=== PATIENT | male | born 1950 | race Caucasian/White ===

== ENCOUNTER 2021-06-15 12:17 | Inpatient (IN) | payer OTHER, MEDICAID ==
[~2021-06-15] VITALS: Ht 182.9 cm; Wt 96.2 kg
[2021-06-15 12:25] VITALS: BP_SYST 138
--- NOTE | 2021-06-15 12:26 | NUR ---
Patient to ER bed 04 to gown for evaluation. Side rails up.
--- NOTE | 2021-06-15 12:28 | NUR ---
[facility] , A&Ox3, pt presents to ER with wound/ulcer on R foot , per caregiver patient needs treatment since [facility] is unable to provide wound care for presure ulcers greater than stage 2, pt afebrile, skin pink and warm, follows commands, VSS, respirations even and unlabored.
[2021-06-15] MEDS ORDERED: MULT-976 PO (13:00)
[2021-06-15] MEDS ORDERED: TAMS-11 PO (13:00)
[2021-06-15] MEDS ORDERED: SITA100T11 PO (13:00)
[2021-06-15] MEDS ORDERED: PIPERACILLIN/TAZO 3.38 GM in D5W 50 ML IV ONE (13:00)
[2021-06-15] MEDS ORDERED: INSU100V42 (13:00)
[2021-06-15] MEDS ORDERED: MIRT-114 PO (13:00)
[2021-06-15] MEDS ORDERED: FINA5TAB3 PO (13:00)
[2021-06-15] MEDS ORDERED: LIP40 PO (13:00)
[2021-06-15] MEDS ORDERED: DOCU-144 PO (13:00)
[2021-06-15] MEDS ORDERED: CYAN250010 PO (13:00)
[2021-06-15] MEDS ORDERED: FAMO20TA8 PO (13:00)
[2021-06-15] MEDS ORDERED: AMLO2.5T2 PO (13:00)
[2021-06-15] MEDS ORDERED: HYDR-3917 PO (13:00)
[2021-06-15] MEDS ORDERED: ASCO500T20 PO (13:00)
[2021-06-15] MEDS ORDERED: CLOP75TA32 PO (13:00)
[2021-06-15] MEDS ORDERED: GABA-529 PO (13:00)
[2021-06-15] MEDS ORDERED: VANCOMYCIN HCL 1,000 MG in D5W 250 ML IV ONE (13:00)
[2021-06-15] MEDS ORDERED: ASPI-1393 PO (13:00)
[2021-06-15] MEDS ORDERED: SENN8.6T19 PO (13:00)
[2021-06-15] MEDS ORDERED: METO-290 PO (13:00)
--- NOTE | 2021-06-15 13:00 | NUR ---
Dr Galvan evaluating patient at bedside
--- NOTE | 2021-06-15 13:01 | NUR ---
Medication reconciliation completed with information provided by [facility]. Any prior medication reconciliation on file was reviewed and corrected.
[2021-06-15 13:15] LABS: BASOPHILS % (AUTO) 0.3 % (0.0-2.0); EOSINOPHILS # (AUTO) 0.1 K/uL (0.0-0.4); EOSINOPHILS % (AUTO) 0.7 % (0.0-4.0); HEMATOCRIT 26.2 % (36-54); HEMOGLOBIN 8.3 g/dL (14.0-18.0); LYMPHOCYTES # (AUTO) 2.7 K/uL (1.0-5.5); LYMPHOCYTES % (AUTO) 17.1 % (20.5-51.5); MEAN CORPUSCULAR HEMOGLOBIN 30 pg (27-31); MEAN CORPUSCULAR HGB CONC 32 % (32-36); MEAN CORPUSCULAR VOLUME 93 fL (79.0-98.0); MONOCYTES # (AUTO) 0.7 K/uL (0.0-1.0); MONOCYTES % (AUTO) 4.2 % (1.7-9.3); NEUTROPHILS # (AUTO) 12.1 K/uL (1.8-7.7); NEUTROPHILS % (AUTO) 77.7 % (40.0-70.0); PLATELET COUNT (AUTO) 383 K/uL (130-430); RED BLOOD CELL COUNT(AUTO) 2.81 MIL/uL (4.2-6.2); RED CELL DISTRIBUTION WIDTH 13.6 % (9.0-15.0); WHITE BLOOD COUNT (AUTO) 15.6 K/uL (4.8-10.8)
[2021-06-15] MEDS ORDERED: PIPERACILLIN/TAZOBACTAM 3.375 GM/VIAL (ZOSYN) IV ONE (13:23)
[2021-06-15] MEDS ORDERED: VANCOMYCIN HCL 1000 MG/VIAL IV ONE (13:23)
[2021-06-15 13:29] LABS: ANION GAP 10 (5-15); CALCIUM 7.8 mg/dL (8.4-11.0); CHLORIDE 106 mmol/L (98-107); CREATININE 1.05 mg/dL (0.55-1.30); GLUCOSE 237 mg/dL (70-99); POTASSIUM 4.9 mmol/L (3.5-5.1); SODIUM SERUM 141 mmol/L (136-145); UREA NITROGEN, BLOOD 33 mg/dL (8-21)
[2021-06-15 13:33] LABS: INR 1.1 (0.80-1.20); PROTHROMBIN TIME 11.1 SECS (9.5-12.5)
[2021-06-15 13:34] LABS: ALANINE AMINOTRANSFERASE 25 U/L (12-78); ALBUMIN 2.5 g/dL (3.4-4.8); ASPARTATE AMINOTRANSFERASE 25 U/L (10-37); TOTAL BILIRUBIN 0.4 mg/dL (0.0-1.0)
--- NOTE | 2021-06-15 13:42 | NUR ---
Notified ED Admittingg regarding Dr. Galvan's request for admission/transfer. Per Dr. Galvan, pt is stable for transfer. Will contact health insurance specialist regarding this matter. PER FACESHEET: VIN MARROQUIN - VIN HARRIS
--- NOTE | 2021-06-15 13:55 | NUR ---
GENERAL ASSEMBLER INSTALLER REQUESTED FAX OF FACESHEET AND CLINICALS AND A JUNIOR MEDIA BUYER WILL CALL BACK. FAX: [phone] ATTN: ANAID
--- NOTE | 2021-06-15 14:13 | NUR ---
portable xray at bedside with patient.
[2021-06-15 14:16] LABS: ERYTHROCYTE SEDIMENTATION RATE 111 MM/HR (0-15)
--- NOTE | 2021-06-15 15:12 | NUR ---
spoke to jada. they are looking for an availible bed for tx.
[2021-06-15 16:15] LABS: BILIRUBIN,URINE NEGATIVE (NEGATIVE); BLOOD, URINE 2+ (NEGATIVE); CLARITY/URINE TURBID (CLEAR); COLOR,URINE ORANGE (YELLOW); GLUCOSE,URINE TRACE (NEGATIVE); KETONES,URINE TRACE (NEGATIVE); LEUKOCYTE ESTERASE ,URINE 3+ (NEGATIVE); NITRITE, URINE POSITIVE (NEGATIVE); PH,URINE 8.5 (5.0-8.0); PROTEIN URINE 3+ (NEGATIVE)
[2021-06-15 16:37] LABS: RBC,URINE >100 /HPF (0-3)
[2021-06-15 16:39] LABS: BACTERIA,URINE MANY /HPF (None Seen); MUCUS,URINE 3+ /LPF (None Seen); WBC,URINE >100 /HPF (0-3)
--- NOTE | 2021-06-15 19:04 | NUR ---
PATIENT TO BE TRANSFERED TO ANOTHER FACILITY D/T INSURANCE FOR ADMISSION. AWAITING FOR INSURANCE TO CALL BACK FOR BED PLACEMENT. PT RESTING ON GURNEY AT THIS TIME. NAD NOTED.
--- NOTE | 2021-06-15 19:26 | NUR ---
report given to dev mello to assume care.
--- NOTE | 2021-06-15 20:53 | NUR ---
Patient will be admitted to care of . Admitted to MS unit. Will go to room 118B. Belongings list completed. Complete and up to date summary report printed. SBAR report to be given at bedside with opportunity for questions.
--- NOTE | 2021-06-15 21:23 | NUR ---
Patient's code status is FULL CODE paperwork completed and placed in chart.
[2021-06-15] MEDS: traMADol HCL HCL 50 MG TABLET (ULTRAM) PO SCH (23:45)
[2021-06-15] MEDS: PIPERACILLIN/TAZO 3.375/DEX-IS 50 ML IV SCH (23:45)
[2021-06-16] MEDS: 0.45% NACL 1,000 ML IV SCH ×2 (00:34→15:04)
[2021-06-16 00:45] VITALS: BP_SYST 120
[2021-06-16] MEDS ORDERED: VANCOMYCIN HCL 1 GM/NS PREMIX 250 ML IV ONE (01:30)
--- NOTE | 2021-06-16 04:13 | NUR ---
I INFORMED MY CHARGE NURSE ABOUT CONSULTATION DR. RIBERA ENTERED FOR DR. DESI ELIZABETH WE DO NOT HAVE ANY NUMBER TO CONTACT THIS DOCTOR I WILL PASS THIS INFORMATION TO MORNING SIGN LANGUAGE INSTRUCTOR
[2021-06-16] MEDS ORDERED: PIPERACILLIN/TAZOBACTAM 3.375 GM/VIAL (ZOSYN) IV ONE (05:32)
[2021-06-16] MEDS: traMADol HCL HCL 50 MG TABLET (ULTRAM) PO SCH ×4 (06:00→18:01)
[2021-06-16] MEDS: PIPERACILLIN/TAZO 3.375/DEX-IS 50 ML IV SCH ×4 (06:34→18:30)
--- NOTE | 2021-06-16 07:40 | NUR ---
OPENING NOTE Patient in bed sleeping, no sign of respiratory distress on room air, no sign of pain at this time. Patient's heels are floating and pillows are being used to offset weight. IV site is clean, dry, intact and running prescribed fluids. All needs met at this time, safety checks made, and will continue to monitor.
[2021-06-16 08:00] VITALS: BP_SYST 126
[2021-06-16] MEDS: VANCOMYCIN HCL 1,000 MG in NS 250 ML IV SCH ×2 (08:51→21:15)
[2021-06-16] MEDS: amLODIPine BESYLATE 5 MG TABLET PO SCH (09:00)
[2021-06-16] MEDS: DOCUSATE SODIUM 100 MG CAPSULE PO SCH ×2 (09:00→21:15)
[2021-06-16] MEDS: GABAPENTIN 100 MG CAPSULE PO SCH (09:22)
[2021-06-16] MEDS: ASCORBIC ACID 500 MG TABLET PO SCH (09:22)
[2021-06-16] MEDS: FINASTERIDE 5 MG TABLET (PROSCAR) PO SCH (09:22)
[2021-06-16] MEDS: MULTIVITAMINS TAB 1 TABLET PO SCH (09:22)
[2021-06-16] MEDS: CLOPIDOGREL BISULFATE 75 MG TABLET PO SCH (09:22)
[2021-06-16] MEDS: SENNOSIDES 8.6 MG TABLET PO SCH (09:22)
[2021-06-16] MEDS: TAMSULOSIN HCL 0.4 MG CAP PO SCH (09:23)
[2021-06-16] MEDS: ASPIRIN 81 MG TABLET(ECOTRIN) PO SCH (09:23)
[2021-06-16] MEDS: FAMOTIDINE 20 MG TABLET PO SCH (09:23)
--- NOTE | 2021-06-16 09:30 | NUR ---
PAIN Patient complained of pain in his legs and feet, states that it gets worse when he is moved around. Offered to help patient reposition, and provided tylenol. Will continue to monitor.
[2021-06-16] MEDS: ACETAMINOPHEN 325 MG TABLET PO PRN (09:38)
[2021-06-16 12:00] VITALS: BP_SYST 132
--- NOTE | 2021-06-16 15:22 | NUR ---
CONSULTATION PAGED/CALLED Reason for Consultation: [] UTI AND R HEEL INFECTION Person Who was Notified: [] MICH Consulting Physician: [] DR FRITZ Transportation Attendant Specialty: [] ID Ordering Physician: [] DR RIBERA
[2021-06-16 16:51] VITALS: BP_SYST 128
--- NOTE | 2021-06-16 19:40 | NUR ---
OPENING NOTES/ROUNDS RECEIVED REPORT FROM OUTGOING NURSE. PT LYING IN BED RESTING. ON ASSESSMENT NOTED PT C/O HUN FER THAT HE HAS NOT HAD DINNER. DINNER TRAY ON THE BEDSIDE TABLE UNTOUCHED. PT IS A FEEDER. ASKED THE DRILLER HELPER TO HELP FEED HIM, GOT REPORT FROM DRILLER HELPER THAT PT COULD NOT EAT/SWALLOW. PT OFFERED APPLE SAUCE, APPLE JUICE. PT HAS IV RT HAND, 22 G RUNNING WITH 1/2 NS @75ML/HR. VITALS WNL.
--- NOTE | 2021-06-16 19:57 | NUR ---
CLOSING NOTE Patient awake in bed, no sign of shortness of breath. Patient states that he only has pain when he is moved around. IV is patent and running prescribed fluids. All needs met at this time and safety checks made. Report given to night nurse, all questions answered and new wound care orders reviewed.
[2021-06-16] MEDS: MEGESTROL ACETATE 400 MG/10 ML UDC PO SCH (21:17)
[2021-06-16] MEDS: MIRTAZAPINE 15 MG TABLET PO SCH (21:17)
[2021-06-16] MEDS: ENOXAPARIN SODIUM 40 MG/0.4 ML SYRINGE SUBCUT SCH (21:19)
[2021-06-16] MEDS: ATORVASTATIN 20 MG TABLET PO SCH (21:25)
[2021-06-17] MEDS: traMADol HCL HCL 50 MG TABLET (ULTRAM) PO SCH ×3 (00:45→18:00)
[2021-06-17] MEDS: PIPERACILLIN/TAZO 3.375/DEX-IS 50 ML IV SCH ×5 (00:53→23:18)
[2021-06-17] MEDS: 0.45% NACL 1,000 ML IV SCH ×2 (02:25→16:52)
[2021-06-17 03:07] VITALS: BP_SYST 137
[2021-06-17] MEDS: INSULIN REGULAR, HUMAN 100 UNITS/ML, 10 ML VIAL (humuLIN R) SUBCUT PRN ×2 (06:45→16:54)
[2021-06-17 07:03] LABS: BASOPHILS % (AUTO) 0.3 % (0.0-2.0); EOSINOPHILS # (AUTO) 0.7 K/uL (0.0-0.4); EOSINOPHILS % (AUTO) 4.1 % (0.0-4.0); HEMATOCRIT 22.7 % (36-54); HEMOGLOBIN 7.5 g/dL (14.0-18.0); LYMPHOCYTES # (AUTO) 2.4 K/uL (1.0-5.5); LYMPHOCYTES % (AUTO) 14.9 % (20.5-51.5); MEAN CORPUSCULAR HEMOGLOBIN 30 pg (27-31); MEAN CORPUSCULAR HGB CONC 33 % (32-36); MEAN CORPUSCULAR VOLUME 91 fL (79.0-98.0); MONOCYTES # (AUTO) 0.6 K/uL (0.0-1.0); MONOCYTES % (AUTO) 3.8 % (1.7-9.3); NEUTROPHILS # (AUTO) 12.6 K/uL (1.8-7.7); NEUTROPHILS % (AUTO) 76.9 % (40.0-70.0); PLATELET COUNT (AUTO) 283 K/uL (130-430); RED BLOOD CELL COUNT(AUTO) 2.49 MIL/uL (4.2-6.2); RED CELL DISTRIBUTION WIDTH 13.5 % (9.0-15.0); WHITE BLOOD COUNT (AUTO) 16.4 K/uL (4.8-10.8)
[2021-06-17 07:33] LABS: ANION GAP 7 (5-15); CALCIUM 7.2 mg/dL (8.4-11.0); CHLORIDE 103 mmol/L (98-107); CREATININE 0.78 mg/dL (0.55-1.30); GLUCOSE 163 mg/dL (70-99); POTASSIUM 3.5 mmol/L (3.5-5.1); SODIUM SERUM 138 mmol/L (136-145); UREA NITROGEN, BLOOD 27 mg/dL (8-21)
[2021-06-17 08:00] VITALS: BP_SYST 131
[2021-06-17] MEDS ORDERED: ESCITALOPRAM OXALATE 10 MG TABLET PO SCH (09:00)
[2021-06-17] MEDS: CLOPIDOGREL BISULFATE 75 MG TABLET PO SCH (09:12)
[2021-06-17] MEDS: ASPIRIN 81 MG TABLET(ECOTRIN) PO SCH (09:12)
[2021-06-17] MEDS: TAMSULOSIN HCL 0.4 MG CAP PO SCH (09:13)
[2021-06-17] MEDS: DOCUSATE SODIUM 100 MG CAPSULE PO SCH ×2 (09:13→21:00)
[2021-06-17] MEDS: SENNOSIDES 8.6 MG TABLET PO SCH (09:13)
[2021-06-17] MEDS: FAMOTIDINE 20 MG TABLET PO SCH (09:13)
[2021-06-17] MEDS: ASCORBIC ACID 500 MG TABLET PO SCH (09:13)
[2021-06-17] MEDS: FINASTERIDE 5 MG TABLET (PROSCAR) PO SCH (09:13)
[2021-06-17] MEDS: amLODIPine BESYLATE 5 MG TABLET PO SCH (09:14)
[2021-06-17] MEDS: MEGESTROL ACETATE 400 MG/10 ML UDC PO SCH ×2 (09:14→23:08)
[2021-06-17] MEDS: MULTIVITAMINS TAB 1 TABLET PO SCH (09:14)
[2021-06-17] MEDS: CITALOPRAM HYDROBROMIDE 20 MG TABLET PO SCH (09:14)
[2021-06-17] MEDS: GABAPENTIN 100 MG CAPSULE PO SCH (09:20)
[2021-06-17] MEDS: VANCOMYCIN HCL 1,000 MG in NS 250 ML IV SCH ×2 (09:21→21:00)
[2021-06-17 12:14] VITALS: BP_SYST 130
[2021-06-17 16:20] VITALS: BP_SYST 132
[2021-06-17] MEDS: metroNIDAZOLE 500 MG TABLET PO SCH ×2 (16:50→23:08)
[2021-06-17] MEDS: BALSAM PERU/CASTOR OIL 56.7 GM OINT...G. TP SCH (17:17)
--- NOTE | 2021-06-17 17:29 | NUR ---
Dietitian Recommendations * CCHO, 2 gm Na diet w/ Glucerna TID, Roger BID (supplements yield 840 kcal/day, 35 gm protein/day) * Encourage increase PO intakes * Continue appetite stimulants LP, RD Please refer to Nutrition Assessment for details. Addendum: 06/17/21 at [address] Amended: Links added.
[2021-06-17] MEDS: CEFEPIME 1 GM in D5W 50 ML IV SCH (21:00)
[2021-06-17] MEDS: MIRTAZAPINE 15 MG TABLET PO SCH (23:08)
[2021-06-17] MEDS: ATORVASTATIN 20 MG TABLET PO SCH (23:08)
[2021-06-17] MEDS: ENOXAPARIN SODIUM 40 MG/0.4 ML SYRINGE SUBCUT SCH (23:23)
[2021-06-18 00:11] VITALS: BP_SYST 128
--- NOTE | 2021-06-18 03:26 | NUR ---
ASSUMED PT CARE @ 1900, PT RESTING IN BED. NAD NOTED. PIV INFILTRATED. 20 G PLACED TO LFA X 1 ATTEMPT. PT TOLERATED PROCEDURE.
[2021-06-18] MEDS: traMADol HCL HCL 50 MG TABLET (ULTRAM) PO SCH ×3 (06:00→16:17)
[2021-06-18] MEDS: 0.45% NACL 1,000 ML IV SCH ×2 (06:18→16:20)
[2021-06-18] MEDS: PIPERACILLIN/TAZO 3.375/DEX-IS 50 ML IV SCH (06:19)
[2021-06-18] MEDS: metroNIDAZOLE 500 MG TABLET PO SCH ×3 (06:25→21:05)
[2021-06-18 06:30] VITALS: BP_SYST 144
[2021-06-18 06:41] LABS: BASOPHILS % (AUTO) 0.1 % (0.0-2.0); EOSINOPHILS # (AUTO) 0.6 K/uL (0.0-0.4); EOSINOPHILS % (AUTO) 3.5 % (0.0-4.0); HEMOGLOBIN 7.2 g/dL (14.0-18.0); LYMPHOCYTES # (AUTO) 2.8 K/uL (1.0-5.5); LYMPHOCYTES % (AUTO) 17.7 % (20.5-51.5); MEAN CORPUSCULAR HEMOGLOBIN 30 pg (27-31); MEAN CORPUSCULAR HGB CONC 33 % (32-36); MEAN CORPUSCULAR VOLUME 91 fL (79.0-98.0); MONOCYTES # (AUTO) 0.6 K/uL (0.0-1.0); MONOCYTES % (AUTO) 3.9 % (1.7-9.3); NEUTROPHILS # (AUTO) 11.9 K/uL (1.8-7.7); NEUTROPHILS % (AUTO) 74.8 % (40.0-70.0); PLATELET COUNT (AUTO) 277 K/uL (130-430); RED BLOOD CELL COUNT(AUTO) 2.43 MIL/uL (4.2-6.2); RED CELL DISTRIBUTION WIDTH 13.4 % (9.0-15.0); WHITE BLOOD COUNT (AUTO) 15.9 K/uL (4.8-10.8)
[2021-06-18 07:08] LABS: ANION GAP 8 (5-15); CALCIUM 7.1 mg/dL (8.4-11.0); CHLORIDE 102 mmol/L (98-107); CREATININE 0.73 mg/dL (0.55-1.30); GLUCOSE 132 mg/dL (70-99); POTASSIUM 3.5 mmol/L (3.5-5.1); SODIUM SERUM 136 mmol/L (136-145); UREA NITROGEN, BLOOD 29 mg/dL (8-21)
[2021-06-18 08:00] VITALS: BP_SYST 125; BP_SYST 135
[2021-06-18] MEDS: CITALOPRAM HYDROBROMIDE 20 MG TABLET PO SCH (08:49)
[2021-06-18] MEDS: CEFEPIME 1 GM in D5W 50 ML IV SCH ×2 (08:49→21:01)
[2021-06-18] MEDS: VANCOMYCIN HCL 1,000 MG in NS 250 ML IV SCH (08:49)
[2021-06-18] MEDS: ASPIRIN 81 MG TABLET(ECOTRIN) PO SCH (08:50)
[2021-06-18] MEDS: DOCUSATE SODIUM 100 MG CAPSULE PO SCH ×2 (08:50→21:04)
[2021-06-18] MEDS: CLOPIDOGREL BISULFATE 75 MG TABLET PO SCH (08:51)
[2021-06-18] MEDS: MEGESTROL ACETATE 400 MG/10 ML UDC PO SCH ×2 (08:51→21:00)
[2021-06-18] MEDS: GABAPENTIN 100 MG CAPSULE PO SCH (08:51)
[2021-06-18] MEDS: MULTIVITAMINS TAB 1 TABLET PO SCH (08:51)
[2021-06-18] MEDS: TAMSULOSIN HCL 0.4 MG CAP PO SCH (08:51)
[2021-06-18] MEDS: ASCORBIC ACID 500 MG TABLET PO SCH (08:52)
[2021-06-18] MEDS: SENNOSIDES 8.6 MG TABLET PO SCH (08:52)
[2021-06-18] MEDS: FAMOTIDINE 20 MG TABLET PO SCH (08:52)
[2021-06-18] MEDS: amLODIPine BESYLATE 5 MG TABLET PO SCH (08:54)
[2021-06-18] MEDS: BALSAM PERU/CASTOR OIL 56.7 GM OINT...G. TP SCH (09:00)
[2021-06-18] MEDS: FINASTERIDE 5 MG TABLET (PROSCAR) PO SCH (09:08)
[2021-06-18] MEDS: INSULIN REGULAR, HUMAN 100 UNITS/ML, 10 ML VIAL (humuLIN R) SUBCUT PRN ×2 (11:23→16:51)
[2021-06-18 12:47] VITALS: BP_SYST 133
[2021-06-18 16:34] VITALS: BP_SYST 128
--- NOTE | 2021-06-18 19:25 | NUR ---
CHANGE OF SHIFT; endorsed by day shift. no distress. on contact isolation for MRSA rt. heel wound. call light within reach.
[2021-06-18 20:15] VITALS: BP_SYST 118
--- NOTE | 2021-06-18 20:30 | NUR ---
NOTES: pt. checked, fiinished eating his dinner. noted left sided weakness due to Hx CVA. IVF infusing via left arm. noted left upper extremity pretty swollen. pt. incontinent. asked CUTTER MACHINE TENDER to changed and reposition. bed alarm on. call light within reach.
[2021-06-18] MEDS: ATORVASTATIN 20 MG TABLET PO SCH (20:59)
[2021-06-18] MEDS: MIRTAZAPINE 15 MG TABLET PO SCH (21:04)
[2021-06-18] MEDS: ENOXAPARIN SODIUM 40 MG/0.4 ML SYRINGE SUBCUT SCH (21:07)
--- NOTE | 2021-06-19 00:03 | NUR ---
NOTES: pt. sleeping when checked. no distress. bed alarm on.
[2021-06-19 00:21] VITALS: BP_SYST 122
--- NOTE | 2021-06-19 03:00 | NUR ---
NOTES: pt. been sleeping comfortably. continue to monitor, condition observed.
--- NOTE | 2021-06-19 05:30 | NUR ---
NOTES: rt. heel and left calf wound changed dressing. repositioned.
[2021-06-19] MEDS: 0.45% NACL 1,000 ML IV SCH ×2 (06:07→21:01)
[2021-06-19] MEDS: metroNIDAZOLE 500 MG TABLET PO SCH ×4 (06:15→22:00)
--- NOTE | 2021-06-19 06:43 | NUR ---
CLOSING NOTES; BS checked, no sliding coverage. oral med taken with orange juice. IVF continuous. need further care and assistance. left arm elevated with pillow and both legs. bed alarm on. observed contact isolation. call light within reach.
--- NOTE | 2021-06-19 07:20 | NUR ---
RECEIVED PT FROM CHEL GARCIA. ASSUMED ALL CARE.
[2021-06-19 07:42] LABS: BASOPHILS % (AUTO) 0.3 % (0.0-2.0); EOSINOPHILS # (AUTO) 0.4 K/uL (0.0-0.4); EOSINOPHILS % (AUTO) 2.7 % (0.0-4.0); LYMPHOCYTES # (AUTO) 2.5 K/uL (1.0-5.5); LYMPHOCYTES % (AUTO) 17.1 % (20.5-51.5); MEAN CORPUSCULAR HEMOGLOBIN 29 pg (27-31); MEAN CORPUSCULAR HGB CONC 32 % (32-36); MEAN CORPUSCULAR VOLUME 91 fL (79.0-98.0); MONOCYTES # (AUTO) 0.5 K/uL (0.0-1.0); MONOCYTES % (AUTO) 3.5 % (1.7-9.3); NEUTROPHILS % (AUTO) 76.4 % (40.0-70.0); PLATELET COUNT (AUTO) 267 K/uL (130-430); RED BLOOD CELL COUNT(AUTO) 2.32 MIL/uL (4.2-6.2); RED CELL DISTRIBUTION WIDTH 13.5 % (9.0-15.0); WHITE BLOOD COUNT (AUTO) 14.4 K/uL (4.8-10.8)
[2021-06-19 08:07] LABS: ANION GAP 6 (5-15); CHLORIDE 103 mmol/L (98-107); GLUCOSE 106 mg/dL (70-99); POTASSIUM 3.7 mmol/L (3.5-5.1); SODIUM SERUM 135 mmol/L (136-145); UREA NITROGEN, BLOOD 22 mg/dL (8-21)
[2021-06-19] MEDS: CLOPIDOGREL BISULFATE 75 MG TABLET PO SCH (09:00)
[2021-06-19 09:15] LABS: HEMATOCRIT 21.2 % (36-54); HEMOGLOBIN 6.8 g/dL (14.0-18.0)
[2021-06-19 09:53] LABS: VANCOMYCIN,RANDOM 15.4 ug/mL
[2021-06-19] MEDS: MULTIVITAMINS TAB 1 TABLET PO SCH (10:22)
[2021-06-19] MEDS: CITALOPRAM HYDROBROMIDE 20 MG TABLET PO SCH (10:22)
[2021-06-19] MEDS: ASCORBIC ACID 500 MG TABLET PO SCH (10:22)
[2021-06-19] MEDS: ASPIRIN 81 MG TABLET(ECOTRIN) PO SCH (10:23)
[2021-06-19] MEDS: TAMSULOSIN HCL 0.4 MG CAP PO SCH (10:23)
[2021-06-19] MEDS: FAMOTIDINE 20 MG TABLET PO SCH (10:23)
[2021-06-19] MEDS: FINASTERIDE 5 MG TABLET (PROSCAR) PO SCH (10:23)
[2021-06-19] MEDS: MEGESTROL ACETATE 400 MG/10 ML UDC PO SCH ×2 (10:24→21:00)
[2021-06-19] MEDS: DOCUSATE SODIUM 100 MG CAPSULE PO SCH ×2 (10:25→21:00)
[2021-06-19] MEDS: amLODIPine BESYLATE 5 MG TABLET PO SCH (10:25)
[2021-06-19] MEDS: SENNOSIDES 8.6 MG TABLET PO SCH (10:25)
[2021-06-19] MEDS: GABAPENTIN 100 MG CAPSULE PO SCH (10:26)
[2021-06-19] MEDS: CEFEPIME 1 GM in D5W 50 ML IV SCH ×2 (10:27→21:01)
[2021-06-19] MEDS: BALSAM PERU/CASTOR OIL 56.7 GM OINT...G. TP SCH (10:28)
--- NOTE | 2021-06-19 10:30 | NUR ---
INFORMED DR. RIBERA PT'S HGB 6.8, RECEIVED ORDER TO TRANFUSE 2 UNITS PRBCS. ORDERS CARRIED OUT. PT MADE AWARE.
[2021-06-19 11:25] VITALS: BP_SYST 121
[2021-06-19] MEDS: traMADol HCL HCL 50 MG TABLET (ULTRAM) PO SCH ×4 (12:18→23:59)
[2021-06-19] MEDS: VANCOMYCIN HCL 1 GM/NS PREMIX 250 ML IV SCH (12:19)
--- NOTE | 2021-06-19 14:30 | NUR ---
PT NOTED WITH POOR APPETITE, DR. RIBERA MADE AWARE.
--- NOTE | 2021-06-19 16:00 | NUR ---
INFORMED CONSENT OBTAINED FOR PICC LINE.
[2021-06-19 16:45] VITALS: BP_SYST 126
--- NOTE | 2021-06-19 17:12 | NUR ---
WOUND EVALUATION: Wound Consult received from Dr. Winn. Thank you, Dr. Winn, for the consult. Patient received in a Upton Bed with an IsoFlex ZAHIRA mattress, awake, alert, confused. Patient is unable to turn independently. Jose Score is an 11. Past Medical History: Hypertension, Diabetes Mellitus, CVA, Right Heel pressure ulcer with infection, Benign Prostatic Hypertrophy. Recent Labs: WBC 14.4, RBC 2.32, hemoglobin 6.8, hematocrit 21.2, ESR 111, BUN 22.0, creatinine 0.60, glucose 106, POC glucose 155, calcium 7.0, albumin 2.5. Microbiology: Blood culture results x2 in progress. MRSA screen results negative. Right heel pressure ulcer wound culture results positive for Proteus Mirabilis, MRSA, and Enterococcus Faecalis. Urine culture results positive for Proteus Mirabilis. Intrinsic factors that delay wound healing: Diabetes Mellitus, CVA, Hyperglycemia, Hypoalbuminemia. Extrinsic factors that delay wound healing: Decreased mobility. Wound Assessment: 1. Right Posterior Heel: Unstageable pressure ulcer, present on admission. Wound bed has 100% black eschar. No odor, scant brown drainage. Periwound intact. Wound measures 6.0 cm x 7.0 cm. Recommend: Cleanse wound with normal saline. Apply moisture barrier cream to margo-wound. Apply to wound bed cover with non-adhesive foam dressing. Secure with tape. Perform wound care daily, and as needed for dressing soiling or dislodgement. 2. Right Dorsal Foot, Distal and Right Lateral to Ankle joint line: Chronic wound of unknown etiology, present on admission. Wound bed has 100% black scab. No odor, no drainage. Periwound intact. Wound measures 0.5 cm x 0.5 cm. 3. Right Lateral Malleolus: Unstageable pressure ulcer, present on admission. Wound bed has 100% brown eschar. No odor, no drainage. Dry, stable. Periwound intact. Wound measures 1.0 cm x 0.8 cm. 4. Right Distal Lateral Lower Extremity: Unstageable pressure ulcer, present on admission. Wound bed has 90% black eschar, 10% yellow eschar. No odor, no drainage. Periwound intact. Dry, stable. Wound measures 4.1 cm x 2.0 cm. 5. Right Lateral Foot, Middle Aspect: Unstageable pressure ulcer, present on admission. Wound bed has 80% black eschar, 20% yellow eschar. No odor, no drainage. Periwound intact. Dry, stable. Wound measures 3.4 cm x 1.8 cm. Recommend: Masthope sites with Betadine. Allow to air dry. Cover sites with foam dressings. Wrap with Arnaldo wrap and secure with tape. Perform site care daily, and as needed for dressing soiling or dislodgment. 6. Left lateral plantar foot near first metatarsal head: Unstageable pressure ulcer, present on admission. Wound bed has 90% brown eschar, 10% dark brown eschar. No odor, no drainage. Dry, stable. Wound measures 1.5 cm x 1.0 cm. Recommend: Masthope site with Betadine. Allow to air dry. Cover site with 4x4 foam dressing. Perform site care daily, and as needed for dressing soiling or dislodgment. Also recommend: Encourage and assist patient as needed with repositioning every 2 hours with pillow support and off-load pressure areas with pillows for pressure re-distribution. Offload, elevate and float bilateral heels with pillows. Perform skin care and monitor skin integrity Q shift. Use moisture barrier cream on buttocks and other moisture susceptible areas QID and as needed for soiling. Place patient on a low air-loss mattress. Recommend surgical consult for Right Posterior Heel Wound.
--- NOTE | 2021-06-19 17:30 | NUR ---
FIRST UNIT OF 2 UNITS PRBC INITIATED. PT EDUCATED NO S/S OF TRANSFUSION RX. VERBALIZED UNDERSTANDING.
[2021-06-19] MEDS: INSULIN REGULAR, HUMAN 100 UNITS/ML, 10 ML VIAL (humuLIN R) SUBCUT PRN (17:57)
--- NOTE | 2021-06-19 19:30 | NUR ---
RECEIVED BEDSIDE REPORT. PT RECEIVING BLOOD TRANSFUSION. WILL CONTINUE TO MONITOR. PT TOLERATING WELL.
--- NOTE | 2021-06-19 19:44 | NUR ---
ENDORSED ALL CARE TO RADHA TOLENTINO. ALL QUESTIONS AND CONCERNS ADDRESSED. MADE HIM AWARE PT HAS A SECOUND TRANSFUSION OF PRBC DUE ONCE THE FIRST IS COMPLETED AND THAT PT HAS ORDER FOR MIDLINE, THE PICC LINE NURSE CALLED AND STATED HE WILL ARRIVE SOON.
[2021-06-19 20:49] VITALS: BP_SYST 137
[2021-06-19] MEDS: ATORVASTATIN 20 MG TABLET PO SCH (21:00)
[2021-06-19] MEDS: MIRTAZAPINE 15 MG TABLET PO SCH (21:00)
[2021-06-19] MEDS ORDERED: MEGESTROL ACETATE 400 MG/10 ML UDC PO SCH (21:00)
[2021-06-19] MEDS: ENOXAPARIN SODIUM 40 MG/0.4 ML SYRINGE SUBCUT SCH (21:02)
--- NOTE | 2021-06-19 22:00 | NUR ---
BLOOD TRANSFUSION COMPLETED. PT TOLERATED WELL WITH NO ADVERSE REACTIONS. PT ALSO HAD MIDLINE INSERTED IN ADARSH. PT TOLERATED WELL. PICC NURSE SAID MIDLINE IS OK TO USE. WILL TRANSFUSE SECOND UNIT OF BLOOD
--- NOTE | 2021-06-20 00:02 | NUR ---
PT CURRENTLY ASLEEP. STARTED SECOND UNIT OF BLOOD. VERIFIED WITH A SECOND NURSE. WILL MONITOR PT FOR FIRST 15 MINUTES FOR ANY ADVERSE REACTIONS. .
[2021-06-20 01:27] VITALS: BP_SYST 139
[2021-06-20] MEDS: 0.45% NACL 1,000 ML IV SCH ×2 (03:14→23:29)
--- NOTE | 2021-06-20 03:29 | NUR ---
2ND BLOOD TRANSFUSION COMPLETED. PT TOLERATED WELL. VITALS WITHIN NORMAL RANGE. NO ADVERSE REACTIONS NOTED. PT IN BED RESTING WITH EYES CLOSED. ALL NEEDS MEET AT THIS TIME. WILL CONTINUE TO MONITOR.
[2021-06-20] MEDS: traMADol HCL HCL 50 MG TABLET (ULTRAM) PO SCH ×4 (06:00→23:30)
[2021-06-20] MEDS: metroNIDAZOLE 500 MG TABLET PO SCH ×3 (06:00→21:49)
--- NOTE | 2021-06-20 07:06 | NUR ---
PT REFUSED ALMOST ALL PO MEDS THROUGH OUT SHIFT. PT DID NOT APPEAR TO BE IN PAIN AND WAS SLEEPY DURING THE SHIFT
--- NOTE | 2021-06-20 07:37 | NUR ---
endorse care to day rn. pt in bed asleep
[2021-06-20 08:17] VITALS: BP_SYST 155
[2021-06-20] MEDS: GABAPENTIN 100 MG CAPSULE PO SCH (11:03)
[2021-06-20] MEDS: TAMSULOSIN HCL 0.4 MG CAP PO SCH (11:03)
[2021-06-20] MEDS: SENNOSIDES 8.6 MG TABLET PO SCH (11:04)
[2021-06-20] MEDS: FAMOTIDINE 20 MG TABLET PO SCH (11:04)
[2021-06-20] MEDS: ASPIRIN 81 MG TABLET(ECOTRIN) PO SCH (11:04)
[2021-06-20] MEDS: MULTIVITAMINS TAB 1 TABLET PO SCH (11:04)
[2021-06-20] MEDS: CLOPIDOGREL BISULFATE 75 MG TABLET PO SCH (11:04)
[2021-06-20] MEDS: MEGESTROL ACETATE 400 MG/10 ML UDC PO SCH ×2 (11:05→21:49)
[2021-06-20] MEDS: DOCUSATE SODIUM 100 MG CAPSULE PO SCH ×2 (11:05→21:50)
[2021-06-20] MEDS: CITALOPRAM HYDROBROMIDE 20 MG TABLET PO SCH (11:05)
[2021-06-20] MEDS ORDERED: GADOTERATE MEGLUMINE 7.5 MMOL/15 ML VIAL IV ONE (11:05)
[2021-06-20] MEDS: ASCORBIC ACID 500 MG TABLET PO SCH (11:08)
[2021-06-20] MEDS: amLODIPine BESYLATE 5 MG TABLET PO SCH (11:08)
[2021-06-20] MEDS: FINASTERIDE 5 MG TABLET (PROSCAR) PO SCH (11:09)
[2021-06-20 11:10] LABS: BASOPHILS # (AUTO) 0.1 K/uL (0.0-0.2); BASOPHILS % (AUTO) 0.4 % (0.0-2.0); EOSINOPHILS # (AUTO) 0.3 K/uL (0.0-0.4); EOSINOPHILS % (AUTO) 2.1 % (0.0-4.0); HEMATOCRIT 32.7 % (36-54); HEMOGLOBIN 10.7 g/dL (14.0-18.0); LYMPHOCYTES # (AUTO) 2.2 K/uL (1.0-5.5); LYMPHOCYTES % (AUTO) 15.6 % (20.5-51.5); MEAN CORPUSCULAR HEMOGLOBIN 28 pg (27-31); MEAN CORPUSCULAR HGB CONC 33 % (32-36); MEAN CORPUSCULAR VOLUME 86 fL (79.0-98.0); MONOCYTES # (AUTO) 0.5 K/uL (0.0-1.0); MONOCYTES % (AUTO) 3.3 % (1.7-9.3); NEUTROPHILS # (AUTO) 11.3 K/uL (1.8-7.7); NEUTROPHILS % (AUTO) 78.6 % (40.0-70.0); PLATELET COUNT (AUTO) 288 K/uL (130-430); RED BLOOD CELL COUNT(AUTO) 3.79 MIL/uL (4.2-6.2); RED CELL DISTRIBUTION WIDTH 16.3 % (9.0-15.0); WHITE BLOOD COUNT (AUTO) 14.4 K/uL (4.8-10.8)
[2021-06-20] MEDS: VANCOMYCIN HCL 1 GM/NS PREMIX 250 ML IV SCH (11:11)
[2021-06-20] MEDS: CEFEPIME 1 GM in D5W 50 ML IV SCH ×2 (11:12→21:48)
[2021-06-20 11:39] LABS: ALANINE AMINOTRANSFERASE 42 U/L (12-78); ANION GAP 6 (5-15); ASPARTATE AMINOTRANSFERASE 31 U/L (10-37); CHLORIDE 104 mmol/L (98-107); CREATININE 0.69 mg/dL (0.55-1.30); GLUCOSE 138 mg/dL (70-99); POTASSIUM 3.9 mmol/L (3.5-5.1); SODIUM SERUM 136 mmol/L (136-145); TOTAL BILIRUBIN 0.2 mg/dL (0.0-1.0); UREA NITROGEN, BLOOD 21 mg/dL (8-21)
[2021-06-20 12:39] VITALS: BP_SYST 158
[2021-06-20] MEDS: BALSAM PERU/CASTOR OIL 56.7 GM OINT...G. TP SCH (14:00)
--- NOTE | 2021-06-20 14:02 | NUR ---
Nutrition F/U Nutritional Screening High Risk Screening Consult Admitting Diagnosis Decubitus R foot infection Medical History Comment: HTN, DM, CVA, and BPH per physician notes Pt also found w/ severe malnutrition, complicated UTI-GNR, and R heel PU-infected d/t GNR/polymicrobial per physician notes SARS-CoV-2 Ag (Rapid) Negative 06/15 Subjective Information Bedside visit deferred d/t high RD workload. Per EMR review, infected PU R. heel and needs surgical debridement; plan for possible MRI R heel; pt is on RA; 26% average PO intakes x6 meal records refusing some meals; last BM x1 06/20; Jose scale: 13 w/ wounds noted to lateral R calf and R heel; L. arm 2+ pitting edema. Current Diet Order/Nutrition Support CCHO, 2 gm Na, Roger BID, Glucerna shake TID x 3 days Patient/Significant Other Unable To Verbalize Education Provided Not Indicated Pertinent Medications megace, remeron, lipitor, lovenox, vancomycin, MVI, senna, pepcid, colace, flagyl, Vit C, SSI Pertinent Labs WBC 14.4 H, BG 138 H, POC BG 138 H Height (Feet) 6 feet Height (Inches) 0.00 inches Weight (Pounds) 167 pounds Weight (Calculated Kilograms) 75.382911 kilograms Patient Weight 75.75 kg Body Mass Index 22.65 kg/m2 %IBW 94 [place]/Adjusted Body Weight 178#/81 kg Weight Status Underweight Current % PO Poor (25-49%) Estimated Energy Expenditure (kcals/day) 5520-7950 (30-35 kcal/kg CBW d/t wound healing) Estimated Protein Required (g/day) 91-114 (1.2-1.5 gm/kg CBW d/t wound healing) Estimated Fluid Required (l/day) 2.3-2.7 (1 ml/kcal/day for wound healing) Problem/Etiology/Signs/Symptoms Increased nutritional needs R/T metabolic demands AEB estimated nutritional requirements for wound healing. Expected Outcomes/Goals - Monitor appetite and PO intakes w/ goal of pt meeting >50% of estimated nutritional needs, labs trending WNL, normal GI function, and skin integrity/wt maintenance Dietitian Recommendations * Continue current diet prescription: CCHO, 2 gm Na diet w/ Glucerna TID, Roger BID (supplements yield 840 kcal/day, 35 gm protein/day) * Encourage increase PO intakes * Continue appetite stimulants Follow Up High Risk: F/U in 2-3days
[2021-06-20 15:56] VITALS: BP_SYST 149
[2021-06-20 20:00] VITALS: BP_SYST 141
--- NOTE | 2021-06-20 20:12 | NUR ---
Received patient from AM shift. Patient is AA&Ox4 able to make needs known, denies any chest pain or SOB. Chest rise is even and unlabored on RA. BS are present x4, denies pain with palpation, no distention noted. Patient is incontinent denies discomfort with urination. Safety measures are in place: Bed is locked, armed, in the lowest position with bed rails up. Patient is stable will continue to monitor the patient throughout the shift.
[2021-06-20] MEDS: ATORVASTATIN 20 MG TABLET PO SCH (21:49)
[2021-06-20] MEDS: MIRTAZAPINE 15 MG TABLET PO SCH (21:49)
[2021-06-20] MEDS: ENOXAPARIN SODIUM 40 MG/0.4 ML SYRINGE SUBCUT SCH (21:55)
[2021-06-20] MEDS: INSULIN REGULAR, HUMAN 100 UNITS/ML, 10 ML VIAL (humuLIN R) SUBCUT PRN (22:13)
[2021-06-21 02:00] VITALS: BP_SYST 134
--- NOTE | 2021-06-21 05:28 | NUR ---
Consultation Paged Reason for Consultation: RT Heel Pressure Ulcer Was consult called: Y Person who was notified: Dulce Consulting Physician: Dr. Langston Ordering Physician: Dr. Winn
[2021-06-21] MEDS: metroNIDAZOLE 500 MG TABLET PO SCH ×3 (06:11→21:26)
[2021-06-21] MEDS: traMADol HCL HCL 50 MG TABLET (ULTRAM) PO SCH (06:11)
--- NOTE | 2021-06-21 06:43 | NUR ---
Patient is bed resting no s/s of distress is noted at this time. Chest rise is even and unlabored on RA. Patient is makenna to verbalize needs and denies any pain or distress. All current shift needs have been met and call light is within reach. Patient is currently stable, and will differ further care to AM shift for continuity of care.
[2021-06-21 08:00] VITALS: BP_SYST 130
[2021-06-21] MEDS: MEGESTROL ACETATE 400 MG/10 ML UDC PO SCH ×2 (09:40→21:27)
[2021-06-21] MEDS: DOCUSATE SODIUM 100 MG CAPSULE PO SCH ×2 (09:44→21:26)
[2021-06-21] MEDS: SENNOSIDES 8.6 MG TABLET PO SCH (09:45)
[2021-06-21] MEDS: CITALOPRAM HYDROBROMIDE 20 MG TABLET PO SCH (09:45)
[2021-06-21] MEDS: amLODIPine BESYLATE 5 MG TABLET PO SCH (09:51)
[2021-06-21] MEDS: FAMOTIDINE 20 MG TABLET PO SCH (09:52)
[2021-06-21] MEDS: ASCORBIC ACID 500 MG TABLET PO SCH (09:52)
[2021-06-21] MEDS: ASPIRIN 81 MG TABLET(ECOTRIN) PO SCH (09:52)
[2021-06-21] MEDS: CLOPIDOGREL BISULFATE 75 MG TABLET PO SCH (09:53)
[2021-06-21] MEDS: FINASTERIDE 5 MG TABLET (PROSCAR) PO SCH (09:53)
[2021-06-21] MEDS: GABAPENTIN 100 MG CAPSULE PO SCH (09:54)
[2021-06-21] MEDS: MULTIVITAMINS TAB 1 TABLET PO SCH (09:54)
[2021-06-21] MEDS: TAMSULOSIN HCL 0.4 MG CAP PO SCH (09:54)
[2021-06-21] MEDS: BALSAM PERU/CASTOR OIL 56.7 GM OINT...G. TP SCH (09:56)
[2021-06-21] MEDS: CEFEPIME 1 GM in D5W 50 ML IV SCH ×2 (10:41→21:26)
[2021-06-21] MEDS: VANCOMYCIN HCL 1 GM/NS PREMIX 250 ML IV SCH (11:00)
[2021-06-21] MEDS: 0.45% NACL 1,000 ML IV SCH (13:05)
[2021-06-21 13:08] VITALS: BP_SYST 139
--- NOTE | 2021-06-21 14:38 | NUR ---
DISCHARGE PLANNING Received call from Steve at [facility], ph [phone] fax [phone], states he is pt's Plastic Duplicator/patient case manager. Faxed him information requested. States he will present to Nurses to see if pt would be able to go back to [facility] or would need short term SNF. States that [facility] does have nurses there. Called & spoke with Roland Landers, pt's emergency contact ph [phone], states that he used to assist pt & now is friend. Verified that Steve is pt's [facility] worker, states that pt normally makes his own decisions.
--- NOTE | 2021-06-21 14:39 | NUR ---
Spoke w/patient's friend, Roland Landers, the patient requested Roland assist him with completing his Advanced Directive. The form for the Advanced Directive given to Roland Landers.
--- NOTE | 2021-06-21 14:54 | NUR ---
INFORMED CALLED DR EVRA OFFICE AND SPOKE WITH TOPHER. INFORMED THAT PROCEDURE FOR TOMORROW NEEDS TO BE CANCELLED PATIENT MAY BE UNDER CONSERVATORSHIP, SOCIAL WORK NOTIFIED
[2021-06-21 16:00] VITALS: BP_SYST 138
--- NOTE | 2021-06-21 16:18 | NUR ---
PATIENT KEPT CLEAN AND DRY FROM MRI, MADE COMFORTABLE IN BED,
--- NOTE | 2021-06-21 18:33 | NUR ---
WOUND CARE/ PICTURES TAKEN. KEPT PATIENT CLEAN AND DRYT AND COMFORTABLE.
--- NOTE | 2021-06-21 19:56 | NUR ---
Received patient from AM shift. Patient is AA&Ox3 able to make needs known currently denies any pain or discomfort at this time. Chest rise is even and unlabored on RA. Normal heart sounds present. Active bowel sounds x4 on auscultation, no distention abd is soft, denies pain with palpation. Patient is incontinent and denies any discomfort with urination. Dressing is noted to lower right leg C/D/I. ADARSH midline noted and infusing 1/2NS @ 75ml/hr, No s/s of arm swelling or erythema to insertion site. RH PIV noted and saline locked C/D/I. Patient is stable. Safety protocols are in place such as: Bed is locked, armed, in the lowest position with bed rails up and patient has call light within reach. Will continue to monitor throughout the shift.
[2021-06-21 20:00] VITALS: BP_SYST 151
[2021-06-21] MEDS: ATORVASTATIN 20 MG TABLET PO SCH (21:26)
[2021-06-21] MEDS: MIRTAZAPINE 15 MG TABLET PO SCH (21:26)
[2021-06-21] MEDS: ENOXAPARIN SODIUM 40 MG/0.4 ML SYRINGE SUBCUT SCH (21:28)
[2021-06-21] MEDS: INSULIN REGULAR, HUMAN 100 UNITS/ML, 10 ML VIAL (humuLIN R) SUBCUT PRN (21:29)
[2021-06-22 00:55] VITALS: BP_SYST 133
[2021-06-22] MEDS: 0.45% NACL 1,000 ML IV SCH ×2 (05:57→14:49)
[2021-06-22] MEDS: metroNIDAZOLE 500 MG TABLET PO SCH ×3 (05:59→22:19)
[2021-06-22] MEDS: traMADol HCL HCL 50 MG TABLET (ULTRAM) PO SCH ×5 (06:00→23:10)
--- NOTE | 2021-06-22 06:28 | NUR ---
Patient is in bed resting no s/s of distress is noted at this time. Chest rise is even and unlabored on RA. Patient is stable and denies any other pain or discomfort at this time. All current shift needs have been met and patient has call light within reach, will differ further care to AM shift nurse for continuity of care.
[2021-06-22 07:38] LABS: ANION GAP 7 (5-15); CALCIUM 7.4 mg/dL (8.4-11.0); CHLORIDE 102 mmol/L (98-107); CREATININE 0.82 mg/dL (0.55-1.30); GLUCOSE 117 mg/dL (70-99); POTASSIUM 5.1 mmol/L (3.5-5.1); SODIUM SERUM 134 mmol/L (136-145); UREA NITROGEN, BLOOD 25 mg/dL (8-21)
[2021-06-22 08:15] LABS: BASOPHILS % (AUTO) 0.3 % (0.0-2.0); EOSINOPHILS # (AUTO) 0.3 K/uL (0.0-0.4); EOSINOPHILS % (AUTO) 1.7 % (0.0-4.0); HEMATOCRIT 33.4 % (36-54); HEMOGLOBIN 10.7 g/dL (14.0-18.0); LYMPHOCYTES # (AUTO) 2.6 K/uL (1.0-5.5); LYMPHOCYTES % (AUTO) 14.4 % (20.5-51.5); MEAN CORPUSCULAR HEMOGLOBIN 28 pg (27-31); MEAN CORPUSCULAR HGB CONC 32 % (32-36); MEAN CORPUSCULAR VOLUME 88 fL (79.0-98.0); MONOCYTES # (AUTO) 0.7 K/uL (0.0-1.0); MONOCYTES % (AUTO) 3.7 % (1.7-9.3); NEUTROPHILS # (AUTO) 14.4 K/uL (1.8-7.7); NEUTROPHILS % (AUTO) 79.9 % (40.0-70.0); PLATELET COUNT (AUTO) 309 K/uL (130-430); RED BLOOD CELL COUNT(AUTO) 3.81 MIL/uL (4.2-6.2); RED CELL DISTRIBUTION WIDTH 16.4 % (9.0-15.0)
[2021-06-22] MEDS: MEGESTROL ACETATE 400 MG/10 ML UDC PO SCH ×2 (08:51→22:19)
[2021-06-22] MEDS: CITALOPRAM HYDROBROMIDE 20 MG TABLET PO SCH (08:52)
[2021-06-22] MEDS: ASPIRIN 81 MG TABLET(ECOTRIN) PO SCH (08:52)
[2021-06-22] MEDS: MULTIVITAMINS TAB 1 TABLET PO SCH (08:52)
[2021-06-22] MEDS: ASCORBIC ACID 500 MG TABLET PO SCH (08:52)
[2021-06-22] MEDS: FINASTERIDE 5 MG TABLET (PROSCAR) PO SCH (08:52)
[2021-06-22] MEDS: TAMSULOSIN HCL 0.4 MG CAP PO SCH (08:52)
[2021-06-22] MEDS: CLOPIDOGREL BISULFATE 75 MG TABLET PO SCH (08:53)
[2021-06-22] MEDS: GABAPENTIN 100 MG CAPSULE PO SCH (08:53)
[2021-06-22] MEDS: FAMOTIDINE 20 MG TABLET PO SCH (08:53)
[2021-06-22] MEDS: amLODIPine BESYLATE 5 MG TABLET PO SCH (08:54)
[2021-06-22] MEDS: SENNOSIDES 8.6 MG TABLET PO SCH (08:55)
[2021-06-22] MEDS: DOCUSATE SODIUM 100 MG CAPSULE PO SCH ×2 (08:55→22:19)
[2021-06-22] MEDS: BALSAM PERU/CASTOR OIL 56.7 GM OINT...G. TP PRN ×2 (08:56→14:49)
[2021-06-22] MEDS: CEFEPIME 1 GM in D5W 50 ML IV SCH ×2 (08:59→22:15)
--- NOTE | 2021-06-22 12:45 | NUR ---
Steel Rod Buster TERRA COTTA MOLD MAKERMoe Morse and TERRA COTTA MOLD MAKERMoe Crabtree attempted contact with patient to address referal related to consent for surgery. Patient was observered to be sleeping, TERRA COTTA MOLD MAKER's engaged RADHA Oviedo who shared difficulties contacting patient's family to support with consenting to surgery, and shared he would need wound care following procedure. TERRA COTTA MOLD MAKER's were later approached by RADHA Oviedo sharing patient's sisters were present and had just left with DPO paperwork. TERRA COTTA MOLD MAKER attempted to contact siblings, but they were no longer at bedside.
[2021-06-22] MEDS: BALSAM PERU/CASTOR OIL 56.7 GM OINT...G. TP SCH (13:00)
[2021-06-22 13:11] VITALS: BP_SYST 131
--- NOTE | 2021-06-22 14:38 | NUR ---
I spoke w/ sister, Asia Villarreal [phone]. She has agreed to be DPOA for the patient, Sachin López. She stated she completed Durable Power of workforce investment act career manager for the patient and she signed his surgical consent
[2021-06-22] MEDS: VANCOMYCIN HCL 1 GM/NS PREMIX 250 ML IV SCH (14:48)
[2021-06-22 18:09] VITALS: BP_SYST 149
[2021-06-22 20:00] VITALS: BP_SYST 132
[2021-06-22] MEDS: ENOXAPARIN SODIUM 40 MG/0.4 ML SYRINGE SUBCUT SCH ×2 (21:00→22:22)
[2021-06-22] MEDS: ATORVASTATIN 20 MG TABLET PO SCH (22:19)
[2021-06-22] MEDS: MIRTAZAPINE 15 MG TABLET PO SCH (22:20)
[2021-06-22] MEDS: INSULIN REGULAR, HUMAN 100 UNITS/ML, 10 ML VIAL (humuLIN R) SUBCUT PRN (23:08)
[2021-06-23 00:55] VITALS: BP_SYST 150
[2021-06-23] MEDS: traMADol HCL HCL 50 MG TABLET (ULTRAM) PO SCH ×3 (06:00→16:36)
[2021-06-23] MEDS: metroNIDAZOLE 500 MG TABLET PO SCH ×3 (06:00→20:43)
[2021-06-23] MEDS: 0.45% NACL 1,000 ML IV SCH ×2 (06:17→16:29)
--- NOTE | 2021-06-23 06:38 | NUR ---
Patient is in bed resting no s/s of distress is noted throughout the shift. Patient has been resistive to care an uncooperative with most care this shift. Chest rise is even and unlabored on . Patient has been NPO since 2300 on 06/22/21 for pending debridement procedure this morning. Consent form has been obtained, surgical check list has been reviewed and in the patient's chart. No AM meds were administered this morning only BS was assessed at 124 so no insulin was provided. All current shift needs were met and patient is clean dry and intact. Safety protocols remain in place and will differ further care to AM shift nurse for continuity of care.
--- NOTE | 2021-06-23 08:33 | NUR ---
checked with surgery for schedule , no scheduled time yet, still "to be arranged"
[2021-06-23] MEDS: CEFEPIME 1 GM in D5W 50 ML IV SCH ×2 (08:44→20:42)
[2021-06-23 08:45] VITALS: BP_SYST 156
[2021-06-23] MEDS: GABAPENTIN 100 MG CAPSULE PO SCH (08:45)
[2021-06-23] MEDS: CLOPIDOGREL BISULFATE 75 MG TABLET PO SCH (08:45)
[2021-06-23] MEDS: amLODIPine BESYLATE 5 MG TABLET PO SCH (08:45)
[2021-06-23] MEDS: ASCORBIC ACID 500 MG TABLET PO SCH (08:45)
[2021-06-23] MEDS: CITALOPRAM HYDROBROMIDE 20 MG TABLET PO SCH (08:45)
[2021-06-23] MEDS: TAMSULOSIN HCL 0.4 MG CAP PO SCH (08:45)
[2021-06-23] MEDS: SENNOSIDES 8.6 MG TABLET PO SCH (08:45)
[2021-06-23] MEDS: MULTIVITAMINS TAB 1 TABLET PO SCH (08:45)
[2021-06-23] MEDS: FINASTERIDE 5 MG TABLET (PROSCAR) PO SCH (08:45)
[2021-06-23] MEDS: ASPIRIN 81 MG TABLET(ECOTRIN) PO SCH (08:45)
[2021-06-23] MEDS: FAMOTIDINE 20 MG TABLET PO SCH (08:45)
[2021-06-23] MEDS: DOCUSATE SODIUM 100 MG CAPSULE PO SCH ×2 (08:45→20:42)
[2021-06-23] MEDS: MEGESTROL ACETATE 400 MG/10 ML UDC PO SCH ×2 (08:45→20:42)
--- NOTE | 2021-06-23 08:45 | NUR ---
Scheduled IV abx given per order. Patient stable; resting comfortably in bed at this time time.
[2021-06-23 09:19] LABS: INR 1.2 (0.80-1.20); PROTHROMBIN TIME 11.6 SECS (9.5-12.5)
[2021-06-23] MEDS: VANCOMYCIN HCL 1 GM/NS PREMIX 250 ML IV SCH (10:41)
--- NOTE | 2021-06-23 10:42 | NUR ---
Scheduled IV abx given per order. Patient stable; resting comfortably in bed with no complaint of pain.
[2021-06-23] MEDS: BALSAM PERU/CASTOR OIL 56.7 GM OINT...G. TP SCH (10:45)
--- NOTE | 2021-06-23 11:40 | NUR ---
Checked blood sugar: 102 mg/dl - no coverage required. Patient stable at this time.
[2021-06-23 12:00] VITALS: BP_SYST 163
--- NOTE | 2021-06-23 13:30 | NUR ---
Patient stable; resting quietly in bed with no distress noted at this time.
--- NOTE | 2021-06-23 15:10 | NUR ---
Patient stable with Dr. Long (anesthesiologist) at bedside.
[2021-06-23 16:00] VITALS: BP_SYST 158
--- NOTE | 2021-06-23 16:37 | NUR ---
Scheduled medication given per order and patient medicated for 6/10 pain in right foot. Checked blood sugar: 106 mg/dl - no coverage required. Patient stable at this time.
--- NOTE | 2021-06-23 18:15 | NUR ---
Patient stable throughout shift.
[2021-06-23 20:00] VITALS: BP_SYST 142
[2021-06-23] MEDS: MIRTAZAPINE 15 MG TABLET PO SCH (20:43)
[2021-06-23] MEDS: ATORVASTATIN 20 MG TABLET PO SCH (20:43)
--- NOTE | 2021-06-23 21:48 | NUR ---
RECEIVED PATIENT IN BED, C/O TOO COLD IN THE ROOM , REPORTED TO CHARGE NURSE, COVERED HIM TWO MORE WARM BLANKET. VS TAKEN , O2 SAT IS 96% IN ROOM AIR, RIGHT LEG AND FOOT WOUND ULCER WITH DRESSING COVERED. NO C/O PAIN AT THIS TIME. CALL LIGHT WITHIN REACH, NEEDS MET.
[2021-06-24 01:53] VITALS: BP_SYST 147
[2021-06-24 02:07] VITALS: BP_SYST 131
--- NOTE | 2021-06-24 05:52 | NUR ---
PATIENT RESTING AND SLEEPING GOOD THROUGHOUT THE SHIFT. NEEDS MET.
[2021-06-24] MEDS: traMADol HCL HCL 50 MG TABLET (ULTRAM) PO SCH ×3 (06:00→18:00)
[2021-06-24] MEDS: metroNIDAZOLE 500 MG TABLET PO SCH ×2 (06:23→15:14)
[2021-06-24 07:48] LABS: ALANINE AMINOTRANSFERASE 44 U/L (12-78); ALBUMIN 1.8 g/dL (3.4-4.8); ANION GAP 8 (5-15); ASPARTATE AMINOTRANSFERASE 33 U/L (10-37); CALCIUM 7.6 mg/dL (8.4-11.0); CHLORIDE 105 mmol/L (98-107); CREATININE 0.71 mg/dL (0.55-1.30); GLUCOSE 88 mg/dL (70-99); POTASSIUM 4.8 mmol/L (3.5-5.1); SODIUM SERUM 136 mmol/L (136-145); TOTAL BILIRUBIN 0.3 mg/dL (0.0-1.0); UREA NITROGEN, BLOOD 25 mg/dL (8-21)
[2021-06-24 08:55] VITALS: BP_SYST 155
[2021-06-24] MEDS: FAMOTIDINE 20 MG TABLET PO SCH (08:56)
[2021-06-24] MEDS: MEGESTROL ACETATE 400 MG/10 ML UDC PO SCH ×2 (08:56→21:29)
[2021-06-24] MEDS: DOCUSATE SODIUM 100 MG CAPSULE PO SCH ×2 (08:57→21:30)
[2021-06-24] MEDS: ASCORBIC ACID 500 MG TABLET PO SCH (08:57)
[2021-06-24] MEDS: TAMSULOSIN HCL 0.4 MG CAP PO SCH (08:57)
[2021-06-24] MEDS: amLODIPine BESYLATE 5 MG TABLET PO SCH (08:57)
[2021-06-24] MEDS: SENNOSIDES 8.6 MG TABLET PO SCH (08:58)
[2021-06-24] MEDS: GABAPENTIN 100 MG CAPSULE PO SCH (08:58)
[2021-06-24] MEDS: MULTIVITAMINS TAB 1 TABLET PO SCH (08:58)
[2021-06-24] MEDS: ASPIRIN 81 MG TABLET(ECOTRIN) PO SCH (08:58)
[2021-06-24] MEDS: CITALOPRAM HYDROBROMIDE 20 MG TABLET PO SCH (08:58)
[2021-06-24] MEDS: FINASTERIDE 5 MG TABLET (PROSCAR) PO SCH (08:58)
[2021-06-24] MEDS: BALSAM PERU/CASTOR OIL 56.7 GM OINT...G. TP PRN (08:59)
[2021-06-24] MEDS: CEFEPIME 1 GM in D5W 50 ML IV SCH ×2 (09:32→21:30)
[2021-06-24] MEDS: 0.45% NACL 1,000 ML IV SCH ×2 (09:35→21:31)
--- NOTE | 2021-06-24 10:00 | NUR ---
continuation of care report was endorsed by godfrey méndez. patient is awake and alert, repositioned in bed. call light is with him educated to use for assistance. no other needs at this time.
[2021-06-24 12:50] VITALS: BP_SYST 145
[2021-06-24] MEDS: VANCOMYCIN HCL 1 GM/NS PREMIX 250 ML IV SCH (13:25)
[2021-06-24] MEDS: BALSAM PERU/CASTOR OIL 56.7 GM OINT...G. TP SCH (13:27)
[2021-06-24] MEDS: INSULIN REGULAR, HUMAN 100 UNITS/ML, 10 ML VIAL (humuLIN R) SUBCUT PRN ×2 (13:30→17:29)
--- NOTE | 2021-06-24 15:16 | NUR ---
medication Patients scheduled medication given per order. patient is awake and alert sitting in bed. patient repositioned for comfort. patient has all safety precautions in place. call light is with him no other needs at this time.
--- NOTE | 2021-06-24 17:30 | NUR ---
accu check patients accu check done, coverage given per order. patient is awake and alert tolerated well. all safety precautions in place. call light is with him educated to use for assistance. no other needs or complaints at this time.
[2021-06-24 17:33] VITALS: BP_SYST 152
--- NOTE | 2021-06-24 18:52 | NUR ---
rn closing note patient is awake and alert sitting up in bed. no signs of any distress, breathing is equal and non labored. incontinence care provided to patient. patient has call light with him educated to use for assistance. patient has no complaints at this time.
[2021-06-24] MEDS: ATORVASTATIN 20 MG TABLET PO SCH (21:29)
[2021-06-24] MEDS: MIRTAZAPINE 15 MG TABLET PO SCH (21:30)
[2021-06-25 00:48] VITALS: BP_SYST 144
[2021-06-25] MEDS: metroNIDAZOLE 500 MG TABLET PO SCH ×2 (01:21→07:13)
[2021-06-25] MEDS: traMADol HCL HCL 50 MG TABLET (ULTRAM) PO SCH ×4 (01:22→18:00)
[2021-06-25] MEDS: INSULIN REGULAR, HUMAN 100 UNITS/ML, 10 ML VIAL (humuLIN R) SUBCUT PRN ×3 (01:28→17:30)
--- NOTE | 2021-06-25 07:17 | NUR ---
PT CRYING ASKING FOR PAIN MEDICATION ALTHOUGH HE HAS BEEN GIVEN PAIN MEDICATION. PATIENT SHOWING SIGNS OF REVERTING BACK TO A CHILD LIKE STATE WHEN CRYING FOR WHAT HE WANTS, CRYING WHILE BEING CLEANED DURING THE NIGHT, AND FORGETTING WHAT MEDICATIONS HE HAS BEING GIVEN. WILL CONTINUE TO MONITOR.
--- NOTE | 2021-06-25 08:10 | NUR ---
INITIAL ROUNDS Received pt in Contact isolation MRSA of the wound, pt AAOx3, no s/s resp distress, pt crying and c/o pain to his right foot-pt had pain medication and declined Tylenol at this time. Pt repositioned with pillow support and heels off-loaded for skin care and comfort. IVF infusing well at ordered rate to ADARSH midline with no s/s infiltration to site. Pain management, skin and safety discussed-teach back done. Side rails up x3, bed alarm on for safety. Call light within reach.
[2021-06-25 08:13] VITALS: BP_SYST 151
[2021-06-25] MEDS: CEFEPIME 1 GM in D5W 50 ML IV SCH ×2 (09:06→22:33)
[2021-06-25] MEDS: CITALOPRAM HYDROBROMIDE 20 MG TABLET PO SCH (09:07)
[2021-06-25] MEDS: GABAPENTIN 100 MG CAPSULE PO SCH (09:07)
[2021-06-25] MEDS: FAMOTIDINE 20 MG TABLET PO SCH (09:07)
[2021-06-25] MEDS: TAMSULOSIN HCL 0.4 MG CAP PO SCH (09:08)
[2021-06-25] MEDS: amLODIPine BESYLATE 5 MG TABLET PO SCH (09:08)
[2021-06-25] MEDS: ASPIRIN 81 MG TABLET(ECOTRIN) PO SCH (09:08)
[2021-06-25] MEDS: MULTIVITAMINS TAB 1 TABLET PO SCH (09:11)
[2021-06-25] MEDS: FINASTERIDE 5 MG TABLET (PROSCAR) PO SCH (09:11)
[2021-06-25] MEDS: DOCUSATE SODIUM 100 MG CAPSULE PO SCH ×2 (09:11→22:34)
[2021-06-25] MEDS: SENNOSIDES 8.6 MG TABLET PO SCH (09:11)
[2021-06-25] MEDS: ASCORBIC ACID 500 MG TABLET PO SCH (09:11)
[2021-06-25] MEDS: MEGESTROL ACETATE 400 MG/10 ML UDC PO SCH ×2 (09:12→22:34)
[2021-06-25] MEDS: VANCOMYCIN HCL 1 GM/NS PREMIX 250 ML IV SCH (11:44)
[2021-06-25] MEDS: BALSAM PERU/CASTOR OIL 56.7 GM OINT...G. TP SCH (11:45)
--- NOTE | 2021-06-25 12:45 | NUR ---
BEHZAD/ Pt crying in bed-stated he misses his friend Roland-he gave me the number-Roland was called and stated he will call Sachin on his cell phone-will inform pt. Pt seen by Dr. Winn, pain medication renewed. Pt now sitting up for lunch, feeding himself. Call light within reach.
[2021-06-25] MEDS ORDERED: traMADol HCL HCL 50 MG TABLET (ULTRAM) PO ONE (13:00)
--- NOTE | 2021-06-25 14:20 | NUR ---
Nutrition F/U Nutritional Screening High Risk Screening Consult Admitting Diagnosis Decubitus R foot infection Medical History Comment: HTN, DM, CVA, and BPH per physician notes Pt also found w/ severe malnutrition, complicated UTI-GNR, and R heel PU-infected d/t GNR/polymicrobial per physician notes SARS-CoV-2 Ag (Rapid) Negative 06/15 Subjective Information: RD visit deferred d/t high workload. Per EMR review, pt had MRI of LE 06/20 which revealed osteomyelitis; pt is +MRSA of wound; AAO x3; crying and c/o pain to R heel per nursing notes; PO intake average of 50% x9 meal records; last BM x1 06/22; Jose scale: 16, Public Health Sanitarian note 06/19 reviewed, multiple PU noted to RLE. Pt is not yet meeting nutritional demands. Current Diet Order/Nutrition Support: CCHO x2 days Patient/Significant Other Unable To Verbalize Education Provided Not Indicated Pertinent Medications: megace, remeron, lipitor, lovenox, vancomycin, MVI, senna, pepcid, colace, VIT C, SSI Pertinent Labs: 06/22; WBC 18 H; 06/24: BG 88 WNL; 06/25: POC BG 198 H Height (Feet) 6 feet Height (Inches) 0.00 inches Weight (Pounds) 167 pounds -- stable since 06/17 Weight (Calculated Kilograms) 75.948000 kilograms Patient Weight 75.75 kg Body Mass Index 22.65 kg/m2 %IBW 94 [place]/Adjusted Body Weight 178#/81 kg Weight Status Underweight for GERIAT status Estimated Energy Expenditure (kcals/day) 8650-4097 (30-35 kcal/kg CBW d/t wound healing) Estimated Protein Required (g/day) 91-114 (1.2-1.5 gm/kg CBW d/t wound healing) Estimated Fluid Required (l/day) 2.3-2.7 (1 ml/kcal/day for wound healing) Problem/Etiology/Signs/Symptoms Increased nutritional needs R/T metabolic demands AEB estimated nutritional requirements for wound healing. *Ongoing Expected Outcomes/Goals - Monitor appetite and PO intakes w/ goal of pt meeting >50% of estimated nutritional needs, labs trending WNL, normal GI function, and skin integrity/wt maintenance Dietitian Recommendations * [facility], 2 gm Na diet w/ Glucerna TID, Roger BID (supplements yield 840 kcal/day, 35 gm protein/day) * Encourage increase PO intakes * Continue appetite stimulants Follow Up Moderate Risk: F/U in 3-5 days
--- NOTE | 2021-06-25 14:24 | NUR ---
Dietitian Recommendations * CCHO, 2 gm Na diet w/ Glucerna TID, Roger BID (supplements yield 840 kcal/day, 35 gm protein/day) * Encourage increase PO intakes * Continue appetite stimulants LP, RD Please refer to Nutrition F/U for details.
--- NOTE | 2021-06-25 14:39 | NUR ---
WOUND CARE 1. Right posterior heel-dressing removed, wound bed cleansed with normal saline, moisture barrier cream applied to periwound, Venelex ointment applied to wound bed, covered with a foam dressing and secured in place with Kerlix wrap. Wound bed is 100% black tissue, periwound is pink and blanchable, no odor, minimal drainage. Wound measures 6.0 cm x 6.0 cm. 2. Right lateral lower extremity-dressing removed, wound bed cleansed with normal saline, moisture barrier cream applied to periwound, Venelex ointment applied to wound bed, covered with a foam dressing. Wound bed is 90% greenish tissue, 10% yellow tissue, no odor, minimal drainage. Wound measures 1.5 cm x 3.8 cm. 3. Right lateral foot-dressing removed, wound bed cleansed with normal saline, wound painted with Betadine, covered with a foam dressing. Wound bed 90% yellow tissue, 10% brown tissue, dry, no drainage, no odor. Wound measured 7 cm x 0.7 cm. 4. Right lateral malleolus-dressing removed, area cleansed with normal saline, site painted with Betadine, covered with a foam dressing. Wound measures 0.8 cm x 0.2 cm, wound bed 90% yellow tissue, 10% pink tissue, no drainage, no odor. 5. Right lateral foot, middle aspect--dressing removed, area cleansed with normal saline, site painted with Betadine, covered with a foam dressing. Wound bed 50% yellow tissue, 50% pink tissue, no odor, no drainage. Wound measures 1.0 cm x 3.8 cm. 6. Right dorsal foot, below big toe--dressing removed, area cleansed with normal saline, site painted with Betadine, covered with a foam dressing. Wound bed 100% black tissue, no odor, no drainage. Wound measures 2.0 cm x 0.6 cm. Pt had a bowel movement and voided, pt cleaned up, fresh gown and linens placed. Pt repositioned with pillow support and heels off-loaded for skin care and comfort. Pt tolerated well. Aspiration and safety precautions remain in place. Call light within reach.
[2021-06-25 16:33] VITALS: BP_SYST 140
[2021-06-25] MEDS: 0.45% NACL 1,000 ML IV SCH (17:40)
--- NOTE | 2021-06-25 18:48 | NUR ---
CLOSING NOTE Pt sitting up in bed bed eating gram crackers and drinking Glucerna. Pt with no c/o pain or discomfort-pt refused his 1800 pain medication. IVF infusing well to ADARSH midline with no s/s infiltration to site. Aspiration, skin and safety precautions remian in place. Call light within reach.
[2021-06-25] MEDS: ATORVASTATIN 20 MG TABLET PO SCH (22:34)
[2021-06-25] MEDS: MIRTAZAPINE 15 MG TABLET PO SCH (22:35)
[2021-06-25 23:53] VITALS: BP_SYST 147
[2021-06-26] MEDS: traMADol HCL HCL 50 MG TABLET (ULTRAM) PO SCH ×5 (00:06→23:22)
[2021-06-26 06:58] LABS: CLARITY/URINE CLEAR (CLEAR); COLOR,URINE YELLOW (YELLOW); PROTEIN URINE 1+ (NEGATIVE)
[2021-06-26 06:59] LABS: BILIRUBIN,URINE NEGATIVE (NEGATIVE); BLOOD, URINE NEGATIVE (NEGATIVE); GLUCOSE,URINE NEGATIVE (NEGATIVE); KETONES,URINE TRACE (NEGATIVE); LEUKOCYTE ESTERASE ,URINE NEGATIVE (NEGATIVE); NITRITE, URINE NEGATIVE (NEGATIVE); UROBILINOGEN,URINE 0.2 (0.2-1.0)
[2021-06-26 08:00] VITALS: BP_SYST 110
[2021-06-26] MEDS: 0.45% NACL 1,000 ML IV SCH ×2 (08:56→13:05)
[2021-06-26] MEDS: MEGESTROL ACETATE 400 MG/10 ML UDC PO SCH ×2 (08:58→20:44)
[2021-06-26] MEDS: FAMOTIDINE 20 MG TABLET PO SCH (08:59)
[2021-06-26] MEDS: GABAPENTIN 100 MG CAPSULE PO SCH (09:00)
[2021-06-26] MEDS: amLODIPine BESYLATE 5 MG TABLET PO SCH (09:00)
[2021-06-26] MEDS: ASPIRIN 81 MG TABLET(ECOTRIN) PO SCH (09:00)
[2021-06-26] MEDS: ASCORBIC ACID 500 MG TABLET PO SCH (09:01)
[2021-06-26] MEDS: CITALOPRAM HYDROBROMIDE 20 MG TABLET PO SCH (09:01)
[2021-06-26] MEDS: DOCUSATE SODIUM 100 MG CAPSULE PO SCH ×2 (09:01→20:44)
[2021-06-26] MEDS: TAMSULOSIN HCL 0.4 MG CAP PO SCH (09:01)
[2021-06-26] MEDS: MULTIVITAMINS TAB 1 TABLET PO SCH (09:01)
[2021-06-26] MEDS: SENNOSIDES 8.6 MG TABLET PO SCH (09:01)
[2021-06-26] MEDS: FINASTERIDE 5 MG TABLET (PROSCAR) PO SCH (09:02)
[2021-06-26] MEDS: BALSAM PERU/CASTOR OIL 56.7 GM OINT...G. TP SCH (09:04)
[2021-06-26] MEDS: CEFEPIME 1 GM in D5W 50 ML IV SCH (09:05)
[2021-06-26 09:08] LABS: INR 1.1 (0.80-1.20); PROTHROMBIN TIME 11.5 SECS (9.5-12.5)
--- NOTE | 2021-06-26 09:08 | NUR ---
RECEIVED PT FROM RADHA CASAS. ASSUMED CARE.
--- NOTE | 2021-06-26 09:09 | NUR ---
SPOKE TO POST OP CARE NURSE WHO STATED PT PROCEDURE DUE AT 1230. SCHEDULED MED GIVEN AND TOLERATED WELL. ASA HELD DUE TO PENDING SURGICAL PROCEDURE. IVF REPLENISHED, PT DENIES PAIN. CALL LIGHT WITHIN REACH. BED IN LOWEST POSITION.
[2021-06-26 09:21] LABS: BASOPHILS # (AUTO) 0.1 K/uL (0.0-0.2); BASOPHILS % (AUTO) 0.4 % (0.0-2.0); EOSINOPHILS # (AUTO) 0.5 K/uL (0.0-0.4); EOSINOPHILS % (AUTO) 2.5 % (0.0-4.0); HEMATOCRIT 28.8 % (36-54); HEMOGLOBIN 9.4 g/dL (14.0-18.0); LYMPHOCYTES # (AUTO) 2.5 K/uL (1.0-5.5); LYMPHOCYTES % (AUTO) 12.1 % (20.5-51.5); MEAN CORPUSCULAR HEMOGLOBIN 28 pg (27-31); MEAN CORPUSCULAR HGB CONC 33 % (32-36); MEAN CORPUSCULAR VOLUME 87 fL (79.0-98.0); MONOCYTES # (AUTO) 0.8 K/uL (0.0-1.0); MONOCYTES % (AUTO) 3.9 % (1.7-9.3); NEUTROPHILS # (AUTO) 16.8 K/uL (1.8-7.7); NEUTROPHILS % (AUTO) 81.1 % (40.0-70.0); PLATELET COUNT (AUTO) 276 K/uL (130-430); RED CELL DISTRIBUTION WIDTH 16.2 % (9.0-15.0); WHITE BLOOD COUNT (AUTO) 20.7 K/uL (4.8-10.8)
[2021-06-26 09:38] LABS: ANION GAP 8 (5-15); CALCIUM 7.2 mg/dL (8.4-11.0); CHLORIDE 103 mmol/L (98-107); CREATININE 0.82 mg/dL (0.55-1.30); GLUCOSE 149 mg/dL (70-99); POTASSIUM 3.8 mmol/L (3.5-5.1); SODIUM SERUM 133 mmol/L (136-145); UREA NITROGEN, BLOOD 24 mg/dL (8-21)
[2021-06-26 11:06] VITALS: BP_SYST 136
--- NOTE | 2021-06-26 11:16 | NUR ---
ENDORSED ALL CARE TO RADHA KOHLER. INFORMED HER PT HAS SCHEDULED PROCEDURE AT 1230 TODAY, PT TO REMAIN NPO.
[2021-06-26] MEDS: VANCOMYCIN HCL 1 GM/NS PREMIX 250 ML IV SCH (11:49)
--- NOTE | 2021-06-26 12:00 | NUR ---
ALERT, ORIENTED, JUST SCREAMING , DID NOT EVEN SPEAK ONE WORD. ASKED WHETHER HE IS IN PAIN, NODDED HIS HEAD, " NO" CONTINUES NPO WITH IVF RUNNING CONTINUOULSY, NOW GETTING VANCO ONE GM IVPB PRIOR TO DEBRIDMENT, BY DR PINA.
[2021-06-26] MEDS ORDERED: MIDAZOLAM HCL 5 MG/5 ML VIAL IVP ONE (13:45)
[2021-06-26] MEDS ORDERED: 0.45% NACL 1,000 ML BAG IV ONE (13:45)
[2021-06-26] MEDS ORDERED: SUGAMMADEX SODIUM 200 MG/2 ML VIAL IV ONE (13:45)
[2021-06-26] MEDS ORDERED: fentaNYL CITRATE/PF 100 MCG/2 ML AMP IVP ONE (13:45)
[2021-06-26] MEDS ORDERED: DESFLURANE 15 MIN GAS INH ONE (13:45)
[2021-06-26] MEDS ORDERED: PROPOFOL 200MG/ 20ML VIAL (DIPRIVAN) IV ONE (13:45)
[2021-06-26] MEDS ORDERED: LIDOCAINE 2%, 20 ML MDV INJ ONE (13:45)
[2021-06-26] MEDS ORDERED: LIDOCAINE 1% 10 MG/ML, 20 ML MDV INJ ONE (13:45)
[2021-06-26] MEDS ORDERED: ONDANSETRON HCL 4 MG/2 ML VIAL IVP ONE (13:45)
[2021-06-26] MEDS ORDERED: ROCURONIUM BROMIDE 10 MG/ML (ZEMURON) IV ONE (13:45)
[2021-06-26] MEDS ORDERED: MEPERIDINE HCL/PF 25 MG/ML DISP.SYRIN IVP PRN (14:45)
[2021-06-26] MEDS ORDERED: LABETALOL 100 MG/ 20ML VIAL IVP PRN (14:45)
[2021-06-26] MEDS ORDERED: METOCLOPRAMIDE HCL 10 MG/2 ML VIAL IVP PRN (14:45)
[2021-06-26] MEDS ORDERED: hydrALAZINE HCL 20 MG/ML VIAL IVP PRN (14:45)
[2021-06-26] MEDS ORDERED: HYDROmorphone 1 MG/ML INJ. CARTRIDGE IVP PRN ×2 (14:45)
[2021-06-26] MEDS ORDERED: 0.45% NS 500 ML IV ONE (14:45)
[2021-06-26] MEDS: NACL 0.9% 1,000 ML IV SCH (15:00)
[2021-06-26] MEDS: HYDROmorphone 1 MG/ML INJ. CARTRIDGE ONE ×2 (15:50→15:55)
[2021-06-26 16:30] VITALS: BP_SYST 138
[2021-06-26 20:00] VITALS: BP_SYST 135
--- NOTE | 2021-06-26 20:00 | NUR ---
Phoned paged DR ДМИТРИЙ EUCEDA Regarding WOUND CULTURES Needed for Right Heel Decubitis & Right Lateral Decubitis Ulcer , call back pending .
--- NOTE | 2021-06-26 20:21 | NUR ---
SPOKE WITH Dr ДМИТРИЙ EUCEDA TWO NEW WOUND CULTURES may be obtained of each site , on next Wound Vac change and sent to lab .
[2021-06-26] MEDS: ATORVASTATIN 20 MG TABLET PO SCH (20:44)
[2021-06-26] MEDS: MIRTAZAPINE 15 MG TABLET PO SCH (20:44)
[2021-06-27 00:18] VITALS: BP_SYST 158
[2021-06-27] MEDS: NACL 0.9% 1,000 ML IV SCH ×3 (00:26→21:45)
[2021-06-27] MEDS: 0.45% NACL 1,000 ML IV SCH (04:34)
[2021-06-27] MEDS: traMADol HCL HCL 50 MG TABLET (ULTRAM) PO SCH ×3 (05:10→17:06)
[2021-06-27 06:47] LABS: BASOPHILS # (AUTO) 0.1 K/uL (0.0-0.2); BASOPHILS % (AUTO) 0.4 % (0.0-2.0); EOSINOPHILS # (AUTO) 0.5 K/uL (0.0-0.4); EOSINOPHILS % (AUTO) 2.4 % (0.0-4.0); HEMATOCRIT 30.7 % (36-54); HEMOGLOBIN 9.9 g/dL (14.0-18.0); LYMPHOCYTES # (AUTO) 1.8 K/uL (1.0-5.5); LYMPHOCYTES % (AUTO) 8.3 % (20.5-51.5); MEAN CORPUSCULAR HEMOGLOBIN 28 pg (27-31); MEAN CORPUSCULAR HGB CONC 32 % (32-36); MEAN CORPUSCULAR VOLUME 88 fL (79.0-98.0); MONOCYTES # (AUTO) 0.8 K/uL (0.0-1.0); MONOCYTES % (AUTO) 3.8 % (1.7-9.3); NEUTROPHILS # (AUTO) 18.5 K/uL (1.8-7.7); PLATELET COUNT (AUTO) 273 K/uL (130-430); RED BLOOD CELL COUNT(AUTO) 3.49 MIL/uL (4.2-6.2); RED CELL DISTRIBUTION WIDTH 15.9 % (9.0-15.0); WHITE BLOOD COUNT (AUTO) 21.8 K/uL (4.8-10.8)
[2021-06-27 07:22] LABS: ALANINE AMINOTRANSFERASE 34 U/L (12-78); ALBUMIN 1.8 g/dL (3.4-4.8); ANION GAP 9 (5-15); ASPARTATE AMINOTRANSFERASE 21 U/L (10-37); CALCIUM 7.2 mg/dL (8.4-11.0); CHLORIDE 104 mmol/L (98-107); CREATININE 0.72 mg/dL (0.55-1.30); GLUCOSE 116 mg/dL (70-99); SODIUM SERUM 135 mmol/L (136-145); TOTAL BILIRUBIN 0.2 mg/dL (0.0-1.0); UREA NITROGEN, BLOOD 21 mg/dL (8-21)
[2021-06-27 08:00] VITALS: BP_SYST 142
--- NOTE | 2021-06-27 08:15 | NUR ---
Opening Notes Patient is awake, alert and oriented x3. No resp distress, RA. Breathing is even and unlabored. Pt denies any pain. PICC line ADARSH intact, 1/2 NS @ 75 cc/hr, infusing well. Pt is noted with right leg wound, wrapped in gauze. Wound vac in place. No noted output at this time. Neurochecks provided for patient on right leg: no swelling, no pain, pt is not able to wiggle toes. All needs met. Safety and fall precautions in place. Bed in lowest position, alarm on, locked. Will continue to monitor.
[2021-06-27] MEDS: ASCORBIC ACID 500 MG TABLET PO SCH (08:56)
[2021-06-27] MEDS: amLODIPine BESYLATE 5 MG TABLET PO SCH (08:56)
[2021-06-27] MEDS: MEGESTROL ACETATE 400 MG/10 ML UDC PO SCH ×2 (08:56→21:41)
[2021-06-27] MEDS: CITALOPRAM HYDROBROMIDE 20 MG TABLET PO SCH (08:57)
[2021-06-27] MEDS: MULTIVITAMINS TAB 1 TABLET PO SCH (08:57)
[2021-06-27] MEDS: FINASTERIDE 5 MG TABLET (PROSCAR) PO SCH (08:57)
[2021-06-27] MEDS: DOCUSATE SODIUM 100 MG CAPSULE PO SCH ×2 (08:57→21:41)
[2021-06-27] MEDS: GABAPENTIN 100 MG CAPSULE PO SCH (08:57)
[2021-06-27] MEDS: ASPIRIN 81 MG TABLET(ECOTRIN) PO SCH (08:58)
[2021-06-27] MEDS: SENNOSIDES 8.6 MG TABLET PO SCH (08:58)
[2021-06-27] MEDS: FAMOTIDINE 20 MG TABLET PO SCH (08:58)
[2021-06-27] MEDS: TAMSULOSIN HCL 0.4 MG CAP PO SCH (08:58)
[2021-06-27] MEDS: BALSAM PERU/CASTOR OIL 56.7 GM OINT...G. TP SCH (08:59)
[2021-06-27 10:44] LABS: NEUTROPHILS % (AUTO) 85.1 % (40.0-70.0)
--- NOTE | 2021-06-27 11:01 | NUR ---
PAGED PAGED ROYCE ANN AT [phone] SPOKE WITH EXCHANGE.
[2021-06-27] MEDS: VANCOMYCIN HCL 1 GM/NS PREMIX 250 ML IV SCH (11:18)
[2021-06-27 11:35] VITALS: BP_SYST 149
[2021-06-27 15:24] VITALS: BP_SYST 153
[2021-06-27] MEDS: INSULIN REGULAR, HUMAN 100 UNITS/ML, 10 ML VIAL (humuLIN R) SUBCUT PRN ×2 (17:34→21:43)
--- NOTE | 2021-06-27 18:46 | NUR ---
Closing Notes Patient is awake, alert and oriented x3. No resp distress noted. Breathing is even and unlabored. Pt reports 5/10 pain level after pain med administration earlier in shift. PICC line noted on ADARSH, NS @ 100 cc/hr, infusing well. Will endorse to next shift to confirm IVF with primary doctor. [facility] diet, tolerating well. Wound vac in place, to be changed on 06/28/21. Heel swab needed. All needs met at this time. Safety and fall precautions in place. Bed in lowest position, alarm on, locked. Will continue to monitor.
[2021-06-27 20:00] VITALS: BP_SYST 142
[2021-06-27] MEDS: MIRTAZAPINE 15 MG TABLET PO SCH (21:41)
[2021-06-27] MEDS: ATORVASTATIN 20 MG TABLET PO SCH (21:41)
[2021-06-28 00:14] VITALS: BP_SYST 147
[2021-06-28] MEDS: HYDROmorphone 2 MG/ML VIAL IVP PRN ×2 (03:43→09:23)
[2021-06-28] MEDS: 0.45% NACL 1,000 ML IV SCH (05:05)
[2021-06-28] MEDS: INSULIN REGULAR, HUMAN 100 UNITS/ML, 10 ML VIAL (humuLIN R) SUBCUT PRN ×4 (06:16→22:17)
[2021-06-28] MEDS: NACL 0.9% 1,000 ML IV SCH ×2 (07:00→17:00)
[2021-06-28 07:14] LABS: ANION GAP 6 (5-15); BASOPHILS % (AUTO) 0.1 % (0.0-2.0); CHLORIDE 105 mmol/L (98-107); CREATININE 0.97 mg/dL (0.55-1.30); EOSINOPHILS # (AUTO) 0.2 K/uL (0.0-0.4); EOSINOPHILS % (AUTO) 0.8 % (0.0-4.0); GLUCOSE 155 mg/dL (70-99); HEMATOCRIT 29.9 % (36-54); HEMOGLOBIN 9.7 g/dL (14.0-18.0); LYMPHOCYTES # (AUTO) 1.7 K/uL (1.0-5.5); LYMPHOCYTES % (AUTO) 6.1 % (20.5-51.5); MEAN CORPUSCULAR HEMOGLOBIN 29 pg (27-31); MEAN CORPUSCULAR HGB CONC 33 % (32-36); MEAN CORPUSCULAR VOLUME 88 fL (79.0-98.0); MONOCYTES # (AUTO) 0.9 K/uL (0.0-1.0); MONOCYTES % (AUTO) 3.4 % (1.7-9.3); NEUTROPHILS # (AUTO) 25.2 K/uL (1.8-7.7); NEUTROPHILS % (AUTO) 89.6 % (40.0-70.0); PLATELET COUNT (AUTO) 287 K/uL (130-430); POTASSIUM 3.9 mmol/L (3.5-5.1); RED CELL DISTRIBUTION WIDTH 16.2 % (9.0-15.0); SODIUM SERUM 133 mmol/L (136-145); UREA NITROGEN, BLOOD 24 mg/dL (8-21); WHITE BLOOD COUNT (AUTO) 28.1 K/uL (4.8-10.8)
[2021-06-28 08:00] VITALS: BP_SYST 157
--- NOTE | 2021-06-28 08:00 | NUR ---
patient in bed, states he is in pain, will provide pain medication accordingly, orquidea picc intact patent, bed in lowest locked position, call light within reach, wound vac to right heel, intact patent no drainage at this time, safety measures in place, will continue to monitor.
[2021-06-28] MEDS: SENNOSIDES 8.6 MG TABLET PO SCH (09:23)
[2021-06-28] MEDS: MULTIVITAMINS TAB 1 TABLET PO SCH (09:23)
[2021-06-28] MEDS: GABAPENTIN 100 MG CAPSULE PO SCH (09:24)
[2021-06-28] MEDS: TAMSULOSIN HCL 0.4 MG CAP PO SCH (09:24)
[2021-06-28] MEDS: ASCORBIC ACID 500 MG TABLET PO SCH (09:24)
[2021-06-28] MEDS: FINASTERIDE 5 MG TABLET (PROSCAR) PO SCH (09:24)
[2021-06-28] MEDS: FAMOTIDINE 20 MG TABLET PO SCH (09:24)
[2021-06-28] MEDS: DOCUSATE SODIUM 100 MG CAPSULE PO SCH ×2 (09:24→20:39)
[2021-06-28] MEDS: MEGESTROL ACETATE 400 MG/10 ML UDC PO SCH ×2 (09:24→20:39)
[2021-06-28] MEDS: CITALOPRAM HYDROBROMIDE 20 MG TABLET PO SCH (09:25)
[2021-06-28] MEDS: amLODIPine BESYLATE 5 MG TABLET PO SCH (09:25)
[2021-06-28] MEDS: ASPIRIN 81 MG TABLET(ECOTRIN) PO SCH (09:25)
[2021-06-28] MEDS: BALSAM PERU/CASTOR OIL 56.7 GM OINT...G. TP SCH (09:26)
[2021-06-28 12:00] VITALS: BP_SYST 145
[2021-06-28] MEDS: VANCOMYCIN HCL 1 GM/NS PREMIX 250 ML IV SCH (12:03)
[2021-06-28] MEDS: PIPERACILLIN/TAZO 4.5GM/DEX-IS 100 ML IV SCH ×2 (13:44→22:20)
[2021-06-28 15:30] VITALS: BP_SYST 139
--- NOTE | 2021-06-28 17:00 | NUR ---
wound care provided with assisstance of charge nurse Amanda, right heel wound vac dressing changed and reconnected, patient tolerated well.
[2021-06-28] MEDS: traMADol HCL HCL 50 MG TABLET (ULTRAM) PO SCH (17:30)
[2021-06-28] MEDS: ATORVASTATIN 20 MG TABLET PO SCH (20:40)
[2021-06-28] MEDS: MIRTAZAPINE 15 MG TABLET PO SCH (20:40)
[2021-06-29 00:34] VITALS: BP_SYST 124
[2021-06-29] MEDS: traMADol HCL HCL 50 MG TABLET (ULTRAM) PO SCH ×4 (00:47→16:39)
[2021-06-29] MEDS: NACL 0.9% 1,000 ML IV SCH ×3 (03:00→23:00)
[2021-06-29] MEDS: PIPERACILLIN/TAZO 4.5GM/DEX-IS 100 ML IV SCH ×3 (05:15→22:28)
[2021-06-29 08:00] VITALS: BP_SYST 134
[2021-06-29] MEDS: CITALOPRAM HYDROBROMIDE 20 MG TABLET PO SCH (10:17)
[2021-06-29] MEDS: ASPIRIN 81 MG TABLET(ECOTRIN) PO SCH (10:17)
[2021-06-29] MEDS: GABAPENTIN 100 MG CAPSULE PO SCH (10:17)
[2021-06-29] MEDS: TAMSULOSIN HCL 0.4 MG CAP PO SCH (10:17)
[2021-06-29] MEDS: MULTIVITAMINS TAB 1 TABLET PO SCH (10:17)
[2021-06-29] MEDS: FAMOTIDINE 20 MG TABLET PO SCH (10:17)
[2021-06-29] MEDS: DOCUSATE SODIUM 100 MG CAPSULE PO SCH ×2 (10:17→21:00)
[2021-06-29] MEDS: ASCORBIC ACID 500 MG TABLET PO SCH (10:17)
[2021-06-29] MEDS: amLODIPine BESYLATE 5 MG TABLET PO SCH (10:17)
[2021-06-29] MEDS: VANCOMYCIN HCL 1 GM/NS PREMIX 250 ML IV SCH (10:18)
[2021-06-29] MEDS: MEGESTROL ACETATE 400 MG/10 ML UDC PO SCH ×2 (10:18→22:28)
[2021-06-29] MEDS: SENNOSIDES 8.6 MG TABLET PO SCH (10:18)
[2021-06-29] MEDS: FINASTERIDE 5 MG TABLET (PROSCAR) PO SCH (10:26)
[2021-06-29] MEDS: 0.45% NACL 1,000 ML IV SCH (10:27)
[2021-06-29] MEDS: BALSAM PERU/CASTOR OIL 56.7 GM OINT...G. TP SCH (10:27)
[2021-06-29 11:56] LABS: HEMATOCRIT 29.4 % (36-54); HEMOGLOBIN 9.4 g/dL (14.0-18.0); MEAN CORPUSCULAR HEMOGLOBIN 28 pg (27-31); MEAN CORPUSCULAR HGB CONC 32 % (32-36); MEAN CORPUSCULAR VOLUME 88 fL (79.0-98.0); PLATELET COUNT (AUTO) 273 K/uL (130-430); RED BLOOD CELL COUNT(AUTO) 3.33 MIL/uL (4.2-6.2); RED CELL DISTRIBUTION WIDTH 16.6 % (9.0-15.0)
[2021-06-29 12:00] VITALS: BP_SYST 135
[2021-06-29 12:08] LABS: WHITE BLOOD COUNT (AUTO) 32.1 K/uL (4.8-10.8)
--- NOTE | 2021-06-29 12:50 | NUR ---
ID MD DR FRITZ WAS PAGED, RE: WBC TRENDING HIGHER. SPOKE TO BENJAMÍN.
[2021-06-29 13:00] LABS: BAND % (MANUAL) 4 % (0-6); BASOPHILS % (MANUAL) 0 % (0-2); EOSINOPHILS % (MANUAL) 0 % (0-7); LYMPHOCYTES % (MANUAL) 6 % (20-46); MONOCYTES % (MANUAL) 5 % (0-11)
[2021-06-29 17:41] VITALS: BP_SYST 123
[2021-06-29] MEDS: INSULIN REGULAR, HUMAN 100 UNITS/ML, 10 ML VIAL (humuLIN R) SUBCUT PRN (18:24)
--- NOTE | 2021-06-29 19:15 | NUR ---
OPENING NOTES Patient resting in bed - no s/s pain or distress noted. Respirations even and unlabored - head of bed elevated. IV site patent - no s/s redness, infection, or infiltration. Bed locked and in lowest position. Call light within reach - bed alarm on.
[2021-06-29] MEDS: ATORVASTATIN 20 MG TABLET PO SCH (22:28)
[2021-06-29] MEDS: metroNIDAZOLE 500 MG TABLET PO SCH (22:28)
[2021-06-29] MEDS: MIRTAZAPINE 15 MG TABLET PO SCH (22:28)
[2021-06-30] MEDS: traMADol HCL HCL 50 MG TABLET (ULTRAM) PO SCH ×4 (00:49→17:17)
[2021-06-30 01:09] VITALS: BP_SYST 135
[2021-06-30] MEDS: metroNIDAZOLE 500 MG TABLET PO SCH (06:12)
[2021-06-30] MEDS: PIPERACILLIN/TAZO 4.5GM/DEX-IS 100 ML IV SCH (06:12)
[2021-06-30 07:17] LABS: BASOPHILS # (AUTO) 0.1 K/uL (0.0-0.2); BASOPHILS % (AUTO) 0.4 % (0.0-2.0); EOSINOPHILS # (AUTO) 0.1 K/uL (0.0-0.4); EOSINOPHILS % (AUTO) 0.3 % (0.0-4.0); HEMATOCRIT 29.7 % (36-54); HEMOGLOBIN 9.6 g/dL (14.0-18.0); LYMPHOCYTES # (AUTO) 2.2 K/uL (1.0-5.5); LYMPHOCYTES % (AUTO) 6.5 % (20.5-51.5); MEAN CORPUSCULAR HEMOGLOBIN 29 pg (27-31); MEAN CORPUSCULAR HGB CONC 32 % (32-36); MEAN CORPUSCULAR VOLUME 89 fL (79.0-98.0); NEUTROPHILS # (AUTO) 29.8 K/uL (1.8-7.7); NEUTROPHILS % (AUTO) 89.8 % (40.0-70.0); PLATELET COUNT (AUTO) 292 K/uL (130-430); RED BLOOD CELL COUNT(AUTO) 3.34 MIL/uL (4.2-6.2); RED CELL DISTRIBUTION WIDTH 16.8 % (9.0-15.0)
[2021-06-30 07:47] LABS: ANION GAP 9 (5-15); CHLORIDE 106 mmol/L (98-107); GLUCOSE 108 mg/dL (70-99); POTASSIUM 4.4 mmol/L (3.5-5.1); SODIUM SERUM 136 mmol/L (136-145); UREA NITROGEN, BLOOD 38 mg/dL (8-21)
--- NOTE | 2021-06-30 07:47 | NUR ---
CLOSING NOTES Patient resting in bed - no s/s pain or distress noted. Respirations even and unlabored - head of bed elevated. IV site patent - no s/s redness, infection, or infiltration. Bed locked and in lowest position. Call light within reach - bed alarm on. Patient changed and cleaned at approximately 0430.
[2021-06-30 08:00] VITALS: BP_SYST 118
--- NOTE | 2021-06-30 08:00 | NUR ---
Initial Note Patient eating breakfast, alert and oriented x 4. Denies pain, no distress. Wound vac connected to right heel and calf. IVF running per MD order. Call light in reach, bed in lowest position with alarm on and side rails up. Encouraged patient to call.
[2021-06-30 08:09] LABS: WHITE BLOOD COUNT (AUTO) 33.2 K/uL (4.8-10.8)
--- NOTE | 2021-06-30 08:11 | NUR ---
critical informed RN of critical WBC
[2021-06-30] MEDS: NACL 0.9% 1,000 ML IV SCH ×2 (08:38→19:25)
[2021-06-30] MEDS: CITALOPRAM HYDROBROMIDE 20 MG TABLET PO SCH (08:38)
[2021-06-30] MEDS: SENNOSIDES 8.6 MG TABLET PO SCH (08:38)
[2021-06-30] MEDS: TAMSULOSIN HCL 0.4 MG CAP PO SCH (08:39)
[2021-06-30] MEDS: FINASTERIDE 5 MG TABLET (PROSCAR) PO SCH (08:39)
[2021-06-30] MEDS: DOCUSATE SODIUM 100 MG CAPSULE PO SCH ×2 (08:39→22:13)
[2021-06-30] MEDS: MEGESTROL ACETATE 400 MG/10 ML UDC PO SCH ×2 (08:39→22:13)
[2021-06-30] MEDS: ASPIRIN 81 MG TABLET(ECOTRIN) PO SCH (08:39)
[2021-06-30] MEDS: GABAPENTIN 100 MG CAPSULE PO SCH (08:40)
[2021-06-30] MEDS: FAMOTIDINE 20 MG TABLET PO SCH (08:40)
[2021-06-30] MEDS: MULTIVITAMINS TAB 1 TABLET PO SCH (08:40)
[2021-06-30] MEDS: ASCORBIC ACID 500 MG TABLET PO SCH (08:42)
[2021-06-30] MEDS: amLODIPine BESYLATE 5 MG TABLET PO SCH (08:42)
[2021-06-30] MEDS: BALSAM PERU/CASTOR OIL 56.7 GM OINT...G. TP SCH (08:55)
[2021-06-30] MEDS: INSULIN REGULAR, HUMAN 100 UNITS/ML, 10 ML VIAL (humuLIN R) SUBCUT PRN ×2 (11:52→22:21)
[2021-06-30 12:17] VITALS: BP_SYST 126
[2021-06-30] MEDS: VANCOMYCIN HCL ORAL SOLUTION 125 MG/5 ML, 150 ML PO SCH ×3 (13:50→22:14)
[2021-06-30] MEDS: MEROPENEM 500 MG in NS 50 ML IV SCH ×2 (13:51→22:13)
--- NOTE | 2021-06-30 14:41 | NUR ---
Nutrition F/U Nutritional Screening High Risk Screening Consult Admitting Diagnosis Decubitus R foot infection Medical History Comment: HTN, DM, CVA, and BPH per physician notes Pt also found w/ severe malnutrition, complicated UTI-GNR, and R heel PU-infected d/t GNR/polymicrobial per physician notes SARS-CoV-2 Ag (Rapid) Negative 06/15 & 06/26 Subjective Information: RD rounded to pt's bedside this afternoon during lunch. Pt did not respond to RD's verbal interview question. Lunch meal tray appeared less than 25% eaten. Primary RN reported that pt ate about 75% of breakfast today, and that 2 ABX meds were modified today d/t pt's possible C. diff -- results still pending, however, pt remains in enteric precautions. RN stated pt enjoys his chocolate Glucerna ONS -- RD observed that Glucerna was 100% completed from lunch. Per EMR review, PO intake average of 45% x11 meal records; abd is soft w/ active bowel sounds; last BM x1 06/30; L arm w/ 2+ pitting edema; Jose scale: 13, Defensive Line Coach note 06/19 reviewed, multiple PU noted to RLE. Supplements need to be officially re-implemented to pt's diet order. Current Diet Order/Nutrition Support: [facility] x3 days Patient/Significant Other Unable To Verbalize Education Provided Not Indicated Pertinent Medications: megace, remeron, lipitor, MVI, senna, pepcid, colace, VIT C, SSI Pertinent Labs: WBC 33.2 H, BG 108 H, POC BG 114 H Height (Feet) 6 feet Height (Inches) 0.00 inches Weight (Pounds) 167 pounds -- stable since 06/17 Weight (Calculated Kilograms) 75.627083 kilograms Patient Weight 75.75 kg Body Mass Index 22.65 kg/m2 %IBW 94 [place]/Adjusted Body Weight 178#/81 kg Weight Status Underweight for GERIAT status Estimated Energy Expenditure (kcals/day) 7631-2620 (30-35 kcal/kg CBW d/t wound healing) Estimated Protein Required (g/day) 91-114 (1.2-1.5 gm/kg CBW d/t wound healing) Estimated Fluid Required (l/day) 2.3-2.7 (1 ml/kcal/day for wound healing) Problem/Etiology/Signs/Symptoms Increased nutritional needs R/T metabolic demands AEB estimated nutritional requirements for wound healing. *Ongoing Expected Outcomes/Goals - Monitor appetite and PO intakes w/ goal of pt meeting >50% of estimated nutritional needs, labs trending WNL, normal GI function, and skin integrity/wt maintenance Dietitian Recommendations * CCHO, 2 gm Na diet w/ Glucerna TID, Roger BID (supplements yield 840 kcal/day, 35 gm protein/day) * Encourage increase PO intakes * Continue appetite stimulants Follow Up Moderate Risk: F/U in 3-5 days
[2021-06-30 16:50] VITALS: BP_SYST 123
--- NOTE | 2021-06-30 18:34 | NUR ---
Closing Note Patient resting in bed, no distress. Pain is controlled with Tramadol. Instructed throughout the day on incentive spirometer; patient forgetful. Continued to reorient on IS and its use. Wound vac in place to right lower extremity. IVF running as ordered. Call light in reach, bed in lowest position. Side rails up. Will continue to monitor and endorse to night nurse.
--- NOTE | 2021-06-30 19:15 | NUR ---
OPENING NOTES Patient resting in bed - no s/s pain or distress noted. Respirations even and unlabored - head of bed elevated. IV site patent - no s/s redness, infection, or infiltration. Bed locked and in lowest position. Call light within reach. Bed alarm on.
[2021-06-30 20:00] VITALS: BP_SYST 125
[2021-06-30] MEDS: MIRTAZAPINE 15 MG TABLET PO SCH (22:13)
[2021-06-30] MEDS: ATORVASTATIN 20 MG TABLET PO SCH (22:13)
[2021-07-01 00:30] VITALS: BP_SYST 124
[2021-07-01] MEDS: traMADol HCL HCL 50 MG TABLET (ULTRAM) PO SCH ×3 (00:51→12:34)
[2021-07-01] MEDS: NACL 0.9% 1,000 ML IV SCH ×2 (06:33→15:26)
[2021-07-01] MEDS: MEROPENEM 500 MG in NS 50 ML IV SCH ×3 (06:34→22:22)
--- NOTE | 2021-07-01 07:30 | NUR ---
Initial Note Patient awake, alert, and oriented x 4. Forgetful. UNIT CONTROLLER and lab clerk at bedside. Audible gurgling noted. Anterior lung sounds with rhonchi. Dr. Levine made aware and will carry out new orders. Pale appearance. Right lower extremity connected to wound vac. Pain is controlled with scheduled Tramadol. No distress. Call light in reach and bedside table in place. Bed in lowest position with alarm on.
[2021-07-01 08:00] VITALS: BP_SYST 122
[2021-07-01 08:03] LABS: BASOPHILS # (AUTO) 0.1 K/uL (0.0-0.2); BASOPHILS % (AUTO) 0.2 % (0.0-2.0); EOSINOPHILS # (AUTO) 0.1 K/uL (0.0-0.4); EOSINOPHILS % (AUTO) 0.5 % (0.0-4.0); HEMATOCRIT 30.6 % (36-54); HEMOGLOBIN 9.6 g/dL (14.0-18.0); LYMPHOCYTES # (AUTO) 2.1 K/uL (1.0-5.5); LYMPHOCYTES % (AUTO) 6.6 % (20.5-51.5); MEAN CORPUSCULAR HEMOGLOBIN 28 pg (27-31); MEAN CORPUSCULAR HGB CONC 32 % (32-36); MEAN CORPUSCULAR VOLUME 90 fL (79.0-98.0); MONOCYTES # (AUTO) 1.2 K/uL (0.0-1.0); MONOCYTES % (AUTO) 3.8 % (1.7-9.3); NEUTROPHILS # (AUTO) 27.9 K/uL (1.8-7.7); PLATELET COUNT (AUTO) 352 K/uL (130-430); RED CELL DISTRIBUTION WIDTH 17.1 % (9.0-15.0)
[2021-07-01 08:25] LABS: ANION GAP 13 (5-15); CALCIUM 8.5 mg/dL (8.4-11.0); CHLORIDE 107 mmol/L (98-107); GLUCOSE 125 mg/dL (70-99); POTASSIUM 4.4 mmol/L (3.5-5.1); SODIUM SERUM 139 mmol/L (136-145); UREA NITROGEN, BLOOD 43 mg/dL (8-21)
[2021-07-01 08:41] LABS: WHITE BLOOD COUNT (AUTO) 31.4 K/uL (4.8-10.8)
[2021-07-01 08:44] LABS: NEUTROPHILS % (AUTO) 88.9 % (40.0-70.0)
[2021-07-01] MEDS: SENNOSIDES 8.6 MG TABLET PO SCH (09:00)
[2021-07-01] MEDS: DOCUSATE SODIUM 100 MG CAPSULE PO SCH ×2 (09:00→21:00)
[2021-07-01] MEDS: GABAPENTIN 100 MG CAPSULE PO SCH (09:24)
[2021-07-01] MEDS: ASPIRIN 81 MG TABLET(ECOTRIN) PO SCH (09:24)
[2021-07-01] MEDS: MEGESTROL ACETATE 400 MG/10 ML UDC PO SCH ×2 (09:24→21:00)
[2021-07-01] MEDS: CITALOPRAM HYDROBROMIDE 20 MG TABLET PO SCH (09:24)
[2021-07-01] MEDS: TAMSULOSIN HCL 0.4 MG CAP PO SCH (09:24)
[2021-07-01] MEDS: FINASTERIDE 5 MG TABLET (PROSCAR) PO SCH (09:25)
[2021-07-01] MEDS: FAMOTIDINE 20 MG TABLET PO SCH (09:25)
[2021-07-01] MEDS: ASCORBIC ACID 500 MG TABLET PO SCH (09:25)
[2021-07-01] MEDS: amLODIPine BESYLATE 5 MG TABLET PO SCH (09:26)
[2021-07-01] MEDS: MULTIVITAMINS TAB 1 TABLET PO SCH (09:26)
[2021-07-01] MEDS: BALSAM PERU/CASTOR OIL 56.7 GM OINT...G. TP SCH (09:36)
[2021-07-01] MEDS: VANCOMYCIN HCL ORAL SOLUTION 125 MG/5 ML, 150 ML PO SCH ×3 (09:36→16:57)
--- NOTE | 2021-07-01 09:44 | NUR ---
Id Md Dr Garcia was called, Re: TRENDING DOWN CRITICAL WBC. Spoke to Irina.
[2021-07-01] MEDS ORDERED: IPRATROPIUM/ALBUTEROL SULFATE 3 ML AMPUL.NEB (DUONEB) INH PRN (11:30)
--- NOTE | 2021-07-01 12:00 | NUR ---
RT NOTES 1200 RT called, pt sounds crackly, NT Sxn'd pt, pre-oxyginate pre/post procedure. Pt sounded better post sxn. Pt saturation 93%. RADHA Machado aware.
--- NOTE | 2021-07-01 12:04 | NUR ---
Notes Patient resting in bed, no distress. Contact precautions for C. difficile and MRSA of wound. Patient cleaned and repositioned for comfort, x 1 BM. Call light in reach, bed in lowest position. Oral care provided. RT called for eval and breathing treatment per MD order. Will continue to monitor.
[2021-07-01 12:08] VITALS: BP_SYST 122
--- NOTE | 2021-07-01 12:09 | NUR ---
CONSULTATION PAGED/CALLED Reason for Consultation: [] RENAL IMPAIRMENT Person Who was Notified: [] EN Consulting Physician: [] DR JONES Curling Machine Operator Specialty: [] SUBSTANCE ABUSE PREVENTION COORDINATOR Ordering Physician: [] DR GAXIOLA
--- NOTE | 2021-07-01 12:15 | NUR ---
Conner Catheter Insertion Conner catheter 16 Fr inserted per MD order with aseptic technique. Suzanne-colored urine return with total output 1400 cc. Patient tolerated procedure well. Call light in reach, bed in lowest position with alarm on. Will continue to monitor.
[2021-07-01 12:27] VITALS: BP_SYST 128
--- NOTE | 2021-07-01 15:15 | NUR ---
rt notes 1515 NT sxn'd pt 2nd time. Pt saturating 93% prior sxn'ng. Post NT Sxn pt saturating 97%. will continue to monitor pt.
--- NOTE | 2021-07-01 15:15 | NUR ---
Change in Condition Patient with slowed, open-mouth breathing and desaturating to 78%. Respiration rate 6. Periods of apnea lasting 10-15 seconds. Blood pressure 92/71. Audible gurgling. RT called to bedside; provided nasotracheal suctioning. Gurgling improved; inaudible. Patient reports relief. Blood pressure increased to 117/64. Respiration rate continues to range from 6-8 breaths per minute with apnea. HOB elevated to High Murphy's and will continue to monitor. Dr. Levine and Dr. Trujillo notified, will carry out new orders.
--- NOTE | 2021-07-01 15:32 | NUR ---
CONSULTATION PAGED/CALLED Reason for Consultation: [] RESPIRATORY DISTRESS Person Who was Notified: [] ZANA Consulting Physician: [] DR KING Wash Oil Cooler Operator Specialty: [] PULMO Ordering Physician: [] DR GAXIOLA
--- NOTE | 2021-07-01 16:20 | NUR ---
RT NOTES 1620 PER ABG RESULTS DOCTOR FERNANDO ORDERED PT. TO BE PLACED ON BIPAP. 03/26 BUR 16 FIO2 35% PT SATURATING 99 SPO2. PT. TOLERATING OF NOW. WILL REPORT TO PIPE FITTINGS MOLDER TO SWITCH OUT THE MASK EVERY 4 HOURS FOR PT. COMFORT. UPON AUSCULTATION PT. STILL SOUNDS CRACKLES RN AWARE. WILL CONTINUE TO MONITOR PT.
[2021-07-01 16:44] VITALS: BP_SYST 117
[2021-07-01 18:53] LABS: BILIRUBIN,URINE NEGATIVE (NEGATIVE); COLOR,URINE YELLOW (YELLOW); GLUCOSE,URINE NEGATIVE (NEGATIVE); KETONES,URINE TRACE (NEGATIVE); LEUKOCYTE ESTERASE ,URINE NEGATIVE (NEGATIVE); NITRITE, URINE NEGATIVE (NEGATIVE); PROTEIN URINE 1+ (NEGATIVE); UROBILINOGEN,URINE 0.2 (0.2-1.0)
--- NOTE | 2021-07-01 18:58 | NUR ---
Closing Note Patient resting in bed, no pain observed. Patient able to communicate but slurred speech noted. Patient saturating 98% on Bipap with respiration rate of 16 and FiO2 32%. Conner catheter in place and draining moni urine to gravity. Tramadol held per MD order. Will continue to monitor and endorse to night nurse.
[2021-07-01 19:03] LABS: BLOOD, URINE TRACE (NEGATIVE); CLARITY/URINE SLIGHTLY CLOUDY (CLEAR)
[2021-07-01 19:41] LABS: BACTERIA,URINE FEW /HPF (None Seen); MUCUS,URINE None Seen /LPF (None Seen); RBC,URINE 0-3 /HPF (0-3); URINE AMORPHOUS URATE 2+ /HPF (None Seen); WBC,URINE 0-3 /HPF (0-3)
[2021-07-01 21:00] VITALS: BP_SYST 118
[2021-07-01] MEDS: MIRTAZAPINE 15 MG TABLET PO SCH (21:00)
[2021-07-01] MEDS: ATORVASTATIN 20 MG TABLET PO SCH (21:00)
--- NOTE | 2021-07-01 21:15 | NUR ---
Patient Resting in bed HOB is elevated on Bi pap machine RR 16 03/26 @ 35 % chest movement symmetrical also unlabored 02 SAT 97 %
--- NOTE | 2021-07-01 23:34 | NUR ---
Merrem 500 MG IVPB administer as ordered , no adverse reaction noted skin is dry , general edema is noted / .
--- NOTE | 2021-07-01 23:35 | NUR ---
WOUND VAC. 125 mm hg to Right Heel and Right lateral leg no leaking no alarming noted continue to monitor .
--- NOTE | 2021-07-01 23:42 | NUR ---
Blood Sugar Glucose @ 110 mg dl no diabetic Reaction noted , patient Remains NPO / .
[2021-07-01] MEDS ORDERED: metroNIDAZOLE 500 mg/NS 200 ML IV ONE (23:48)
[2021-07-02] VITALS (18 sets, daily range): BP systolic 117–169
[2021-07-02] MEDS: metroNIDAZOLE 500 mg/NS 100 ML IV SCH ×4 (00:10→21:10)
[2021-07-02] MEDS: MEROPENEM 500 MG in NS 50 ML IV SCH ×3 (05:40→21:09)
[2021-07-02 07:33] LABS: BASOPHILS # (AUTO) 0.1 K/uL (0.0-0.2); BASOPHILS % (AUTO) 0.2 % (0.0-2.0); EOSINOPHILS % (AUTO) 0.1 % (0.0-4.0); HEMATOCRIT 30.3 % (36-54); HEMOGLOBIN 9.3 g/dL (14.0-18.0); LYMPHOCYTES # (AUTO) 1.4 K/uL (1.0-5.5); LYMPHOCYTES % (AUTO) 5.5 % (20.5-51.5); MEAN CORPUSCULAR HEMOGLOBIN 28 pg (27-31); MEAN CORPUSCULAR HGB CONC 31 % (32-36); MEAN CORPUSCULAR VOLUME 92 fL (79.0-98.0); MONOCYTES # (AUTO) 0.9 K/uL (0.0-1.0); MONOCYTES % (AUTO) 3.7 % (1.7-9.3); NEUTROPHILS % (AUTO) 90.5 % (40.0-70.0); PLATELET COUNT (AUTO) 313 K/uL (130-430); RED BLOOD CELL COUNT(AUTO) 3.29 MIL/uL (4.2-6.2); RED CELL DISTRIBUTION WIDTH 17.4 % (9.0-15.0); WHITE BLOOD COUNT (AUTO) 25.4 K/uL (4.8-10.8)
[2021-07-02 07:38] LABS: ALANINE AMINOTRANSFERASE 37 U/L (12-78); ALBUMIN 1.9 g/dL (3.4-4.8); ANION GAP 14 (5-15); ASPARTATE AMINOTRANSFERASE 23 U/L (10-37); CALCIUM 8.6 mg/dL (8.4-11.0); CHLORIDE 108 mmol/L (98-107); CREATININE 3.32 mg/dL (0.55-1.30); GLUCOSE 122 mg/dL (70-99); POTASSIUM 4.7 mmol/L (3.5-5.1); SODIUM SERUM 140 mmol/L (136-145); TOTAL BILIRUBIN 0.2 mg/dL (0.0-1.0); UREA NITROGEN, BLOOD 49 mg/dL (8-21)
--- NOTE | 2021-07-02 07:40 | NUR ---
Initial Note Patient asleep in bed, does not wake with deep stimuli. Opens eyes slightly but nonverbal. Saturating 100% on Bipap; respiration rate 16 at 35% FiO2. Audible congestion. Spontaneous respiration rate 2-3 breaths per minute. Conner catheter in place and draining to gravity. Contact precautions for C. difficile and MRSA of wound. Wound vac in place. Will continue to monitor closely.
--- NOTE | 2021-07-02 08:01 | NUR ---
rt notes 0801 Offloaded pt and switched pt to 3LNC, pt saturating 99%. Pt starting to have indentation on face from AVATAR face mask. no distress noted. will continue to monitor pt.
[2021-07-02] MEDS ORDERED: SODIUM BICARBONATE 8.4% JECT 50 MEQ/50 ML SYRINGE ONE (08:46)
--- NOTE | 2021-07-02 08:50 | NUR ---
RT/MD Rounds Dr. Monroe and RT at bedside. Patient on N/C. Apneic; breathing 2 breaths per minute. Bipap replaced. Will carry out new orders.
[2021-07-02] MEDS: DOCUSATE SODIUM 100 MG CAPSULE PO SCH ×2 (08:59→21:00)
[2021-07-02] MEDS: FINASTERIDE 5 MG TABLET (PROSCAR) PO SCH (08:59)
[2021-07-02] MEDS: ASPIRIN 81 MG TABLET(ECOTRIN) PO SCH (08:59)
[2021-07-02] MEDS: TAMSULOSIN HCL 0.4 MG CAP PO SCH (08:59)
[2021-07-02] MEDS: ASCORBIC ACID 500 MG TABLET PO SCH (08:59)
[2021-07-02] MEDS: MULTIVITAMINS TAB 1 TABLET PO SCH (08:59)
[2021-07-02] MEDS: amLODIPine BESYLATE 5 MG TABLET PO SCH (08:59)
[2021-07-02] MEDS: FAMOTIDINE 20 MG TABLET PO SCH (08:59)
[2021-07-02] MEDS: BALSAM PERU/CASTOR OIL 56.7 GM OINT...G. TP SCH (09:00)
--- NOTE | 2021-07-02 09:19 | NUR ---
WIRED MUSIC OPERATOR DR JONES WAS CALLED, RE: NOTIFY ABG RESULT, SHOWING LOW BICARB LEVEL.
--- NOTE | 2021-07-02 09:21 | NUR ---
ATIF KING WAS CALLED, RE: ABG RESULTS. SPOKE TO STEFFEN.
[2021-07-02] MEDS ORDERED: SODIUM BICARBONATE 8.4% JECT 100 MEQ in 0.45% NACL 1,000 ML IVP SCH (09:30)
[2021-07-02] MEDS ORDERED: SODIUM BICARBONATE 8.4% JECT 50 MEQ/50 ML SYRINGE IVP ONE ×2 (10:00)
--- NOTE | 2021-07-02 10:19 | NUR ---
Spoke with Dr. Trujillo Notified of general status and ABG results. Per Dr. Jones will transfer patient to ICU. Will carry out further orders.
--- NOTE | 2021-07-02 10:30 | NUR ---
RECEIVED PT FROM [facility]ST USING SBAR REPORTING AT BEDSIDE. ALL CARE ASSUMED.
--- NOTE | 2021-07-02 10:30 | NUR ---
Transfer to ICU Patient transferred to ICU bed 4 via gurney with RT at bedside. Report given to RADHA Mercer at bedside.
--- NOTE | 2021-07-02 10:35 | NUR ---
rt notes 1035 Pt transfer to ICU, pt still on bipap 03/11 bur16 35%. will monitor pt. no incident happened. Assist RADHA Machado.
[2021-07-02] MEDS: SODIUM BICARBONATE 8.4% JECT 150 MEQ in 0.45% NACL 1,000 ML IV SCH (11:57)
[2021-07-02] MEDS ORDERED: NOREPINEPHRINE BITARTRATE 4 MG in NS 246 ML IV PRN (12:45)
--- NOTE | 2021-07-02 12:45 | NUR ---
rt notes 1245 PT WAS INTUBATED BY DR KING, VENT SETTINGS(AC20,500VT PEEP 5, 100% FIO2). ETT 7.5/23CM LL. CO2 DETECTOR COLOR CHANGED. BILATERAL BREATH SOUNDS HEARD. XRAY TO FOLLOW. PT SATURATING 100%, SPUTUM CULTURE SENT TO LAB. WILL CONTINUE TO MONITOR PT. PER DR[facility] RADHA RESTREPO AT BEDSIDE.
[2021-07-02] MEDS ORDERED: ETOMIDATE 20 MG/ 10 ML VIAL (AMIDATE) ONE (13:19)
[2021-07-02] MEDS ORDERED: ROCURONIUM BROMIDE 10 MG/ML (ZEMURON) ONE (13:19)
--- NOTE | 2021-07-02 14:45 | NUR ---
rt notes 1445 Titrated fio2 to 50%, per post intubation abg results PO2 414. pt saturating 100%. will continue to monitor pt. RADHA Barnett aware.
[2021-07-02] MEDS: PROPOFOL DRIP 100 ML IV PRN (19:14)
[2021-07-02] MEDS: ATORVASTATIN 20 MG TABLET PO SCH (21:00)
[2021-07-03] VITALS (32 sets, daily range): BP systolic 96–151
[2021-07-03] MEDS: PROPOFOL DRIP 100 ML IV PRN ×3 (03:12→18:33)
[2021-07-03] MEDS: SODIUM BICARBONATE 8.4% JECT 150 MEQ in 0.45% NACL 1,000 ML IV SCH ×2 (04:17→20:20)
[2021-07-03] MEDS: MEROPENEM 500 MG in NS 50 ML IV SCH ×3 (05:38→21:28)
[2021-07-03] MEDS: metroNIDAZOLE 500 mg/NS 100 ML IV SCH ×3 (05:39→23:43)
[2021-07-03 06:12] LABS: BASOPHILS # (AUTO) 0.1 K/uL (0.0-0.2); BASOPHILS % (AUTO) 0.4 % (0.0-2.0); EOSINOPHILS # (AUTO) 0.1 K/uL (0.0-0.4); EOSINOPHILS % (AUTO) 0.6 % (0.0-4.0); HEMATOCRIT 26.4 % (36-54); HEMOGLOBIN 8.5 g/dL (14.0-18.0); LYMPHOCYTES # (AUTO) 2.1 K/uL (1.0-5.5); LYMPHOCYTES % (AUTO) 11.7 % (20.5-51.5); MEAN CORPUSCULAR HEMOGLOBIN 28 pg (27-31); MEAN CORPUSCULAR HGB CONC 32 % (32-36); MEAN CORPUSCULAR VOLUME 87 fL (79.0-98.0); MONOCYTES # (AUTO) 0.7 K/uL (0.0-1.0); MONOCYTES % (AUTO) 3.9 % (1.7-9.3); NEUTROPHILS # (AUTO) 15.2 K/uL (1.8-7.7); NEUTROPHILS % (AUTO) 83.4 % (40.0-70.0); PLATELET COUNT (AUTO) 282 K/uL (130-430); RED BLOOD CELL COUNT(AUTO) 3.03 MIL/uL (4.2-6.2); RED CELL DISTRIBUTION WIDTH 16.6 % (9.0-15.0); WHITE BLOOD COUNT (AUTO) 18.2 K/uL (4.8-10.8)
--- NOTE | 2021-07-03 07:00 | NUR ---
Recv report fr Benedict rn, patient is in bed , lethargic, orally intubated, patient opens eyes with pain stimuli, telemetry shows sr, orally intubated, ng tube clamped, f/c to gravity, patient with wound vac, skin is warm to touch, i will continue nursing caer and interventions.
[2021-07-03 07:43] LABS: ALANINE AMINOTRANSFERASE 23 U/L (12-78); ALBUMIN 1.5 g/dL (3.4-4.8); ANION GAP 16 (5-15); ASPARTATE AMINOTRANSFERASE 24 U/L (10-37); CHLORIDE 110 mmol/L (98-107); CREATININE 3.65 mg/dL (0.55-1.30); GLUCOSE 76 mg/dL (70-99); POTASSIUM 3.8 mmol/L (3.5-5.1); SODIUM SERUM 142 mmol/L (136-145); TOTAL BILIRUBIN 0.2 mg/dL (0.0-1.0); UREA NITROGEN, BLOOD 55 mg/dL (8-21)
[2021-07-03] MEDS: amLODIPine BESYLATE 5 MG TABLET PO SCH ×2 (09:00→16:30)
[2021-07-03] MEDS: TAMSULOSIN HCL 0.4 MG CAP PO SCH (09:19)
[2021-07-03] MEDS: MULTIVITAMINS TAB 1 TABLET PO SCH (09:19)
[2021-07-03] MEDS: DOCUSATE SODIUM 100 MG CAPSULE PO SCH ×2 (09:20→20:47)
[2021-07-03] MEDS: FAMOTIDINE 20 MG TABLET PO SCH (09:20)
[2021-07-03] MEDS: ASCORBIC ACID 500 MG TABLET PO SCH (09:20)
[2021-07-03] MEDS: BALSAM PERU/CASTOR OIL 56.7 GM OINT...G. TP SCH (09:20)
[2021-07-03] MEDS: ASPIRIN 81 MG TABLET(ECOTRIN) PO SCH (09:22)
[2021-07-03] MEDS: FINASTERIDE 5 MG TABLET (PROSCAR) PO SCH (09:22)
[2021-07-03] MEDS ORDERED: LIDOCAINE 1%, 20 ML MDV 20 ML ONE (09:23)
--- NOTE | 2021-07-03 10:00 | NUR ---
Dr. Brady inserted maria luz catheter to the right ij, confirmed by chest x ray, Dr. Monroe called and said to get a consent for dialysis, patient needs dialysis, will contact patient's family.
--- NOTE | 2021-07-03 12:00 | NUR ---
Patient is in bed no changed condition, patient awaiting for hemodialysis, d 5 04/23 ns infusing, doing weill intubation, we will continue to monitor the patient.
--- NOTE | 2021-07-03 14:00 | NUR ---
Hemodialysis started will closely monitor patient's vitals sign.
[2021-07-03] MEDS ORDERED: HEPARIN SODIUM, PORCINE 10,000 UNITS/ 10 ML VIAL MC ONE (14:45)
[2021-07-03] MEDS ORDERED: HEPARIN SODIUM,PORCINE 5,000 UNITS/ML VIAL ONE (14:57)
[2021-07-03] MEDS ORDERED: HEPARIN SODIUM,PORCINE 5,000 UNITS/ML VIAL MC ONE (15:00)
--- NOTE | 2021-07-03 16:00 | NUR ---
Patient tolerated hemodialysis, output 1.2 Liters,
--- NOTE | 2021-07-03 18:00 | NUR ---
All nursing care and issues all have been addressed, we will give report to the shift leader nurse.
[2021-07-03] MEDS: ATORVASTATIN 20 MG TABLET PO SCH (20:47)
[2021-07-04] VITALS (35 sets, daily range): BP systolic 99–166
[2021-07-04] MEDS: PROPOFOL DRIP 100 ML IV PRN ×3 (01:46→10:16)
[2021-07-04] MEDS: MEROPENEM 500 MG in NS 50 ML IV SCH ×3 (06:04→21:31)
[2021-07-04 06:35] LABS: ALANINE AMINOTRANSFERASE 24 U/L (12-78); ALBUMIN 1.4 g/dL (3.4-4.8); ANION GAP 15 (5-15); CALCIUM 7.2 mg/dL (8.4-11.0); CHLORIDE 108 mmol/L (98-107); CREATININE 3.36 mg/dL (0.55-1.30); GLUCOSE 127 mg/dL (70-99); POTASSIUM 3.1 mmol/L (3.5-5.1); SODIUM SERUM 144 mmol/L (136-145); TOTAL BILIRUBIN 0.2 mg/dL (0.0-1.0); UREA NITROGEN, BLOOD 46 mg/dL (8-21)
--- NOTE | 2021-07-04 06:42 | NUR ---
ALL CARES DONE, VSS, AFEBRILE.
[2021-07-04 07:39] LABS: BASOPHILS % (AUTO) 0.2 % (0.0-2.0); EOSINOPHILS # (AUTO) 0.3 K/uL (0.0-0.4); EOSINOPHILS % (AUTO) 1.4 % (0.0-4.0); HEMATOCRIT 28.4 % (36-54); HEMOGLOBIN 9.5 g/dL (14.0-18.0); LYMPHOCYTES # (AUTO) 2.5 K/uL (1.0-5.5); MEAN CORPUSCULAR HEMOGLOBIN 29 pg (27-31); MEAN CORPUSCULAR HGB CONC 33 % (32-36); MEAN CORPUSCULAR VOLUME 86 fL (79.0-98.0); MONOCYTES # (AUTO) 0.9 K/uL (0.0-1.0); MONOCYTES % (AUTO) 4.4 % (1.7-9.3); NEUTROPHILS # (AUTO) 15.8 K/uL (1.8-7.7); PLATELET COUNT (AUTO) 257 K/uL (130-430); RED CELL DISTRIBUTION WIDTH 16.8 % (9.0-15.0); WHITE BLOOD COUNT (AUTO) 19.5 K/uL (4.8-10.8)
[2021-07-04 08:24] LABS: ASPARTATE AMINOTRANSFERASE 76 U/L (10-37)
[2021-07-04] MEDS: metroNIDAZOLE 500 mg/NS 100 ML IV SCH ×3 (08:29→23:39)
[2021-07-04] MEDS: ASCORBIC ACID 500 MG TABLET PO SCH (08:49)
[2021-07-04] MEDS: TAMSULOSIN HCL 0.4 MG CAP PO SCH (08:50)
[2021-07-04] MEDS: ASPIRIN 81 MG TABLET(ECOTRIN) PO SCH (08:50)
[2021-07-04] MEDS: MULTIVITAMINS TAB 1 TABLET PO SCH (08:50)
[2021-07-04] MEDS: DOCUSATE SODIUM 100 MG CAPSULE PO SCH ×2 (08:50→21:00)
[2021-07-04] MEDS: FAMOTIDINE 20 MG TABLET PO SCH (08:50)
[2021-07-04] MEDS: BALSAM PERU/CASTOR OIL 56.7 GM OINT...G. TP SCH (09:00)
[2021-07-04] MEDS ORDERED: HEPARIN SODIUM,PORCINE 5,000 UNITS/ML VIAL MC ONE (11:15)
[2021-07-04] MEDS ORDERED: ALBUMIN HUMAN 25% 100 ML IV ONE (11:30)
[2021-07-04] MEDS: FINASTERIDE 5 MG TABLET (PROSCAR) PO SCH (11:35)
[2021-07-04] MEDS: SODIUM BICARBONATE 8.4% JECT 150 MEQ in 0.45% NACL 1,000 ML IV SCH (11:36)
--- NOTE | 2021-07-04 15:18 | NUR ---
Nutrition F/U Nutritional Screening High Risk Screening Consult Admitting Diagnosis Decubitus R foot infection Medical History Comment: HTN, DM, CVA, and BPH per physician notes Pt also found w/ severe malnutrition, complicated UTI-GNR, and R heel PU-infected d/t GNR/polymicrobial per physician notes SARS-CoV-2 Ag (Rapid) Negative 06/15 & 06/26 Subjective Information: Per EMR review, pt w/ respiratory distress and lethargic, transferred to ICU 07/01; S/P intubation 07/02; Jose scale: 13, Allergy Specialist note 06/19 reviewed, multiple PU noted to RLE, S/P surgical debridement R. heel, may need BKA per physician notes; pt started on HD 07/03 received HD today as well; TF initiated 07/03; TF running at 30 ml/hr via NGT to R. nares 07/04; GRV 10 ml 07/04; abd is soft w/ hypoactive bowel sounds; last BM x1 07/03; 2+ pitting edema to L. foot and L. arm, 1+ pitting edema to R. arm; Jose scale 10, skin tear posterior buttocks, wound R. heel w/ wound vac. Current Diet Order/Nutrition Support: Nepro at 30 ml/hr x 1 day Patient/Significant Other Unable To Verbalize Education Provided Not Indicated Pertinent Medications: lipitor, MVI, senna, pepcid, colace, VIT C, SSI Pertinent Labs: WBC 19.5 H, BUN 46 H, Cr 3.36 H, BG 127 H, POC BG 111 H, AST 76 H, Alk Phos 135 H, Alb 1.4 L Height (Feet) 6 feet Height (Inches) 0.00 inches Weight (Pounds) 167 pounds -- stable since 06/17 Weight (Calculated Kilograms) 75.312672 kilograms Patient Weight 75.75 kg Body Mass Index 22.65 kg/m2 %IBW 94 [place]/Adjusted Body Weight 178#/81 kg Weight Status Underweight for GERIAT status Estimated Energy Expenditure (kcals/day) NEW: 1726 (PSU d/t critical illness, intubation; Ve: 10.3, Tmax: 36.7'C) Estimated Protein Required (g/day) 91-114 (1.2-1.5 gm/kg CBW d/t wound healing) Estimated Fluid Required (l/day) NEW: Per physician d/t BECK Problem/Etiology/Signs/Symptoms Increased nutritional needs R/T metabolic demands AEB estimated nutritional requirements for wound healing. *Ongoing Expected Outcomes/Goals - Monitor tolerance of nutrition support w/ goal of pt meeting >75% of estimated nutritional needs, labs trending WNL, normal GI function, and skin integrity/wt maintenance Dietitian Recommendations * Increase TF to Nepro at 35 ml/hr (goal rate), Roger BID, Prosource BID, FWF per physician TF and supplements provide: 1797 kcals/day, 111 g protein/day Meets: 104% of caloric needs and 97% of upper protein needs Follow Up High Risk: F/U in 2-3 days
--- NOTE | 2021-07-04 15:19 | NUR ---
Dietitian Recommendations * Increase TF to Nepro at 35 ml/hr (goal rate), Roger BID, Prosource BID, FWF per physician TF and supplements provide: 1797 kcals/day, 111 g protein/day Meets: 104% of caloric needs and 97% of upper protein needs Please refer to Nutrition F/U for details.
--- NOTE | 2021-07-04 19:35 | NUR ---
ENDORSEMENT END OF SHIFT REPORT GIVEN TO NIGHT RN FOR CONTINUATION OF CARE
--- NOTE | 2021-07-04 19:35 | NUR ---
INITIAL SHIFT REPORT GIVEN TO NIGHT RN FOR CONTINUATION OF CARE
[2021-07-04] MEDS: ATORVASTATIN 20 MG TABLET PO SCH (21:30)
[2021-07-05] VITALS (35 sets, daily range): BP systolic 108–157
[2021-07-05] MEDS: SODIUM BICARBONATE 8.4% JECT 150 MEQ in 0.45% NACL 1,000 ML IV SCH ×2 (02:00→16:50)
[2021-07-05] MEDS: PROPOFOL DRIP 100 ML IV PRN ×3 (02:12→19:39)
[2021-07-05] MEDS: MEROPENEM 500 MG in NS 50 ML IV SCH ×3 (06:16→21:16)
[2021-07-05 06:36] LABS: HEMATOCRIT 28.2 % (36-54); HEMOGLOBIN 9.3 g/dL (14.0-18.0); MEAN CORPUSCULAR HEMOGLOBIN 28 pg (27-31); MEAN CORPUSCULAR HGB CONC 33 % (32-36); MEAN CORPUSCULAR VOLUME 86 fL (79.0-98.0); PLATELET COUNT (AUTO) 176 K/uL (130-430); RED CELL DISTRIBUTION WIDTH 16.3 % (9.0-15.0); WHITE BLOOD COUNT (AUTO) 17.7 K/uL (4.8-10.8)
[2021-07-05 07:10] LABS: ALANINE AMINOTRANSFERASE 20 U/L (12-78); ALBUMIN 1.7 g/dL (3.4-4.8); ANION GAP 15 (5-15); ASPARTATE AMINOTRANSFERASE 25 U/L (10-37); CALCIUM 7.1 mg/dL (8.4-11.0); CHLORIDE 106 mmol/L (98-107); CREATININE 2.88 mg/dL (0.55-1.30); GLUCOSE 106 mg/dL (70-99); SODIUM SERUM 144 mmol/L (136-145); TOTAL BILIRUBIN 0.5 mg/dL (0.0-1.0); UREA NITROGEN, BLOOD 40 mg/dL (8-21)
[2021-07-05 07:30] LABS: POTASSIUM 2.8 mmol/L (3.5-5.1)
[2021-07-05] MEDS: metroNIDAZOLE 500 mg/NS 100 ML IV SCH ×3 (08:44→23:51)
[2021-07-05 09:06] LABS: BAND % (MANUAL) 4 % (0-6); BASOPHILS % (MANUAL) 0 % (0-2); EOSINOPHILS % (MANUAL) 2 % (0-7); LYMPHOCYTES % (MANUAL) 17 % (20-46); METAMYELOCYTES % 2 % (0-0); MONOCYTES % (MANUAL) 3 % (0-11); MYELOCYTES % 6 % (0-0); PROMYELOCYTES % 3 % (0-0)
--- NOTE | 2021-07-05 09:20 | NUR ---
RT NOTES Per jose Cartagena to start CPAP trial now, pt appears awake, but does appear to be following commands at this time. Vent to CPAP 5 PS 10. No adverse reactions noted. will monitor pt.
[2021-07-05] MEDS: DOCUSATE SODIUM 100 MG CAPSULE PO SCH ×2 (09:50→21:15)
[2021-07-05] MEDS: FAMOTIDINE 20 MG TABLET PO SCH (09:51)
[2021-07-05] MEDS: ASPIRIN 81 MG TABLET(ECOTRIN) PO SCH (09:51)
[2021-07-05] MEDS: amLODIPine BESYLATE 5 MG TABLET PO SCH (09:52)
[2021-07-05] MEDS: FINASTERIDE 5 MG TABLET (PROSCAR) PO SCH (09:52)
[2021-07-05] MEDS: MULTIVITAMINS TAB 1 TABLET PO SCH (09:53)
[2021-07-05] MEDS: ASCORBIC ACID 500 MG TABLET PO SCH (09:53)
[2021-07-05] MEDS: TAMSULOSIN HCL 0.4 MG CAP PO SCH (10:01)
--- NOTE | 2021-07-05 10:25 | NUR ---
RT NOTES Vent back to AC per 1 hour CPAP trial
--- NOTE | 2021-07-05 16:40 | NUR ---
WOUND EVALUATION: Late note for 07/05/2021 at 1640 secondary to patient care. Wound Consult received from Dr. Winn. Thank you, Dr. Winn, for the consult. Patient received in a Anisha Bed with an IsoFlex ZAHIRA mattress, obtunded, sedated. Patient is unable to turn in bed independently. Jose Score is a 9. Past Medical History: Hypertension, Diabetes Mellitus, CVA, Right Heel pressure ulcer with infection, Benign Prostatic Hypertrophy. Recent Labs: WBC 19.2, RBC 3.37, hemoglobin 9.8, hematocrit 28.8, potassium 2.6, BUN 44, creatinine 3.32, glucose 122, calcium 6.8, serum total protein 3.7, alkaline phosphatase 118, BUN 1.6. Microbiology: Surgical specimen culture results positive for Proteus Mirabilis, Enterococcus faecalis, and MRSA. Second surgical culture results positive for Proteus Mirabilis and Enterococcus faecalis. Stool culture results positive for C. difficile. Endotracheal sputum culture results positive for yeast. MRSA screen results in progress. Intrinsic factors that delay wound healing: Diabetes Mellitus, CVA, Hyperglycemia, Hypoalbuminemia. Extrinsic factors that delay wound healing: Decreased mobility. Wound Assessment: 1. Right Posterior Heel: Unstageable pressure ulcer, present on admission. Wound is status post surgical debridement by Dr. Langston. Wound bed is not visible secondary to graft with Adaptic dressing on top. Moderate odor, no drainage. Periwound intact. Wound measures 7.0 cm x 7.5 cm. 2. Right Distal Lateral Lower Extremity: Unstageable pressure ulcer, present on admission. Wound is status post surgical debridement by Dr. Langston. Wound bed is not visible secondary to graft with Adaptic dressing on top. Moderate odor, no drainage. Periwound intact. Wound measures 4.4 cm x 4.0 cm. Recommend: Cleanse wounds with normal saline. Apply sure prep to margo-wounds and skin in between wounds. Cut black granufoam dressing to size and apply to wound beds, secure with VAC drape. Apply VAC drape to skin in between Heel and Lower Extremity wounds. Cut hole into VAC drape and insert black granufoam, and run to and insert into hole cut in VAC drape in right lower extremity wound. Attach suction attachment to the middle portion of VAC drape in between wounds. Run wound VAC at 75 mmHg, continuous. Perform wound care q M/W/F, and as needed for dressing soiling or dislodgement. 3. Right Dorsal Foot, Distal and Right Lateral to Ankle joint line: Chronic wound of unknown etiology, present on admission. Infection appears to be progressing and wound is deteriorating. Wound bed has 70% yellow slough, 30% black eschar. No odor, no drainage. Periwound intact. Wound measures 6.5 cm x 6.5 cm. Recommend: Cleanse wound with normal saline. Apply sure prep to periwound. Apply Venelex ointment to wound bed. Cover with nonadhesive foam dressing. Cover foam dressing with OpSite. Perform wound care daily, and as needed for dressing soiling or dislodgment. 4. Right Dorsal Foot, superior to site 3 near Ankle Joint Line: New large bulla with serous fluid, a progression of the infection. Bulla measures 5.0 cm x 4.5 cm. Recommend: Rinse bulla with normal saline. Apply sure prep to perimeter of bulla. Cover with nonadhesive foam dressing. Cover foam dressing with OpSite. Perform site care daily, and as needed for dressing soiling or dislodgment. 5. Right Lateral Malleolus: Unstageable pressure ulcer, present on admission. Wound bed has 100% yellow tissue. No odor, no drainage. Periwound intact. Wound measures 2.7 cm x 0.8 cm. 6. Right Lateral Foot, Middle Aspect: Unstageable pressure ulcer, present on admission. Black eschar has fallen off and pink scar tissue remains. No odor, no drainage. Recommend continue: Cover sites with foam dressing for protection. Perform site care daily, and as needed for dressing soiling or dislodgment. 7. Left lateral plantar foot near first metatarsal head: Unstageable pressure ulcer, present on admission. Wound bed has 90% brown eschar, 10% dark brown eschar. No odor, no drainage. Dry, stable. Wound measures 1.5 cm x 1.0 cm. Recommend continue: [place] site with Betadine. Allow to air dry. Cover site with 4x4 foam dressing. Perform site care daily, and as needed for dressing soiling or dislodgment. 8. Right Buttock: Stage 2 pressure ulcer, present on admission. Site has 95% red tissue, 5% black scab. Most of scab material came off during cleansing of wound. No odor, no drainage. Perimeter of skin tear intact. Skin tear measures 2.0 cm x 0.7 cm Recommend: Cleanse site with normal saline. Apply sure prep to perimeter of site. Apply Venelex ointment to perimeter of site. Cover site with 4x4 foam dressing. Perform site care daily, and as needed for dressing soiling or dislodgment. 9. Right Posterior Proximal Thigh: Skin tear. Site has 95% red tissue, 5% dark discoloration. Most of scab material came off during cleansing of wound. No odor, no drainage. Perimeter of skin tear intact. Skin tear measures 3.0 cm x 2.0 cm. Recommend: Cleanse site with normal saline. Apply sure prep to perimeter of site. Apply Venelex ointment to site. Cover with 4x4 foam dressing. Perform site care daily, and as needed for dressing soiling or dislodgment. 10. Left Posterior Lateral Calf: Unstageable pressure ulcer. Wound bed has 90% yellow tissue, 10% red tissue. No odor, no drainage. Periwound intact. Wound measures 1.0 cm x 0.5 cm. Recommend: Cleanse site with normal saline. Apply sure prep to perimeter of site. Apply Venelex ointment to site. Cover with 4x4 foam dressing. Perform site care daily, and as needed for dressing soiling or dislodgment. 11. Left Distal Posterior Lateral Calf: Wound. Wound bed has 100% black scab. No odor, no drainage. Periwound intact. Wound measures 1.1 cm x 0.8 cm. Recommend: [place] site with Betadine. Allow to air dry. Cover site with 4 x 4 foam dressing. Perform site care daily, and as needed for dressing soiling or dislodgment. Also recommend: Encourage and assist patient as needed with repositioning every 2 hours with pillow support and off-load pressure areas with pillows for pressure re-distribution. Offload, elevate and float bilateral heels with pillows. Perform skin care and monitor skin integrity Q shift. Use moisture barrier cream on buttocks and other moisture susceptible areas QID and as needed for soiling. Place patient on a low air-loss mattress.
[2021-07-05] MEDS: FLUCONAZOLE 100 mg/ NS 50 ML IV SCH (16:48)
[2021-07-05] MEDS: ATORVASTATIN 20 MG TABLET PO SCH (21:16)
[2021-07-05] MEDS: POTASSIUM CHLORIDE 20 MEQ/PKT PACKET PO SCH (21:16)
[2021-07-06] VITALS (32 sets, daily range): BP systolic 98–149
[2021-07-06] MEDS: PROPOFOL DRIP 100 ML IV PRN ×2 (02:02→23:46)
[2021-07-06 03:34] LABS: BILIRUBIN,URINE NEGATIVE (NEGATIVE); BLOOD, URINE 1+ (NEGATIVE); CLARITY/URINE CLEAR (CLEAR); COLOR,URINE YELLOW (YELLOW); GLUCOSE,URINE NEGATIVE (NEGATIVE); KETONES,URINE NEGATIVE (NEGATIVE); LEUKOCYTE ESTERASE ,URINE 1+ (NEGATIVE); NITRITE, URINE NEGATIVE (NEGATIVE); PROTEIN URINE 1+ (NEGATIVE); UROBILINOGEN,URINE 0.2 (0.2-1.0)
[2021-07-06 04:58] LABS: RBC,URINE 0-3 /HPF (0-3)
[2021-07-06 04:59] LABS: BACTERIA,URINE None Seen /HPF (None Seen); MUCUS,URINE None Seen /LPF (None Seen); YEAST,URINE Few /HPF (None Seen)
[2021-07-06] MEDS: MEROPENEM 500 MG in NS 50 ML IV SCH ×3 (05:13→21:05)
[2021-07-06 06:52] LABS: BASOPHILS # (AUTO) 0.1 K/uL (0.0-0.2); BASOPHILS % (AUTO) 0.3 % (0.0-2.0); EOSINOPHILS # (AUTO) 0.3 K/uL (0.0-0.4); EOSINOPHILS % (AUTO) 1.6 % (0.0-4.0); HEMATOCRIT 28.8 % (36-54); HEMOGLOBIN 9.8 g/dL (14.0-18.0); LYMPHOCYTES # (AUTO) 3.6 K/uL (1.0-5.5); LYMPHOCYTES % (AUTO) 18.6 % (20.5-51.5); MEAN CORPUSCULAR HEMOGLOBIN 29 pg (27-31); MEAN CORPUSCULAR HGB CONC 34 % (32-36); MEAN CORPUSCULAR VOLUME 86 fL (79.0-98.0); MONOCYTES # (AUTO) 0.7 K/uL (0.0-1.0); MONOCYTES % (AUTO) 3.7 % (1.7-9.3); NEUTROPHILS # (AUTO) 14.6 K/uL (1.8-7.7); NEUTROPHILS % (AUTO) 75.8 % (40.0-70.0); PLATELET COUNT (AUTO) 178 K/uL (130-430); RED BLOOD CELL COUNT(AUTO) 3.37 MIL/uL (4.2-6.2); RED CELL DISTRIBUTION WIDTH 16.3 % (9.0-15.0); WHITE BLOOD COUNT (AUTO) 19.2 K/uL (4.8-10.8)
[2021-07-06 07:08] LABS: INR 1.2 (0.80-1.20); PROTHROMBIN TIME 12.3 SECS (9.5-12.5)
[2021-07-06 07:21] LABS: ALBUMIN 1.6 g/dL (3.4-4.8); ANION GAP 13 (5-15); CHLORIDE 106 mmol/L (98-107); CREATININE 3.32 mg/dL (0.55-1.30); GLUCOSE 122 mg/dL (70-99); SODIUM SERUM 144 mmol/L (136-145); TOTAL BILIRUBIN 0.3 mg/dL (0.0-1.0); UREA NITROGEN, BLOOD 44 mg/dL (8-21)
[2021-07-06] MEDS: SODIUM BICARBONATE 8.4% JECT 150 MEQ in 0.45% NACL 1,000 ML IV SCH ×2 (08:00→23:33)
[2021-07-06 08:44] LABS: ALANINE AMINOTRANSFERASE 16 U/L (12-78); ASPARTATE AMINOTRANSFERASE 31 U/L (10-37)
[2021-07-06 08:48] LABS: CALCIUM 6.8 mg/dL (8.4-11.0); POTASSIUM 2.6 mmol/L (3.5-5.1)
[2021-07-06] MEDS: metroNIDAZOLE 500 mg/NS 100 ML IV SCH ×3 (08:52→23:33)
[2021-07-06] MEDS: amLODIPine BESYLATE 5 MG TABLET PO SCH (09:00)
[2021-07-06] MEDS: DOCUSATE SODIUM 100 MG CAPSULE PO SCH ×2 (09:00→21:05)
[2021-07-06] MEDS ORDERED: KCL 40 mEq in 100 mL (PREMIX) 100 ML IV ONE (09:15)
[2021-07-06] MEDS: TAMSULOSIN HCL 0.4 MG CAP PO SCH (09:38)
[2021-07-06] MEDS: ASPIRIN 81 MG TABLET(ECOTRIN) PO SCH (09:38)
[2021-07-06] MEDS: ASCORBIC ACID 500 MG TABLET PO SCH (09:38)
[2021-07-06] MEDS: MULTIVITAMINS TAB 1 TABLET PO SCH (09:38)
[2021-07-06] MEDS: BALSAM PERU/CASTOR OIL 56.7 GM OINT...G. TP SCH (09:40)
[2021-07-06] MEDS: POTASSIUM CHLORIDE 20 MEQ/PKT PACKET PO SCH ×2 (09:42→21:05)
[2021-07-06] MEDS: FINASTERIDE 5 MG TABLET (PROSCAR) PO SCH (09:46)
[2021-07-06] MEDS: FAMOTIDINE 20 MG TABLET PO SCH (09:48)
--- NOTE | 2021-07-06 10:10 | NUR ---
At 0820 placed Pt. on CPAP of 5 PS 10. Pt HR 72. RR 17, SPO2 100%. RN aware, will continue to monitor. At 0920 Pt. placed back to AC. No distress noted. Addendum: 07/06/21 at 1012 by Jennifer Alegria RT Amended: Links added.
[2021-07-06] MEDS ORDERED: CALCIUM GLUCONATE 2 GM in NS 100 ML IV ONE (10:15)
[2021-07-06] MEDS: FLUCONAZOLE 100 mg/ NS 50 ML IV SCH (11:37)
--- NOTE | 2021-07-06 13:05 | NUR ---
Wound care planning: Called Dr. Langston and he said to hold the bedside debridement procedure of the right foot today. Plan: Dr. Garcia will speak with family regarding right below-knee amputation as he feels that the foot/extremity is the source of the patient's infection and will require a BKA. If family agrees to amputation, get consent (order for consent was already entered - do not ask for consent until Dr. Garcia speaks with family AND they agree to amputation) and notify Dr. Langston so he can schedule of the surgery. If family disagrees with amputation, call Dr. Langston for further orders, including possible debridement of right foot. If bedside debridement is performed kit and all supplies are just outside of the patient's room (due to isolation precautions) with the exception of the Xylocaine 1% and Epi, which will need to be pulled from the Pyxis immediately prior to the procedure. RADHA Mckeon, was made aware of above plans.
[2021-07-06] MEDS ORDERED: HEPARIN SODIUM,PORCINE 5,000 UNITS/ML VIAL ONE (14:04)
--- NOTE | 2021-07-06 18:17 | NUR ---
1750 assisted in transferring pt to another bed. pt tolerating vent settings, ett secure and patent. Addendum: 07/06/21 at 1821 by Jennifer Alegria RT Amended: Links added.
--- NOTE | 2021-07-06 19:10 | NUR ---
Opening notes Received report from endorsing morning shift RN for continuity of care. Patient is lying in bed with diprivan @ 30 mcg/kg/min, and IVF sodium bicarbonate 8.4 %/ 0.45 NaCL @ 75 mL/hr. Patient is intubated, vent AC 20, tidal volume 500, FIO2 35%, and peep of 5. Vital signs blood pressure 143/62, heart rate 66, SPO2 100%, and respirations 20. Conner catheter is in place draining to gravity. Bed is locked and in lowest position, fall and safety precautions is in place.
[2021-07-06] MEDS: ATORVASTATIN 20 MG TABLET PO SCH (21:05)
[2021-07-07] VITALS (34 sets, daily range): BP systolic 101–159
[2021-07-07] MEDS: MEROPENEM 500 MG in NS 50 ML IV SCH ×3 (05:19→21:06)
[2021-07-07] MEDS: PROPOFOL DRIP 100 ML IV PRN ×5 (05:20→19:52)
[2021-07-07 06:35] LABS: BASOPHILS # (AUTO) 0.1 K/uL (0.0-0.2); BASOPHILS % (AUTO) 0.3 % (0.0-2.0); EOSINOPHILS # (AUTO) 0.4 K/uL (0.0-0.4); EOSINOPHILS % (AUTO) 2.4 % (0.0-4.0); HEMATOCRIT 28.8 % (36-54); HEMOGLOBIN 9.6 g/dL (14.0-18.0); LYMPHOCYTES # (AUTO) 3.5 K/uL (1.0-5.5); LYMPHOCYTES % (AUTO) 19.1 % (20.5-51.5); MEAN CORPUSCULAR HEMOGLOBIN 28 pg (27-31); MEAN CORPUSCULAR HGB CONC 33 % (32-36); MEAN CORPUSCULAR VOLUME 85 fL (79.0-98.0); MONOCYTES # (AUTO) 0.9 K/uL (0.0-1.0); MONOCYTES % (AUTO) 4.9 % (1.7-9.3); NEUTROPHILS # (AUTO) 13.6 K/uL (1.8-7.7); NEUTROPHILS % (AUTO) 73.3 % (40.0-70.0); PLATELET COUNT (AUTO) 126 K/uL (130-430); RED BLOOD CELL COUNT(AUTO) 3.39 MIL/uL (4.2-6.2); RED CELL DISTRIBUTION WIDTH 16.4 % (9.0-15.0); WHITE BLOOD COUNT (AUTO) 18.6 K/uL (4.8-10.8)
[2021-07-07] MEDS: metroNIDAZOLE 500 mg/NS 100 ML IV SCH ×3 (08:34→23:45)
[2021-07-07 08:55] LABS: INR 1.3 (0.80-1.20); PROTHROMBIN TIME 12.1 SECS (9.5-12.5)
[2021-07-07] MEDS: DOCUSATE SODIUM 100 MG CAPSULE PO SCH ×2 (09:00→21:06)
[2021-07-07 09:01] LABS: ALANINE AMINOTRANSFERASE 17 U/L (12-78); ALBUMIN 1.6 g/dL (3.4-4.8); ANION GAP 12 (5-15); ASPARTATE AMINOTRANSFERASE 27 U/L (10-37); CALCIUM 7.2 mg/dL (8.4-11.0); CHLORIDE 105 mmol/L (98-107); CREATININE 2.84 mg/dL (0.55-1.30); GLUCOSE 85 mg/dL (70-99); POTASSIUM 3.2 mmol/L (3.5-5.1); SODIUM SERUM 141 mmol/L (136-145); TOTAL BILIRUBIN 0.4 mg/dL (0.0-1.0); UREA NITROGEN, BLOOD 33 mg/dL (8-21)
[2021-07-07] MEDS: ASPIRIN 81 MG TABLET(ECOTRIN) PO SCH (09:27)
[2021-07-07] MEDS: TAMSULOSIN HCL 0.4 MG CAP PO SCH (09:27)
[2021-07-07] MEDS: FAMOTIDINE 20 MG TABLET PO SCH (09:27)
[2021-07-07] MEDS: MULTIVITAMINS TAB 1 TABLET PO SCH (09:27)
[2021-07-07] MEDS: ASCORBIC ACID 500 MG TABLET PO SCH (09:27)
[2021-07-07] MEDS: BALSAM PERU/CASTOR OIL 56.7 GM OINT...G. TP SCH (09:28)
[2021-07-07] MEDS: POTASSIUM CHLORIDE 20 MEQ/PKT PACKET PO SCH ×2 (09:28→21:05)
[2021-07-07] MEDS: FINASTERIDE 5 MG TABLET (PROSCAR) PO SCH (09:28)
[2021-07-07] MEDS: amLODIPine BESYLATE 5 MG TABLET PO SCH (09:38)
[2021-07-07] MEDS: D5/0.45 NS 1,000 ML IV SCH ×3 (09:45→21:07)
--- NOTE | 2021-07-07 11:53 | NUR ---
PAGED FOR ORDERS SPOKE TO: EN
--- NOTE | 2021-07-07 12:15 | NUR ---
Dr. Winn came to the unit spoke to Dr. Corrigan anesthesiologist regarding clearance for surgery. Indicated patient clear for surgery today. Dr. Corrigan called family. Spoke to sister who is POA. Consent signed for anesthesia. Dr. Brady contacted and verified if patient clear for surgery. ABG done as ordered. Dr. Corrigan saw ABG results and Dr. Brady cleared patient for surgery. Dr. Monroe came to the unit as well and said patient cleared for surgery.
--- NOTE | 2021-07-07 13:50 | NUR ---
RT NOTE: Assisted transporting patient to OR for procedure. Patient ventilated with ambu bag at 15LPM oxygen via E-tank. V/S are stable during transport. Will await for OR to call for transfer back to ICU. Addendum: 07/07/[address] RT Amended: Links added.
[2021-07-07] MEDS ORDERED: D5/0.45 NS 1,000 ML IV.SOLN IV ONE (14:15)
[2021-07-07] MEDS ORDERED: MIDAZOLAM HCL 5 MG/5 ML VIAL IVP ONE (14:15)
[2021-07-07] MEDS ORDERED: NS IRRIG SOLN 1000 ML IR ONE (14:15)
[2021-07-07] MEDS ORDERED: CEFAZOLIN 1 GM IVPB PREMIX 50 ML IV ONE (14:15)
[2021-07-07] MEDS ORDERED: fentaNYL CITRATE/PF 100 MCG/2 ML AMP IVP ONE (14:15)
[2021-07-07] MEDS ORDERED: SEVOFLURANE 15 MIN GAS INH ONE (14:15)
[2021-07-07] MEDS ORDERED: ROCURONIUM BROMIDE 10 MG/ML (ZEMURON) IV ONE (14:15)
--- NOTE | 2021-07-07 14:20 | NUR ---
Transported to surgery unit. building custodial supervisor by OR staff and anesthesiologist in stable condition. Afebrile. Transported via bed on cardiac cath technician and RT bagging pt via ET tube with 100% FiO2. O2 sat remain 100%. No sign of respiratory distress.
[2021-07-07] MEDS ORDERED: MIDAZOLAM HCL 2 MG/2 ML VIAL (VERSED) IVP PRN (14:45)
[2021-07-07] MEDS ORDERED: ONDANSETRON HCL 4 MG/2 ML VIAL IVP PRN (14:45)
[2021-07-07] MEDS ORDERED: D5/0.45 NS 1,000 ML IV SCH (14:45)
[2021-07-07] MEDS ORDERED: HYDROmorphone 1 MG/ML INJ. CARTRIDGE IVP PRN ×2 (14:45)
[2021-07-07] MEDS: FLUCONAZOLE 100 mg/ NS 50 ML IV SCH (14:53)
--- NOTE | 2021-07-07 16:10 | NUR ---
RT NOTE: 1610 Called to OR to transport patient back to ICU 3. Patient tolerated transport. Placed on vent after. No issues during transport. Addendum: 07/07/[address] RT Amended: Links added.
--- NOTE | 2021-07-07 16:15 | NUR ---
Back direct from OR. S/P right BKA. Procedure tolerated well. Transported via bed with OR staff and anesthesiologist. Reconnected to cardiac bed side monitor. Vitals stable. Reconnect to ventilator. Vent setting A/C of 20, 500 tidal volume, FiO2 60%, PEEP 5. O2 sat 96%. Calm,resting. No sign of any distress. Awake moving right upper extremities. Diprivan restarted @ 30 mcg/kg/min. Right leg stump with elastic bandage, dry, clean and intact. No sign of bleeding. Elevated with pillows.
--- NOTE | 2021-07-07 17:21 | NUR ---
Nutrition F/U Nutritional Screening High Risk Screening Consult Admitting Diagnosis Decubitus R foot infection Medical History Comment: HTN, DM, CVA, and BPH per physician notes Pt also found w/ severe malnutrition, complicated UTI-GNR, and R heel PU-infected d/t GNR/polymicrobial per physician notes SARS-CoV-2 Ag (Rapid) Negative 06/15 & 06/26 Subjective Information: RD rounded to ICU this afternoon. Pt was in OR and had been NPO today per RN report. Per EMR review, pt's low potassium was replaced and was stable for Sx per nephrology standpoint; R foot/ankle discoloration w/ necrotizing infection noted; pt continues intubated/sedated; diarrhea noted; stool output: 300 ml 07/05; TF Rate: 0 ml 07/07; GRV: 0 ml 07/05; TF Intakes: 0 ml 07/07; abd is soft and non-distended w/ active bowel sounds; last BM x1 07/03; L/R arm w/ 2+ pitting edema, L/R foot 1/ 1+ pitting edema; Jose scale: 9 -- reviewed wound care plans 07/06 and verifying specialist nopt Current Diet Order/Nutrition Support: Nepro at 30 ml/hr x 1 day Patient/Significant Other Unable To Verbalize Education Provided Not Indicated Pertinent Medications: lipitor, MVI, senna, pepcid, colace, VIT C, SSI Pertinent Labs: WBC 19.5 H, BUN 46 H, Cr 3.36 H, BG 127 H, POC BG 111 H, AST 76 H, Alk Phos 135 H, Alb 1.4 L Height (Feet) 6 feet Height (Inches) 0.00 inches Weight (Pounds) 167 pounds -- stable since 06/17 Weight (Calculated Kilograms) 75.320448 kilograms Patient Weight 75.75 kg Body Mass Index 22.65 kg/m2 %IBW 94 [place]/Adjusted Body Weight 178#/81 kg Weight Status Underweight for GERIAT status Estimated Energy Expenditure (kcals/day) NEW: 1726 (PSU d/t critical illness, intubation; Ve: 10.3, Tmax: 36.7'C) Estimated Protein Required (g/day) 91-114 (1.2-1.5 gm/kg CBW d/t wound healing) Estimated Fluid Required (l/day) NEW: Per physician d/t BECK Problem/Etiology/Signs/Symptoms Increased nutritional needs R/T metabolic demands AEB estimated nutritional requirements for wound healing. *Ongoing Expected Outcomes/Goals - Monitor tolerance of nutrition support w/ goal of pt meeting >75% of estimated nutritional needs, labs trending WNL, normal GI function, and skin integrity/wt maintenance Dietitian Recommendations * Increase TF to Nepro at 35 ml/hr (goal rate), Roger BID, Prosource BID, FWF per physician TF and supplements provide: 1797 kcals/day, 111 g protein/day Meets: 104% of caloric needs and 97% of upper protein needs Follow Up High Risk: F/U in 2-3 days Addendum: 07/07/21 at [address] ENTERED IN ERROR. PLEASE DISREGARD.
--- NOTE | 2021-07-07 17:24 | NUR ---
Nutrition F/U Nutritional Screening High Risk Screening Consult Admitting Diagnosis Decubitus R foot infection Medical History Comment: HTN, DM, CVA, and BPH per physician notes Pt also found w/ severe malnutrition, complicated UTI-GNR, and R heel PU-infected d/t GNR/polymicrobial, ARF per physician notes SARS-CoV-2 Ag (Rapid) Negative 06/15 & 06/26 Subjective Information: RD rounded to ICU this afternoon. Pt was in OR and had been NPO today per RN report. Per EMR review, pt's low potassium was replaced and was stable for Sx per nephrology standpoint; R foot/ankle discoloration w/ necrotizing infection noted; pt continues intubated/sedated; diarrhea noted; stool output: 300 ml 07/05; TF Rate: 0 ml 07/07; GRV: 0 ml 07/05; TF Intakes: 0 ml 07/07; abd is soft and non-distended w/ active bowel sounds; last BM x1 07/03; L/R arm w/ 2+ pitting edema, L/R foot 1/ 1+ pitting edema; Jose scale: 9 -- reviewed wound care plans 07/06 and produce specialist eval 07/05 revealing multiple wounds. Pt is not meeting nutritional needs. Current Diet Order/Nutrition Support: NPO x0 days Patient/Significant Other Unable To Verbalize Education Provided Not Indicated Pertinent Medications: D5%1/2NS at 100 ml/hr (408 kcal/day), KCl packet, lipitor, MVI, pepcid, VIT C, SSI Pertinent Labs: WBC 18.6 H, BUN 33 H, CRE 2.84 H, BG 85 WNL, POC BG 76 WNL, AST 27 WNL, ALP 92 WNL, ALB 1.6 L Height (Feet) 6 feet Height (Inches) 0.00 inches Weight (Pounds) 167 pounds -- stable since 06/17; NEW WT: 212#/96.4 kg (07/06) -- will re-assess nutritional needs based on new documented wt -- questionable 45# wt gain Weight (Calculated Kilograms) 75.420134 kilograms Patient Weight 75.75 kg Body Mass Index 22.65 kg/m2 %IBW 94 [place]/Adjusted Body Weight 178#/81 kg NEW Estimated Energy Expenditure (kcals/day) 1961 (PSU 2003b d/t critical illness, intubation; Ve: 10.5, Tmax: 36.9'C) NEW Estimated Protein Required (g/day) 96-145 (1-1.5 gm/kg CBW d/t ARF, wound healing) NEW Estimated Fluid Required (l/day) Per physician d/t ARF Problem/Etiology/Signs/Symptoms Increased nutritional needs R/T metabolic demands AEB estimated nutritional requirements for wound healing. *Ongoing Expected Outcomes/Goals - Monitor tolerance of nutrition support w/ goal of pt meeting >75% of estimated nutritional needs, labs trending WNL, normal GI function, and skin integrity/wt maintenance Dietitian Recommendations * Increase TF to Nepro at 35 ml/hr (goal rate), Roger BID, Prosource BID, Free Water Flush: per physician d/t ARF via NGT Provides: 1792 kcal/day, 103 gm protein/day, and 611 ml free water/day Meets: 91% of estimated caloric needs and 107% o lower end of estimated protein needs Follow Up High Risk: F/U in 2-3 days
--- NOTE | 2021-07-07 17:31 | NUR ---
Dietitian Recommendations * Increase TF to Nepro at 35 ml/hr (goal rate), Roger BID, Prosource BID, Free Water Flush: per physician d/t ARF via NGT Provides: 1792 kcal/day, 103 gm protein/day, and 611 ml free water/day Meets: 91% of estimated caloric needs and 107% o lower end of estimated protein needs LP, RD Please refer to Nutrition F/U for details.
--- NOTE | 2021-07-07 19:05 | NUR ---
Opening notes Received report from endorsing morning shift for continuity of care. Patient is lying in bed with IVF D5 1/2NS @ 100 mL/hr, and diprivan @ 15 mcg/kg/min. Patient's vital signs blood pressure 102/54, heart rate 77, respirations 20m and SPO2 100%. Patient's vent setting AC 20, TV 500, FIO2 60%, and peep of 5. Conner catheter and rectal tube is in place draining to gravity. Patient had a surgery of right below knee amputation, site is clean with no signs of heavy bleeding. Bed is locked and in lowest position, fall and safety precautions is in place.
[2021-07-07] MEDS: ATORVASTATIN 20 MG TABLET PO SCH (21:05)
[2021-07-08] VITALS (28 sets, daily range): BP systolic 116–154
[2021-07-08] MEDS: PROPOFOL DRIP 100 ML IV PRN ×2 (01:27→10:16)
[2021-07-08] MEDS: MEROPENEM 500 MG in NS 50 ML IV SCH ×3 (06:17→22:43)
--- NOTE | 2021-07-08 07:20 | NUR ---
RT NOTES 0720 PT PLACED ON CPAP AT THIS TIME. PT IS AROUSABLE AND OPENS EYES. VITAL SIGNS ARE WITHIN NORMAL RANGE. PT IS TOLERATING CPAP WELL. STANDBY FOR FUTURE ORDERS. Addendum: 07/08/[address] RT Amended: Links added.
[2021-07-08] MEDS: metroNIDAZOLE 500 mg/NS 100 ML IV SCH (08:26)
[2021-07-08] MEDS: DOCUSATE SODIUM 100 MG CAPSULE PO SCH ×2 (09:00→21:05)
[2021-07-08] MEDS: TAMSULOSIN HCL 0.4 MG CAP PO SCH (10:10)
[2021-07-08] MEDS: ASPIRIN 81 MG TABLET(ECOTRIN) PO SCH (10:10)
[2021-07-08] MEDS: POTASSIUM CHLORIDE 20 MEQ/PKT PACKET PO SCH (10:11)
[2021-07-08] MEDS: FAMOTIDINE 20 MG TABLET PO SCH (10:11)
[2021-07-08] MEDS: ASCORBIC ACID 500 MG TABLET PO SCH (10:14)
[2021-07-08] MEDS: amLODIPine BESYLATE 5 MG TABLET PO SCH (10:14)
[2021-07-08] MEDS: MULTIVITAMINS TAB 1 TABLET PO SCH (10:14)
[2021-07-08] MEDS: FINASTERIDE 5 MG TABLET (PROSCAR) PO SCH (10:15)
--- NOTE | 2021-07-08 10:25 | NUR ---
RT NOTE: 1025 Pt extubated and placed on 3LPM nasal cannula. Prior to extubation patient was suctioned orally and via ET tube. Pt tolerated extubation and was orally suctioned again. No stridor noted post extubation and V/S as follows HR 83, RR 16, SpO2 100%, and BP 119/59. Will continue to monitor pt and have vent on standby.RN at bedside.
[2021-07-08] MEDS: BALSAM PERU/CASTOR OIL 56.7 GM OINT...G. TP SCH (10:46)
[2021-07-08 11:17] LABS: HEMATOCRIT 23.1 % (36-54); HEMOGLOBIN 7.6 g/dL (14.0-18.0); MEAN CORPUSCULAR HEMOGLOBIN 28 pg (27-31); MEAN CORPUSCULAR HGB CONC 33 % (32-36); MEAN CORPUSCULAR VOLUME 86 fL (79.0-98.0); PLATELET COUNT (AUTO) 146 K/uL (130-430); RED CELL DISTRIBUTION WIDTH 16.6 % (9.0-15.0)
[2021-07-08 11:32] LABS: ANION GAP 10 (5-15); CHLORIDE 105 mmol/L (98-107); CREATININE 3.42 mg/dL (0.55-1.30); GLUCOSE 135 mg/dL (70-99); POTASSIUM 3.9 mmol/L (3.5-5.1); SODIUM SERUM 141 mmol/L (136-145); UREA NITROGEN, BLOOD 39 mg/dL (8-21)
[2021-07-08] MEDS ORDERED: MORPHINE 4 MG INJ. 4 MG/ML VIAL IVP PRN (12:15)
[2021-07-08] MEDS: FLUCONAZOLE 100 mg/ NS 50 ML IV SCH (12:25)
[2021-07-08 13:04] LABS: ATYPICAL LYMPHOCYTES % 0 % (0-0); BAND % (MANUAL) 2 % (0-6); BASOPHILS % (MANUAL) 0 % (0-2); EOSINOPHILS % (MANUAL) 1 % (0-7); LYMPHOCYTES % (MANUAL) 10 % (20-46); MONOCYTES % (MANUAL) 4 % (0-11); MYELOCYTES % 2 % (0-0)
[2021-07-08] MEDS ORDERED: MORPHINE 4 MG INJ. 4 MG/ML VIAL ONE ×2 (14:26→20:50)
[2021-07-08] MEDS ORDERED: ALBUMIN HUMAN 25% 200 ML IV ONE (14:45)
[2021-07-08] MEDS ORDERED: HEPARIN SODIUM,PORCINE 5,000 UNITS/ML VIAL MC ONE (14:45)
[2021-07-08] MEDS: ATORVASTATIN 20 MG TABLET PO SCH (21:05)
[2021-07-08] MEDS ORDERED: HYDROmorphone 2 MG/ML VIAL ONE (22:31)
[2021-07-08] MEDS: HYDROmorphone 2 MG/ML VIAL IVP PRN (22:45)
[2021-07-09] VITALS (15 sets, daily range): BP systolic 125–163
[2021-07-09] MEDS: MEROPENEM 500 MG in NS 50 ML IV SCH ×3 (06:10→21:31)
--- NOTE | 2021-07-09 07:15 | NUR ---
Received pt alert and screaming that help me help me. Pt wants to go home. Wounds assessed quickly with off going RN and wound dressings dated 07/06/21. Pt alert and cooperative. SR on monitor. Pt has a RUE Midline with dressing intact. Pt has 02 2L NC in use with sats 99%. Lung clear with rhonchi bilaterally. HOB up. Tolerating tube feeding at 30 cc/hr.
--- NOTE | 2021-07-09 07:15 | NUR ---
Pt has right hand on NG tube and right wrist restraint already in place to prevent pt from pulling it out.
[2021-07-09 07:17] LABS: BASOPHILS # (AUTO) 0.1 K/uL (0.0-0.2); BASOPHILS % (AUTO) 0.4 % (0.0-2.0); EOSINOPHILS # (AUTO) 0.1 K/uL (0.0-0.4); EOSINOPHILS % (AUTO) 0.5 % (0.0-4.0); LYMPHOCYTES # (AUTO) 0.9 K/uL (1.0-5.5); LYMPHOCYTES % (AUTO) 4.7 % (20.5-51.5); MEAN CORPUSCULAR HEMOGLOBIN 28 pg (27-31); MEAN CORPUSCULAR HGB CONC 32 % (32-36); MEAN CORPUSCULAR VOLUME 87 fL (79.0-98.0); MONOCYTES # (AUTO) 0.6 K/uL (0.0-1.0); MONOCYTES % (AUTO) 2.8 % (1.7-9.3); NEUTROPHILS # (AUTO) 18.4 K/uL (1.8-7.7); NEUTROPHILS % (AUTO) 91.6 % (40.0-70.0); PLATELET COUNT (AUTO) 99 K/uL (130-430); RED BLOOD CELL COUNT(AUTO) 2.26 MIL/uL (4.2-6.2); RED CELL DISTRIBUTION WIDTH 16.3 % (9.0-15.0); WHITE BLOOD COUNT (AUTO) 20.1 K/uL (4.8-10.8)
[2021-07-09 07:24] LABS: ALANINE AMINOTRANSFERASE 12 U/L (12-78); ALBUMIN 2.5 g/dL (3.4-4.8); ANION GAP 9 (5-15); ASPARTATE AMINOTRANSFERASE 35 U/L (10-37); CALCIUM 7.6 mg/dL (8.4-11.0); CHLORIDE 105 mmol/L (98-107); CREATININE 2.76 mg/dL (0.55-1.30); GLUCOSE 101 mg/dL (70-99); POTASSIUM 4.3 mmol/L (3.5-5.1); SODIUM SERUM 141 mmol/L (136-145); TOTAL BILIRUBIN 0.3 mg/dL (0.0-1.0); UREA NITROGEN, BLOOD 27 mg/dL (8-21)
[2021-07-09] MEDS: DOCUSATE SODIUM 100 MG CAPSULE PO SCH ×2 (08:31→21:00)
[2021-07-09 08:39] LABS: HEMOGLOBIN 6.3 g/dL (14.0-18.0)
[2021-07-09] MEDS: FINASTERIDE 5 MG TABLET (PROSCAR) PO SCH (08:39)
[2021-07-09] MEDS: FAMOTIDINE 20 MG TABLET PO SCH (08:39)
[2021-07-09 08:40] LABS: HEMATOCRIT 19.5 % (36-54)
[2021-07-09] MEDS: HYDROmorphone 2 MG/ML VIAL IVP PRN (08:40)
[2021-07-09] MEDS: TAMSULOSIN HCL 0.4 MG CAP PO SCH (08:41)
[2021-07-09] MEDS: MULTIVITAMINS TAB 1 TABLET PO SCH (08:41)
[2021-07-09] MEDS: ASCORBIC ACID 500 MG TABLET PO SCH (08:42)
[2021-07-09] MEDS: amLODIPine BESYLATE 5 MG TABLET PO SCH (08:42)
[2021-07-09] MEDS: BALSAM PERU/CASTOR OIL 56.7 GM OINT...G. TP SCH (08:42)
[2021-07-09] MEDS: ASPIRIN 81 MG TABLET(ECOTRIN) PO SCH (08:42)
[2021-07-09] MEDS: FLUCONAZOLE 100 mg/ NS 50 ML IV SCH (11:24)
--- NOTE | 2021-07-09 12:00 | NUR ---
TRANSFER FROM ICU TO BED 124A: PATIENT TRANSFER FROM ICU TO BED 124A. PATIENT IS AAO1 TO PERSON ONLY. NOTED PATIENT CRYING ON AND OFF BUT NO TEARS AND WOULD STOP AND STARE AT THE WALL. PER RN SBAR REPORT AT THE BEDSIDE THAT PATIENT WILL CRY WHEN SOMEONE IS IN THE ROOM BUT WILL STOP ONCE STAFF LEAVES THE ROOM. PATIENT DOES NOT FOLLOW SIMPLE COMMAND AND DOES NOT ANSWERS ANY QUESTIONS WHEN ASKED. PATIENT CONTINUE TO CRY AND SAY, "HELP ME, HELP ME, HELP ME". CONT WITH R SOFT RESTRAINTS DUE TO PATIENT PULLING OUT IV'S/MEDICAL TUBINGS. NOTED R BKA WITH LEVAR WRAP/DRESSING C/D/I. LLE X2 DTI WITH DRESSING C/D/I, R BUTTOCKS ST 2 W/ C/D/I DRESSING, AND R POSTERIOR THIGH ECCHYMOSIS. LLE +3 PITTING EDEMA. BUE +2 PITTING EDEMA. ANDREW WEKANESS. R WRIST ON SOFT RESTRAINTS. CURRENTLY ON 4L NC 02 SAT 97%. NOTED ADARSH MIDLINE 2 LUMENS. RIJ HD CATH. R NARE NGT. RECTAL TUBE DRAINING. FC DRAINING TO GRAVITY. ALL TUBING INTACT. NO ADDITIONAL DISTRESS NOTED. STABLE CONDITION AT THIS TIME. CALL LIGHT WITHIN REACH. WILL CONT TO MONITOR.
--- NOTE | 2021-07-09 12:00 | NUR ---
Transferred pt to room 124A with belongings. Report given to Garrett GARCIA,
--- NOTE | 2021-07-09 12:07 | NUR ---
SWALLOW EVAL REQUEST DIALED: [phone] LEFT VOICEMAIL REQUESTED FOR SWALLOW EVAL
--- NOTE | 2021-07-09 12:15 | NUR ---
SPoke with Dr. Brady regarding labs H/H. Orders left. Garrett GARCIA made aare.
--- NOTE | 2021-07-09 18:45 | NUR ---
BLOOD TRANSFUSION [id number]: 1550: VS ANDREW BP 136/66 (91), 98 HR, 99% 4LNC, 98.2 T, 20 RESP. PRE TRANSFUSION. 1555: VS ANDREW BP 153/60 (93), 92 HR, 99% 4LNC, 98.2 T, 20 RESP. TRANSFUSION START. RN AT THE BEDSIDE FOR 15 MINUTES MONITORING. 1610: VS ANDREW BP 148/67, 91 HR, 99% 4LNC, 98.2 T, 20 RESP. 15 MINS AFTER TRANSFUSION. NO ASE/AR AT THIS TIME. 1625: VS ANDREW BP 150/64, 89 HR, 98% 4LNC, 98.1 T, 20 RESP. NO ASE/AR AT THIS TIME. WILL CONT TO MONITOR. 1640: VS ANDRWE BP 160/68, 83 HR, 99% 4LNC, 98.0 T, 20 RESP. NO ASE/AR AT THIS TIME. WILL CONT TO MONITOR. 1655: VS ANDREW BP 151/83, 99 HR, 99% 4LNC, 98.3 T, 20 RESP. NO ASE/AR AT THIS TIME. WILL CONT TO MONITOR. 1725: VS ANDREW BP 153/62, 88 HR, 96% 4LNC, 98.0 T, 20 RESP. NO ASE/AR AT THIS TIME. WILL CONT TO MONITOR. 1755: VS ANDREW BP 152/66, 87 HR, 94% 4LNC, 98.2 T, 20 RESP. NO ASE/AR AT THIS TIME. WILL CONT TO MONITOR. 1825: VS ANDREW BP 155/67, 84 HR, 98% 4LNC, 98.3 T, 20 RESP. NO ASE/AR AT THIS TIME. WILL CONT TO MONITOR. 1845: CLOSING NOTES: PATIENT IS RESTING IN BED AWAKE. CRYING BUT NO TEARS. ASKED WHAT HE NEEDS OR IF HE HAS PAIN. PATIENT JUST STARES AND STOP CRYING THEN PROCEED WITH CRYING. NO ADDITIONAL DISTRESS NOTED. BLOOD TRANSFUSION IS STILL ON GOING-IV SITE (PICC LINE ADARSH-INTACT). NO ASE/AR NOTED AT THIS TIME. STABLE CONDITION. WILL CONT TO MONITOR.
--- NOTE | 2021-07-09 19:40 | NUR ---
ROUNDS PATIENT RESTING COMFORTABLY IN BED, VITALS STABLE, NO SOB NOTED. ASSESSMENT DONE AND DOCUMENTED. SEE FLOWSHEET. NEEDS ATTENDED TO. CALL LIGHT PLACED WITHIN REACH.
[2021-07-09] MEDS: ATORVASTATIN 20 MG TABLET PO SCH (21:31)
[2021-07-10 00:19] VITALS: BP_SYST 147
[2021-07-10] MEDS: INSULIN REGULAR, HUMAN 100 UNITS/ML, 10 ML VIAL (humuLIN R) SUBCUT PRN ×3 (05:52→21:30)
[2021-07-10] MEDS: MEROPENEM 500 MG in NS 50 ML IV SCH (05:54)
[2021-07-10 07:26] LABS: ANION GAP 16 (5-15); CALCIUM 7.3 mg/dL (8.4-11.0); CHLORIDE 105 mmol/L (98-107); CREATININE 3.36 mg/dL (0.55-1.30); GLUCOSE 161 mg/dL (70-99); POTASSIUM 3.8 mmol/L (3.5-5.1); SODIUM SERUM 142 mmol/L (136-145); UREA NITROGEN, BLOOD 37 mg/dL (8-21)
[2021-07-10 07:49] LABS: HEMATOCRIT 22.6 % (36-54); HEMOGLOBIN 7.4 g/dL (14.0-18.0); MEAN CORPUSCULAR VOLUME 87 fL (79.0-98.0); RED BLOOD CELL COUNT(AUTO) 2.59 MIL/uL (4.2-6.2); WHITE BLOOD COUNT (AUTO) 20.3 K/uL (4.8-10.8)
[2021-07-10 07:50] LABS: BASOPHILS # (AUTO) 0.1 K/uL (0.0-0.2); BASOPHILS % (AUTO) 0.2 % (0.0-2.0); LYMPHOCYTES # (AUTO) 1.3 K/uL (1.0-5.5); LYMPHOCYTES % (AUTO) 6.5 % (20.5-51.5); MEAN CORPUSCULAR HEMOGLOBIN 87 pg (27-31); MEAN CORPUSCULAR HGB CONC 28 % (32-36); MONOCYTES # (AUTO) 0.6 K/uL (0.0-1.0); MONOCYTES % (AUTO) 2.8 % (1.7-9.3); NEUTROPHILS # (AUTO) 18.4 K/uL (1.8-7.7); NEUTROPHILS % (AUTO) 90.5 % (40.0-70.0); PLATELET COUNT (AUTO) 109 K/uL (130-430)
[2021-07-10 08:00] VITALS: BP_SYST 145
--- NOTE | 2021-07-10 08:00 | NUR ---
Initial notes Awake, patient wants to eat. explain that will waiting for speech therapist for swallow eval. stiil on NGT feeding at this time. Oral care done. repositioned. On right wrist restraint. bed alarm on
[2021-07-10] MEDS: DOCUSATE SODIUM 100 MG CAPSULE PO SCH ×2 (08:49→21:27)
[2021-07-10] MEDS: ASPIRIN 81 MG TABLET(ECOTRIN) PO SCH (08:55)
[2021-07-10] MEDS: MULTIVITAMINS TAB 1 TABLET PO SCH (08:55)
[2021-07-10] MEDS: TAMSULOSIN HCL 0.4 MG CAP PO SCH (08:56)
[2021-07-10] MEDS: ASCORBIC ACID 500 MG TABLET PO SCH (08:56)
[2021-07-10] MEDS: amLODIPine BESYLATE 5 MG TABLET PO SCH (08:56)
[2021-07-10] MEDS: FAMOTIDINE 20 MG TABLET PO SCH (08:56)
[2021-07-10] MEDS: FINASTERIDE 5 MG TABLET (PROSCAR) PO SCH (08:56)
[2021-07-10] MEDS: BALSAM PERU/CASTOR OIL 56.7 GM OINT...G. TP SCH (08:57)
--- NOTE | 2021-07-10 11:00 | NUR ---
Notes- Turned and repositioned, No distress.
[2021-07-10 11:29] VITALS: BP_SYST 134
[2021-07-10] MEDS: CEFEPIME 1 GM in D5W 50 ML IV SCH (11:38)
[2021-07-10] MEDS: metroNIDAZOLE 250 mg/NS 50 ML IV SCH ×2 (14:25→21:28)
--- NOTE | 2021-07-10 14:34 | NUR ---
Notes patient's awake and crying, family at bedside. Patient wants to eat.
[2021-07-10 16:04] VITALS: BP_SYST 143
--- NOTE | 2021-07-10 17:36 | NUR ---
ST EVALUATION COMPLETED. ST TX NOT INDICATED AT THIS TIME. RECOMMEND PO DIET OF PUREE/HONEY THICK LIQUID WITH 1:1 FEEDER AND FULL ASPIRATION PRECAUTIONS. FEED ONLY WHEN FULLY AWAKE.
--- NOTE | 2021-07-10 18:30 | NUR ---
Madeleine Addendum: 07/10/21 at 1830 by Dania Marks RN BLOOD IS NOT YET READY, WILL ENDORSE.
[2021-07-10 20:00] VITALS: BP_SYST 130
[2021-07-10] MEDS: ALPRAZolam 0.25 MG TABLET NG SCH (21:27)
[2021-07-10] MEDS: ATORVASTATIN 20 MG TABLET PO SCH (21:27)
[2021-07-10] MEDS: HYDROmorphone 2 MG/ML VIAL IVP PRN (21:36)
[2021-07-11 00:43] VITALS: BP_SYST 138
--- NOTE | 2021-07-11 03:00 | NUR ---
per EMR [place], Blood is ready. went to Lab but lab is short-staffed according to the syrup machine laborer, and she was working on the tests for Code Stroke in the ER. syrup machine laborer requested if I can come back in half an hr to an hr.
--- NOTE | 2021-07-11 03:45 | NUR ---
Blood is picked up. verified with lab personnel. Verified all pt, blood transfusion information & orders w/ charge entry specialist nurse as well.
--- NOTE | 2021-07-11 03:56 | NUR ---
Blood transfusion started. pre transfusion VS WNL. afebrile.
--- NOTE | 2021-07-11 04:11 | NUR ---
rechecked VS & still WNL, no significant changes. Afebrile. Blood transfusion still ongoing.
--- NOTE | 2021-07-11 06:00 | NUR ---
unable to administer Flagyl IVPB due to blood transfusion. Will endorse accordingly.
--- NOTE | 2021-07-11 06:41 | NUR ---
Blood transfusion still ongoing.rechecked VS & still WNL, no significant changes. Afebrile.will endorse accordingly.
[2021-07-11 08:39] VITALS: BP_SYST 148
[2021-07-11] MEDS ORDERED: HEPARIN SODIUM,PORCINE 5,000 UNITS/ML VIAL MC ONE ×2 (09:00)
[2021-07-11] MEDS: DOCUSATE SODIUM 100 MG CAPSULE PO SCH ×2 (09:00→21:21)
[2021-07-11] MEDS: ALPRAZolam 0.25 MG TABLET NG SCH ×2 (09:00→21:21)
[2021-07-11] MEDS: HYDROmorphone 2 MG/ML VIAL IVP PRN (09:51)
[2021-07-11] MEDS: ASCORBIC ACID 500 MG TABLET PO SCH (09:55)
[2021-07-11] MEDS: TAMSULOSIN HCL 0.4 MG CAP PO SCH (09:55)
[2021-07-11] MEDS: FAMOTIDINE 20 MG TABLET PO SCH (09:55)
[2021-07-11] MEDS: ASPIRIN 81 MG TABLET(ECOTRIN) PO SCH (09:55)
[2021-07-11] MEDS: FINASTERIDE 5 MG TABLET (PROSCAR) PO SCH (09:55)
[2021-07-11] MEDS: MULTIVITAMINS TAB 1 TABLET PO SCH (09:55)
[2021-07-11 12:00] VITALS: BP_SYST 142
[2021-07-11] MEDS: CEFEPIME 1 GM in D5W 50 ML IV SCH (12:38)
[2021-07-11] MEDS: amLODIPine BESYLATE 5 MG TABLET PO SCH (12:40)
[2021-07-11] MEDS: BALSAM PERU/CASTOR OIL 56.7 GM OINT...G. TP SCH (12:41)
[2021-07-11 12:43] LABS: HEMATOCRIT 32.3 % (36-54); HEMOGLOBIN 10.5 g/dL (14.0-18.0); MEAN CORPUSCULAR HEMOGLOBIN 28 pg (27-31); MEAN CORPUSCULAR HGB CONC 33 % (32-36); MEAN CORPUSCULAR VOLUME 87 fL (79.0-98.0); PLATELET COUNT (AUTO) 56 K/uL (130-430)
[2021-07-11 12:47] LABS: WHITE BLOOD COUNT (AUTO) 34.5 K/uL (4.8-10.8)
[2021-07-11 12:54] LABS: ANION GAP 7 (5-15); CALCIUM 8.2 mg/dL (8.4-11.0); CHLORIDE 104 mmol/L (98-107); CREATININE 3.38 mg/dL (0.55-1.30); GLUCOSE 142 mg/dL (70-99); POTASSIUM 3.7 mmol/L (3.5-5.1); SODIUM SERUM 136 mmol/L (136-145); UREA NITROGEN, BLOOD 37 mg/dL (8-21)
--- NOTE | 2021-07-11 13:14 | NUR ---
NG TUBE NG Tube removed, pt tolerated well.
--- NOTE | 2021-07-11 15:01 | NUR ---
Nutrition F/U Nutritional Screening High Risk Screening Consult Admitting Diagnosis Decubitus R foot infection Medical History Comment: HTN, DM, CVA, and BPH per physician notes Pt also found w/ severe malnutrition, complicated UTI-GNR, and R heel PU-infected d/t GNR/polymicrobial, ARF per physician notes SARS-CoV-2 Ag (Rapid) Negative 06/15 & 06/26 Subjective Information: RD bedside visit deferred d/t high RD workload. Per EMR review, S/P R. BKA POD 4; pt was extubated 07/08; ST swallow eval completed 07/10, ST recommended PO diet of puree/honey thick liquid with 1:1 feeder and full aspiration precautions. Feed only when fully awake. Jose scale: 12, pt continues w/ multiple wounds, pt seen by practice specialist 07/05; Last HD 07/11; Last BM recorded 07/03 x1; abd soft and non-distended w/ active bowel sounds. Pt is confused per physician notes. Current Diet Order/Nutrition Support: Pureed diet w/ Honey Thick Liquids x0 days Patient/Significant Other Unable To Verbalize Education Provided Not Indicated Pertinent Medications: lipitor, MVI, pepcid, VIT C, SSI, Colace Pertinent Labs: WBC 34.5 H, BUN 37 H, Cr 3.38 H, BG 142 H, POC BG 140 H, Ca 8.2 L Height (Feet) 6 feet Height (Inches) 0.00 inches Weight (Pounds) 167 pounds -- stable since 06/17; NEW WT: 212#/96.4 kg (07/06) -- will re-assess nutritional needs based on new documented wt -- questionable 45# wt gain Weight (Calculated Kilograms) 75.781908 kilograms Patient Weight 75.75 kg Body Mass Index 22.65 kg/m2 %IBW 94 [place]/Adjusted Body Weight 178#/81 kg *NEW Estimated Energy Expenditure (kcals/day) 2271 - 2650 (30-35 kcals/kg CBW d/t HD and wound healing) *NEW Estimated Protein Required (g/day) 91 114 (1.2-1.5 gm/kg CBW d/t HD, wound healing) NEW Estimated Fluid Required (l/day) Per physician d/t ARF Problem/Etiology/Signs/Symptoms Increased nutritional needs R/T metabolic demands AEB estimated nutritional requirements for wound healing. *Ongoing Expected Outcomes/Goals - Monitor appetite and PO intake w/ goal of pt meeting >75% of estimated nutritional needs, labs trending WNL, normal GI function, and skin integrity/wt maintenance Dietitian Recommendations * Modify diet to: Pureed Renal diet, HTL, Roger BID, Prosource TID (Pureed diet includes Nepro BID) ONS and supplements provide: 1210 kcals/day, 88 g protein/day Follow Up High Risk: F/U in 2-3 days
--- NOTE | 2021-07-11 15:01 | NUR ---
Dietitian Recommendations * Modify diet to: Pureed Renal diet, HTL, Roger BID, Prosource TID (Pureed diet includes Nepro BID) ONS and supplements provide: 1210 kcals/day, 88 g protein/day Please refer to Nutrition F/U note 07/11/21 for details.
[2021-07-11 15:16] LABS: BAND % (MANUAL) 9 % (0-6); BASOPHILS % (MANUAL) 0 % (0-2); EOSINOPHILS % (MANUAL) 0 % (0-7); LYMPHOCYTES % (MANUAL) 3 % (20-46); MONOCYTES % (MANUAL) 11 % (0-11)
[2021-07-11] MEDS: metroNIDAZOLE 250 mg/NS 50 ML IV SCH ×2 (16:05→21:56)
--- NOTE | 2021-07-11 16:37 | NUR ---
WOUND CARE Left posterior calf dressing removed, area cleansed with normal saline, sure prep applied to periwound, Venelex ointment applied to wound bed and covered with a 4x4 foam dressing. Wound bed 80% yellow tissue, 20% dark pink tissue, no drainage, no do odor, periwound intact. Wound measures 1.0 cm x 0.4 cm. Left posterior distal calf dressing removed, area cleansed with normal saline, moisture barrier cream applied to periwound, wound painted with Betadine, covered with foam dressing. Wound bed 80% dark brown tissue, 20% yellow tissue, no drainage, no odor, periwound pink. Wound measures 1.1 cm x 0.6 cm. Left lateral plantar foot dressing removed, area cleansed with normal saline, area painted with Betadine and covered with a foam dressing. Wound bed has 100% brown tissue, no drainage, no odor. Wound measures 1.3 cm x 1.0 cm.
[2021-07-11] MEDS: INSULIN REGULAR, HUMAN 100 UNITS/ML, 10 ML VIAL (humuLIN R) SUBCUT PRN (17:58)
--- NOTE | 2021-07-11 19:30 | NUR ---
OPENING NOTE ENDORSED CARE FROM DAY SHIFT. PT IS SITTING UP IN BED. PT IS VERY CONFUSED WITH GARBLED SPEECH, A/O X 0. NO APPARENT SIGNS OF DISTRESS NOTED AT THIS TIME,\. BED IS IN LOWEST POSITION WITH FALL AND SAFETY PRECAUTIONS IN PLACE. CALL LIGHT WITHIN REACH
[2021-07-11 20:00] VITALS: BP_SYST 133
[2021-07-11] MEDS: ATORVASTATIN 20 MG TABLET PO SCH (21:21)
[2021-07-12] VITALS: BP_SYST 147
[2021-07-12] MEDS: metroNIDAZOLE 250 mg/NS 50 ML IV SCH ×3 (05:35→21:18)
--- NOTE | 2021-07-12 07:21 | NUR ---
CLOSING NOTE ENDORSED CARE TO DAY SHIFT. PT IS SLEEPING IN BED. PT IS STILL VERY CONFUSED WITH GARBLED SPEECH, A/O X 1. NO APPARENT SIGNS OF DISTRESS NOTED AT THIS TIME. BED IS IN LOWEST POSITION WITH FALL AND SAFETY PRECAUTIONS IN PLACE. CALL LIGHT WITHIN REACH. PT WAS ALSO PLACED ON A LALM
--- NOTE | 2021-07-12 07:39 | NUR ---
rn opening note report was endorsed by night nurse. patient appears to be resting with both eyes closed no signs of any distress, breathing is equal and non labored. patient has all safety precautions in place. call light is with him no other needs at this time.
[2021-07-12 08:00] VITALS: BP_SYST 141
[2021-07-12] MEDS: DOCUSATE SODIUM 100 MG CAPSULE PO SCH ×2 (09:00→22:09)
[2021-07-12] MEDS: amLODIPine BESYLATE 5 MG TABLET PO SCH ×2 (09:00→09:57)
[2021-07-12] MEDS: ALPRAZolam 0.25 MG TABLET NG SCH ×2 (09:14→22:09)
[2021-07-12] MEDS: ASCORBIC ACID 500 MG TABLET PO SCH (09:14)
[2021-07-12] MEDS: TAMSULOSIN HCL 0.4 MG CAP PO SCH (09:14)
[2021-07-12] MEDS: FAMOTIDINE 20 MG TABLET PO SCH (09:14)
[2021-07-12] MEDS: ASPIRIN 81 MG TABLET(ECOTRIN) PO SCH (09:14)
[2021-07-12] MEDS: MULTIVITAMINS TAB 1 TABLET PO SCH (09:14)
[2021-07-12] MEDS: FINASTERIDE 5 MG TABLET (PROSCAR) PO SCH (09:14)
[2021-07-12] MEDS: BALSAM PERU/CASTOR OIL 56.7 GM OINT...G. TP SCH (09:16)
--- NOTE | 2021-07-12 09:29 | NUR ---
medication patients scheduled medication given per order. patient is awake and alert patient given apple sauce and yogurt. tolerated medication well. patient educated gerontology aide light for assistance. call light is with him. patient has other needs at this time. bonilla catheter draining to gravity. patient rectal tube intact, no leaking noted.
[2021-07-12] MEDS: HYDROmorphone 2 MG/ML VIAL IVP PRN (10:24)
--- NOTE | 2021-07-12 10:24 | NUR ---
pain medication patient is complains of pain at surgical site. patient medicated per order. patient states he is all done eating breakfast and is full. dressing to midline changed due to coming off changed per protocol. patient educated career transition specialist light for assistance. call light is with him no other needs at this time.
--- NOTE | 2021-07-12 11:22 | NUR ---
surgical dressing change Dr. sousa at bedside removed dressing. applied new dressing as directed by surgeon. patient is awake and alert, sitting up in bed. patient shows no signs of any distress, breathing is equal and non labored. all safety precautions in place.
[2021-07-12] MEDS: CEFEPIME 1 GM in D5W 50 ML IV SCH (11:29)
[2021-07-12 12:00] VITALS: BP_SYST 145
--- NOTE | 2021-07-12 15:16 | NUR ---
medication patient's scheduled medication given per order. patient is appears to be resting with both eyes closed no signs of any distress, breathing is equal and non labored. patient has all safety precautions in place. no other needs at this time.
[2021-07-12 17:05] VITALS: BP_SYST 128
[2021-07-12] MEDS: INSULIN REGULAR, HUMAN 100 UNITS/ML, 10 ML VIAL (humuLIN R) SUBCUT PRN (17:23)
--- NOTE | 2021-07-12 17:40 | NUR ---
accu check patients accu check done, coverage given per order. patient is awake and alert sitting up in bed. patient has no complaints at this time. all safety precautions in place. no other needs at this time.
--- NOTE | 2021-07-12 19:27 | NUR ---
rn closing note patient is awake and alert sitting up in bed. all safety precautions in place. call light is iwth him educated to use for assistance. no other needs at this time, no signs of any distress.
[2021-07-12 20:51] VITALS: BP_SYST 134
[2021-07-12] MEDS: ATORVASTATIN 20 MG TABLET PO SCH (22:09)
[2021-07-13] VITALS: BP_SYST 168
[2021-07-13 06:05] LABS: BASOPHILS # (AUTO) 0.1 K/uL (0.0-0.2); BASOPHILS % (AUTO) 0.7 % (0.0-2.0); EOSINOPHILS # (AUTO) 0.3 K/uL (0.0-0.4); EOSINOPHILS % (AUTO) 2.2 % (0.0-4.0); HEMATOCRIT 28.5 % (36-54); HEMOGLOBIN 9.3 g/dL (14.0-18.0); LYMPHOCYTES # (AUTO) 2.5 K/uL (1.0-5.5); LYMPHOCYTES % (AUTO) 20.8 % (20.5-51.5); MEAN CORPUSCULAR HEMOGLOBIN 28 pg (27-31); MEAN CORPUSCULAR HGB CONC 33 % (32-36); MEAN CORPUSCULAR VOLUME 87 fL (79.0-98.0); MONOCYTES # (AUTO) 0.9 K/uL (0.0-1.0); MONOCYTES % (AUTO) 7.4 % (1.7-9.3); NEUTROPHILS # (AUTO) 8.2 K/uL (1.8-7.7); NEUTROPHILS % (AUTO) 68.9 % (40.0-70.0); PLATELET COUNT (AUTO) 83 K/uL (130-430); RED BLOOD CELL COUNT(AUTO) 3.27 MIL/uL (4.2-6.2); RED CELL DISTRIBUTION WIDTH 16.2 % (9.0-15.0)
[2021-07-13] MEDS: metroNIDAZOLE 250 mg/NS 50 ML IV SCH ×3 (07:08→21:11)
[2021-07-13 07:21] LABS: ALANINE AMINOTRANSFERASE 13 U/L (12-78); ALBUMIN 1.8 g/dL (3.4-4.8); ANION GAP 11 (5-15); ASPARTATE AMINOTRANSFERASE 37 U/L (10-37); CHLORIDE 106 mmol/L (98-107); CREATININE 4.39 mg/dL (0.55-1.30); GLUCOSE 136 mg/dL (70-99); POTASSIUM 3.8 mmol/L (3.5-5.1); SODIUM SERUM 141 mmol/L (136-145); TOTAL BILIRUBIN 0.4 mg/dL (0.0-1.0); UREA NITROGEN, BLOOD 51 mg/dL (8-21)
[2021-07-13 08:00] VITALS: BP_SYST 178
[2021-07-13] MEDS: DOCUSATE SODIUM 100 MG CAPSULE PO SCH ×2 (08:43→21:00)
[2021-07-13] MEDS: amLODIPine BESYLATE 5 MG TABLET PO SCH (08:44)
[2021-07-13] MEDS: ALPRAZolam 0.25 MG TABLET NG SCH ×2 (08:44→21:12)
[2021-07-13] MEDS: FAMOTIDINE 20 MG TABLET PO SCH (08:45)
[2021-07-13] MEDS: ASPIRIN 81 MG TABLET(ECOTRIN) PO SCH (08:45)
[2021-07-13] MEDS: FINASTERIDE 5 MG TABLET (PROSCAR) PO SCH (08:45)
[2021-07-13] MEDS: TAMSULOSIN HCL 0.4 MG CAP PO SCH (08:45)
[2021-07-13] MEDS: MULTIVITAMINS TAB 1 TABLET PO SCH (08:45)
[2021-07-13] MEDS: ASCORBIC ACID 500 MG TABLET PO SCH (08:45)
[2021-07-13] MEDS: HYDROmorphone 2 MG/ML VIAL IVP PRN (08:57)
--- NOTE | 2021-07-13 09:18 | NUR ---
alert, wide awake, did not call when in pain, only crying. Dilaudid 2mg ivp given. feeder, appetite fair, drank the whole bottle Ensure. Awaiting hemodialysis today.
[2021-07-13] MEDS: BALSAM PERU/CASTOR OIL 56.7 GM OINT...G. TP SCH (09:51)
[2021-07-13 10:59] VITALS: BP_SYST 178
[2021-07-13] MEDS: CEFEPIME 1 GM in D5W 50 ML IV SCH (11:00)
[2021-07-13] MEDS ORDERED: HEPARIN SODIUM,PORCINE 5,000 UNITS/ML VIAL ONE (11:00)
[2021-07-13 12:53] VITALS: BP_SYST 102
[2021-07-13] MEDS: INSULIN REGULAR, HUMAN 100 UNITS/ML, 10 ML VIAL (humuLIN R) SUBCUT PRN ×2 (16:11→21:11)
--- NOTE | 2021-07-13 17:41 | NUR ---
more alert, and talkative after hemodialysis today, uneventful one, 1.2liter out. Eating , and drinking more when fed wbc trending down today, on double abx Maxipime and Flagyl ivpb.
[2021-07-13 17:46] VITALS: BP_SYST 142
--- NOTE | 2021-07-13 19:30 | NUR ---
Opening Note Patient awake resting in bed, no S/S of respiratory distress, bed in lowest position, fall and safety precautions, call light with in reach.
[2021-07-13] MEDS: ATORVASTATIN 20 MG TABLET PO SCH (21:11)
[2021-07-14] VITALS (7 sets, daily range): BP systolic 118–139
[2021-07-14] MEDS: metroNIDAZOLE 250 mg/NS 50 ML IV SCH ×3 (05:31→20:49)
[2021-07-14] MEDS: HYDROmorphone 2 MG/ML VIAL IVP PRN ×2 (05:42→16:07)
--- NOTE | 2021-07-14 07:24 | NUR ---
Closing Note Patient awake resting in bed, no S/S of respiratory distress, bed in lowest position, fall and safety precautions, call light with in reach, all needs met throughout shift.
[2021-07-14] MEDS: MULTIVITAMINS TAB 1 TABLET PO SCH (08:53)
[2021-07-14] MEDS: TAMSULOSIN HCL 0.4 MG CAP PO SCH (08:53)
[2021-07-14] MEDS: amLODIPine BESYLATE 5 MG TABLET PO SCH (08:53)
[2021-07-14] MEDS: FINASTERIDE 5 MG TABLET (PROSCAR) PO SCH (08:54)
[2021-07-14] MEDS: ASPIRIN 81 MG TABLET(ECOTRIN) PO SCH (08:54)
[2021-07-14] MEDS: ASCORBIC ACID 500 MG TABLET PO SCH (08:54)
[2021-07-14] MEDS: FAMOTIDINE 20 MG TABLET PO SCH (08:54)
[2021-07-14] MEDS: ALPRAZolam 0.25 MG TABLET NG SCH ×2 (08:54→20:46)
[2021-07-14] MEDS: DOCUSATE SODIUM 100 MG CAPSULE PO SCH ×2 (08:54→20:47)
[2021-07-14] MEDS: BALSAM PERU/CASTOR OIL 56.7 GM OINT...G. TP SCH (08:55)
[2021-07-14] MEDS: CEFEPIME 1 GM in D5W 50 ML IV SCH (11:37)
--- NOTE | 2021-07-14 14:53 | NUR ---
Nutrition F/U Admitting Diagnosis Decubitus R foot infection Medical History Comment: HTN, DM, CVA, and BPH per physician notes Pt also found w/ severe malnutrition, complicated UTI-GNR, and R heel PU-infected d/t GNR/polymicrobial, ARF, septic shock, BECK, C diff, and acute encephalopathy. SARS-CoV-2 Ag (Rapid) Negative 06/15 & 06/26 & 07/06 Subjective Information: Per EMR review, S/P R. BKA POD 4; pt was extubated 07/08; ST swallow eval completed 07/10, ST recommended PO diet of puree/honey thick liquid with 1:1 feeder and full aspiration precautions. Feed only when fully awake. Jose scale: 12, pt continues w/ multiple wounds, pt seen by translational specialist 07/05. Wounds noted on L plantar foot, L posterior calf, R buttocks, posterior sacrum and incision R BKA; 1+ pitting edema on L and R arms, 3+ pitting edema on L foot and 3+ on LLE. Last HD ordered 07/12. Last BM x1 recorded 07/11. DI visited pt at bedside. Pt is confused and in pain. DI spoke w/ RN who reports pt is completing at least 50% of meals and 100% of their ensure with every meal. RN reports pt needs to be fed. Current Diet Order/Nutrition Support: Pureed diet w/ Honey Thick Liquids x0 days Patient/Significant Other Unable To Verbalize Education Provided Not Indicated Pertinent Medications: lipitor, MVI, pepcid, VIT C, SSI, Colace Pertinent Labs: 07/13: BUN 51 H, Cr 4.39 H, Alb 1.8 L, Ca 8.0 L, WBC 12.0 H. 07/14 POC BG 127 H. Height (Feet) 6 feet Height (Inches) 0.00 inches Weight (Pounds) 06/17: 167 pounds 07/06: 212#/96.4 kg -- questionable 45# wt gain 07/14: 251#/114.1 kg questionable wt gain Weight (Calculated Kilograms) 75.161797 kilograms Patient Weight 75.75 kg Body Mass Index 22.65 kg/m2 %IBW 94 [place]/Adjusted Body Weight 178#/81 kg AdjBW: 168#/76.1 kg (-5.9% for BKA) *NEW Estimated Energy Expenditure (kcals/day) 9648-5028 (30-35 kcals/kg AdjBW d/t BKA, HD, wound healing) *NEW Estimated Protein Required (g/day) 114-152 g/day (1.5-2.0 gm/kg AdjBW d/t BKA, HD, wound healing) NEW Estimated Fluid Required (l/day) Per MD d/t ARF Problem/Etiology/Signs/Symptoms Increased nutritional needs R/T metabolic demands AEB estimated nutritional requirements for wound healing. (*ongoing) Expected Outcomes/Goals - Monitor appetite and PO intake w/ goal of pt meeting >75% of estimated nutritional needs, labs trending WNL, normal GI function, and skin integrity/wt maintenance Dietitian Recommendations * Pureed, renal diet w/ Roger BID, Prosource BID and Nepro BID. ONS yields additional 1120 kcals/day and 73 g protein/day. Follow Up Moderate Risk: F/U in 3-5 days Signed: 07/14/21 at 1453 by Analia NOLAND <Co-Signature Required> Co-Signed: 07/14/21 at [address]
--- NOTE | 2021-07-14 14:54 | NUR ---
Dietitian Recommendations * Pureed, renal diet w/ Roger BID, Prosource BID and Nepro BID. ONS yields additional 1120 kcals/day and 73 g protein/day. LP, RD Please refer to Nutrition F/U for details. Signed: 07/14/21 at 1454 by Analia NOLAND <Co-Signature Required> Co-Signed: 07/14/21 at [address]
--- NOTE | 2021-07-14 19:15 | NUR ---
change of shift.pt.presents quiescent affect calm,resting.pt.presents mid-line location rt.biccept intact iv fluids ns-flush infusing. pt.presents rt.inj h/d access intact dsg intact.pt.presents bonilla cath/rectal tube intact;patent.no c/o pain,nausea.pt.presents rt.bka:stump dsg intact absent drainage/foul odor.respiratory statu stable unlabored@room air.call light/telephone w/in access of the pt.
--- NOTE | 2021-07-14 20:00 | NUR ---
pt.assessed.v/s assessed values wnl.mid-line intact iv fluids ns-flush infusing,bonilla cath/rectal tube intact urine/fecal matter present.no c/o pain,nausea.pt.assessed for cleanliness.pt.repositioned.call light/telephone placed w/in access of the pt.
[2021-07-14] MEDS: ATORVASTATIN 20 MG TABLET PO SCH (20:46)
--- NOTE | 2021-07-14 21:00 | NUR ---
2100p medications administered.medications require crushed/mixture apple sauce.pt.capable to ingest the po medications slowly.no c/o pain,nausea.call light/telephone placed w/in access of the pt.
--- NOTE | 2021-07-14 22:00 | NUR ---
pt.assessed.pt.presents quiescent affect calm,somnolent.per flacc pain mgx pt.absent facial grimaces/body posturing.pt.assessed for cleanliness.pt.repositioned.mid-line intact iv fluids ns-flush infusing.flagyl abx ivpb 2200p dose administered.bonilla cath/rectal tube intact;patent urine/fecal matter present.call light/telephone placed w/in access of the pt.
--- NOTE | 2021-07-15 | NUR ---
pt.assessed.v/s assessed values wnl.no c/o pain,nausea.iv access intact iv fluids ns-flush infusing.bonilla cath/rectal tube intact;patent urine/fecal matter present.pt.assessed for cleanliness pt.repositioned.call light/telephone place w/in access of the pt.
[2021-07-15 00:07] VITALS: BP_SYST 137
--- NOTE | 2021-07-15 02:00 | NUR ---
pt.assessed.pt.presents quiescent affect calm,somnolent.mid-line intact iv fluids ns-flush infusing.bonilla cath/rectal tube intact urine/fecal matter present.per flacc pain mgx pt.absent facial grimaces/body posturing.pt.assessed for cleanliness pt.repositioned. call light/telephone placed w/in access of the pt.
--- NOTE | 2021-07-15 04:00 | NUR ---
pt.assessed.mid-line intact iv fluids ns-flush infusing.bonilla cath/rectal tube intact patent urine/fecal content present. no c/o pain,nausea.pt.assessed for cleanliness.pt.repositioned.call light telephone placed w/in access of the pt.
[2021-07-15] MEDS: metroNIDAZOLE 250 mg/NS 50 ML IV SCH ×3 (05:27→21:27)
--- NOTE | 2021-07-15 06:19 | NUR ---
pt.assessed.mid-line intact iv fluids ns flush infusing.pt.cleaned/repositioned.no c/o pain,nausea.call light/telephone placed w/in access of the pt.
[2021-07-15 07:29] LABS: BASOPHILS # (AUTO) 0.1 K/uL (0.0-0.2); BASOPHILS % (AUTO) 0.7 % (0.0-2.0); EOSINOPHILS # (AUTO) 0.3 K/uL (0.0-0.4); HEMATOCRIT 27.5 % (36-54); HEMOGLOBIN 8.9 g/dL (14.0-18.0); LYMPHOCYTES # (AUTO) 2.4 K/uL (1.0-5.5); LYMPHOCYTES % (AUTO) 17.3 % (20.5-51.5); MEAN CORPUSCULAR HEMOGLOBIN 28 pg (27-31); MEAN CORPUSCULAR HGB CONC 33 % (32-36); MEAN CORPUSCULAR VOLUME 87 fL (79.0-98.0); MONOCYTES # (AUTO) 0.7 K/uL (0.0-1.0); MONOCYTES % (AUTO) 5.3 % (1.7-9.3); NEUTROPHILS # (AUTO) 10.4 K/uL (1.8-7.7); NEUTROPHILS % (AUTO) 74.7 % (40.0-70.0); PLATELET COUNT (AUTO) 97 K/uL (130-430); RED BLOOD CELL COUNT(AUTO) 3.17 MIL/uL (4.2-6.2); WHITE BLOOD COUNT (AUTO) 13.9 K/uL (4.8-10.8)
[2021-07-15 07:57] VITALS: BP_SYST 140
[2021-07-15] MEDS: MULTIVITAMINS TAB 1 TABLET PO SCH (09:10)
[2021-07-15] MEDS: ASCORBIC ACID 500 MG TABLET PO SCH (09:11)
[2021-07-15] MEDS: amLODIPine BESYLATE 5 MG TABLET PO SCH (09:12)
[2021-07-15] MEDS: ASPIRIN 81 MG TABLET(ECOTRIN) PO SCH (09:12)
[2021-07-15] MEDS: FINASTERIDE 5 MG TABLET (PROSCAR) PO SCH (09:12)
[2021-07-15] MEDS: FAMOTIDINE 20 MG TABLET PO SCH (09:12)
[2021-07-15] MEDS: DOCUSATE SODIUM 100 MG CAPSULE PO SCH ×2 (09:13→21:26)
[2021-07-15] MEDS: ALPRAZolam 0.25 MG TABLET NG SCH ×2 (09:13→21:26)
[2021-07-15] MEDS: TAMSULOSIN HCL 0.4 MG CAP PO SCH (09:13)
[2021-07-15] MEDS: BALSAM PERU/CASTOR OIL 56.7 GM OINT...G. TP SCH (09:14)
[2021-07-15 11:28] VITALS: BP_SYST 152
[2021-07-15] MEDS: CEFEPIME 1 GM in D5W 50 ML IV SCH (11:47)
--- NOTE | 2021-07-15 14:09 | NUR ---
PT GETING DIALYSIS AT THIS TIME.
[2021-07-15 15:28] VITALS: BP_SYST 121
[2021-07-15] MEDS ORDERED: HEPARIN SODIUM,PORCINE 5,000 UNITS/ML VIAL MC ONE (16:30)
--- NOTE | 2021-07-15 18:14 | NUR ---
troponin level reported to dr ernestine md made aware of ekg result. no new order.
[2021-07-15 21:00] VITALS: BP_SYST 137
[2021-07-15] MEDS: ATORVASTATIN 20 MG TABLET PO SCH (21:26)
--- NOTE | 2021-07-15 22:15 | NUR ---
Patient on puree po diet apple sauce encouraged , poor appetite noted .
[2021-07-16] VITALS (7 sets, daily range): BP systolic 147–163
--- NOTE | 2021-07-16 03:35 | NUR ---
Hourly Rounding patient Resting is verbally Responsive HOB elevated on room air 02 SAT 95 % chest movement shallow also symmetrical position change tolerated .
--- NOTE | 2021-07-16 05:47 | NUR ---
wound care implemented performed as ordered patient kept clean also dry as needed off loading with pillows comfort measures tolerated no SOB noted .
[2021-07-16] MEDS: metroNIDAZOLE 250 mg/NS 50 ML IV SCH ×3 (06:30→21:28)
--- NOTE | 2021-07-16 08:00 | NUR ---
OPENING NOTES: PATIENT RESTING IN BED. BREATHING EVEN AND NON LABORED TO RA. LIZ CATHETER AND FLEXI-SEAL IN PLACED AND DRAINING BY GRAVITY. BED LOCKED, ALARM ON AND IN LOWEST POSITION. FALL, SAFETY AND ASPIRATION MEASURES REINFORCED. CALL LIGHT WITHIN REACH
[2021-07-16 08:24] LABS: CALCIUM 7.8 mg/dL (8.4-11.0); CREATININE 3.78 mg/dL (0.55-1.30); GLUCOSE 84 mg/dL (70-99); UREA NITROGEN, BLOOD 40 mg/dL (8-21)
[2021-07-16] MEDS: DOCUSATE SODIUM 100 MG CAPSULE PO SCH ×2 (09:00→21:25)
[2021-07-16 09:02] LABS: BASOPHILS # (AUTO) 0.1 K/uL (0.0-0.2); BASOPHILS % (AUTO) 0.5 % (0.0-2.0); EOSINOPHILS # (AUTO) 0.1 K/uL (0.0-0.4); HEMATOCRIT 27.4 % (36-54); LYMPHOCYTES # (AUTO) 2.8 K/uL (1.0-5.5); LYMPHOCYTES % (AUTO) 20.3 % (20.5-51.5); MEAN CORPUSCULAR HEMOGLOBIN 28 pg (27-31); MEAN CORPUSCULAR HGB CONC 33 % (32-36); MEAN CORPUSCULAR VOLUME 87 fL (79.0-98.0); MONOCYTES # (AUTO) 0.8 K/uL (0.0-1.0); MONOCYTES % (AUTO) 5.5 % (1.7-9.3); NEUTROPHILS # (AUTO) 9.9 K/uL (1.8-7.7); NEUTROPHILS % (AUTO) 72.7 % (40.0-70.0); PLATELET COUNT (AUTO) 95 K/uL (130-430); RED BLOOD CELL COUNT(AUTO) 3.17 MIL/uL (4.2-6.2); RED CELL DISTRIBUTION WIDTH 16.1 % (9.0-15.0); WHITE BLOOD COUNT (AUTO) 13.6 K/uL (4.8-10.8)
[2021-07-16] MEDS: TAMSULOSIN HCL 0.4 MG CAP PO SCH (09:28)
[2021-07-16] MEDS: amLODIPine BESYLATE 5 MG TABLET PO SCH (09:28)
[2021-07-16] MEDS: FINASTERIDE 5 MG TABLET (PROSCAR) PO SCH (09:28)
[2021-07-16] MEDS: MULTIVITAMINS TAB 1 TABLET PO SCH (09:29)
[2021-07-16] MEDS: BALSAM PERU/CASTOR OIL 56.7 GM OINT...G. TP SCH (09:29)
[2021-07-16] MEDS: ASPIRIN 81 MG TABLET(ECOTRIN) PO SCH (09:29)
[2021-07-16] MEDS: ALPRAZolam 0.25 MG TABLET NG SCH ×2 (09:29→21:25)
[2021-07-16] MEDS: FAMOTIDINE 20 MG TABLET PO SCH (09:29)
[2021-07-16] MEDS: ASCORBIC ACID 500 MG TABLET PO SCH (09:29)
[2021-07-16 09:36] LABS: ANION GAP 12 (5-15); CHLORIDE 105 mmol/L (98-107); POTASSIUM 3.9 mmol/L (3.5-5.1); SODIUM SERUM 140 mmol/L (136-145)
[2021-07-16] MEDS: HYDROmorphone 2 MG/ML VIAL IVP PRN ×2 (09:53→23:47)
[2021-07-16] MEDS: CEFEPIME 1 GM in D5W 50 ML IV SCH (10:13)
--- NOTE | 2021-07-16 10:59 | NUR ---
RN NOTES NOTES: PATIENT RESTING IN BED. ACCUCHECK DONE (94). NO INSULIN COVERAGE. NO S/S OF ACUTE DISTRESS NOTED.
--- NOTE | 2021-07-16 16:00 | NUR ---
RN NOTES: PATIENT RESTING IN BED. ACCUCHECK DONE (148). NO S/S OF ACUTE DISTRESS NOTED. BED LOCKED, ALARM ON AND IN LOWEST POSITION.
--- NOTE | 2021-07-16 17:00 | NUR ---
RN NOTES/ INCONTINENT CARE/ DRESSING CHANGED AT SACRAL AREA: INCONTINENT CARE DONE. DRESSING CHANGED AT SACRAL AREA. NO S/S OF ACUTE DISTRESS NOTED.
--- NOTE | 2021-07-16 19:50 | NUR ---
PM ASSESSMENT -Pt is a/ox1, slurred speech. No s/s any pain,sob,or any acute distress noted. Rt jugular site with Quinthon Cath drgs cd. Rt ADARSH midline patent flushed well drsg cdi. Flexiseal in place with loose dark green stool noted. Conner cath w/ gravity drains yellow urine output. Rt BKA drsg cdi w/ pillow elevated entire time. No family is at bedside. Maintain C-diff contact isolation entire time. Turned and repositioned and q 2hrs prn. Generalized edematous including scrotum with pitting 2-3+. Bed alarm in place. Call light w/in reach. Continuing to monitor pt.
[2021-07-16] MEDS: ATORVASTATIN 20 MG TABLET PO SCH (21:26)
--- NOTE | 2021-07-16 23:47 | NUR ---
PAIN MGMT -Pt is moaning,restlessness. Asked if in pain, pt verbalized," yes!" Gave Dilaudid 2mg IVP for generalized pain. Will reassess w/in 15 mins. Turned & repositioned and q 2hrs prn. Continuing to monitor pt.
--- NOTE | 2021-07-17 00:17 | NUR ---
REASSESSMENT OF PAIN -Pt is resting in bed,no s/s any pain,sob,or any distress noted. All safety measures in place. Side rails x3, Maintains Contact isolation entire time. Continuing to monitor pt.
[2021-07-17 00:43] VITALS: BP_SYST 142
--- NOTE | 2021-07-17 02:00 | NUR ---
ROUNDS -Pt is resting in bed,no s/s any pain,sob,or any distress noted. All safety measures in place. Side rails x3, Maintains Contact isolation entire time. Continuing to monitor pt.
--- NOTE | 2021-07-17 04:00 | NUR ---
ROUNDS -Pt is resting in bed,no s/s any pain,sob,or any distress noted. Conner cath in place w/ gravity drains yellow urine. Flexiseal w/ gravity drains dark green loose stool. Turned & repositioned and q 2hrs prn. All safety measures in place. Side rails x3, Maintains Contact isolation entire time. Continuing to monitor pt.
[2021-07-17] MEDS: HYDROmorphone 2 MG/ML VIAL IVP PRN (05:36)
--- NOTE | 2021-07-17 05:36 | NUR ---
ROUNDS -Pt was crying, gave Dilaudid 2mg IVP after drsg of sacral,ayah buttocks, and left lower legs, cleaned w/ NS, patted dry, applied venelex oitment on multiple wounds. Elevated rt stump drsg cdi. Now drsg cdi. Turned & repositioned and q 2hrs prn. Cleaned pt and changed new gown, linen, and blanket. Patient is cleaned and dry. All safety measures in place. Side rails x3, HOB > 30 degree entire time. continuing to monitor pt.
--- NOTE | 2021-07-17 06:28 | NUR ---
CLOSING NOTES; -Pt is resting in bed,no s/s any pain,sob,or any distress noted. Conner cath in place w/ gravity drains yellow urine. Flexiseal w/ gravity drains dark green loose stool. ADARSH midline drsg cdi. Quinthon cath drsg of rt jugular site. Turned & repositioned and q 2hrs prn. All safety measures in place. Side rails x3, Maintains Contact isolation entire time. Pt's condition stable. Will endorse to next nurse to cont care.
[2021-07-17 06:30] LABS: BASOPHILS # (AUTO) 0.1 K/uL (0.0-0.2); BASOPHILS % (AUTO) 0.4 % (0.0-2.0); EOSINOPHILS # (AUTO) 0.1 K/uL (0.0-0.4); EOSINOPHILS % (AUTO) 0.7 % (0.0-4.0); HEMATOCRIT 26.6 % (36-54); HEMOGLOBIN 8.6 g/dL (14.0-18.0); LYMPHOCYTES # (AUTO) 2.2 K/uL (1.0-5.5); LYMPHOCYTES % (AUTO) 12.7 % (20.5-51.5); MEAN CORPUSCULAR HEMOGLOBIN 28 pg (27-31); MEAN CORPUSCULAR HGB CONC 32 % (32-36); MEAN CORPUSCULAR VOLUME 87 fL (79.0-98.0); MONOCYTES # (AUTO) 0.8 K/uL (0.0-1.0); MONOCYTES % (AUTO) 4.5 % (1.7-9.3); NEUTROPHILS # (AUTO) 14.1 K/uL (1.8-7.7); NEUTROPHILS % (AUTO) 81.7 % (40.0-70.0); PLATELET COUNT (AUTO) 124 K/uL (130-430); RED BLOOD CELL COUNT(AUTO) 3.05 MIL/uL (4.2-6.2); RED CELL DISTRIBUTION WIDTH 15.9 % (9.0-15.0); WHITE BLOOD COUNT (AUTO) 17.2 K/uL (4.8-10.8)
[2021-07-17] MEDS: metroNIDAZOLE 250 mg/NS 50 ML IV SCH (07:25)
[2021-07-17 08:00] VITALS: BP_SYST 137
[2021-07-17] MEDS: DOCUSATE SODIUM 100 MG CAPSULE PO SCH ×3 (08:30→21:00)
[2021-07-17] MEDS: ALPRAZolam 0.25 MG TABLET NG SCH ×3 (08:31→21:00)
[2021-07-17] MEDS: amLODIPine BESYLATE 5 MG TABLET PO SCH (08:31)
[2021-07-17] MEDS: FINASTERIDE 5 MG TABLET (PROSCAR) PO SCH (08:32)
[2021-07-17] MEDS: ASPIRIN 81 MG TABLET(ECOTRIN) PO SCH (08:32)
[2021-07-17] MEDS: ASCORBIC ACID 500 MG TABLET PO SCH (08:32)
[2021-07-17] MEDS: TAMSULOSIN HCL 0.4 MG CAP PO SCH (08:32)
[2021-07-17] MEDS: FAMOTIDINE 20 MG TABLET PO SCH (08:32)
[2021-07-17] MEDS: MULTIVITAMINS TAB 1 TABLET PO SCH (08:32)
[2021-07-17] MEDS: BALSAM PERU/CASTOR OIL 56.7 GM OINT...G. TP SCH (08:33)
[2021-07-17 08:35] LABS: ALANINE AMINOTRANSFERASE 12 U/L (12-78); ALBUMIN 1.6 g/dL (3.4-4.8); ANION GAP 10 (5-15); ASPARTATE AMINOTRANSFERASE 21 U/L (10-37); CALCIUM 7.3 mg/dL (8.4-11.0); CHLORIDE 103 mmol/L (98-107); CREATININE 4.38 mg/dL (0.55-1.30); GLUCOSE 141 mg/dL (70-99); POTASSIUM 3.4 mmol/L (3.5-5.1); SODIUM SERUM 137 mmol/L (136-145); TOTAL BILIRUBIN 0.4 mg/dL (0.0-1.0); UREA NITROGEN, BLOOD 45 mg/dL (8-21)
[2021-07-17] MEDS: FLUCONAZOLE 100 mg/ NS 50 ML IV SCH (10:00)
[2021-07-17] MEDS ORDERED: HEPARIN SODIUM,PORCINE 5,000 UNITS/ML VIAL ONE ×2 (12:14→12:16)
[2021-07-17] MEDS: CEFEPIME 1 GM in D5W 50 ML IV SCH (12:17)
[2021-07-17 12:32] VITALS: BP_SYST 135
[2021-07-17] MEDS: HEPARIN SODIUM,PORCINE 5,000 UNITS/ML VIAL SUBCUT SCH ×2 (13:12→21:38)
--- NOTE | 2021-07-17 14:00 | NUR ---
pt had dialysis today mary well remain afrebile b/p remains wnl 2.4 liters were removed pt condition remains stable and pt is alert and responsive denies pain or discomfort; comfort and safety maintained
[2021-07-17 16:30] VITALS: BP_SYST 130
[2021-07-17 18:00] VITALS: BP_SYST 126
[2021-07-17 19:50] VITALS: BP_SYST 135
--- NOTE | 2021-07-17 19:50 | NUR ---
PM ASSESSMENT -Pt is a/ox1, garbles speech No s/s any pain,sob,or any acute distress noted. Rt jugular site with Quinthon Cath drgs cd. Rt ADARSH midline patent flushed well drsg cdi. Flexiseal in place with loose dark green stool noted. Conner cath w/ gravity drains yellow urine output. Rt BKA drsg cdi w/ pillow elevated entire time. No family is at bedside. Maintain C-diff contact isolation entire time. Turned and repositioned and q 2hrs prn. Generalized edematous including scrotum with pitting 2-3+. Bed alarm in place. Call light w/in reach. Continuing to monitor pt.
[2021-07-17] MEDS: ATORVASTATIN 20 MG TABLET PO SCH ×2 (20:34→21:00)
--- NOTE | 2021-07-17 20:34 | NUR ---
ROUNDS -Pt refused to take all routine meds scheduled at 2100, pt spitted all meds out. Conner cath in place w/ gravity drains yellow urine. Flexiseal w/ gravity drains dark green loose stool. Turned & repositioned and q 2hrs prn. All safety measures in place. Side rails x3, Maintains Contact isolation entire time. Continuing to monitor pt.
--- NOTE | 2021-07-17 22:15 | NUR ---
ROUNDS: -Pt is asleep. No s/s any acute distress noted. Turned & repositioned and q 2hrs prn. Conner cath in place w/ gravity drains yellow urine. Flexiseal w/ gravity drains dark green loose stool. All safety measures in place. Continuing to monitor pt.
[2021-07-18 01:06] VITALS: BP_SYST 148
--- NOTE | 2021-07-18 04:05 | NUR ---
ROUNDS: -Gave patient sponge bath, changed new gown, linen,sheets, new chux, and pillow cases. Small soft yellow formed stool leaked from the Flexiseal, wiped with warm water and cleaned body and Flexiseal in place. Cleansed multiple wounds with NS, applied Venelex and Optifoam drsg applied. Keep RBKA stump elevated with pillows. Turned & repositioned and q 2hrs prn. Conner cath in place w/ gravity drains yellow urine. Offered pt some juice, snack, or snacks, pt refused multiple times tonight. All safety measures in place. Continuing to monitor pt.
--- NOTE | 2021-07-18 05:16 | NUR ---
CALLED ALEKS MORALES THIS NUMBER IS [facility] [phone] I SPOKE WITH SHAYAN SIGNAL SUPERVISOR SHE SAID THIS MD IS NOT ONCALL. ATTEMPT TO CALL BTW [phone].
[2021-07-18] MEDS: HEPARIN SODIUM,PORCINE 5,000 UNITS/ML VIAL SUBCUT SCH ×3 (06:03→21:18)
--- NOTE | 2021-07-18 06:46 | NUR ---
CLOSING NOTES: Pt is asleep. No s/s any pain,sob,or any acute distress noted. Rt jugular site with Quinthon Cath drgs cd. Rt ADARSH midline patent flushed well drsg cdi. Flexiseal in place w/ gravity. Conner cath w/ gravity drains yellow urine output. Rt BKA drsg cdi w/ pillow elevated entire time. No family is at bedside. Maintain C-diff contact isolation entire time. Bed alarm in place. Call light w/in reach. Will endorse to next nurse to continue care.
[2021-07-18 07:53] VITALS: BP_SYST 153
[2021-07-18] MEDS: MULTIVITAMINS TAB 1 TABLET PO SCH ×2 (08:22→08:56)
[2021-07-18] MEDS: FAMOTIDINE 20 MG TABLET PO SCH ×2 (08:22→08:56)
[2021-07-18] MEDS: ALPRAZolam 0.25 MG TABLET NG SCH ×3 (08:22→21:16)
[2021-07-18] MEDS: ASPIRIN 81 MG TABLET(ECOTRIN) PO SCH ×2 (08:22→08:55)
[2021-07-18] MEDS: ASCORBIC ACID 500 MG TABLET PO SCH ×2 (08:22→08:56)
[2021-07-18] MEDS: TAMSULOSIN HCL 0.4 MG CAP PO SCH ×2 (08:22→08:55)
[2021-07-18] MEDS: BALSAM PERU/CASTOR OIL 56.7 GM OINT...G. TP SCH (08:23)
[2021-07-18] MEDS: amLODIPine BESYLATE 5 MG TABLET PO SCH ×2 (08:23→08:56)
[2021-07-18] MEDS: FINASTERIDE 5 MG TABLET (PROSCAR) PO SCH ×2 (08:23→08:56)
[2021-07-18] MEDS: DOCUSATE SODIUM 100 MG CAPSULE PO SCH ×2 (08:23→21:16)
--- NOTE | 2021-07-18 08:50 | NUR ---
Note Spoke to Dr Stiven Pearce, who is covering for Dr Angie Pearce. Dr Saleem will speak to Dr Adams about placement of Perma cath. Dr Monroe (ordering MD) notified.
[2021-07-18] MEDS: FLUCONAZOLE 100 mg/ NS 50 ML IV SCH (09:22)
--- NOTE | 2021-07-18 10:29 | NUR ---
Nutrition F/U Admitting Diagnosis Decubitus R foot infection Medical History Comment: HTN, DM, CVA, and BPH per physician notes Pt also found w/ severe malnutrition, complicated UTI-GNR, and R heel PU-infected d/t GNR/polymicrobial, ARF, septic shock, BECK, C diff, and acute encephalopathy. SARS-CoV-2 Ag (Rapid) Negative 06/15 & 06/26 & 07/06 07/07 S/P R. BKA 07/08 S/P Extubation 07/10 ST swallow eval: ST recommended PO diet of puree/honey thick liquid with 1:1 feeder and full aspiration precautions. Feed only when fully awake. Subjective Information: Per EMR review, pt completed treatment for c. diff; Jose scale: 13, pt continues w/ multiple wounds, pt seen by executive relations specialist 07/05. Wounds noted on L plantar foot, L posterior calf, L. posterior distal calf, L and R buttocks, posterior sacrum, and incision. R BKA; 2+ pitting edema on L and R arms, L foot, and 3+ on LLE. Last HD ordered 07/12. Pt w/ flexiseal for loose stools, 200 ml output 07/16. Last HD 07/17, next HD scheduled for 07/19. PO intake recorded as <25% of meals, pt refusing meals, requires maximum assistance. Pt also refusing some medication including MVI and Vit C. Pt not consuming adequate calories and protein, may require nutrition support. Current Diet Order/Nutrition Support: Pureed, Renal diet w/ Honey Thick Liquids, Roger BID, Prosource BID, Nepro BID x4 days Patient/Significant Other Unable To Verbalize Education Provided Not Indicated Pertinent Medications: lipitor, MVI, pepcid, VIT C, SSI, Colace, Heparin Pertinent Labs: 07/17: WBC 17.2 H, K 3.4 L, BUN 45 H, Cr 4.38 H, BG 141 H, POC BG 132 H, Alb 1.6 L Height (Feet) 6 feet Height (Inches) 0.00 inches Weight (Pounds) 06/17: 167 pounds 07/06: 212#/96.4 kg -- questionable 45# wt gain 07/14: 251#/114.1 kg questionable wt gain 07/16: 227#/103.1 kg 24# wt loss possibly d/t fluid shifts a/w HD Weight (Calculated Kilograms) 75.282713 kilograms Patient Weight 75.75 kg Body Mass Index 22.65 kg/m2 %IBW 94 [place]/Adjusted Body Weight 178#/81 kg AdjBW: 168#/76.1 kg (-5.9% for BKA) *NEW Estimated Energy Expenditure (kcals/day) 4473-7628 (30-35 kcals/kg AdjBW d/t BKA, HD, wound healing) *NEW Estimated Protein Required (g/day) 114-152 g/day (1.5-2.0 gm/kg AdjBW d/t BKA, HD, wound healing) NEW Estimated Fluid Required (l/day) Per MD d/t ARF Problem/Etiology/Signs/Symptoms Increased nutritional needs R/T metabolic demands AEB estimated nutritional requirements for wound healing. (*ongoing) Expected Outcomes/Goals - Monitor appetite and PO intake w/ goal of pt meeting >75% of estimated nutritional needs, labs trending WNL, normal GI function, and skin integrity/wt maintenance Dietitian Recommendations * Pureed, renal diet w/ Roger BID, Prosource BID and Nepro BID. ONS yields additional 1120 kcals/day and 73 g protein/day. * Encourage oral intake. * Consider nutrition support of pt unable to consume adequate calories and protein Follow Up High Risk: F/U in 2-3 days
--- NOTE | 2021-07-18 10:32 | NUR ---
Dietitian Recommendations * Pureed, renal diet w/ Roger BID, Prosource BID and Nepro BID. ONS yields additional 1120 kcals/day and 73 g protein/day. * Encourage oral intake. * Consider nutrition support of pt unable to consume adequate calories and protein Please refer to Nutrition F/U 07/18/21 for details.
[2021-07-18] MEDS: CEFEPIME 1 GM in D5W 50 ML IV SCH (10:33)
--- NOTE | 2021-07-18 11:00 | NUR ---
Note Pt spit out all his 09am medications and breakfast this am, refused any drink or food. Pt's right stump dressing CDI at this time.
[2021-07-18 11:27] VITALS: BP_SYST 141
--- NOTE | 2021-07-18 13:35 | NUR ---
Note Dr Angie Pearce came to floor to assess pt. Unable to do surgery for perma cath at this time due to high WBC.
[2021-07-18 15:53] VITALS: BP_SYST 134
--- NOTE | 2021-07-18 18:35 | NUR ---
Note Pt was checked on q1' and PRN all shift for needs and care. Pt's bed in low position and bed alarm on all shift. Pt was maintained with safety and isolation precautions all shift. Pt's Flex seal intact and draining well. Conner catheter intact and draining. Tele unit attached and intact all shift. ADARSH midline intact and patent. Pt spits all his meals for breakfast and lunch, states "no" and moves his head from spoon of food and drink. All dressings on sacral and extremities intact and clean/dry. Call light within reach. Dr [email or web address] on the floor to assess pt and try and feed pt some of his dinner. Pt is depressed and cries easily when staff in room. Pt's right stump dressing was done per Dr Langston order.
[2021-07-18] MEDS ORDERED: CITALOPRAM HYDROBROMIDE 20 MG TABLET PO ONE (18:45)
[2021-07-18] MEDS ORDERED: ESCITALOPRAM OXALATE 10 MG TABLET PO SCH (18:45)
--- NOTE | 2021-07-18 19:50 | NUR ---
PM ASSESSMENT -Pt is a/ox1 to person, No s/s any pain,sob,or any acute distress noted. Rt jugular site with Quinthon Cath drgs cd. Rt ADARSH midline patent flushed well drsg cdi. Flexiseal in place with loose dark green stool noted. Conner cath w/ gravity drains yellow urine output. Rt BKA drsg cdi w/ pillow elevated entire time. No family is at bedside. Maintain C-diff contact isolation entire time. Turned and repositioned and q 2hrs prn. Generalized edematous including scrotum with pitting 2-3+. Bed alarm in place. Call light w/in reach. Continuing to monitor pt.
[2021-07-18 20:00] VITALS: BP_SYST 137
[2021-07-18] MEDS: ATORVASTATIN 20 MG TABLET PO SCH (21:16)
[2021-07-18] MEDS: ACETAMINOPHEN 325 MG TABLET PO PRN (21:54)
--- NOTE | 2021-07-18 22:00 | NUR ---
ROUNDS: -Pt awoke and garbled speech. No s/s any acute distress noted. Turned & repositioned and q 2hrs prn. Conner cath in place w/ gravity drains yellow urine. Flexiseal w/ gravity drains dark green loose stool. All safety measures in place. Continuing to monitor pt.
--- NOTE | 2021-07-18 23:45 | NUR ---
ROUNDS: -Pt awoke, asked for blanket, covered upon pt's request. No s/s pain,sob,or any acute distress noted. Turned & repositioned and q 2hrs prn. Conner cath in place w/ gravity drains yellow urine. Flexiseal w/ gravity drains dark green loose stool. RBKA stump drsg cdi elevated w/ pillow entire time. Call light w/in reach. All safety measures in place. Continuing to monitor pt.
[2021-07-19 02:01] VITALS: BP_SYST 155
--- NOTE | 2021-07-19 02:20 | NUR ---
ROUNDS: Pt is asleep. No s/s pain,sob,or any acute distress noted. Turned & repositioned and q 2hrs prn. Conner cath in place w/ gravity drains yellow urine. Flexiseal w/ gravity drains dark green loose stool. RBKA stump drsg cdi elevated w/ pillow entire time. Call light w/in reach. All safety measures in place. Continuing to monitor pt
[2021-07-19] MEDS: ACETAMINOPHEN 325 MG TABLET PO PRN (03:48)
--- NOTE | 2021-07-19 04:20 | NUR ---
ROUNDS: Pt is asleep. No s/s pain,sob,or any acute distress noted. Turned & repositioned and q 2hrs prn. Conner cath in place w/ gravity drains yellow urine. Flexiseal w/ gravity in place. Call light w/in reach. All safety measures in place. Continuing to monitor pt
--- NOTE | 2021-07-19 05:10 | NUR ---
ROUNDS: Pt awoke upon approaching at bedside. No s/s pain,sob,or any acute distress noted. Turned & repositioned and q 2hrs prn. Conner cath in place w/ gravity drains yellow urine. Small leakage from Flexiseal, provided perineal care and now pt is cleaned and dry, Keep Flexiseal w/ gravity in place. Conner cath w/ gravity in place. Call light w/in reach. All safety measures in place. Continuing to monitor pt
[2021-07-19] MEDS: HEPARIN SODIUM,PORCINE 5,000 UNITS/ML VIAL SUBCUT SCH ×2 (05:59→15:54)
--- NOTE | 2021-07-19 06:37 | NUR ---
CLOSING NOTES; -Pt is asleep. No s/s pain,sob,or any acute distress noted. Conner cath in place w/ gravity drains yellow urine. Flexiseal w/ loose stool drainage w/ gravity in place. Conner cath drains yellow urine w/ gravity in place. Rt jugular Quinthon drsg cdi. ADARSH midline in place drsg cdi. Call light w/in reach. Contact isolation in place. All safety measures in place.Will endorse to next nurse to cont care.
[2021-07-19 07:49] VITALS: BP_SYST 112; BP_SYST 162
[2021-07-19] MEDS: FAMOTIDINE 20 MG TABLET PO SCH (08:20)
[2021-07-19] MEDS: FINASTERIDE 5 MG TABLET (PROSCAR) PO SCH (08:20)
[2021-07-19] MEDS: MULTIVITAMINS TAB 1 TABLET PO SCH (08:21)
[2021-07-19] MEDS: ALPRAZolam 0.25 MG TABLET NG SCH ×2 (08:21→21:47)
[2021-07-19] MEDS: TAMSULOSIN HCL 0.4 MG CAP PO SCH (08:21)
[2021-07-19] MEDS: ASCORBIC ACID 500 MG TABLET PO SCH (08:21)
[2021-07-19] MEDS: ASPIRIN 81 MG TABLET(ECOTRIN) PO SCH (08:22)
[2021-07-19] MEDS: DOCUSATE SODIUM 100 MG CAPSULE PO SCH ×2 (08:23→21:46)
[2021-07-19] MEDS: CITALOPRAM HYDROBROMIDE 20 MG TABLET PO SCH (08:23)
[2021-07-19] MEDS: amLODIPine BESYLATE 5 MG TABLET PO SCH (08:24)
--- NOTE | 2021-07-19 10:00 | NUR ---
Pt having HD now.
--- NOTE | 2021-07-19 10:00 | NUR ---
PT SPITS OUT HIS MEDICATIONS. REFUSED TO TAKE IT.
[2021-07-19] MEDS ORDERED: HEPARIN SODIUM,PORCINE 5,000 UNITS/ML VIAL IVP ONE (10:15)
[2021-07-19 13:04] VITALS: BP_SYST 134
[2021-07-19] MEDS: CEFEPIME 1 GM in D5W 50 ML IV SCH (13:16)
[2021-07-19] MEDS: FLUCONAZOLE 100 mg/ NS 50 ML IV SCH (13:16)
[2021-07-19] MEDS: BALSAM PERU/CASTOR OIL 56.7 GM OINT...G. TP SCH (13:18)
--- NOTE | 2021-07-19 14:00 | NUR ---
WOUND ASSESSMENT DONE BY RADHA LYLES, PICTURES TAKEN. PT'S SISTER WAS HERE AND MADE AWARE OF NEW WOUNDS NOTED ON THE RIGHT BUTTOCK AND SACRAL AREA.
--- NOTE | 2021-07-19 14:00 | NUR ---
WOUND EVALUATION: Late note for 07/19/2021 at 1400 secondary to patient care. Wound Consult received from Dr. Winn. Thank you, Dr. Winn, for the consult. Patient received in a Anisha Bed with a P500 ZAHIRA mattress, confused. Patient is unable to turn in bed independently. Jose Score is a. Past Medical History: Hypertension, Diabetes Mellitus, CVA, Right Heel pressure ulcer with infection, Benign Prostatic Hypertrophy. Recent Labs: WBC 19.2, RBC 3.37, hemoglobin 9.8, hematocrit 28.8, potassium 2.6, BUN 44, creatinine 3.32, glucose 122, calcium 6.8, serum total protein 3.7, alkaline phosphatase 118, BUN 1.6. Microbiology: Surgical specimen culture results positive for Proteus Mirabilis, Enterococcus faecalis, and MRSA. Second surgical culture results positive for Proteus Mirabilis and Enterococcus faecalis. Stool culture results positive for C. difficile. Endotracheal sputum culture results positive for yeast. MRSA screen results in progress. Intrinsic factors that delay wound healing: Diabetes Mellitus, CVA, Hyperglycemia, Hypoalbuminemia. Extrinsic factors that delay wound healing: Decreased mobility. Wound Assessment: 1. Right Posterior Heel: Unstageable pressure ulcer, present on admission. Site is status post BKA. 2. Right Distal Lateral Lower Extremity: Unstageable pressure ulcer, present on admission. Site is status post BKA. See 3. Right Dorsal Foot, Distal and Right Lateral to Ankle joint line: Chronic wound of unknown etiology, present on admission. Site is status post BKA. 4. Right Dorsal Foot, superior to site 3 near Ankle Joint Line: Large bulla with serous fluid, a progression of the infection. Site is status post BKA. 5. Right Lateral Malleolus: Unstageable pressure ulcer, present on admission. Site is status post BKA. 6. Right Lateral Foot, Middle Aspect: Unstageable pressure ulcer, present on admission. Site is status post BKA. Sites are status post BKA. BKA Site has sutures, and is mostly approximated except for two small areas in middle inferior aspect of surgical incision. No odor, small sanguineous drainage. Perimeter of incision intact. No erythema, discoloration, calor, purulent drainage, or other signs of infection. Recommend: Cleanse site with normal saline. Gently pat dry. Apply sure prep to margo-wound and perimeter of surgical incision. Apply Xeroform dressing to incision, then fluff gauze pads. Wrap with anuel wrap, then secure with tape. Perform wound care q M/W/, and as needed for dressing soiling or dislodgement. Perform wound care daily, and as needed for dressing soiling or dislodgment. 7. Right Lateral Lower Extremity, inferior to Fibular head: Area of dark discoloration, softness felt with palpation. Appears to be related to poor circulation. Recommend: Cover site with foam dressing for protection. Keep Anuel wrap from sites 1 through 6 above off of site. 8. Left lateral plantar foot near first metatarsal head: Unstageable pressure ulcer, present on admission. Wound bed has 90% brown eschar, 10% dark brown eschar. No odor, no drainage. Dry, stable. Recommend continue: [place] site with Betadine. Allow to air dry. Cover site with 4x4 foam dressing. Perform site care daily, and as needed for dressing soiling or dislodgment. 9. Right Buttock: Stage 2 pressure ulcer, present on admission. Right has progressed to stage III. Site has 90% red tissue, 10% yellow tissue. No odor, no drainage. Periwound intact. Wound measures 3.0 cm x 1.8 cm Recommend continue: Cleanse wound with normal saline. Apply sure prep to periwound. Apply Venelex ointment to wound bed. Cover with 4x4 foam dressing. Perform wound care daily, and as needed for dressing soiling or dislodgment. 10. Right Posterior Proximal Thigh: Skin tear. Site has 95% red tissue, 5% dark discoloration. No odor, no drainage. Perimeter of skin tear intact. Skin tear measures 2.9 cm x 2.0 cm. Recommend continue: Cleanse site with normal saline. Apply sure prep to perimeter of site. Apply Venelex ointment to site. Cover with 4x4 foam dressing. Perform site care daily, and as needed for dressing soiling or dislodgment. 11. Sacral area: sDTI. Site has 95% dark discolored tissue, 5% red tissue. No odor, no drainage. Periwound intact. Site measures 3.2 cm x 2.0 cm. Recommend: Cover site with foam dressing. Offload site at all times. 12. Left buttock: Stage II pressure ulcer. Site has 100% red tissue. No odor, no drainage. Recommend: Cleanse wound with normal saline. Apply moisture barrier cream to periwound. Apply Venelex ointment to wound bed. Cover site with foam dressing. Perform wound care daily, and as needed for dressing soiling or dislodgment. 13. Left Posterior Lateral Calf: Unstageable pressure ulcer. Wound bed has 75% yellow tissue, 25% red tissue. No odor, no drainage. Periwound intact. Wound measures 1.0 cm x 1.0 cm. Patient's sister informed of wound. Dr. Winn informed of wound. Recommend continue: Cleanse site with normal saline. Apply sure prep to perimeter of site. Apply Venelex ointment to site. Cover with 4x4 foam dressing. Perform site care daily, and as needed for dressing soiling or dislodgment. 14. Left Distal Posterior Lateral Calf: Wound. Wound bed has 100% black scab. No odor, no drainage. Periwound intact. Wound measures 1.1 cm x 0.8 cm. Recommend: [place] site with Betadine. Allow to air dry. Cover site with 4 x 4 foam dressing. Perform site care daily, and as needed for dressing soiling or dislodgment. Also recommend: Encourage and assist patient as needed with repositioning every 2 hours with pillow support and off-load pressure areas with pillows for pressure re-distribution. Offload, elevate and float bilateral heels with pillows. Perform skin care and monitor skin integrity Q shift. Use moisture barrier cream on buttocks and other moisture susceptible areas QID and as needed for soiling. Place patient on a low air-loss mattress.
[2021-07-19 18:18] VITALS: BP_SYST 152
--- NOTE | 2021-07-19 18:32 | NUR ---
PATIENT HAS NOT BEEN EATING WELL WITH PUREED DIET BUT TAKE THE ENSURE SUPPLEMENT.
--- NOTE | 2021-07-19 19:27 | NUR ---
PT ENDORSED TO NIGHT NURSE. PT HAS BEEN STABLE THE WHOLE SHIFT.
[2021-07-19 19:56] VITALS: BP_SYST 167
[2021-07-19 20:07] VITALS: BP_SYST 167
[2021-07-19] MEDS: ATORVASTATIN 20 MG TABLET PO SCH (21:47)
[2021-07-20 00:07] VITALS: BP_SYST 151
--- NOTE | 2021-07-20 04:46 | NUR ---
Pt linens changed. Flexseal is intact. Wound care done through AM ad PM shift. Pt has 25-50ml urine output through the shift. Will endorse to AM shift. Addendum: 07/20/21 at 0448 by [facility] mediation commissioner 'flexiseal'
[2021-07-20] MEDS: HEPARIN SODIUM,PORCINE 5,000 UNITS/ML VIAL SUBCUT SCH ×3 (06:12→21:24)
[2021-07-20 07:00] VITALS: BP_SYST 169
[2021-07-20 07:01] LABS: BASOPHILS # (AUTO) 0.1 K/uL (0.0-0.2); BASOPHILS % (AUTO) 0.5 % (0.0-2.0); EOSINOPHILS # (AUTO) 0.1 K/uL (0.0-0.4); EOSINOPHILS % (AUTO) 1.1 % (0.0-4.0); HEMATOCRIT 24.5 % (36-54); HEMOGLOBIN 8.1 g/dL (14.0-18.0); LYMPHOCYTES # (AUTO) 2.1 K/uL (1.0-5.5); LYMPHOCYTES % (AUTO) 18.1 % (20.5-51.5); MEAN CORPUSCULAR HEMOGLOBIN 29 pg (27-31); MEAN CORPUSCULAR HGB CONC 33 % (32-36); MEAN CORPUSCULAR VOLUME 87 fL (79.0-98.0); MONOCYTES # (AUTO) 0.7 K/uL (0.0-1.0); MONOCYTES % (AUTO) 6.1 % (1.7-9.3); NEUTROPHILS # (AUTO) 8.7 K/uL (1.8-7.7); NEUTROPHILS % (AUTO) 74.2 % (40.0-70.0); PLATELET COUNT (AUTO) 140 K/uL (130-430); RED BLOOD CELL COUNT(AUTO) 2.83 MIL/uL (4.2-6.2); RED CELL DISTRIBUTION WIDTH 16.2 % (9.0-15.0); WHITE BLOOD COUNT (AUTO) 11.7 K/uL (4.8-10.8)
[2021-07-20 08:00] VITALS: BP_SYST 144
[2021-07-20] MEDS: amLODIPine BESYLATE 5 MG TABLET PO SCH (09:00)
[2021-07-20] MEDS: ASPIRIN 81 MG TABLET(ECOTRIN) PO SCH (11:00)
[2021-07-20] MEDS: CITALOPRAM HYDROBROMIDE 20 MG TABLET PO SCH (11:00)
[2021-07-20] MEDS: DOCUSATE SODIUM 100 MG CAPSULE PO SCH ×3 (11:00→21:22)
[2021-07-20] MEDS: FINASTERIDE 5 MG TABLET (PROSCAR) PO SCH (11:01)
[2021-07-20] MEDS: FAMOTIDINE 20 MG TABLET PO SCH (11:01)
[2021-07-20] MEDS: TAMSULOSIN HCL 0.4 MG CAP PO SCH (11:01)
[2021-07-20] MEDS: ASCORBIC ACID 500 MG TABLET PO SCH (11:01)
[2021-07-20] MEDS: MULTIVITAMINS TAB 1 TABLET PO SCH (11:01)
[2021-07-20] MEDS: BALSAM PERU/CASTOR OIL 56.7 GM OINT...G. TP SCH (11:02)
[2021-07-20] MEDS: CEFEPIME 1 GM in D5W 50 ML IV SCH (11:11)
--- NOTE | 2021-07-20 13:52 | NUR ---
CM: CALL PLACED TO Gissel MORALES, MESSAGE LEFT FOR TO CALL HOSPITAL WITH PLAN FOR PLACEMENT OF PERMA CATH, CALL BACK NUMBER INCLUDED IN MESSAGE [phone].
[2021-07-20 16:00] VITALS: BP_SYST 143
--- NOTE | 2021-07-20 19:10 | NUR ---
OPENING NOTES PATIENT RESTING, NO SIGNS OF ACUTE RESPIRATORY DISTRESS NOTED. CALL LIGHT WITHIN REACH, PATIENT DOES NOT DEMONSTRATE BACK CALL LIGHT USAGE, WILL FOLLOW CLOSELY, BED ALARM ON, BED LOCKED, BED AT LOWEST POSITION. LIZ CATHETER IN PLACE, NO KINKS, NO LOOPS, BAG NOT TOUCHING THE FLOOR. DISCUSSED PLAN OF CARE WITH PATIENT. WILL CONTINUE TO MONITOR.
--- NOTE | 2021-07-20 19:31 | NUR ---
HD SCHEDULED FOR IN THE AM, PT MADE AWARE
[2021-07-20 20:00] VITALS: BP_SYST 150
[2021-07-20] MEDS: ATORVASTATIN 20 MG TABLET PO SCH ×2 (21:00→21:22)
[2021-07-21 00:55] VITALS: BP_SYST 170
[2021-07-21 01:30] VITALS: BP_SYST 156
[2021-07-21] MEDS: HEPARIN SODIUM,PORCINE 5,000 UNITS/ML VIAL SUBCUT SCH ×3 (06:04→23:25)
[2021-07-21 08:00] VITALS: BP_SYST 148
[2021-07-21] MEDS: amLODIPine BESYLATE 5 MG TABLET PO SCH (09:00)
[2021-07-21] MEDS: MULTIVITAMINS TAB 1 TABLET PO SCH (09:59)
[2021-07-21] MEDS: ASPIRIN 81 MG TABLET(ECOTRIN) PO SCH (09:59)
[2021-07-21] MEDS: DOCUSATE SODIUM 100 MG CAPSULE PO SCH ×2 (09:59→23:02)
[2021-07-21] MEDS: TAMSULOSIN HCL 0.4 MG CAP PO SCH (09:59)
[2021-07-21] MEDS: FAMOTIDINE 20 MG TABLET PO SCH (09:59)
[2021-07-21] MEDS: ASCORBIC ACID 500 MG TABLET PO SCH (09:59)
[2021-07-21] MEDS: CITALOPRAM HYDROBROMIDE 20 MG TABLET PO SCH (09:59)
[2021-07-21] MEDS: FINASTERIDE 5 MG TABLET (PROSCAR) PO SCH (09:59)
[2021-07-21] MEDS: BALSAM PERU/CASTOR OIL 56.7 GM OINT...G. TP SCH (10:00)
[2021-07-21] MEDS: CEFEPIME 1 GM in D5W 50 ML IV SCH (10:01)
[2021-07-21] MEDS ORDERED: HEPARIN SODIUM,PORCINE 5,000 UNITS/ML VIAL MC ONE (10:15)
--- NOTE | 2021-07-21 10:51 | NUR ---
HIGH ALERT NOTE: Called Dr. Monroe back at [phone] identified within the medical roster to verify physician authenticity.
--- NOTE | 2021-07-21 12:26 | NUR ---
HEMODIALYSIS DONE: HEMODIALYSIS AT BEDSIDE DONE. HD OUT 2.4 L. NO S/S OF ACUTE DISTRESS NOTED. STABLE V/S.
--- NOTE | 2021-07-21 12:27 | NUR ---
RN NOTES: ACCUCHECK DONE (78). GIVEN LUNCH. NO S/S OF ACUTE DISTRESS NOTED.
[2021-07-21 12:34] VITALS: BP_SYST 119
--- NOTE | 2021-07-21 14:28 | NUR ---
Nutrition F/U Admitting Diagnosis Decubitus R foot infection Medical History Comment: HTN, DM, CVA, and BPH per physician notes Pt also found w/ severe malnutrition, complicated UTI-GNR, and R heel PU-infected d/t GNR/polymicrobial, ARF, septic shock, BECK, C diff, acute encephalopathy and acute respiratory failure. 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 Feed only when fully awake. Subjective Information: RD bedside visit deferred d/t isolation precautions for pending TB test results. Per EMR review, Jose scale: 10, pt continues w/ multiple wounds, pt seen by business continuity specialist 07/05. Wounds noted on L plantar foot, L posterior calf, L. posterior distal calf, L and R buttocks, posterior sacrum, and incision. R BKA. Pitting edema noted on R arm, 3+ edema noted on LLE, 2+ pitting edema noted on L foot and 1+ pitting edema noted on R foot. Last HD ordered 07/20/21. Pt remands confused. NUZHAT called pts RN at ext. [phone]. RN reported that pt is not eating much, but has drank Nepro ONS in the past, but reported that pt did not receive it today on meal tray. She also reports that pts diarrhea is ongoing, but improving flexiseal still in place. Banatrol offered, however, RN reports may not be needed at this time. NUZHAT also brought up idea of appetite stimulant RN stated she would ask physician. Current Diet Order/Nutrition Support: Pureed, Renal diet w/ Honey Thick Liquids, Roger BID, Prosource BID, Nepro BID x7 days Patient/Significant Other Unable To Verbalize Education Provided Not Indicated Pertinent Medications: lipitor, MVI, pepcid, VIT C, SSI, Colace, Heparin Pertinent Labs: POC BG 129 H, 125 H, 99; WBC 11.7 H Height (Feet) 6 feet Height (Inches) 0.00 inches Weight (Pounds) 06/17: 167 pounds 07/06: 212#/96.4 kg -- questionable 45# wt gain 07/14: 251#/114.1 kg questionable wt gain 07/16: 227#/103.1 kg 24# wt loss possibly d/t fluid shifts a/w HD 07/21: 236#/107.2 kg 9# wt gain possibly d/t fluid shifts a/w HD Patient Weight 75.75 kg Body Mass Index 22.65 kg/m2 %IBW 94 [place]/Adjusted Body Weight 178#/81 kg AdjBW: 168#/76.1 kg (-5.9% for BKA) *ongoing Estimated Energy Expenditure (kcals/day) 6213-6402 (30-35 kcals/kg AdjBW d/t BKA, HD, wound healing) *NEW Estimated Protein Required (g/day) 95-114 g/day (1.25-1.5 gm/kg AdjBW d/t BKA, HD, wound healing) NEW Estimated Fluid Required (l/day) Per MD d/t ARF Problem/Etiology/Signs/Symptoms Increased nutritional needs R/T metabolic demands AEB estimated nutritional requirements for wound healing. (*ongoing) Expected Outcomes/Goals - Monitor appetite and PO intake w/ goal of pt meeting >75% of estimated nutritional needs, labs trending WNL, normal GI function, and skin integrity/wt maintenance Dietitian Recommendations * Pureed, renal diet w/ Roger BID, Prosource BID and Nepro BID. ONS yields additional 1120 kcals/day and 73 g protein/day. * Encourage oral intake. * Consider appetite stimulant. * Consider EN support if pt unable to consume adequate calories and protein Follow Up High Risk: F/U in 2-3 days Signed: 07/21/21 at 1429 by Analia NOLAND <Co-Signature Required> Co-Signed: 07/21/21 at [address]
--- NOTE | 2021-07-21 14:29 | NUR ---
Dietitian Recommendations * Pureed, renal diet w/ Roger BID, Prosource BID and Nepro BID. ONS yields additional 1120 kcals/day and 73 g protein/day. * Encourage oral intake. * Consider appetite stimulant. * Consider EN support if pt unable to consume adequate calories and protein LP, RD Please refer to Nutrition F/U for details. Signed: 07/21/21 at 1429 by Analia NOLAND <Co-Signature Required> Co-Signed: 07/21/21 at [address]
[2021-07-21 16:27] VITALS: BP_SYST 124
--- NOTE | 2021-07-21 16:48 | NUR ---
RN notes/WC done: Wound care and change of dressing done at sacral area.
--- NOTE | 2021-07-21 19:24 | NUR ---
CLOSING NOTES: PATIENT RESTING IN BED. NO S/S OF ACUTE DISTRESS NOTED. FALL AND SAFETY MEASURES PROVIDED. CALL LIGHT WITHIN REACH. ENDORSED TO PIPE STRIPPER RN.
--- NOTE | 2021-07-21 19:37 | NUR ---
REPORT RECEIVED FROM OUTGOING RN
[2021-07-21 22:44] VITALS: BP_SYST 171
[2021-07-21] MEDS: ATORVASTATIN 20 MG TABLET PO SCH (23:01)
[2021-07-22 00:51] VITALS: BP_SYST 134
[2021-07-22] MEDS: HEPARIN SODIUM,PORCINE 5,000 UNITS/ML VIAL SUBCUT SCH ×3 (06:08→21:57)
[2021-07-22 08:00] VITALS: BP_SYST 158
[2021-07-22] MEDS: MULTIVITAMINS TAB 1 TABLET PO SCH (08:24)
[2021-07-22] MEDS: ASCORBIC ACID 500 MG TABLET PO SCH (08:24)
[2021-07-22] MEDS: CITALOPRAM HYDROBROMIDE 20 MG TABLET PO SCH (08:24)
[2021-07-22] MEDS: FINASTERIDE 5 MG TABLET (PROSCAR) PO SCH (08:24)
[2021-07-22] MEDS: FAMOTIDINE 20 MG TABLET PO SCH (08:25)
[2021-07-22] MEDS: TAMSULOSIN HCL 0.4 MG CAP PO SCH (08:25)
[2021-07-22] MEDS: amLODIPine BESYLATE 5 MG TABLET PO SCH (08:25)
[2021-07-22] MEDS: ASPIRIN 81 MG TABLET(ECOTRIN) PO SCH (08:25)
[2021-07-22] MEDS: DOCUSATE SODIUM 100 MG CAPSULE PO SCH ×2 (08:26→21:56)
[2021-07-22] MEDS: CEFEPIME 1 GM in D5W 50 ML IV SCH (08:26)
[2021-07-22] MEDS: BALSAM PERU/CASTOR OIL 56.7 GM OINT...G. TP SCH (08:37)
[2021-07-22 09:02] VITALS: BP_SYST 158
[2021-07-22 13:04] VITALS: BP_SYST 152
--- NOTE | 2021-07-22 16:09 | NUR ---
CONSULTATION PAGED REASON FOR CONSULTATION:DEPRESSION WAS CONSULT CALLED?Y PERSON WHO WAS NOTIFIED:STANLEY CONSULTING PHYSICIAN:TERRANCE KHAN MARKETING OPERATIONS MANAGER SPECIALTY:PSYCHE MARKETING OPERATIONS MANAGER PHONE NUMBER:[phone] REQUESTING PHYSICIAN: SREE GEORGE
[2021-07-22 16:49] VITALS: BP_SYST 157
--- NOTE | 2021-07-22 19:29 | NUR ---
REPORT RECEIVED FROM OUTGOING RN
[2021-07-22 20:24] VITALS: BP_SYST 151
[2021-07-22] MEDS: ATORVASTATIN 20 MG TABLET PO SCH (21:56)
[2021-07-23 00:05] VITALS: BP_SYST 156
--- NOTE | 2021-07-23 03:06 | NUR ---
NOTES: report given by nurse Doherty for continuity of care.pt. on contact isolation for C. diff. S/P rt. BKA, dressing intact. IV lock, midline catheter on rt. upper arm. bonilla cath to osd. flexiseal in place with loose brown stool. on nuclear monitoring technician and shows sinus rhythm. O2 @ 2 liters per nasal canula. on Hemodialysis Rocky cath on rt. jugular. pt. sleeping when checked.
--- NOTE | 2021-07-23 04:42 | NUR ---
NOTES: condition observed. continue to monitor. light off in the room.
--- NOTE | 2021-07-23 05:30 | NUR ---
NOTES: partial am care. margo care. dressing chnaged on sacral area. pt. starts crying.
[2021-07-23] MEDS: HEPARIN SODIUM,PORCINE 5,000 UNITS/ML VIAL SUBCUT SCH ×3 (05:55→21:49)
--- NOTE | 2021-07-23 06:30 | NUR ---
CLOSING NOTES; IV lock intact. rt. BKA dressing dry and intact, kept elevated with pillow. repositioned. pt. speech garbled. for further care and assist. BS 108. on contact isolation. will endorse to incoming shift.
[2021-07-23 07:28] LABS: ANION GAP 9 (5-15); CALCIUM 8.2 mg/dL (8.4-11.0); CHLORIDE 104 mmol/L (98-107); CREATININE 4.36 mg/dL (0.55-1.30); GLUCOSE 106 mg/dL (70-99); POTASSIUM 4.7 mmol/L (3.5-5.1); SODIUM SERUM 140 mmol/L (136-145); UREA NITROGEN, BLOOD 46 mg/dL (8-21)
[2021-07-23 07:34] LABS: BASOPHILS # (AUTO) 0.1 K/uL (0.0-0.2); BASOPHILS % (AUTO) 0.6 % (0.0-2.0); EOSINOPHILS # (AUTO) 0.1 K/uL (0.0-0.4); EOSINOPHILS % (AUTO) 1.2 % (0.0-4.0); HEMATOCRIT 23.3 % (36-54); HEMOGLOBIN 7.6 g/dL (14.0-18.0); LYMPHOCYTES # (AUTO) 2.2 K/uL (1.0-5.5); LYMPHOCYTES % (AUTO) 17.9 % (20.5-51.5); MEAN CORPUSCULAR HEMOGLOBIN 28 pg (27-31); MEAN CORPUSCULAR HGB CONC 33 % (32-36); MEAN CORPUSCULAR VOLUME 87 fL (79.0-98.0); MONOCYTES # (AUTO) 0.6 K/uL (0.0-1.0); MONOCYTES % (AUTO) 4.7 % (1.7-9.3); NEUTROPHILS # (AUTO) 9.1 K/uL (1.8-7.7); NEUTROPHILS % (AUTO) 75.6 % (40.0-70.0); PLATELET COUNT (AUTO) 150 K/uL (130-430); RED BLOOD CELL COUNT(AUTO) 2.67 MIL/uL (4.2-6.2); RED CELL DISTRIBUTION WIDTH 15.8 % (9.0-15.0)
--- NOTE | 2021-07-23 08:00 | NUR ---
PATIENT AAO X 2. VITALS SIGNS STABLE. AFEBRILE. HAS RT UPPER MIDLINE PATENT/DRY. LUNGS BILATERALLY CLEAR. ABDOMEN SOFT AND NON DISTENDED. CALL LIGHTS WITHIN REACH. BED IN LOW POSITION, ALARMED AND LOCKED. WILL CONTINUE TO MONITOR.
[2021-07-23] MEDS: MULTIVITAMINS TAB 1 TABLET PO SCH (09:10)
[2021-07-23] MEDS: ASCORBIC ACID 500 MG TABLET PO SCH (09:10)
[2021-07-23] MEDS: CITALOPRAM HYDROBROMIDE 20 MG TABLET PO SCH (09:10)
[2021-07-23] MEDS: DOCUSATE SODIUM 100 MG CAPSULE PO SCH ×2 (09:10→21:00)
[2021-07-23] MEDS: TAMSULOSIN HCL 0.4 MG CAP PO SCH (09:10)
[2021-07-23] MEDS: ASPIRIN 81 MG TABLET(ECOTRIN) PO SCH (09:11)
[2021-07-23] MEDS: FINASTERIDE 5 MG TABLET (PROSCAR) PO SCH (09:11)
[2021-07-23] MEDS: amLODIPine BESYLATE 5 MG TABLET PO SCH (09:11)
[2021-07-23] MEDS: FAMOTIDINE 20 MG TABLET PO SCH (09:11)
[2021-07-23] MEDS: BALSAM PERU/CASTOR OIL 56.7 GM OINT...G. TP SCH (09:23)
--- NOTE | 2021-07-23 09:24 | NUR ---
refused to eat breakfast. tried many times. even refused apple sauce with medication. patient throw the medicine on my face. PATIENT VERBALIZED WANTS TO GO HOME. AND WANNA AT THIS TIME. EXPLAINED THE IMPORTANCE OF MEDICATION BUT SHOUTING AND SCREAMING.
[2021-07-23 09:42] VITALS: BP_SYST 153
--- NOTE | 2021-07-23 11:00 | NUR ---
RESPOSITIONED TO SIDES. WITH PILLOWS ON IT.
[2021-07-23 12:31] VITALS: BP_SYST 140
--- NOTE | 2021-07-23 16:00 | NUR ---
DRESSING CHANGED ON THE SACRAL AREA X 3. CLEANSE NS AND APPLIED VENELEX CREAM ON IT. COVERED WITH FOAM DRESSING ON IT. NO ODOR NOR DRAINAGE NOTED.
[2021-07-23 16:37] VITALS: BP_SYST 130
--- NOTE | 2021-07-23 17:04 | NUR ---
DR RIBERA MADE AWARE OF THE REFUSING MEDICATION, POSSIBLE IV FLUIDS, SAID PSYCHO CONSULT. LATEST BS 77 MG/DL. NO COVERAGE GIVEN.
[2021-07-23 18:12] VITALS: BP_SYST 153
--- NOTE | 2021-07-23 18:19 | NUR ---
ASSISTS PATIENT, OFFERED AND TRIED MANY TIMES BUT REFUSES TO EAT.
--- NOTE | 2021-07-23 20:15 | NUR ---
NOTES: pt. checked and been sleeping. no distress. on contact isolation fro C. diff. mid line cath on rt. upper arm. on mechanical maintenance engineer and shows sinus rhythm. on Hemodialysis, Rocky cath on rt. jugular, order for HD tomorrow. S/P rt. BKA, dressing intact.
[2021-07-23 21:30] VITALS: BP_SYST 138
[2021-07-23] MEDS: ATORVASTATIN 20 MG TABLET PO SCH (21:43)
--- NOTE | 2021-07-23 22:00 | NUR ---
NOTES: pt. awakened, got upset an dmad, does not want o be bothered, just want o sleep. trying to hit. due hs care done. repositioned ,turn tosides. RT. BKA, elevated with pillow. BS checked 79, able to drink Nephro. kept warm with blanket. on 2 liters of O2.
--- NOTE | 2021-07-24 00:30 | NUR ---
NOTES: pt. sleeping. no distress. cardiac pattern unchanged.
[2021-07-24 02:36] VITALS: BP_SYST 142
--- NOTE | 2021-07-24 03:15 | NUR ---
NOTES: condition observed, continue to monitor,
--- NOTE | 2021-07-24 04:24 | NUR ---
CONSULTATION PAGED/CALLED Reason for Consultation: ANXIOUS/SHOUTING/SCREAMING Person Who was Notified: LISETTE Consulting Physician: Crm Consultant Specialty: Ordering Physician:
--- NOTE | 2021-07-24 06:30 | NUR ---
NOTES: awakened for BS 68. does not want to drink anythig, yelling get out of her saying' I want to ". will call MD if D50 will be given.
[2021-07-24] MEDS: HEPARIN SODIUM,PORCINE 5,000 UNITS/ML VIAL SUBCUT SCH ×3 (06:40→21:32)
--- NOTE | 2021-07-24 06:55 | NUR ---
CLOSING NOTES; Dr. Winn called and told him the BS 68, ordered IVF of D5 1/2 NS @ 75 cc/hr and rechecked BS after 1 hr. for further care and observation. will endorse to incoming shift.
--- NOTE | 2021-07-24 07:30 | NUR ---
07:15am. Received pt on bed, lying semi dinero's position. Arousable to voice commands. No s/s of distress. PERRLA present. Breathing is even and unlabored. Speech is a little garbled, pt is crying and doesn't want to answer questions at this time of assessment. Patient saying he wants to go home. To start IVF D5 1/2 NS at 75 ml/hr. Pt remains on contact isolation for C-Diff. Rectal tube and bonilla catheter patent and working well. No s/s of bleeding.
[2021-07-24 08:00] VITALS: BP_SYST 145
[2021-07-24 08:08] LABS: ALANINE AMINOTRANSFERASE 24 U/L (12-78); ALBUMIN 2.1 g/dL (3.4-4.8); ANION GAP 8 (5-15); ASPARTATE AMINOTRANSFERASE 25 U/L (10-37); CALCIUM 8.4 mg/dL (8.4-11.0); CHLORIDE 104 mmol/L (98-107); GLUCOSE 113 mg/dL (70-99); SODIUM SERUM 139 mmol/L (136-145); TOTAL BILIRUBIN 0.1 mg/dL (0.0-1.0); UREA NITROGEN, BLOOD 57 mg/dL (8-21)
[2021-07-24] MEDS: D5/0.45 NS 1,000 ML IV SCH (08:32)
[2021-07-24] MEDS: MULTIVITAMINS TAB 1 TABLET PO SCH (09:00)
[2021-07-24] MEDS: FAMOTIDINE 20 MG TABLET PO SCH (09:00)
[2021-07-24] MEDS: ASCORBIC ACID 500 MG TABLET PO SCH (09:00)
[2021-07-24] MEDS: TAMSULOSIN HCL 0.4 MG CAP PO SCH (09:00)
[2021-07-24] MEDS: amLODIPine BESYLATE 5 MG TABLET PO SCH (09:00)
[2021-07-24] MEDS: ASPIRIN 81 MG TABLET(ECOTRIN) PO SCH (09:00)
[2021-07-24] MEDS: FINASTERIDE 5 MG TABLET (PROSCAR) PO SCH (09:00)
[2021-07-24] MEDS: DOCUSATE SODIUM 100 MG CAPSULE PO SCH ×2 (09:00→21:00)
[2021-07-24] MEDS: CITALOPRAM HYDROBROMIDE 20 MG TABLET PO SCH (09:00)
[2021-07-24] MEDS: BALSAM PERU/CASTOR OIL 56.7 GM OINT...G. TP SCH (10:13)
--- NOTE | 2021-07-24 10:15 | NUR ---
refused all am PO meds. Explained importance of taking them but still refused.
[2021-07-24] MEDS ORDERED: HEPARIN SODIUM,PORCINE 5,000 UNITS/ML VIAL IVP ONE ×2 (12:00)
--- NOTE | 2021-07-24 12:00 | NUR ---
Dietitian Recommendations * Pureed, renal diet w/ Roger BID, Prosource BID and Nepro BID. ONS yields additional 1120 kcals/day and 73 g protein/day. * Encourage oral intake. * Consider appetite stimulant. * Consider EN support if pt unable to consume adequate calories and protein Please refer to Nutrition FU Note 07/24/21 for details.
--- NOTE | 2021-07-24 12:00 | NUR ---
Nutrition F/U Admitting Diagnosis Decubitus R foot infection Medical History Comment: HTN, DM, CVA, and BPH per physician notes Pt also found w/ severe malnutrition, complicated UTI-GNR, and R heel PU-infected d/t GNR/polymicrobial, ARF, septic shock, BECK, C diff, acute encephalopathy and acute respiratory failure. 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 Feed only when fully awake. Subjective Information: RD bedside visit deferred d/t isolation precautions for pending TB test results. Pt seen by psychiatrist today pt has been refusing food and spitting out medications, ordered Celexa dn Remeron to help with insomnia and appetite per physician note. Per EMR review, Jose scale: 12, pt continues w/ multiple wounds, pt seen by interactive media specialist 07/19. Wounds noted on L plantar foot, L posterior calf, L. posterior distal calf, L and R buttocks, sacral area, R. posterior proximal thigh, R. lateral lower extremity, and incision R BKA; 2+ non-pitting edema noted on L arm, 1+ non-pitting edema to R arm and L foot; abd is soft and non-distended w/ hypoactive bowel sounds /; pt continue w/ flexiseal for loose stools; stool output 100 ml 07/24; continues with negligible PO intake refusing most meals; HD scheduled for 07/24. Current Diet Order/Nutrition Support: Pureed, Renal diet w/ Honey Thick Liquids, Roger BID, Prosource BID, Nepro BID x10 days Patient/Significant Other Unable To Verbalize Education Provided Not Indicated Pertinent Medications: lipitor, MVI, pepcid, VIT C, SSI, Colace, Heparin, Remeron, Pertinent Labs: BUN 57 H, Cr 4.9 H, BG 113 H, POC BG 68 L and 136 H, Alb 2.1 L Height (Feet) 6 feet Height (Inches) 0.00 inches Weight (Pounds) 06/17: 167 pounds 07/06: 212#/96.4 kg -- questionable 45# wt gain 07/14: 251#/114.1 kg questionable wt gain 07/16: 227#/103.1 kg 24# wt loss possibly d/t fluid shifts a/w HD 07/21: 236#/107.2 kg 9# wt gain possibly d/t fluid shifts a/w HD Patient Weight 75.75 kg Body Mass Index 22.65 kg/m2 %IBW 94 [place]/Adjusted Body Weight 178#/81 kg AdjBW: 168#/76.1 kg (-5.9% for BKA) *ongoing Estimated Energy Expenditure (kcals/day) 6573-4557 (30-35 kcals/kg AdjBW d/t BKA, HD, wound healing) *NEW Estimated Protein Required (g/day) 95-114 g/day (1.25-1.5 gm/kg AdjBW d/t BKA, HD, wound healing) NEW Estimated Fluid Required (l/day) Per MD d/t ARF Problem/Etiology/Signs/Symptoms Increased nutritional needs R/T metabolic demands AEB estimated nutritional requirements for wound healing. (*ongoing) Expected Outcomes/Goals - Monitor appetite and PO intake w/ goal of pt meeting >75% of estimated nutritional needs, labs trending WNL, normal GI function, and skin integrity/wt maintenance Dietitian Recommendations * Pureed, renal diet w/ Roger BID, Prosource BID and Nepro BID. ONS yields additional 1120 kcals/day and 73 g protein/day. * Encourage oral intake. * Consider appetite stimulant. * Consider EN support if pt unable to consume adequate calories and protein Follow Up High Risk: F/U in 2-3 days
--- NOTE | 2021-07-24 12:03 | NUR ---
HD Nurse Kartik asked to order HD settings and Heparin 5000 units x2 for HD catheter.
[2021-07-24 12:20] VITALS: BP_SYST 148
[2021-07-24 16:20] VITALS: BP_SYST 149
--- NOTE | 2021-07-24 18:06 | NUR ---
No significant changes from morning assessments. Tolerated Hemodialysis session today. Patient remains with poor appetite and refuses to eat but was able to drink his nepro supplement. Remains on D5 1/2 NS at 75 ml/hr, blood sugar was 148. Loose watery stool is still present with flexiseal intact and in place. All needs anticipated and met. No s/s of distress noted.
[2021-07-24] MEDS: ATORVASTATIN 20 MG TABLET PO SCH (21:00)
[2021-07-24] MEDS: MIRTAZAPINE 15 MG TABLET PO SCH (21:00)
[2021-07-25] VITALS (7 sets, daily range): BP systolic 146–179
[2021-07-25] MEDS: HEPARIN SODIUM,PORCINE 5,000 UNITS/ML VIAL SUBCUT SCH ×4 (06:36→22:00)
[2021-07-25] MEDS: TAMSULOSIN HCL 0.4 MG CAP PO SCH (08:35)
[2021-07-25] MEDS: FINASTERIDE 5 MG TABLET (PROSCAR) PO SCH (08:35)
[2021-07-25] MEDS: CITALOPRAM HYDROBROMIDE 20 MG TABLET PO SCH (08:35)
[2021-07-25] MEDS: ASCORBIC ACID 500 MG TABLET PO SCH (08:35)
[2021-07-25] MEDS: amLODIPine BESYLATE 5 MG TABLET PO SCH (08:35)
[2021-07-25] MEDS: MULTIVITAMINS TAB 1 TABLET PO SCH (08:35)
[2021-07-25] MEDS: ASPIRIN 81 MG TABLET(ECOTRIN) PO SCH (08:36)
[2021-07-25] MEDS: DOCUSATE SODIUM 100 MG CAPSULE PO SCH ×3 (08:36→21:00)
[2021-07-25] MEDS: BALSAM PERU/CASTOR OIL 56.7 GM OINT...G. TP SCH (08:43)
[2021-07-25] MEDS: FAMOTIDINE 20 MG TABLET PO SCH (08:44)
[2021-07-25] MEDS: D5/0.45 NS 1,000 ML IV SCH ×3 (09:55→23:15)
[2021-07-25] MEDS: INSULIN REGULAR, HUMAN 100 UNITS/ML, 10 ML VIAL (humuLIN R) SUBCUT PRN (11:40)
--- NOTE | 2021-07-25 13:09 | NUR ---
DISCHARGE PLANNING Received call from Casandra reyes [facility], ph [phone], updated on pt status, will need outpt HD set up. States contracted with any [facility]. If pt needs transportation to HD center pt needs to call, ph [phone], let them know new HD transport needed. Casandra cannot set up transport, pt needs to call.
[2021-07-25] MEDS: ENALAPRILAT DIHYDRATE 1.25 MG/ML VIAL IVP PRN (13:11)
--- NOTE | 2021-07-25 14:25 | NUR ---
NOTE Pt has refused all PO 09am medications and food, turns his head and states "if you put any food or medications near my mouth I will will spit it out and bite you". Several attempts were made throughput the shift to give pt medications, pt keeps refusing all food and drink. "Pt just wants to sleep." Call light within reach.
--- NOTE | 2021-07-25 16:30 | NUR ---
Note Insulin was not given 2 units - pt does not eat or drink anything for dinner.
--- NOTE | 2021-07-25 18:20 | NUR ---
Note Dr Winn on the floor at this time, was notified that pt refused medications and food all shift. Pt was checked on q1' and PRN all shift for needs and care. Pt's bed in low position and bed alarm on. Pt maintained with safety and isolation precautions all shift. Pt just wants to sleep all shift, pt depressed and wants lights out and curtain pulled. Call light within reach.
[2021-07-25] MEDS: ATORVASTATIN 20 MG TABLET PO SCH ×2 (20:54→21:00)
[2021-07-25] MEDS: MIRTAZAPINE 15 MG TABLET PO SCH ×2 (20:54→21:00)
[2021-07-25] MEDS: ACETAMINOPHEN 325 MG TABLET PO PRN (20:54)
--- NOTE | 2021-07-25 21:05 | NUR ---
charge nurse told me that pt is c/o chest pain, I pulled pt pain meds and all his evening due meds, went to pt room, pt alert, oriented and able to make needs known, pt c/o chest pain and leg pain, pt is depressed and irritable, pt wants his ensure drink, I gave the drink and told pt that im giving his pain medicine and evening meds, pt scream and throw the ensure drink towards me and refused medications, i explained the importance of the medicine especially pain meds to relieve his pain, pt still strongly refusing, pt apologize for his behavior but still irritable and depressed and want RN to step out of the room. Charge nurse made aware about the situation. charge nurse spoke with the pt and explained importance of his meds, pt still strongly refusing all his meds and also refused to be clean and change and all he want is to sleep, turn the light out and close the curtain. Pt checked frequently for needs and care. Place call light within reach. Will continue to monitor.
[2021-07-26 01:56] VITALS: BP_SYST 160
[2021-07-26] MEDS: D5/0.45 NS 1,000 ML IV SCH ×2 (06:23→17:49)
[2021-07-26] MEDS: HEPARIN SODIUM,PORCINE 5,000 UNITS/ML VIAL SUBCUT SCH ×3 (06:28→21:41)
[2021-07-26 07:05] LABS: BASOPHILS % (AUTO) 0.4 % (0.0-2.0); EOSINOPHILS # (AUTO) 0.1 K/uL (0.0-0.4); EOSINOPHILS % (AUTO) 1.3 % (0.0-4.0); HEMOGLOBIN 7.4 g/dL (14.0-18.0); LYMPHOCYTES # (AUTO) 1.2 K/uL (1.0-5.5); LYMPHOCYTES % (AUTO) 10.9 % (20.5-51.5); MEAN CORPUSCULAR HEMOGLOBIN 30 pg (27-31); MEAN CORPUSCULAR HGB CONC 34 % (32-36); MEAN CORPUSCULAR VOLUME 88 fL (79.0-98.0); MONOCYTES # (AUTO) 0.4 K/uL (0.0-1.0); MONOCYTES % (AUTO) 3.4 % (1.7-9.3); NEUTROPHILS # (AUTO) 9.1 K/uL (1.8-7.7); PLATELET COUNT (AUTO) 118 K/uL (130-430); RED BLOOD CELL COUNT(AUTO) 2.51 MIL/uL (4.2-6.2); RED CELL DISTRIBUTION WIDTH 15.8 % (9.0-15.0); WHITE BLOOD COUNT (AUTO) 10.8 K/uL (4.8-10.8)
[2021-07-26 07:10] LABS: ALANINE AMINOTRANSFERASE 21 U/L (12-78); ALBUMIN 1.9 g/dL (3.4-4.8); ANION GAP 9 (5-15); ASPARTATE AMINOTRANSFERASE 21 U/L (10-37); CALCIUM 7.5 mg/dL (8.4-11.0); CHLORIDE 97 mmol/L (98-107); CREATININE 4.28 mg/dL (0.55-1.30); GLUCOSE 115 mg/dL (70-99); POTASSIUM 4.5 mmol/L (3.5-5.1); SODIUM SERUM 132 mmol/L (136-145); TOTAL BILIRUBIN 0.4 mg/dL (0.0-1.0); UREA NITROGEN, BLOOD 48 mg/dL (8-21)
[2021-07-26 08:10] VITALS: BP_SYST 158
--- NOTE | 2021-07-26 08:10 | NUR ---
Opening Notes Patient is laying in bed comfortably. Assisted patient in covering with blankets, stated he is cold. He is A&O x2. No apparent distress noted, patient denies pain. Patient is on NC 2L/min SPO2 100%. Rocky Cath rt jugular. Safety and fall precautions in place. Bed is set to lowest position and locked. Will continue to monitor.
[2021-07-26] MEDS: CITALOPRAM HYDROBROMIDE 20 MG TABLET PO SCH (09:00)
[2021-07-26] MEDS: FAMOTIDINE 20 MG TABLET PO SCH (09:00)
[2021-07-26] MEDS: DOCUSATE SODIUM 100 MG CAPSULE PO SCH ×2 (09:00→21:00)
[2021-07-26] MEDS: TAMSULOSIN HCL 0.4 MG CAP PO SCH (09:00)
[2021-07-26] MEDS: ASPIRIN 81 MG TABLET(ECOTRIN) PO SCH (09:00)
[2021-07-26] MEDS: MULTIVITAMINS TAB 1 TABLET PO SCH (09:00)
[2021-07-26] MEDS: amLODIPine BESYLATE 5 MG TABLET PO SCH (09:00)
[2021-07-26] MEDS: ASCORBIC ACID 500 MG TABLET PO SCH (09:00)
[2021-07-26] MEDS: FINASTERIDE 5 MG TABLET (PROSCAR) PO SCH (09:00)
--- NOTE | 2021-07-26 09:30 | NUR ---
Pt refused medication Patient refused medication after several attempts of education regarding the reason for medication. Patient states he just wants to sleep and would like me to close the blinds and leave. Will re-educate when next medication is due. Will continue to monitor.
--- NOTE | 2021-07-26 11:48 | NUR ---
Discharge Planning: DCP faxed pt new dialysis referral to [facility] F#[phone] P#[phone], [facility] to follow up. Addendum: 07/26/21 at 1229 by Mindy WILEY DCP was informed Michel Ryan#[phone] [id number] will be the coordinator to set up dialysis facility and chair time. [facility] to follow up Addendum: 07/26/21 at 1616 by Mindy Patel DP DCP followed up with Michel Ryan#[phone] [id number] patient will go to [facility] P# [phone] [id number] [facility] [address] MWF 1:45pm, first 07/28/2021 day patient should arrive 1:15pm. DCP made [place] aware pt still needs skilled placement, if no placement found [facility] will be notified to push start date at facility out. MEP faxed [facility] updated clinicals and dialysis update F# [phone] . MEP to follow up.
[2021-07-26 12:00] VITALS: BP_SYST 133
[2021-07-26] MEDS: BALSAM PERU/CASTOR OIL 56.7 GM OINT...G. TP SCH (12:26)
--- NOTE | 2021-07-26 12:40 | NUR ---
HIGH ALERT NOTE: Called Dr. Monroe back at his identified within the medical roster to verify physician authenticity.
[2021-07-26] MEDS ORDERED: HEPARIN SODIUM,PORCINE 5,000 UNITS/ML VIAL MC ONE (12:45)
--- NOTE | 2021-07-26 12:45 | NUR ---
Dialysis Started Patient is stable during dialysis.
--- NOTE | 2021-07-26 12:50 | NUR ---
Called Dr. Pearce Left voicemail for call back regarding permacath.
--- NOTE | 2021-07-26 13:18 | NUR ---
Spoke with Dr. Pearce Spoke with Dr. Pearce regarding permacath placement. Doctor stated he is unable to come since he is at a different hospital. He advised I reach out to Dr. Page since he also does permacath placements. Will follow up with Dr. Page.
--- NOTE | 2021-07-26 13:56 | NUR ---
CONSULT SURGERY PERMACATH PLACEMENT MG GARCIA [phone] S/W [place] OFFICE
[2021-07-26 15:31] VITALS: BP_SYST 101
--- NOTE | 2021-07-26 15:40 | NUR ---
HD Finished HD finished. HD out 2L.
--- NOTE | 2021-07-26 18:12 | NUR ---
Surgeon called back: Spoke with Dr Page and not able to do Perma cath placement till Saturday night. Will let aware in am.
--- NOTE | 2021-07-26 18:48 | NUR ---
Closing Note Patient is awake laying in bed. No apparent distress noted, patient denies pain. Asked patient if he wanted to eat his meal, he refused. Patient requested I turn off the light in the room because he wants to sleep. Assisted patient in covering with blanket. Bed is set to lowest position and locked. Safety and fall precautions in place. Will hand off care to wood machinist apprentice RN.
[2021-07-26 19:00] VITALS: BP_SYST 144
[2021-07-26 20:00] VITALS: BP_SYST 144
--- NOTE | 2021-07-26 20:00 | NUR ---
pt.assessed.v/s assessed values wnl.picc intact iv fluids infusing.bonilla cath/rectal tube intact/patent.no c/o pain,nausea. pt.assessed for cleanliness.pt.repositioned.call light/telephone placed w/in access of the pt.
--- NOTE | 2021-07-26 20:30 | NUR ---
blood glucose assessed value;134mg/dl. Addendum: 07/27/21 at 0634 by Wero Mccoy RN ,a present has stated he will place the perma-cath saturday:07/28/21.
[2021-07-26] MEDS: MIRTAZAPINE 15 MG TABLET PO SCH (21:00)
[2021-07-26] MEDS: ATORVASTATIN 20 MG TABLET PO SCH (21:00)
--- NOTE | 2021-07-26 21:00 | NUR ---
2100p medications.pt.refused the oral medications.i have administered heparin sq 2100p dose.
--- NOTE | 2021-07-26 22:00 | NUR ---
pt.assessed.pt.presents quiescent affect;resting,somnolent.picc line intact iv fluids infusing.bonilla cath/rectal tube incxt patertnt.pr flac cpin ,gx ptr.abset facila;goermaces/body psotureing.calight/telepo apce win acces asof thpt.
--- NOTE | 2021-07-27 | NUR ---
pt.assessed.v/s assessed values wnl.no c/o pain,nausea.picc line intact iv fluids infusing.bonilla cath/rectal tube intact;patent.pt.assessed for cleanliness pt.repositioned.call light/telephone placed w/in access of the pt.
[2021-07-27 01:01] VITALS: BP_SYST 138
--- NOTE | 2021-07-27 02:00 | NUR ---
pt.assessed.pt.presents quiescent affect;calm,somnolent.picc line intact iv fluids infusing.bonilla cath/rectal tube intact;patent per flacc pain mgx pt.absent facial grimaces/body posturing.pt.assessed for cleanliness.pt.repositioned.call light/telephone placed w/in access of the pt.
--- NOTE | 2021-07-27 04:00 | NUR ---
pt.assessed.i have attended to the wound care/dsg changed.picc line dsg changed.iv fluids infusing.no c/o pain,nausea. bonilla cath/rectal tube intact;patent.pt.assessed for cleanliness.pt.repositioned.call light/telephone placed w/in access of the pt.
[2021-07-27] MEDS: HEPARIN SODIUM,PORCINE 5,000 UNITS/ML VIAL SUBCUT SCH ×3 (05:52→22:00)
--- NOTE | 2021-07-27 06:30 | NUR ---
pt.assessed.blood glucose assessed value;101mg/dl.picc line intact iv fluids infusing.bonilla cath/rectal tube intact patent. pt.weighed 2/t hemo-dialysis protocol.pt.cleaned/repositioned.call light/telephone placed w/in access of the pt. Addendum: 07/27/21 at 0636 by Wero Mccoy RN mildred pt's sister santiago;telephoned.i have apprised that ;a surgeon will place the perma-cath saturday; 07/28/21. lew provided the consent via telephone.gordon acted as the 2nd witness.
[2021-07-27 09:45] VITALS: BP_SYST 149
[2021-07-27] MEDS: FAMOTIDINE 20 MG TABLET PO SCH (09:45)
[2021-07-27] MEDS: FINASTERIDE 5 MG TABLET (PROSCAR) PO SCH (09:45)
[2021-07-27] MEDS: BALSAM PERU/CASTOR OIL 56.7 GM OINT...G. TP SCH (09:45)
[2021-07-27] MEDS: TAMSULOSIN HCL 0.4 MG CAP PO SCH (09:45)
[2021-07-27] MEDS: amLODIPine BESYLATE 5 MG TABLET PO SCH (09:45)
[2021-07-27] MEDS: ASPIRIN 81 MG TABLET(ECOTRIN) PO SCH (09:45)
[2021-07-27] MEDS: DOCUSATE SODIUM 100 MG CAPSULE PO SCH ×2 (09:45→21:00)
[2021-07-27] MEDS: MULTIVITAMINS TAB 1 TABLET PO SCH (09:45)
[2021-07-27] MEDS: CITALOPRAM HYDROBROMIDE 20 MG TABLET PO SCH (09:45)
[2021-07-27] MEDS: ASCORBIC ACID 500 MG TABLET PO SCH (09:45)
--- NOTE | 2021-07-27 09:45 | NUR ---
Opening Note Patient is awake laying in bed. No apparent distress noted, patient denies pain. Patient on 2L NC, SPO2 as charted. Offered patient something to eat and drink, patient refused. Continued to encourage patient to have something to eat or drink, he refused. Attempted giving a spoonful of water, patient refused and pushed spoon away. Safety and fall precautions in place.
--- NOTE | 2021-07-27 12:42 | NUR ---
Nutrition F/U Admitting Diagnosis Decubitus R foot infection Medical History Comment: HTN, DM, CVA, and BPH per physician notes Pt also found w/ severe malnutrition, complicated UTI-GNR, and R heel PU-infected d/t GNR/polymicrobial, ARF, septic shock, BECK, C diff, acute encephalopathy and acute respiratory failure. 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 Feed only when fully awake. Subjective Information: RD bedside visit deferred d/t isolation precautions for pending TB test results. RD spoke w/ pt's primary RNs who reported that pt has been refusing meals despite multiple attempts at encouragement during meal times. They also reported thatp will have tunneled permacath tomorrow. RD notified bed huddle team of pt's poor PO intakes >2 weeks and need for nutrition support. Per EMR review, Jose scale: 11, pt continues w/ multiple wounds, pt seen by weight reduction specialist 07/19. Wounds noted on L plantar foot, L posterior calf, L. posterior distal calf, L and R buttocks, sacral area, R. posterior proximal thigh, R. lateral lower extremity, and incision R BKA; L/R arm and L foot w/ 1+ non-pitting edema; abd is distended w/ hypoactive bowel sounds; pt continue w/ flexiseal for loose stools; stool output 100 ml 07/24; continues with negligible PO intake refusing most meals; HD yesterday, 07/26. Current Diet Order/Nutrition Support: Pureed, Renal diet w/ Honey Thick Liquids, Roger BID, Prosource BID, Nepro BID x13 days Patient/Significant Other Unable To Verbalize Education Provided Not Indicated Pertinent Medications: SSI, heparin Pertinent Labs: 07/27: POC BG 101 H; 07/26: BUN 48 H, CRE 4.28 H, BG 115 H, ALB 1.9 L Height (Feet) 6 feet Height (Inches) 0.00 inches Weight (Pounds) 06/17: 167 pounds 07/06: 212#/96.4 kg -- questionable 45# wt gain 07/14: 251#/114.1 kg questionable wt gain 07/16: 227#/103.1 kg 24# wt loss possibly d/t fluid shifts a/w HD 07/21: 236#/107.2 kg 9# wt gain possibly d/t fluid shifts a/w HD Patient Weight 75.75 kg Body Mass Index 22.65 kg/m2 %IBW 94 [place]/Adjusted Body Weight 178#/81 kg AdjBW: 168#/76.1 kg (-5.9% for BKA) Estimated Energy Expenditure (kcals/day) 7845-5165 (30-35 kcals/kg AdjBW d/t BKA, HD, wound healing) Estimated Protein Required (g/day) 95-114 g/day (1.25-1.5 gm/kg AdjBW d/t BKA, HD, wound healing) Estimated Fluid Required (l/day) Per MD d/t ARF Problem/Etiology/Signs/Symptoms Increased nutritional needs R/T metabolic demands AEB estimated nutritional requirements for wound healing. *Ongoing Expected Outcomes/Goals - Monitor appetite and PO intake w/ goal of pt meeting >75% of estimated nutritional needs, labs trending WNL, normal GI function, and skin integrity/wt maintenance Dietitian Recommendations * Continue Pureed, renal diet w/ Roger BID, Prosource BID and Nepro BID (ONS yields additional 1120 kcal/day and 73 gm protein/day) * Maximum encouragement at meal times * Consider appetite stimulant * Consider EN support Follow Up High Risk: F/U in 2-3 days
--- NOTE | 2021-07-27 12:55 | NUR ---
Dietitian Recommendations * Continue Pureed, renal diet w/ Roger BID, Prosource BID and Nepro BID (ONS yields additional 1120 kcal/day and 73 gm protein/day) * Maximum encouragement at meal times * Consider appetite stimulant * Consider EN support LP, RD Please refer to Nutrition F/U for details.
[2021-07-27 13:11] VITALS: BP_SYST 145
[2021-07-27 13:38] LABS: ALANINE AMINOTRANSFERASE 14 U/L (12-78); ALBUMIN 1.8 g/dL (3.4-4.8); ANION GAP 8 (5-15); ASPARTATE AMINOTRANSFERASE 18 U/L (10-37); CALCIUM 7.9 mg/dL (8.4-11.0); CHLORIDE 102 mmol/L (98-107); CREATININE 3.67 mg/dL (0.55-1.30); GLUCOSE 93 mg/dL (70-99); POTASSIUM 4.2 mmol/L (3.5-5.1); SODIUM SERUM 136 mmol/L (136-145); TOTAL BILIRUBIN 0.1 mg/dL (0.0-1.0); UREA NITROGEN, BLOOD 40 mg/dL (8-21)
[2021-07-27 14:11] LABS: HEPATITIS B SURFACE AG Negative (Negative); HEPATITIS C VIRUS AB <0.1 s/co (0.0-0.7)
--- NOTE | 2021-07-27 15:23 | NUR ---
Discharge Planning: DCP called [facility] Dialysis Coordinator P#[phone] to make aware pt first day has to be delayed pt is still in hospital. DCP faxed pt referral to [facility], [facility] , [facility]. DCP to follow up. Addendum: 07/27/21 at 1605 by Mindy Patel DP DCP followed up with: [facility]-accepted pt to [facility], [facility], [place]-was reviewing [facility] -was reviewing [facility]-no beds.
[2021-07-27] MEDS ORDERED: *PPN PER PHARMACY XX PRN (16:45)
[2021-07-27] MEDS: D5/0.45 NS 1,000 ML IV SCH (16:46)
[2021-07-27] MEDS: ENALAPRILAT DIHYDRATE 1.25 MG/ML VIAL IVP PRN (16:52)
--- NOTE | 2021-07-27 16:54 | NUR ---
BP elevated: Due iv Vasotec 0.625mg ivp for TR=570/69 given as ordered.
[2021-07-27 17:49] VITALS: BP_SYST 175
--- NOTE | 2021-07-27 18:50 | NUR ---
Closing Note Patient awake laying in bed. Brought dinner tray, encouraged patient to eat and offered to assist in feeding, patient refused and stated he wanted me to leave and turn off the lights. Patient is combative and uncooperative. Safety and fall precautions in place. Will hand off care to nightclub manager RN.
[2021-07-27 19:44] VITALS: BP_SYST 163
[2021-07-27] MEDS: ATORVASTATIN 20 MG TABLET PO SCH (21:00)
[2021-07-27] MEDS: MIRTAZAPINE 15 MG TABLET PO SCH (21:00)
[2021-07-27 23:38] VITALS: BP_SYST 180
[2021-07-28] VITALS (7 sets, daily range): BP systolic 142–190
[2021-07-28] MEDS: ENALAPRILAT DIHYDRATE 1.25 MG/ML VIAL IVP PRN ×3 (01:53→20:20)
[2021-07-28] MEDS: D5/0.45 NS 1,000 ML IV SCH (04:35)
[2021-07-28] MEDS: HEPARIN SODIUM,PORCINE 5,000 UNITS/ML VIAL SUBCUT SCH ×3 (06:00→22:00)
[2021-07-28 07:13] LABS: BASOPHILS % (AUTO) 0.2 % (0.0-2.0); EOSINOPHILS % (AUTO) 0.6 % (0.0-4.0); LYMPHOCYTES # (AUTO) 1.1 K/uL (1.0-5.5); LYMPHOCYTES % (AUTO) 13.4 % (20.5-51.5); MEAN CORPUSCULAR HEMOGLOBIN 29 pg (27-31); MEAN CORPUSCULAR HGB CONC 33 % (32-36); MEAN CORPUSCULAR VOLUME 88 fL (79.0-98.0); MONOCYTES # (AUTO) 0.4 K/uL (0.0-1.0); MONOCYTES % (AUTO) 5.2 % (1.7-9.3); NEUTROPHILS # (AUTO) 6.6 K/uL (1.8-7.7); NEUTROPHILS % (AUTO) 80.6 % (40.0-70.0); PLATELET COUNT (AUTO) 74 K/uL (130-430); RED BLOOD CELL COUNT(AUTO) 2.12 MIL/uL (4.2-6.2); WHITE BLOOD COUNT (AUTO) 8.2 K/uL (4.8-10.8)
--- NOTE | 2021-07-28 07:30 | NUR ---
RECEIVED PT FROM RADHA ZHANG. ASSUMED ALL CARE.
[2021-07-28 07:47] LABS: HEMATOCRIT 18.6 % (36-54); HEMOGLOBIN 6.2 g/dL (14.0-18.0)
[2021-07-28 08:21] LABS: ALANINE AMINOTRANSFERASE 17 U/L (12-78); ALBUMIN 1.8 g/dL (3.4-4.8); ANION GAP 10 (5-15); ASPARTATE AMINOTRANSFERASE 20 U/L (10-37); CALCIUM 7.9 mg/dL (8.4-11.0); CHLORIDE 101 mmol/L (98-107); CREATININE 4.05 mg/dL (0.55-1.30); GLUCOSE 95 mg/dL (70-99); PHOSPHORUS 5.1 mg/dL (2.7-4.5); SODIUM SERUM 135 mmol/L (136-145); TOTAL BILIRUBIN 0.1 mg/dL (0.0-1.0); UREA NITROGEN, BLOOD 45 mg/dL (8-21)
--- NOTE | 2021-07-28 08:41 | NUR ---
REPORTED CRITICAL HGB 6.[address] JONES, RECEIVED ORDER FOR TO UNITS PRBC STAT, ONE TO BE TRANSFUSED BEFORE PROCEDURE TODAY. HEMODIALYSIS NURSE ON SITE AND AWARE PT NEEDS HD FIRST/EARLY D/T A PROCEDURE SCHEDULED FOR 1600 TODAY AND THAT 2 UNITS PRBC NEEDS TO BE TRANSFUSED BEFORE PROCEDURE. PT MADE AWARE.
[2021-07-28] MEDS: amLODIPine BESYLATE 5 MG TABLET PO SCH (09:00)
[2021-07-28] MEDS: ASPIRIN 81 MG TABLET(ECOTRIN) PO SCH (09:00)
[2021-07-28] MEDS: FINASTERIDE 5 MG TABLET (PROSCAR) PO SCH (09:00)
[2021-07-28] MEDS ORDERED: LORazepam 2 MG/ML VIAL IM ONE (09:00)
[2021-07-28] MEDS: FAMOTIDINE 20 MG TABLET PO SCH (09:00)
[2021-07-28] MEDS: MULTIVITAMINS TAB 1 TABLET PO SCH (09:00)
[2021-07-28] MEDS: ASCORBIC ACID 500 MG TABLET PO SCH (09:00)
[2021-07-28] MEDS: TAMSULOSIN HCL 0.4 MG CAP PO SCH (09:00)
[2021-07-28] MEDS: CITALOPRAM HYDROBROMIDE 20 MG TABLET PO SCH (09:00)
[2021-07-28 09:19] LABS: TRIGLYCERIDES 110 mg/dL (30-150)
--- NOTE | 2021-07-28 09:25 | NUR ---
PT RECEIVED HD AT THIS TIME.
[2021-07-28] MEDS: DOCUSATE SODIUM 100 MG CAPSULE PO SCH ×2 (09:37→21:00)
[2021-07-28] MEDS: BALSAM PERU/CASTOR OIL 56.7 GM OINT...G. TP SCH (09:39)
--- NOTE | 2021-07-28 10:34 | NUR ---
Discharge Planning: DCP followed up with: [facility]-accepted pt to Rm 12A, [facility] [place] accepting Rm# [id number] [facility]-Considering per VEENA Cui to follow up.
--- NOTE | 2021-07-28 12:00 | NUR ---
PT HAD ONE UNIT PRBC TRANSFUSED AT THIS TIME BY HD.
--- NOTE | 2021-07-28 13:08 | NUR ---
VASOTEC 0.625 IVP PRN GIVEN FOR B/P 171/71, HR 77, GIVEN OVER 5 MINUTES, BIOMEDICAL SPECIALIST MADE AWARE WHEN IVP INITIATED.
--- NOTE | 2021-07-28 13:15 | NUR ---
HD COMPLETES 1.5 LITERS FLUID OUT.
--- NOTE | 2021-07-28 13:20 | NUR ---
SCHEDULED HEPARIN SQ HELD, PT IS TO HAVE INVASIVE PROCEDURE AT 1600. PT MADE AWARE.
--- NOTE | 2021-07-28 14:41 | NUR ---
GEN SURGEON DR RICHARDSON WAS CALLED, RE: TO INFORM HIM THAT SURGERY WILL NOT HAPPEN TODAY SINCE ANESTHESIOLOGIST Esha BERUMEN DOES NOT DO SURGERY AFTER HD.
--- NOTE | 2021-07-28 15:32 | NUR ---
RADHA MENDES FOR SURGERY STATED HE SPOKE TO HE ANESTHESIOLOGIST DR. SUAREZ WHO STATED THE PROTOCOL IS TO NOT DO A PROCEDURE AFTER HEMODIALYSIS, IT CAN BE DONE ON SATURDAY OR SATURDAY. CALLED DR. Elgin RICHARDSON AND MADE HIM AWARE. DR. RICHARDSON STATED HE WILL NOT DO THE PROCEDURE ON OVER THE WEEKEND SINCE IT IS NOT EMERGENT, HE IS NOT SURE IF HE CAN DO IT ON SATURDAY BUT WILL DO IT SOME TIME NEXT WEEK. IF THE PERMA CATH NEEDS TO BE PLACED SOONER THE HOSPITAL'S INTERVENTIONAL RADIOLOGIST CAN DO IT. RADHA ROSALES CHARGE NURSE MADE AWARE. PAGING DR. RIBERA TO MAKE HIM AWARE.
--- NOTE | 2021-07-28 16:30 | NUR ---
2 UNIT OUT OF 2 UNITS PRBCS INITIATED AT THIS TIME.
--- NOTE | 2021-07-28 18:04 | NUR ---
REPORTED TO DR. JONES THAT THE PT PERMACATH PROCEDURE WAS HELD S/T THE PT BEING S/P HEMODIALYSIS. DR. Elgin RICHARDSON MADE AWARE AND STATED THAT IT IS NOT EMERGENT AND HE WILL PLACE THE CATH NEXT WEEK, MAYBE NOT SATURDAY BUT NEXT WEEK. DR. JONES STATED OKAY PT WILL HAVE THE PROCEDURE NO SATURDAY, PLEASE PLACE PT BACK ON PRIOR DIET. RADHA CUMMINGS CHARGE AND PT MADE AWARE.
--- NOTE | 2021-07-28 18:26 | NUR ---
DR. DUONG MADE AWARE PT'S HOME MEDS HAVE BEEN RECONCILED, ALSO PT HAS SBP 164 AND NO S/P MEDS FOR COVERAGE. RECEIVED ORDER FOR CLONIDINE 0.1 MG PO Q 6 HOURS PRN FOR SBP <160mmHG. ORDER CARRIED OUT. PT MADE AWARE. Addendum: 07/28/21 at 1829 by Eighteen staff technologist WRONG PT CHARTED ON.
--- NOTE | 2021-07-28 18:57 | NUR ---
DR. Eisenberg OH IN TO SEE PT STATED HE MAY DO PROCEDURE TOMORROW. PT MADE NPO AFTER MIDNIGHT.
--- NOTE | 2021-07-28 19:53 | NUR ---
ENDORSED CARE TO RADHA OJEDA. ALL QUESTIONS AND CONCERNS ADDRESSED.
--- NOTE | 2021-07-28 20:28 | NUR ---
Blood Transfusion completed at 1999. VS: 98.4, 69, 20, 98%, 190/69. For BP 190/69 order is for vasotec 0.625 - given.
[2021-07-28] MEDS ORDERED: SODIUM ACETATE IV SCH ×7 (21:00)
[2021-07-28] MEDS ORDERED: TPN PERIPHERAL IV SCH ×7 (21:00)
[2021-07-28] MEDS ORDERED: D5/0.45 NS 1,000 ML IV SCH (21:00)
[2021-07-28] MEDS ORDERED: POTASSIUM ACETATE IV SCH ×7 (21:00)
[2021-07-28] MEDS: ATORVASTATIN 20 MG TABLET PO SCH (21:00)
[2021-07-28] MEDS ORDERED: [UNRECOGNIZED DRUG - OTHER] IV SCH ×7 (21:00)
[2021-07-28] MEDS: MIRTAZAPINE 15 MG TABLET PO SCH (21:00)
[2021-07-29] VITALS (7 sets, daily range): BP systolic 158–197
[2021-07-29] MEDS: INSULIN REGULAR, HUMAN 100 UNITS/ML, 10 ML VIAL (humuLIN R) SUBCUT PRN ×2 (00:57→21:37)
[2021-07-29] MEDS: D5/0.45 NS 1,000 ML IV SCH (05:25)
[2021-07-29] MEDS: HEPARIN SODIUM,PORCINE 5,000 UNITS/ML VIAL SUBCUT SCH ×3 (05:49→21:07)
--- NOTE | 2021-07-29 07:30 | NUR ---
RECEIVED PT FROM RADHA OJEDA. ASSUMMED ALL CARE.
[2021-07-29] MEDS: ENALAPRILAT DIHYDRATE 1.25 MG/ML VIAL IVP PRN ×3 (08:17→21:38)
[2021-07-29] MEDS: CITALOPRAM HYDROBROMIDE 20 MG TABLET PO SCH (08:24)
[2021-07-29] MEDS: DOCUSATE SODIUM 100 MG CAPSULE PO SCH ×2 (08:24→21:00)
[2021-07-29] MEDS: FAMOTIDINE 20 MG TABLET PO SCH (08:25)
[2021-07-29] MEDS: TAMSULOSIN HCL 0.4 MG CAP PO SCH (08:25)
[2021-07-29] MEDS: ASPIRIN 81 MG TABLET(ECOTRIN) PO SCH (08:25)
[2021-07-29] MEDS: MULTIVITAMINS TAB 1 TABLET PO SCH (08:25)
[2021-07-29] MEDS: amLODIPine BESYLATE 5 MG TABLET PO SCH (08:25)
[2021-07-29] MEDS: BALSAM PERU/CASTOR OIL 56.7 GM OINT...G. TP SCH (08:26)
[2021-07-29] MEDS: FINASTERIDE 5 MG TABLET (PROSCAR) PO SCH (08:26)
[2021-07-29] MEDS: ASCORBIC ACID 500 MG TABLET PO SCH (08:26)
--- NOTE | 2021-07-29 08:30 | NUR ---
SCHEDULED MEDS REFUSED, PT REMAINS NPO EXCEPT MEDS FOR SURGERY. B/P 193/74 (116) VASOTEC 0.625MG IVP PRN GIVEN ORDERED. PT REPOSITIONED FOR COMFORT. CALL LIGHT WITHIN REACH.
[2021-07-29 08:31] LABS: ALANINE AMINOTRANSFERASE 23 U/L (12-78); ALBUMIN 1.9 g/dL (3.4-4.8); ANION GAP 8 (5-15); ASPARTATE AMINOTRANSFERASE 21 U/L (10-37); CALCIUM 7.3 mg/dL (8.4-11.0); CHLORIDE 101 mmol/L (98-107); CREATININE 3.13 mg/dL (0.55-1.30); GLUCOSE 133 mg/dL (70-99); PHOSPHORUS 3.4 mg/dL (2.7-4.5); POTASSIUM 3.5 mmol/L (3.5-5.1); SODIUM SERUM 135 mmol/L (136-145); TOTAL BILIRUBIN 0.6 mg/dL (0.0-1.0); UREA NITROGEN, BLOOD 35 mg/dL (8-21)
--- NOTE | 2021-07-29 10:34 | NUR ---
PT TAKEN FOR PERMACATH PLACEMENT BUT WOULD NOT SIGN CONSENT FOR ANESTHESIA. DR. RICHARDSON ATTEMPTED WELL NURSES, RISK AND BENEFITS EXPLAINED AND REINFORCED. PT STATES, "I CAN'T DO IT." PT BROUGHT BACK TO ROOM.
--- NOTE | 2021-07-29 12:15 | NUR ---
ATTEMPTED TO GIVE PT MORNING MEDS. PT REFUSED, RISK AND BENEFITS EXPLAINED. WHILE TAKING PT'S BLOOD SUGAR PT HIT AND AND ATTEMPTED TO SCRATCH THIS NURSE. BS 124 NO INSULIN GIVE PER RISS. TPN RUNNING AT THIS TIME 44ML/HOUR.
[2021-07-29 12:18] LABS: BASOPHILS % (AUTO) 0.4 % (0.0-2.0); EOSINOPHILS % (AUTO) 0.3 % (0.0-4.0); HEMATOCRIT 30.4 % (36-54); HEMOGLOBIN 10.6 g/dL (14.0-18.0); LYMPHOCYTES # (AUTO) 1.2 K/uL (1.0-5.5); LYMPHOCYTES % (AUTO) 12.3 % (20.5-51.5); MEAN CORPUSCULAR HEMOGLOBIN 30 pg (27-31); MEAN CORPUSCULAR HGB CONC 35 % (32-36); MEAN CORPUSCULAR VOLUME 87 fL (79.0-98.0); MONOCYTES # (AUTO) 0.4 K/uL (0.0-1.0); MONOCYTES % (AUTO) 3.6 % (1.7-9.3); NEUTROPHILS # (AUTO) 8.4 K/uL (1.8-7.7); NEUTROPHILS % (AUTO) 83.4 % (40.0-70.0); PLATELET COUNT (AUTO) 59 K/uL (130-430); RED BLOOD CELL COUNT(AUTO) 3.48 MIL/uL (4.2-6.2); RED CELL DISTRIBUTION WIDTH 14.9 % (9.0-15.0); WHITE BLOOD COUNT (AUTO) 10.1 K/uL (4.8-10.8)
--- NOTE | 2021-07-29 13:36 | NUR ---
HEPARIN SQ HELD, PT'S PLT = 54.
--- NOTE | 2021-07-29 14:21 | NUR ---
Nutrition F/U Admitting Diagnosis Decubitus R foot infection Medical History Comment: HTN, DM, CVA, and BPH per physician notes Pt also found w/ severe malnutrition, complicated UTI-GNR, and R heel PU-infected d/t GNR/polymicrobial, ARF, septic shock, BECK, C diff, acute encephalopathy, acute respiratory failure, and severe malnutrition per physician notes. 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 Feed only when fully awake. Subjective Information: RD bedside visit deferred d/t isolation precautions for pending TB test results. Per EMR review, PO intakes have been negligible since last RD F/U 07/27 -- PPN support remains appropriate at this time; diet was recently advanced from NPO to renal, puree, NTL, Roger BID, Prosource BID, Nepro BID; active bowel sounds; stool output: 500 ml 07/28 -- light brown in color. Pt may benefit from appetite stimulant and increase in rate for PPN support to better meet nutritional needs. Current Diet Order/Nutrition Support: Renal, puree diet w/ NTL, Roger BID, Prosource BID, Nepro BID x0 days & PPN D20%, AA8.5% at 50 ml/hr via peripheral line PPN (w/ current D5%/NS at 50 ml/hr) provides: 816 kcal/day, 51 gm protein/day, 2400 ml total volume/day, and GIR: 1.4 gm CHO/kg/min PPN (w/ current D5%/NS at 50 ml/hr) meets: 36% of lower end of estimated caloric needs and 54% of lower end of estimated protein needs Patient/Significant Other Unable To Verbalize Education Provided Not Indicated Pertinent Medications: D5%/NS at 50 ml/hr (204 kcal/day) Pertinent Labs: Na 135 L, BG 133 H, POC BG 124 H, BUN 35 H, CRE 3.13 H, ALB 1.9 L, TG 110 WNL Height (Feet) 6 feet Height (Inches) 0.00 inches Weight (Pounds) 06/17: 167 pounds 07/06: 212#/96.4 kg questionable 45# wt gain 07/14: 251#/114.1 kg questionable wt gain 07/16: 227#/103.1 kg 24# wt loss possibly d/t fluid shifts a/w HD 07/21: 236#/107.2 kg 9# wt gain possibly d/t fluid shifts a/w HD 07/27: 198#/89.9 kg 38# wt loss possibly d/t fluid shifts a/w HD and/or poor PO intakes >2 weeks Patient Weight 75.75 kg Body Mass Index 22.65 kg/m2 %IBW 94 [place]/Adjusted Body Weight 178#/81 kg AdjBW: 168#/76.1 kg (-5.9% for BKA) Estimated Energy Expenditure (kcals/day) 2678-8901 (30-35 kcals/kg AdjBW d/t BKA, HD, wound healing) Estimated Protein Required (g/day) 95-114 g/day (1.25-1.5 gm/kg AdjBW d/t BKA, HD, wound healing) Estimated Fluid Required (l/day) Per MD d/t ARF Problem/Etiology/Signs/Symptoms Increased nutritional needs R/T metabolic demands AEB estimated nutritional requirements for wound healing. *Ongoing Expected Outcomes/Goals - Monitor appetite and PO intake w/ goal of pt meeting >75% of estimated nutritional needs, labs trending WNL, normal GI function, and skin integrity/wt maintenance Dietitian Recommendations * Pureed, renal diet w/ Roger BID, Prosource BID and Nepro BID (ONS yields additional 1120 kcal/day and 73 gm protein/day) * Maximum encouragement at meal times * Consider appetite stimulant * PPN D20%, AA10% at 100 ml/hr (goal rate), IL20% at 10 ml/hr daily via peripheral line Provides: 1776 kcal/day, 120 gm protein/day, 2640 ml total volume/day, and GIR: 1.9 gm CHO/kg/min Meets: 78% of lower end of estimated caloric needs and 105% of upper end of estimated protein needs * D/C D5%/NS at 50 ml/hr once PPN is at goal rate Follow Up High Risk: F/U in 2-3 days Addendum: 07/29/21 at [address] CORRECTION: BIJU spoke w/ pt's primary RN via phone call and she reported that they are still awaiting tunnelled permacath placement -- this has not yet been done. BIJU also called pharmD to relay rec for PPN support.
--- NOTE | 2021-07-29 14:33 | NUR ---
Dietitian Recommendations * Pureed, renal diet w/ Roger BID, Prosource BID and Nepro BID (ONS yields additional 1120 kcal/day and 73 gm protein/day) * Maximum encouragement at meal times * Consider appetite stimulant * PPN D20%, AA10% at 100 ml/hr (goal rate), IL20% at 10 ml/hr daily via peripheral line Provides: 1776 kcal/day, 120 gm protein/day, 2640 ml total volume/day, and GIR: 1.9 gm CHO/kg/min Meets: 78% of lower end of estimated caloric needs and 105% of upper end of estimated protein needs * D/C D5%/NS at 50 ml/hr once PPN is at goal rate LP, RD Please refer to Nutrition F/U for details.
--- NOTE | 2021-07-29 14:45 | NUR ---
VASOTEC 0.625MG IVP GIVEN FOR BP 196/83 (124), HR 71. GIVEN OVER 5 MINUTES.
--- NOTE | 2021-07-29 15:05 | NUR ---
PT REFUSED TROPONIN BLOOD DRAW, HIT AT WIRE HARNESS DESIGN ENGINEER AND THIS RN. ATTEMPTED TO OBTAIN FROM MIDLINE, PT REFUSED.
--- NOTE | 2021-07-29 16:06 | NUR ---
DR. JONES PAGED TO BE MADE AWARE THAT PT'S VASOTEC IVP INEFFECTIVE IN LOWERING PT'S B/P. SBP IN 109S.
--- NOTE | 2021-07-29 16:09 | NUR ---
KAREN paged for orders talked to Fouzia
[2021-07-29] MEDS: hydrALAZINE HCL 20 MG/ML VIAL IVP PRN (16:53)
--- NOTE | 2021-07-29 16:55 | NUR ---
HYDRALAZINE 10MG IVP GIVEN FOR B/P /. PT DENIES ARMSTRONG AND DIZZINESS.
--- NOTE | 2021-07-29 18:46 | NUR ---
BP TRENDING DOWN, NOW 174/74 (115) HR 54.
--- NOTE | 2021-07-29 19:15 | NUR ---
OPENING NOTES Patient resting in bed - no s/s pain or distress noted. Respirations even and unlabored - head of bed elevated. IV site patent - no s/ s redness, infection, or infiltration. Bed locked and in lowest position.
--- NOTE | 2021-07-29 19:44 | NUR ---
ENDORSED ALL CARE TO LUDMILA FABIAN. ALL QUESTIONS AND CONCERNS ADDRESSED.
[2021-07-29] MEDS ORDERED: POTASSIUM CHLORIDE IV SCH ×8 (21:00)
[2021-07-29] MEDS ORDERED: [UNRECOGNIZED DRUG - OTHER] IV SCH ×8 (21:00)
[2021-07-29] MEDS ORDERED: SODIUM ACETATE IV SCH ×8 (21:00)
[2021-07-29] MEDS ORDERED: TPN PERIPHERAL IV SCH ×8 (21:00)
[2021-07-29] MEDS: ATORVASTATIN 20 MG TABLET PO SCH (21:00)
[2021-07-29] MEDS: MIRTAZAPINE 15 MG TABLET PO SCH (21:00)
--- NOTE | 2021-07-29 21:08 | NUR ---
Patient refusing PO meds, unable to give. Patient unable to be educated- AOx1, swatting away medications. Heparin to be held - per dayshift RN report and Dr. Page's notes, evaluation for POSSIBLE permacath placement tomorrow.
[2021-07-29] MEDS: FAT EMULSIONS 250 ML IV SCH (21:21)
[2021-07-30 00:33] VITALS: BP_SYST 163
--- NOTE | 2021-07-30 05:00 | NUR ---
Patient cleaned, linens changed. Wound dressings changed. midline dressing changed.
[2021-07-30] MEDS: HEPARIN SODIUM,PORCINE 5,000 UNITS/ML VIAL SUBCUT SCH ×3 (05:27→21:41)
[2021-07-30] MEDS: hydrALAZINE HCL 20 MG/ML VIAL IVP PRN (05:40)
[2021-07-30] MEDS: INSULIN REGULAR, HUMAN 100 UNITS/ML, 10 ML VIAL (humuLIN R) SUBCUT PRN ×3 (06:19→21:49)
[2021-07-30 06:33] LABS: BASOPHILS % (AUTO) 0.2 % (0.0-2.0); EOSINOPHILS % (AUTO) 0.1 % (0.0-4.0); HEMATOCRIT 30.2 % (36-54); HEMOGLOBIN 10.5 g/dL (14.0-18.0); LYMPHOCYTES % (AUTO) 7.9 % (20.5-51.5); MEAN CORPUSCULAR HEMOGLOBIN 30 pg (27-31); MEAN CORPUSCULAR HGB CONC 35 % (32-36); MEAN CORPUSCULAR VOLUME 87 fL (79.0-98.0); MONOCYTES # (AUTO) 0.3 K/uL (0.0-1.0); MONOCYTES % (AUTO) 2.8 % (1.7-9.3); NEUTROPHILS # (AUTO) 10.8 K/uL (1.8-7.7); PLATELET COUNT (AUTO) 59 K/uL (130-430); RED BLOOD CELL COUNT(AUTO) 3.48 MIL/uL (4.2-6.2); RED CELL DISTRIBUTION WIDTH 14.8 % (9.0-15.0); WHITE BLOOD COUNT (AUTO) 12.1 K/uL (4.8-10.8)
--- NOTE | 2021-07-30 08:00 | NUR ---
PATIENT RECEIVED AWAKE X 1-2. VITALS SIGNS STABLE. AFEBRILE. HAS IV ACCESS ON THE RT UPPER ARM MIDLINE WITH TPN 60CC/HR INFUSING ON WELL. AND LIPIDS AT 10CC/HR INFUSING ON WELL. HAS RT I J CAIN CATHETER IN PLACED DRY/INTACT. PATIENT ALWAYS CRIES WHEN TOUCH. WITH GARBLED SPEECH. CALL LIGHTS WITHIN REACH. BED LOW POSITION, ALARMED AND LOCKED. HAS LIZ CATHETER IN PLACED. HAS FLEXISEAL IN PLACED DRAINING BROWN SEMI FLUID STOOL. ON IT. WILL CONTINUE TO MONIOR.
[2021-07-30 08:30] VITALS: BP_SYST 145
[2021-07-30] MEDS: FAMOTIDINE 20 MG TABLET PO SCH (09:00)
[2021-07-30] MEDS: amLODIPine BESYLATE 5 MG TABLET PO SCH (09:00)
[2021-07-30] MEDS: FINASTERIDE 5 MG TABLET (PROSCAR) PO SCH (09:00)
[2021-07-30] MEDS: MULTIVITAMINS TAB 1 TABLET PO SCH (09:00)
[2021-07-30] MEDS: ASCORBIC ACID 500 MG TABLET PO SCH (09:00)
[2021-07-30] MEDS: ASPIRIN 81 MG TABLET(ECOTRIN) PO SCH (09:00)
[2021-07-30] MEDS: CITALOPRAM HYDROBROMIDE 20 MG TABLET PO SCH (09:00)
[2021-07-30] MEDS: DOCUSATE SODIUM 100 MG CAPSULE PO SCH ×2 (09:00→21:00)
[2021-07-30] MEDS: BALSAM PERU/CASTOR OIL 56.7 GM OINT...G. TP SCH (09:00)
[2021-07-30] MEDS: TAMSULOSIN HCL 0.4 MG CAP PO SCH (09:00)
[2021-07-30 09:12] LABS: ANION GAP 11 (5-15); CHLORIDE 100 mmol/L (98-107); GLUCOSE 184 mg/dL (70-99); POTASSIUM 3.4 mmol/L (3.5-5.1); SODIUM SERUM 135 mmol/L (136-145); UREA NITROGEN, BLOOD 47 mg/dL (8-21)
[2021-07-30 09:13] LABS: ALANINE AMINOTRANSFERASE 18 U/L (12-78); ASPARTATE AMINOTRANSFERASE 18 U/L (10-37); CREATININE 3.69 mg/dL (0.55-1.30); TOTAL BILIRUBIN 0.6 mg/dL (0.0-1.0)
[2021-07-30 09:14] LABS: ALBUMIN 1.7 g/dL (3.4-4.8); PHOSPHORUS 2.8 mg/dL (2.7-4.5)
--- NOTE | 2021-07-30 10:00 | NUR ---
REFUSED ALL THE MEDS TO BE GIVEN TODAY. MADE AWARE.
[2021-07-30 11:28] VITALS: BP_SYST 147
--- NOTE | 2021-07-30 12:00 | NUR ---
REPOSITIONED TO SIDES. MADE COMFORTABLE.
[2021-07-30 15:29] VITALS: BP_SYST 151
--- NOTE | 2021-07-30 15:47 | NUR ---
PATIENT REPOSITIONED AT THIS TIME. LONA AND HYGIENE CARE DONE. WILL CONTINUE TO MONITOR
--- NOTE | 2021-07-30 17:05 | NUR ---
LATEST BS 175 MG/DL. REFUSED TO HAVE COVERAGE AT THIS TIME.
--- NOTE | 2021-07-30 18:27 | NUR ---
NPO POST MIDNITE. PER DR RICHRADSON ORDERED. FOR POSSIBLE PLACEMENT OF PERMACATH.
--- NOTE | 2021-07-30 18:40 | NUR ---
INGRID LACKEY (SISTER) AGREED TO HAVE THE PERMACATH PLACEMENT TOMORROW. AND SIGNED CONSENT. NPO POST MIDNITE. PLEASE HOLD HEPARIN SQ.
[2021-07-30 19:00] VITALS: BP_SYST 148
[2021-07-30 20:00] VITALS: BP_SYST 148
[2021-07-30] MEDS ORDERED: [UNRECOGNIZED DRUG - OTHER] IV SCH ×8 (21:00)
[2021-07-30] MEDS ORDERED: SODIUM ACETATE IV SCH ×8 (21:00)
[2021-07-30] MEDS ORDERED: POTASSIUM CHLORIDE IV SCH ×8 (21:00)
[2021-07-30] MEDS ORDERED: TPN PERIPHERAL IV SCH ×8 (21:00)
[2021-07-30] MEDS: MIRTAZAPINE 15 MG TABLET PO SCH (21:00)
[2021-07-30] MEDS: ATORVASTATIN 20 MG TABLET PO SCH (21:00)
[2021-07-30] MEDS: FAT EMULSIONS 250 ML IV SCH (21:47)
[2021-07-31 00:45] VITALS: BP_SYST 157
[2021-07-31] MEDS: HEPARIN SODIUM,PORCINE 5,000 UNITS/ML VIAL SUBCUT SCH ×3 (05:05→22:00)
[2021-07-31] MEDS: INSULIN REGULAR, HUMAN 100 UNITS/ML, 10 ML VIAL (humuLIN R) SUBCUT PRN ×3 (05:13→17:06)
[2021-07-31 06:17] LABS: BILIRUBIN,URINE NEGATIVE (NEGATIVE); BLOOD, URINE 3+ (NEGATIVE); CLARITY/URINE CLEAR (CLEAR); COLOR,URINE YELLOW (YELLOW); GLUCOSE,URINE NEGATIVE (NEGATIVE); KETONES,URINE NEGATIVE (NEGATIVE); LEUKOCYTE ESTERASE ,URINE TRACE (NEGATIVE); NITRITE, URINE NEGATIVE (NEGATIVE); PH,URINE 6.5 (5.0-8.0); PROTEIN URINE NEGATIVE (NEGATIVE); UROBILINOGEN,URINE 0.2 (0.2-1.0)
[2021-07-31 06:30] LABS: BACTERIA,URINE None Seen /HPF (None Seen); CALCIUM OXALATE CRYSTALS,UR None Seen /HPF (None Seen); CALCIUM PHOSPHATE CRYSTALS,UR None Seen /HPF (None Seen); COARSE GRANULAR CASTS,URINE None Seen /LPF (None Seen); FINE GRANULAR CASTS,URINE None Seen /LPF (None Seen); HYALINE CASTS, URINE None Seen /LPF (None Seen); MUCUS,URINE 1+ /LPF (None Seen); OTHER CASTS, URINE None Seen /LPF (None Seen); OTHER CRYSTALS,URINE None Seen /HPF (None Seen); TRICHOMONAS,URINE None Seen /HPF (None Seen); TRIPLE PHOSPHATE CRYSTAL,UR None Seen /HPF (None Seen); URIC ACID CRYSTALS,URINE None Seen /HPF (None Seen); WAXY CASTS,URINE None Seen /LPF (None Seen); YEAST,URINE None Seen /HPF (None Seen)
[2021-07-31 06:51] LABS: BASOPHILS % (AUTO) 0.1 % (0.0-2.0); EOSINOPHILS % (AUTO) 0.1 % (0.0-4.0); HEMATOCRIT 30.2 % (36-54); HEMOGLOBIN 10.6 g/dL (14.0-18.0); LYMPHOCYTES % (AUTO) 9.7 % (20.5-51.5); MEAN CORPUSCULAR HEMOGLOBIN 31 pg (27-31); MEAN CORPUSCULAR HGB CONC 35 % (32-36); MEAN CORPUSCULAR VOLUME 87 fL (79.0-98.0); MONOCYTES # (AUTO) 0.3 K/uL (0.0-1.0); MONOCYTES % (AUTO) 2.5 % (1.7-9.3); NEUTROPHILS # (AUTO) 9.4 K/uL (1.8-7.7); NEUTROPHILS % (AUTO) 87.6 % (40.0-70.0); PLATELET COUNT (AUTO) 56 K/uL (130-430); RED BLOOD CELL COUNT(AUTO) 3.46 MIL/uL (4.2-6.2); RED CELL DISTRIBUTION WIDTH 15.8 % (9.0-15.0); WHITE BLOOD COUNT (AUTO) 10.7 K/uL (4.8-10.8)
[2021-07-31 08:00] VITALS: BP_SYST 168
[2021-07-31 08:44] LABS: ALANINE AMINOTRANSFERASE 16 U/L (12-78); ALBUMIN 1.6 g/dL (3.4-4.8); ANION GAP 10 (5-15); ASPARTATE AMINOTRANSFERASE 16 U/L (10-37); CHLORIDE 98 mmol/L (98-107); CREATININE 4.13 mg/dL (0.55-1.30); GLUCOSE 183 mg/dL (70-99); PHOSPHORUS 2.6 mg/dL (2.7-4.5); POTASSIUM 3.8 mmol/L (3.5-5.1); SODIUM SERUM 132 mmol/L (136-145); TOTAL BILIRUBIN 0.5 mg/dL (0.0-1.0); TRIGLYCERIDES 133 mg/dL (30-150); UREA NITROGEN, BLOOD 62 mg/dL (8-21)
[2021-07-31] MEDS: ASCORBIC ACID 500 MG TABLET PO SCH (09:00)
[2021-07-31] MEDS: CITALOPRAM HYDROBROMIDE 20 MG TABLET PO SCH (09:00)
[2021-07-31] MEDS: MULTIVITAMINS TAB 1 TABLET PO SCH (09:00)
[2021-07-31] MEDS: FAMOTIDINE 20 MG TABLET PO SCH (09:00)
[2021-07-31] MEDS: amLODIPine BESYLATE 5 MG TABLET PO SCH (09:00)
[2021-07-31] MEDS: ASPIRIN 81 MG TABLET(ECOTRIN) PO SCH (09:00)
[2021-07-31] MEDS: TAMSULOSIN HCL 0.4 MG CAP PO SCH (09:00)
[2021-07-31] MEDS: DOCUSATE SODIUM 100 MG CAPSULE PO SCH ×2 (09:00→21:00)
[2021-07-31] MEDS: BALSAM PERU/CASTOR OIL 56.7 GM OINT...G. TP SCH (09:00)
[2021-07-31] MEDS: FINASTERIDE 5 MG TABLET (PROSCAR) PO SCH (09:00)
[2021-07-31 10:10] VITALS: BP_SYST 157
[2021-07-31] MEDS: hydrALAZINE HCL 20 MG/ML VIAL IVP PRN (10:28)
[2021-07-31 11:26] VITALS: BP_SYST 155
[2021-07-31] MEDS ORDERED: NACL 0.9% 1,000 ML IV SCH (13:15)
[2021-07-31] MEDS ORDERED: ONDANSETRON HCL 4 MG/2 ML VIAL IVP PRN (13:15)
[2021-07-31] MEDS ORDERED: MORPHINE 4 MG INJ. 4 MG/ML VIAL IVP PRN (13:30)
[2021-07-31] MEDS ORDERED: LIDOCAINE 1% 10 MG/ML, 20 ML MDV ONE (13:35)
[2021-07-31] MEDS ORDERED: NS 1000 ML IV.SOLN IV ONE (13:35)
[2021-07-31] MEDS ORDERED: NS 50 ML BAG IV ONE (13:35)
[2021-07-31] MEDS ORDERED: PROPOFOL 200MG/ 20ML VIAL (DIPRIVAN) IV ONE (13:35)
[2021-07-31] MEDS ORDERED: HEPARIN SODIUM, PORCINE 10,000 UNITS/ 10 ML VIAL ONE (13:35)
[2021-07-31] MEDS ORDERED: NS IRRIG SOLN 1000 ML IR ONE (13:35)
[2021-07-31] MEDS ORDERED: fentaNYL CITRATE/PF 100 MCG/2 ML AMP ONE (13:35)
[2021-07-31 14:59] VITALS: BP_SYST 133
--- NOTE | 2021-07-31 15:37 | NUR ---
Discharge Planning: DCP followed up with: [facility]-accepted pt to [facility] pending DC, [facility]. Pending family called in to insurance to sign patient up for essential extra for transportation to dialysis to SN[facility]with [facility].
[2021-07-31 16:00] VITALS: BP_SYST 133
--- NOTE | 2021-07-31 16:09 | NUR ---
Spoke w/ patient's sister, Asia Villarreal, . She agreed to DC to SNF-she had no preference of [facility] or [facility]. She called [facility] transportation at [phone] and they stated the hospital can set up transportation for dialysis by calling [phone], once we know which SNF the patient will be going to.
[2021-07-31] MEDS ORDERED: [UNRECOGNIZED DRUG - OTHER] IV SCH ×9 (21:00)
[2021-07-31] MEDS ORDERED: SODIUM ACETATE IV SCH ×9 (21:00)
[2021-07-31] MEDS: MIRTAZAPINE 15 MG TABLET PO SCH (21:00)
[2021-07-31] MEDS ORDERED: TPN PERIPHERAL IV SCH ×9 (21:00)
[2021-07-31] MEDS ORDERED: SODIUM CHLORIDE IV SCH ×9 (21:00)
[2021-07-31] MEDS: ATORVASTATIN 20 MG TABLET PO SCH (21:00)
[2021-07-31] MEDS: FAT EMULSIONS 250 ML IV SCH (22:38)
[2021-08-01] MEDS: HEPARIN SODIUM,PORCINE 5,000 UNITS/ML VIAL SUBCUT SCH ×3 (06:00→21:52)
[2021-08-01 07:01] LABS: ALANINE AMINOTRANSFERASE 19 U/L (12-78); ALBUMIN 1.6 g/dL (3.4-4.8); ANION GAP 12 (5-15); ASPARTATE AMINOTRANSFERASE 24 U/L (10-37); CHLORIDE 97 mmol/L (98-107); CREATININE 4.48 mg/dL (0.55-1.30); GLUCOSE 147 mg/dL (70-99); PHOSPHORUS 2.6 mg/dL (2.7-4.5); POTASSIUM 4.3 mmol/L (3.5-5.1); SODIUM SERUM 132 mmol/L (136-145); TOTAL BILIRUBIN 0.6 mg/dL (0.0-1.0); UREA NITROGEN, BLOOD 77 mg/dL (8-21)
[2021-08-01 07:11] LABS: INR 1.1 (0.80-1.20); PROTHROMBIN TIME 11.9 SECS (9.5-12.5)
[2021-08-01 08:04] LABS: CALCIUM 7.1 mg/dL (8.4-11.0)
--- NOTE | 2021-08-01 09:34 | NUR ---
Discharge Planning: [facility]. Family called to set up arrangements for dialysis transport. [facility] will give transport auth when final dc order is faxed.
[2021-08-01] MEDS: DOCUSATE SODIUM 100 MG CAPSULE PO SCH ×2 (10:03→21:50)
[2021-08-01] MEDS: MULTIVITAMINS TAB 1 TABLET PO SCH (10:03)
[2021-08-01] MEDS: ASPIRIN 81 MG TABLET(ECOTRIN) PO SCH (10:03)
[2021-08-01] MEDS: ASCORBIC ACID 500 MG TABLET PO SCH (10:04)
[2021-08-01] MEDS: TAMSULOSIN HCL 0.4 MG CAP PO SCH (10:04)
[2021-08-01] MEDS: FINASTERIDE 5 MG TABLET (PROSCAR) PO SCH (10:04)
[2021-08-01] MEDS: CITALOPRAM HYDROBROMIDE 20 MG TABLET PO SCH (10:04)
[2021-08-01] MEDS: FAMOTIDINE 20 MG TABLET PO SCH (10:04)
--- NOTE | 2021-08-01 10:11 | NUR ---
Dialysis transportation set up through [facility] with Yuridia hein/[employer] ambulance auth # [id number]. Please call to set up times for transport
[2021-08-01] MEDS: amLODIPine BESYLATE 5 MG TABLET PO SCH (10:15)
[2021-08-01] MEDS: BALSAM PERU/CASTOR OIL 56.7 GM OINT...G. TP SCH (10:18)
--- NOTE | 2021-08-01 11:05 | NUR ---
Nutrition F/U Admitting Diagnosis Decubitus R foot infection Medical History Comment: HTN, DM, CVA, and BPH per physician notes Pt also found w/ severe malnutrition, complicated UTI-GNR, and R heel PU-infected d/t GNR/polymicrobial, ARF, septic shock, BECK, C diff, acute encephalopathy, acute respiratory failure, and severe malnutrition per physician notes. 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 Feed only when fully awake. Subjective Information: RD bedside visit deferred d/t isolation precautions for pending TB test results. Per EMR review, pt did not consent to permcath placement on 07/29, procedure rescheduled for 07/31; HD scheduled for today; Jose score 11, continues w/ multiple wounds; pt continues to refuse po diet continues on TPN; diet was changed from renal, puree, NTL, Roger BID, Prosource BID, Nepro BID to Renal standard post permcath placement; abd. is soft and non-distended w/ hypoactive bowel sounds; stool output: 50 ml 07/30. Pt would benefit from continuance of Roger for wound healing and following ST recommendations for diet texture and thickened liquids. Pt may also benefit from appetite stimulant and consider EN for interim/long-term support to poor PO intake. Spoke w/ pharmD , confirmed PPN goal rate 100 ml/hr, will increasing to 80 ml/hr today. Current Diet Order/Nutrition Support: Renal x1 day & PPN D20%, AA10% at 70 ml/hr via peripheral line PPN provides: 1387 kcal/day, 8451 gm protein/day, 1920 ml total volume/day, and GIR: 1.3 mg CHO/kg/min PPN meets: 61% of lower end of estimated caloric needs and 88% of lower end of estimated protein needs Patient/Significant Other Unable To Verbalize Education Provided Not Indicated Pertinent Medications: MVI, Lipitor, Pepcid, Colace, SSI Pertinent Labs: Na 132 L, BG 147 H, POC BG 145 H, BUN 77 H, CRE 4.48 H, ALB 1.6 L, 07/31: TG 133 WNL Height (Feet) 6 feet Height (Inches) 0.00 inches Weight (Pounds) 06/17: 167 pounds 07/06: 212#/96.4 kg questionable 45# wt gain 07/14: 251#/114.1 kg questionable wt gain 07/16: 227#/103.1 kg 24# wt loss possibly d/t fluid shifts a/w HD 07/21: 236#/107.2 kg 9# wt gain possibly d/t fluid shifts a/w HD 07/27: 198#/89.9 kg 38# wt loss possibly d/t fluid shifts a/w HD and/or poor PO intakes >2 weeks 07/31: 200#/90.8 kg 2# wt gain possibly d/t fluid shifts a/w HD Patient Weight 75.75 kg Body Mass Index 22.65 kg/m2 %IBW 94 [place]/Adjusted Body Weight 178#/81 kg AdjBW: 168#/76.1 kg (-5.9% for BKA) Estimated Energy Expenditure (kcals/day) 1637-0897 (30-35 kcals/kg AdjBW d/t BKA, HD, wound healing) Estimated Protein Required (g/day) 95-114 g/day (1.25-1.5 gm/kg AdjBW d/t BKA, HD, wound healing) Estimated Fluid Required (l/day) Per MD d/t ARF Problem/Etiology/Signs/Symptoms Increased nutritional needs R/T metabolic demands AEB estimated nutritional requirements for wound healing. *Ongoing Expected Outcomes/Goals - Monitor appetite and PO intake w/ goal of pt meeting >75% of estimated nutritional needs, labs trending WNL, normal GI function, and skin integrity/wt maintenance Dietitian Recommendations * Pureed, renal diet w/ Roger BID, Prosource BID and Nepro BID (ONS yields additional 1120 kcal/day and 73 gm protein/day) * Maximum encouragement at meal times * Consider appetite stimulant * Consider EN vs PPN for nutrition support * PPN D20%, AA10% at 100 ml/hr (goal rate), IL20% at 10 ml/hr daily via peripheral line Provides: 1776 kcal/day, 120 gm protein/day, 2640 ml total volume/day, and GIR: 1.8 mg CHO/kg/min Meets: 78% of lower end of estimated caloric needs and 105% of upper end of estimated protein needs Follow Up High Risk: F/U in 2-3 days
--- NOTE | 2021-08-01 11:05 | NUR ---
Dietitian Recommendations * Pureed, renal diet w/ Roger BID, Prosource BID and Nepro BID (ONS yields additional 1120 kcal/day and 73 gm protein/day) * Maximum encouragement at meal times * Consider appetite stimulant * Consider EN vs PPN for nutrition support * PPN D20%, AA10% at 100 ml/hr (goal rate), IL20% at 10 ml/hr daily via peripheral line Provides: 1776 kcal/day, 120 gm protein/day, 2640 ml total volume/day, and GIR: 1.8 mg CHO/kg/min Meets: 78% of lower end of estimated caloric needs and 105% of upper end of estimated protein needs Please refer to Nutrition F/U 08/01/21 for details.
[2021-08-01 11:34] VITALS: BP_SYST 124
--- NOTE | 2021-08-01 12:11 | NUR ---
PATIENT SAT 76 ON ROOM AIR AT 0800. PLACED O2 2 L SAT UP TO 93%. RT NOTIFIED AND HERE TO RECHECK. SAT UP TO 94%. PATIENT REFUSED DIET BS 166. INSULIN REFUSED.
--- NOTE | 2021-08-01 15:20 | NUR ---
DISCHARGE PLANNING This am, snf accepting, outpt HD set up, Permacath placed(07/31), transportation to HD center set up; pt still on TPN & needs dc order. Spoke with Casandra at [facility], ph [phone], auth for [facility] [id number], states already gave [facility] auth. Discussed with pt's nurse & pt not eating, refusing & also refusing oral care & meds. Called & discussed with Dr Winn regarding TPN & pt cannot be taken off TPN, pt not eating. States to try insurance if will auth LTAC. Called [facility] & [facility] & cannot take pt on TPN. [facility] cannot take pt on TPN. Called & spoke with Kalee at [facility] & states to fax order & updated pt info & will be reviewed to see if qualifies for LTAC, faxed to [phone].
[2021-08-01 15:25] VITALS: BP_SYST 134
--- NOTE | 2021-08-01 16:27 | NUR ---
REGINALDO FENG HERE AND MADE AWARE OF PATIENT REFUSAL TO TAKE PO MEDS / FOODS.
[2021-08-01 20:00] VITALS: BP_SYST 146
[2021-08-01] MEDS ORDERED: TPN PERIPHERAL IV SCH ×9 (21:00)
[2021-08-01] MEDS ORDERED: SODIUM CHLORIDE IV SCH ×9 (21:00)
[2021-08-01] MEDS ORDERED: [UNRECOGNIZED DRUG - OTHER] IV SCH ×9 (21:00)
[2021-08-01] MEDS ORDERED: SODIUM ACETATE IV SCH ×9 (21:00)
[2021-08-01] MEDS: ATORVASTATIN 20 MG TABLET PO SCH (21:50)
[2021-08-01] MEDS: MIRTAZAPINE 15 MG TABLET PO SCH (21:51)
[2021-08-01] MEDS: FAT EMULSIONS 250 ML IV SCH (21:55)
[2021-08-02 00:08] VITALS: BP_SYST 146
[2021-08-02 01:49] VITALS: BP_SYST 117
--- NOTE | 2021-08-02 02:20 | NUR ---
ASSUME PT CARE AT THIS TIME, PT RESTING COMFORTABLY IN BED IN NO ACUTE DISTRESS OR DISCOMFORT, WILL CONTINUE TO MONITOR.
--- NOTE | 2021-08-02 05:00 | NUR ---
PT RESTING IN BED, CLEANED AND REPOSITIONED, WOUND CARE DONE, TOLERATED CARE WELL, PT REFUSED ORAL CARE, WILL CONTINUE TO MONITOR.
[2021-08-02] MEDS: HEPARIN SODIUM,PORCINE 5,000 UNITS/ML VIAL SUBCUT SCH ×3 (05:36→22:00)
--- NOTE | 2021-08-02 06:43 | NUR ---
PT REFUSED ACCU-CHECK AND HEPARIN MEDICATION, EDUCATED PT OF THE IMPORTANCE, PT CONTINUES TO REFUSE AND BECAME AGGRESSIVE TOWARDS BAKERY MACHINE MECHANIC SUPERVISOR.
--- NOTE | 2021-08-02 07:22 | NUR ---
SHIFT CHANGE REPORT REPORT GIVEN TO RADHA PHELPS FOR CONTINUITY OF CARE, ALL QUESTIONS WERE ANSWERED AND RN VERBALIZED UNDERSTANDING.
[2021-08-02 08:15] VITALS: BP_SYST 138
[2021-08-02] MEDS: BALSAM PERU/CASTOR OIL 56.7 GM OINT...G. TP SCH (09:00)
[2021-08-02] MEDS: TAMSULOSIN HCL 0.4 MG CAP PO SCH (09:00)
[2021-08-02] MEDS: DOCUSATE SODIUM 100 MG CAPSULE PO SCH ×2 (09:00→21:00)
[2021-08-02] MEDS: ASCORBIC ACID 500 MG TABLET PO SCH (09:00)
[2021-08-02] MEDS: FAMOTIDINE 20 MG TABLET PO SCH (09:00)
[2021-08-02] MEDS: FINASTERIDE 5 MG TABLET (PROSCAR) PO SCH (09:00)
[2021-08-02] MEDS: ASPIRIN 81 MG TABLET(ECOTRIN) PO SCH (09:00)
[2021-08-02] MEDS: amLODIPine BESYLATE 5 MG TABLET PO SCH (09:00)
[2021-08-02] MEDS: MULTIVITAMINS TAB 1 TABLET PO SCH (09:00)
[2021-08-02] MEDS: CITALOPRAM HYDROBROMIDE 20 MG TABLET PO SCH (09:00)
[2021-08-02 09:22] LABS: ALANINE AMINOTRANSFERASE 24 U/L (12-78); ALBUMIN 1.6 g/dL (3.4-4.8); ANION GAP 13 (5-15); ASPARTATE AMINOTRANSFERASE 22 U/L (10-37); CALCIUM 7.1 mg/dL (8.4-11.0); CHLORIDE 98 mmol/L (98-107); CREATININE 3.35 mg/dL (0.55-1.30); GLUCOSE 233 mg/dL (70-99); PHOSPHORUS 2.6 mg/dL (2.7-4.5); POTASSIUM 4.2 mmol/L (3.5-5.1); SODIUM SERUM 134 mmol/L (136-145); TOTAL BILIRUBIN 0.7 mg/dL (0.0-1.0); UREA NITROGEN, BLOOD 60 mg/dL (8-21)
[2021-08-02 11:25] VITALS: BP_SYST 131
[2021-08-02 12:30] VITALS: BP_SYST 142
[2021-08-02 15:24] VITALS: BP_SYST 149
--- NOTE | 2021-08-02 15:45 | NUR ---
Patient is being evaluated by LATISHA Hernandez in [place]. They are contracted with [facility], the patient's medical group, and they can accept a patient w/ TPN.
--- NOTE | 2021-08-02 15:52 | NUR ---
Discharge Planning: DCP faxed pt referral to [facility]#[phone] P#[phone] DCP to follow up.
[2021-08-02] MEDS: INSULIN REGULAR, HUMAN 100 UNITS/ML, 10 ML VIAL (humuLIN R) SUBCUT PRN ×2 (18:31→22:10)
[2021-08-02] MEDS ORDERED: SODIUM ACETATE IV SCH ×10 (21:00)
[2021-08-02] MEDS: ATORVASTATIN 20 MG TABLET PO SCH (21:00)
[2021-08-02] MEDS ORDERED: [UNRECOGNIZED DRUG - OTHER] IV SCH ×10 (21:00)
[2021-08-02] MEDS ORDERED: SODIUM CHLORIDE IV SCH ×10 (21:00)
[2021-08-02] MEDS ORDERED: TPN PERIPHERAL IV SCH ×10 (21:00)
[2021-08-02] MEDS: MIRTAZAPINE 15 MG TABLET PO SCH (21:00)
--- NOTE | 2021-08-02 21:30 | NUR ---
Opening notes Pt alert, awake, emotional. VSS. O2 sat 96% on 2L NC. Blood sugar checked 183, pt refused PO meds and insulin. TPN/Lipids infusing at ordered rates ADARSH midline, clear and patent. Conner catheter draining to gravity. Flexiseal in place with loose stool. Contact isolation maintained. Pt on low airloss mattress. To monitor.
[2021-08-02] MEDS: FAT EMULSIONS 250 ML IV SCH (22:07)
[2021-08-03 01:20] VITALS: BP_SYST 128
[2021-08-03] MEDS: HEPARIN SODIUM,PORCINE 5,000 UNITS/ML VIAL SUBCUT SCH ×2 (06:00→14:00)
[2021-08-03] MEDS: INSULIN REGULAR, HUMAN 100 UNITS/ML, 10 ML VIAL (humuLIN R) SUBCUT PRN ×3 (06:37→17:41)
--- NOTE | 2021-08-03 06:40 | NUR ---
Closing notes Pt asleep, easily awakens. No s/s distress. O2 sat 96-97% on 2L NC. Blood sugar checked 232, 4 units Regular insulin administered per protocol. TPN/Lipids infusing at ordered rates ADARSH midline, clear and patent. R. IJ maria luz cath dressing C/D/I. Conner catheter draining to gravity. Flexiseal in place with loose stool. Contact isolation maintained. To endorse to AM nurse.
[2021-08-03] MEDS: FINASTERIDE 5 MG TABLET (PROSCAR) PO SCH (09:00)
[2021-08-03] MEDS: CITALOPRAM HYDROBROMIDE 20 MG TABLET PO SCH (09:00)
[2021-08-03] MEDS: BALSAM PERU/CASTOR OIL 56.7 GM OINT...G. TP SCH (09:00)
[2021-08-03] MEDS: TAMSULOSIN HCL 0.4 MG CAP PO SCH (09:00)
[2021-08-03] MEDS: MULTIVITAMINS TAB 1 TABLET PO SCH (09:00)
[2021-08-03] MEDS: amLODIPine BESYLATE 5 MG TABLET PO SCH (09:00)
[2021-08-03] MEDS: ASCORBIC ACID 500 MG TABLET PO SCH (09:00)
[2021-08-03] MEDS: DOCUSATE SODIUM 100 MG CAPSULE PO SCH ×2 (09:00→21:00)
[2021-08-03] MEDS: FAMOTIDINE 20 MG TABLET PO SCH (09:00)
[2021-08-03] MEDS: ASPIRIN 81 MG TABLET(ECOTRIN) PO SCH (09:00)
--- NOTE | 2021-08-03 09:51 | NUR ---
Discharge Planning: VEENA Followed up with Mike Yepez [phone] pt accepted to Rm 703[facility] faxed up dated clinicals pending auth. VEENA called [facility]#[phone] intake is in meeting [facility] to follow up. Addendum: 08/03/21 at 1220 by Mindy Patel DP Discharge Planning: VEENA faxed Grazyna at [facility] updated clinicals to process auth for SNF. VEENA spoke to Fer charge nurse at [facility] P#[phone] requesting new chair time and days, Per Fer since patient will be skilled in [facility] patient will need to switch to a [facility] in area of SNF. VEENA called [facility] coordinator Michel [phone], she will find new facility. Also a request for a lab was made [facility], TNP made aware. [facility] to follow up Addendum: 08/03/21 at 1606 by Mindy Patel DP VEENA faxed [facility] F#[phone], VEENA faxed updated clinicals to [facility] F#[phone] P#[phone] Mery in admission is checking bed availability. VEENA made CM aware and will follow up.
[2021-08-03] MEDS ORDERED: HEPARIN SODIUM,PORCINE 5,000 UNITS/ML VIAL MC ONE (10:45)
[2021-08-03 11:23] VITALS: BP_SYST 133
--- NOTE | 2021-08-03 12:00 | NUR ---
PT COMPLETED DIALYSIS. VITALS STABLE PER REPORT, 1000 CC OUT PER REPORT.
[2021-08-03 13:14] LABS: ALANINE AMINOTRANSFERASE 31 U/L (12-78); ALBUMIN 1.6 g/dL (3.4-4.8); ANION GAP 9 (5-15); ASPARTATE AMINOTRANSFERASE 41 U/L (10-37); CALCIUM 7.6 mg/dL (8.4-11.0); CHLORIDE 100 mmol/L (98-107); CREATININE 2.09 mg/dL (0.55-1.30); GLUCOSE 165 mg/dL (70-99); PHOSPHORUS 1.8 mg/dL (2.7-4.5); POTASSIUM 3.8 mmol/L (3.5-5.1); SODIUM SERUM 134 mmol/L (136-145); TOTAL BILIRUBIN 0.5 mg/dL (0.0-1.0); UREA NITROGEN, BLOOD 40 mg/dL (8-21)
--- NOTE | 2021-08-03 14:52 | NUR ---
Nutrition F/U Admitting Diagnosis Decubitus R foot infection Medical History Comment: HTN, DM, CVA, and BPH per physician notes Pt also found w/ severe malnutrition, complicated UTI-GNR, and R heel PU-infected d/t GNR/polymicrobial, ARF, septic shock, BECK, C diff, acute encephalopathy, and acute respiratory failure per physician notes. 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 Feed only when fully awake. Subjective Information: RD bedside visit deferred d/t isolation precautions for pending TB test results. Per EMR review, pt on 2 L NC. Jose score 11, multiple wounds and edema noted. EGD w/ PEG tube placement ordered today. Pt is currently on PPN d/t poor PO intakes of <10%. Current Diet Order/Nutrition Support: NPO x0 days; Renal x3 days; PPN D20%, AA10% at 100 ml/hr, IL20% at 10 ml/hr via peripheral line Patient/Significant Other Unable To Verbalize Education Provided Not Indicated Pertinent Medications: MVI, Lipitor, Pepcid, Colace, SSI, Vit C Pertinent Labs: Na 134 L, BG 165 H, POC BG 179 H, BUN 40 H, CRE 2.09 H, ALB 1.6 L, AST 41 H, ALP 176 H; 07/31: TG 133 WNL Height (Feet) 6 feet Height (Inches) 0.00 inches Weight (Pounds) 06/17: 167 pounds 07/06: 212#/96.4 kg questionable 45# wt gain 07/14: 251#/114.1 kg questionable wt gain 07/16: 227#/103.1 kg 24# wt loss possibly d/t fluid shifts a/w HD 07/21: 236#/107.2 kg 9# wt gain possibly d/t fluid shifts a/w HD 07/27: 198#/89.9 kg 38# wt loss possibly d/t fluid shifts a/w HD and/or poor PO intakes >2 weeks 07/31: 200#/90.8 kg 2# wt gain possibly d/t fluid shifts a/w HD 08/03: 224#/101.6 kg 24# wt gain possibly d/t fluid shifts a/w HD Patient Weight 75.75 kg Body Mass Index 22.65 kg/m2 %IBW 94 [place]/Adjusted Body Weight 178#/81 kg; AdjBW: 168#/76.1 kg (-5.9% for BKA) (*ongoing) Estimated Energy Expenditure (kcals/day) 0969-7382 (30-35 kcals/kg AdjBW d/t BKA, HD, wound healing) (*ongoing) Estimated Protein Required (g/day) 95-114 g/day (1.25-1.5 gm/kg AdjBW d/t BKA, HD, wound healing) (*ongoing) Estimated Fluid Required (l/day) Per MD d/t ARF Problem/Etiology/Signs/Symptoms Increased nutritional needs R/T metabolic demands AEB estimated nutritional requirements for wound healing. (*ongoing) Expected Outcomes/Goals - Monitor PPN tolerance w/ goal of pt meeting >75% of estimated nutritional needs, labs trending WNL, normal GI function, and skin integrity/wt maintenance Dietitian Recommendations * PPN D20%, AA10% at 100 ml/hr (goal rate), IL20% at 10 ml/hr daily via peripheral line Provides: 1776 kcal/day, 120 gm protein/day, 2640 ml total volume/day, and GIR: 1.8 mg CHO/kg/min Meets: 78% of lower end of estimated caloric needs and 105% of upper end of estimated protein needs * Consider RD consult for EN rec once PEG is placed Follow Up High Risk: F/U in 2-3 days Signed: 04/14/22 at 1453 by Analia NOLAND <Co-Signature Required> Co-Signed: 08/03/21 at [address]
--- NOTE | 2021-08-03 14:53 | NUR ---
Dietitian Recommendations * PPN D20%, AA10% at 100 ml/hr (goal rate), IL20% at 10 ml/hr daily via peripheral line Provides: 1776 kcal/day, 120 gm protein/day, 2640 ml total volume/day, and GIR: 1.8 mg CHO/kg/min Meets: 78% of lower end of estimated caloric needs and 105% of upper end of estimated protein needs * Consider RD consult for EN rec once PEG is placed LP, RD Please refer to Nutrition F/U for details. Signed: 08/03/21 at 1453 by Analia NOLAND <Co-Signature Required> Co-Signed: 08/03/21 at [address]
[2021-08-03 15:25] VITALS: BP_SYST 112
--- NOTE | 2021-08-03 15:44 | NUR ---
Spoke w/ Dr Monroe- he stated he has a contract with [facility] and the patient has a chair time at [facility]. We will attempt to set patient up at [facility] and SNF placemnet in the area. Patient to have G-Tube placed tomorrow. Dr Monroe stated the patient can be discharged to SNF once G-Tube is in place and out patient HD is in place.
--- NOTE | 2021-08-03 16:12 | NUR ---
pt refused heparin. crying and trying to hit.
[2021-08-03 20:00] VITALS: BP_SYST 118
[2021-08-03] MEDS ORDERED: SODIUM ACETATE IV SCH ×10 (21:00)
[2021-08-03] MEDS ORDERED: SODIUM CHLORIDE IV SCH ×10 (21:00)
[2021-08-03] MEDS ORDERED: TPN PERIPHERAL IV SCH ×10 (21:00)
[2021-08-03] MEDS ORDERED: [UNRECOGNIZED DRUG - OTHER] IV SCH ×10 (21:00)
[2021-08-03] MEDS: ATORVASTATIN 20 MG TABLET PO SCH (22:53)
[2021-08-03] MEDS: FAT EMULSIONS 250 ML IV SCH (22:57)
[2021-08-04 00:10] VITALS: BP_SYST 110
[2021-08-04 01:42] VITALS: BP_SYST 110
[2021-08-04 04:06] LABS: HEPATITIS B CORE AB, TOTAL Negative (Negative); HEPATITIS C VIRUS AB <0.1 s/co ratio (0.0-0.9)
[2021-08-04] MEDS: MIRTAZAPINE 15 MG TABLET PO SCH ×2 (04:15→21:33)
[2021-08-04] MEDS: HEPARIN SODIUM,PORCINE 5,000 UNITS/ML VIAL SUBCUT SCH ×2 (06:00→14:00)
[2021-08-04] MEDS ORDERED: SIMETHICONE 40 MG/0.6 ML ML ONE (06:17)
[2021-08-04] MEDS ORDERED: fentaNYL CITRATE/PF 100 MCG/2 ML AMP ONE (06:17)
[2021-08-04] MEDS ORDERED: MIDAZOLAM HCL 5 MG/5 ML VIAL ONE (06:17)
[2021-08-04] MEDS ORDERED: CEFAZOLIN 1 GM IVPB PREMIX 50 ML IV ONE ×2 (06:30→07:07)
[2021-08-04 07:11] LABS: BASOPHILS % (AUTO) 0.2 % (0.0-2.0); EOSINOPHILS % (AUTO) 0.2 % (0.0-4.0); HEMATOCRIT 26.1 % (36-54); HEMOGLOBIN 8.8 g/dL (14.0-18.0); LYMPHOCYTES # (AUTO) 0.8 K/uL (1.0-5.5); LYMPHOCYTES % (AUTO) 4.6 % (20.5-51.5); MEAN CORPUSCULAR HEMOGLOBIN 30 pg (27-31); MEAN CORPUSCULAR HGB CONC 34 % (32-36); MEAN CORPUSCULAR VOLUME 89 fL (79.0-98.0); MONOCYTES # (AUTO) 0.4 K/uL (0.0-1.0); MONOCYTES % (AUTO) 2.6 % (1.7-9.3); NEUTROPHILS # (AUTO) 15.4 K/uL (1.8-7.7); NEUTROPHILS % (AUTO) 92.4 % (40.0-70.0); RED BLOOD CELL COUNT(AUTO) 2.94 MIL/uL (4.2-6.2); RED CELL DISTRIBUTION WIDTH 16.1 % (9.0-15.0); WHITE BLOOD COUNT (AUTO) 16.6 K/uL (4.8-10.8)
--- NOTE | 2021-08-04 07:15 | NUR ---
OPENING NOTE Patient is currently off floor for PEG placement
[2021-08-04 07:34] LABS: INR 1.1 (0.80-1.20); PROTHROMBIN TIME 11.6 SECS (9.5-12.5)
[2021-08-04 07:37] LABS: PLATELET COUNT (AUTO) 36 K/uL (130-430)
--- NOTE | 2021-08-04 07:37 | NUR ---
CRITICAL LAB Received critical lab result of Platelets 36. Spoke to Dr Winn, new order received.
[2021-08-04 07:55] LABS: ALANINE AMINOTRANSFERASE 27 U/L (12-78); ALBUMIN 1.4 g/dL (3.4-4.8); ANION GAP 9 (5-15); ASPARTATE AMINOTRANSFERASE 31 U/L (10-37); CALCIUM 7.4 mg/dL (8.4-11.0); CHLORIDE 99 mmol/L (98-107); CREATININE 2.95 mg/dL (0.55-1.30); GLUCOSE 225 mg/dL (70-99); PHOSPHORUS 2.3 mg/dL (2.7-4.5); POTASSIUM 4.1 mmol/L (3.5-5.1); SODIUM SERUM 133 mmol/L (136-145); TOTAL BILIRUBIN 0.3 mg/dL (0.0-1.0); UREA NITROGEN, BLOOD 65 mg/dL (8-21)
[2021-08-04 08:00] VITALS: BP_SYST 127
--- NOTE | 2021-08-04 08:19 | NUR ---
BACK FROM GI LAB Patient is back in room after his procedure. No apparent distress, vitals within normal range. Patient requested he be left alone so he could sleep. Will continue to monitor.
--- NOTE | 2021-08-04 08:29 | NUR ---
CONSULTATION PAGED REASON FOR CONSULTATION:CRITICAL LABS, [facility] WAS CONSULT CALLED?Y PERSON WHO WAS NOTIFIED:MILES CONSULTING PHYSICIAN:TESSA HOGUE FINISHING SUPERVISOR PLASTIC SHEETS SPECIALTY:HEMATOLOGY/DRY DIP WORKER PHONE NUMBER: [phone] REQUESTING PHYSICIAN: SREE GEORGE
--- NOTE | 2021-08-04 08:40 | NUR ---
Discharge Planning: DCP faxed updated clinicals to [facility] in admissions and [facility]. DCP spoke to Grazyna at [facility] making her aware of cjange for SNF and dialysis facility. DCP to follow up. Addendum: 08/04/21 at 1618 by Mindy Patel DP DCP followed up with [facility] patient accepted to [facility] P#[phone] Rm 19, DCP arranged transport with [facility] [phone] [facility] for dialysis [address] [facility] [address] P#[phone]. Patient chair time MWF 2:00pm-6:00pm. Transposrtation auth is [id number] for discharge as well.
[2021-08-04] MEDS: ASCORBIC ACID 500 MG TABLET PO SCH ×2 (09:00→09:43)
[2021-08-04] MEDS: TAMSULOSIN HCL 0.4 MG CAP PO SCH ×2 (09:00→09:44)
[2021-08-04] MEDS: BALSAM PERU/CASTOR OIL 56.7 GM OINT...G. TP SCH (09:00)
[2021-08-04] MEDS: FAMOTIDINE 20 MG TABLET PO SCH ×2 (09:00→09:43)
[2021-08-04] MEDS: MULTIVITAMINS TAB 1 TABLET PO SCH ×2 (09:00→09:44)
[2021-08-04] MEDS: FINASTERIDE 5 MG TABLET (PROSCAR) PO SCH ×2 (09:00→09:44)
[2021-08-04] MEDS: amLODIPine BESYLATE 5 MG TABLET PO SCH ×2 (09:00→09:43)
[2021-08-04] MEDS: DOCUSATE SODIUM 100 MG CAPSULE PO SCH ×3 (09:00→21:33)
[2021-08-04] MEDS: CITALOPRAM HYDROBROMIDE 20 MG TABLET PO SCH ×2 (09:00→09:44)
[2021-08-04] MEDS: ASPIRIN 81 MG TABLET(ECOTRIN) PO SCH ×2 (09:00→09:42)
--- NOTE | 2021-08-04 09:30 | NUR ---
PATIENT REFUSED MEDICATIONS Patient refused his morning medications. Attempted to explain why it was important for him to take them, patient continued to refuse and attempted to hit the nurse. Two pills that were opened will be discarded, all other medications returned to [facility].
--- NOTE | 2021-08-04 11:38 | NUR ---
Nutrition F/U Admitting Diagnosis Decubitus R foot infection Medical History Comment: HTN, DM, CVA, and BPH per physician notes Pt also found w/ severe malnutrition, complicated UTI-GNR, and R heel PU-infected d/t GNR/polymicrobial, ARF, septic shock, BECK, C diff, acute encephalopathy, and acute respiratory failure per physician notes. 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 Feed only when fully awake. Subjective Information: RD spoke w/ pt's BLOCK TESTER via phone call. She reported that she is aware of pt's TF order that will start this evening. RD relayed pt's Hx of poor/negligible PO intakes since 07/10, and need for increased EN support to better meet nutritional needs. BLOCK TESTER agreed that pt may benefit from this as well as she reported that pt has been refusing PO meds. Per EMR review, pt is alert/confused/disoriented; on 2 L O2 via NC; multiple recent PO refusals noted; LBM x1 08/03; Jose scale: 11 w/ multiple wounds -- reviewed [employer] note 07/19. Current TF prescription yields 720 kcal/day, 32 gm protein/day, and 891 ml free water/day, which meets 32% of lower end of estimated protein needs and 34% of lower end of estimated protein needs. PPN support remains appropriate, but pt would benefit from weaning off PPN support once EN support is initiated this evening. Elevated BG levels noted. Current Diet Order/Nutrition Support: PPN D20%, AA10% at 100 ml/hr, IL20% at 10 ml/hr via peripheral line; Regular, renal x0 days; Nepro nighttime feeds 40 ml/hr from 8 pm to 6 pm; start 08/04/21 PM, Free Water Flush: 100 ml per GT q6h x0 days Patient/Significant Other Unable To Verbalize Education Provided Not Indicated Pertinent Medications: morphine, zofran, remeron, lipitor, SSI Pertinent Labs: WBC 16.6 H, Na 133 L, BG 225 H, POC BG 258 H, BUN 65 H, CRE 2.95 H, ALB 1.4 L, AST 31 WNL, ALP 156 H; 07/31: TG 133 WNL Height (Feet) 6 feet Height (Inches) 0.00 inches Weight (Pounds) 06/17: 167 pounds 07/06: 212#/96.4 kg questionable 45# wt gain 07/14: 251#/114.1 kg questionable wt gain 07/16: 227#/103.1 kg 24# wt loss possibly d/t fluid shifts a/w HD 07/21: 236#/107.2 kg 9# wt gain possibly d/t fluid shifts a/w HD 07/27: 198#/89.9 kg 38# wt loss possibly d/t fluid shifts a/w HD and/or poor PO intakes >2 weeks 07/31: 200#/90.8 kg 2# wt gain possibly d/t fluid shifts a/w HD 08/03: 224#/101.6 kg 24# wt gain possibly d/t fluid shifts a/w HD Patient Weight 75.75 kg Body Mass Index 22.65 kg/m2 %IBW 94 Bernie/Adjusted Body Weight 178#/81 kg; AdjBW: 168#/76.1 kg (-5.9% for BKA) (*ongoing) Estimated Energy Expenditure (kcals/day) 6951-9363 (30-35 kcals/kg AdjBW d/t BKA, HD, wound healing) (*ongoing) Estimated Protein Required (g/day) 95-114 g/day (1.25-1.5 gm/kg AdjBW d/t BKA, HD, wound healing) (*ongoing) Estimated Fluid Required (l/day) Per MD d/t ARF Problem/Etiology/Signs/Symptoms Increased nutritional needs R/T metabolic demands AEB estimated nutritional requirements for wound healing. (*ongoing) Expected Outcomes/Goals - Monitor PPN tolerance w/ goal of pt meeting >75% of estimated nutritional needs, labs trending WNL, normal GI function, and skin integrity/wt maintenance Dietitian Recommendations * Nepro at 50 ml/hr (goal rate) x24 hours, Roger BID, Prosource daily, Free Water Flush: 100 ml Q6h (per physician d/t ARF) via GT -- start at 1999 Provides: 2380 kcal/day, 117 gm protein/day, and 1272 ml free water/day Meets: 89% of upper end of estimated caloric needs and 103% of upper end of estimated protein needs * Taper off PPN once EN is initiated at 1999 * PO diet for oral grat per GI: Pureed, renal, HTL * Feed only when fully awake per ST Follow Up High Risk: F/U in 2-3 days
--- NOTE | 2021-08-04 11:56 | NUR ---
Dietitian Recommendations * Nepro at 50 ml/hr (goal rate) x24 hours, Roger BID, Prosource daily, Free Water Flush: 100 ml Q6h (per physician d/t ARF) via GT -- start at 1999 Provides: 2380 kcal/day, 117 gm protein/day, and 1272 ml free water/day Meets: 89% of upper end of estimated caloric needs and 103% of upper end of estimated protein needs * Taper off PPN once EN is initiated at 1999 * PO diet for oral grat per GI: Pureed, renal, HTL * Feed only when fully awake per ST LP, RD Please refer to Nutrition F/U for details.
[2021-08-04] MEDS: INSULIN REGULAR, HUMAN 100 UNITS/ML, 10 ML VIAL (humuLIN R) SUBCUT PRN ×2 (12:08→21:45)
[2021-08-04 12:30] VITALS: BP_SYST 134
--- NOTE | 2021-08-04 14:32 | NUR ---
HEMODIALYSIS Patient is receiving hemodialysis, tolerating well.
--- NOTE | 2021-08-04 14:45 | NUR ---
Nutrition Note BIJU called Dr. Tam's office to relay rec for TF. BIJU spoke w/ internal affairs commander. She stated she would page physician. Addendum: 08/04/21 at [address] BIJU has not yet received call back. BIJU called Dr. Tam's office again and second page was made. Addendum: 08/04/21 at [address] BIJU received call back from Dr. Tam. He was agreeable w/ BIJU rec for TF. Addendum: 08/04/21 at [address] RD called pt's primary OPTOMETRY TEACHER and notified her of change in TF order.
--- NOTE | 2021-08-04 16:00 | NUR ---
HEMODIALYSIS FINISHED Patient tolerated procedure well, 1200cc removed. Blood pressure 142/54, temperature 98.3 and heart rate 91.
[2021-08-04 16:53] VITALS: BP_SYST 136
--- NOTE | 2021-08-04 19:19 | NUR ---
CLOSING NOTE Patient resting in bed with eyes closed. No sign of distress. Patient refused to have his blood sugar checked. Fluids running as prescribed, flexiseal and bonilla catheter are both patent. All needs met at this time, will endorse to night shift supervisor nurse.
--- NOTE | 2021-08-04 20:00 | NUR ---
RECEIVED REPORT ON PATIENT FROM RADHA SABILLON, ASSUMED CARE, AND STARTED ASSESSMENT. PATIENT IS IN GOOD SPIRITS AND PLEASANT UPON APPROACH. WILL CONTINUE TO MONITOR AND ASSESS FOR SAFETY AND COMFORT. Addendum: 08/05/21 at 0137 by Lore Bower RN REPORT WAS RECEIVED FROM RADHA BANEGAS, AND NOT RIDGE.
[2021-08-04] MEDS ORDERED: TPN PERIPHERAL IV SCH ×10 (21:00)
[2021-08-04] MEDS ORDERED: SODIUM ACETATE IV SCH ×10 (21:00)
[2021-08-04] MEDS ORDERED: SODIUM CHLORIDE IV SCH ×10 (21:00)
[2021-08-04] MEDS ORDERED: [UNRECOGNIZED DRUG - OTHER] IV SCH ×10 (21:00)
[2021-08-04] MEDS: FAT EMULSIONS 250 ML IV SCH (21:30)
[2021-08-04] MEDS: ATORVASTATIN 20 MG TABLET PO SCH (21:33)
[2021-08-04 22:19] VITALS: BP_SYST 123
[2021-08-05 00:25] VITALS: BP_SYST 125
[2021-08-05 07:06] LABS: HEMATOCRIT 23.3 % (36-54); HEMOGLOBIN 7.7 g/dL (14.0-18.0); MEAN CORPUSCULAR HEMOGLOBIN 30 pg (27-31); MEAN CORPUSCULAR HGB CONC 33 % (32-36); MEAN CORPUSCULAR VOLUME 89 fL (79.0-98.0); RED BLOOD CELL COUNT(AUTO) 2.62 MIL/uL (4.2-6.2); RED CELL DISTRIBUTION WIDTH 16.4 % (9.0-15.0); RETICULOCYTE COUNT 1.2 % (0.5-1.5); WHITE BLOOD COUNT (AUTO) 15.2 K/uL (4.8-10.8)
[2021-08-05 07:08] LABS: TOTAL IRON BIND. CAPACITY 78 ug/dL (250-450)
[2021-08-05 07:09] LABS: ALANINE AMINOTRANSFERASE 23 U/L (12-78); ALBUMIN 1.3 g/dL (3.4-4.8); ANION GAP 9 (5-15); ASPARTATE AMINOTRANSFERASE 38 U/L (10-37); CALCIUM 7.1 mg/dL (8.4-11.0); CHLORIDE 99 mmol/L (98-107); CREATININE 2.58 mg/dL (0.55-1.30); GLUCOSE 296 mg/dL (70-99); PHOSPHORUS 2.4 mg/dL (2.7-4.5); POTASSIUM 4.1 mmol/L (3.5-5.1); SODIUM SERUM 133 mmol/L (136-145); TOTAL BILIRUBIN 0.5 mg/dL (0.0-1.0); UREA NITROGEN, BLOOD 65 mg/dL (8-21)
--- NOTE | 2021-08-05 07:31 | NUR ---
report given to mona rn, and care was turned over to him.
[2021-08-05] MEDS: INSULIN REGULAR, HUMAN 100 UNITS/ML, 10 ML VIAL (humuLIN R) SUBCUT PRN ×4 (07:46→22:09)
[2021-08-05 07:52] LABS: TRIGLYCERIDES 161 mg/dL (30-150)
[2021-08-05 08:11] LABS: PLATELET COUNT (AUTO) 27 K/uL (130-430)
[2021-08-05 08:30] VITALS: BP_SYST 150
--- NOTE | 2021-08-05 08:30 | NUR ---
Opening Note Patient is laying in bed with eyes closed. No apparent distress noted. Vitals as charted. Call light within reach. Safety and fall precautions in place.
[2021-08-05] MEDS: DOCUSATE SODIUM 100 MG CAPSULE PO SCH ×2 (10:03→21:48)
[2021-08-05] MEDS: CITALOPRAM HYDROBROMIDE 20 MG TABLET PO SCH (10:03)
[2021-08-05] MEDS: FOLIC ACID 1 MG TABLET PO SCH (10:04)
[2021-08-05] MEDS: FINASTERIDE 5 MG TABLET (PROSCAR) PO SCH (10:04)
[2021-08-05] MEDS: MULTIVITAMINS TAB 1 TABLET PO SCH (10:04)
[2021-08-05] MEDS: FAMOTIDINE 20 MG TABLET PO SCH (10:04)
[2021-08-05] MEDS: TAMSULOSIN HCL 0.4 MG CAP PO SCH (10:04)
[2021-08-05] MEDS: amLODIPine BESYLATE 5 MG TABLET PO SCH (10:09)
[2021-08-05] MEDS: BALSAM PERU/CASTOR OIL 56.7 GM OINT...G. TP SCH (10:10)
[2021-08-05 10:54] LABS: BAND % (MANUAL) 10 % (0-6); BASOPHILS % (MANUAL) 0 % (0-2); EOSINOPHILS % (MANUAL) 0 % (0-7); LYMPHOCYTES % (MANUAL) 6 % (20-46); MONOCYTES % (MANUAL) 0 % (0-11)
[2021-08-05] MEDS: DEXAMETHASONE SOD PHOSPHATE 10 MG/ML VIAL IVP SCH ×2 (11:33→18:17)
--- NOTE | 2021-08-05 12:21 | NUR ---
CM: Per RADHA Escamilla: GT feeding started at 11 am at 10 cc/hr ( goal is 50 cc/hr) and tapping off TPN. CM will get update this pm if pt is ready for transfer to snf. RADHA Beauchamp/RADHA Escamilla made aware when pt is ready for discharge: to call [facility] ambulance with auth # [id number] for picking table worker.
--- NOTE | 2021-08-05 12:45 | NUR ---
Note Cleansed wounds and changed patient's dressings: sacrum, left buttocks, right lateral knee, left lateral LE, and left foot. Francine RN assisted. Call light within reach. No apparent distress. Patient appears calm and resting. Safety and fall precautions in place. All needs met.
[2021-08-05 13:02] VITALS: BP_SYST 153
[2021-08-05 16:41] VITALS: BP_SYST 146
--- NOTE | 2021-08-05 16:49 | NUR ---
VERIFIED DC TRANSFER ORDER: SPOKE WITH DR RIBERA TO HOLD DISCHARGE TRANSFER DUE TO PATIENT UNSTABLE WITH LOW PLATELET COUNT.
--- NOTE | 2021-08-05 16:56 | NUR ---
CALLED [facility]: SPOKE WITH SHAYE GARCIA FROM [facility] AND INFORMED HER PATIENT HOLD FOR DISCHARGE TRANSFER PER DR RIBERA RE:LOW PLATELET COUNT.
[2021-08-05] MEDS: EPOETIN ALFA-EPBX 4,000 UNITS/ML VIAL SUBCUT SCH (18:18)
--- NOTE | 2021-08-05 19:25 | NUR ---
Closing Notes Patient is stable. Safety and fall precautions in place. Endorsed care to shift commander RN
[2021-08-05 19:40] VITALS: BP_SYST 115
--- NOTE | 2021-08-05 19:40 | NUR ---
PM ASSESSMENT; -Pt is resting comfortably. NO s/s any pain,sob,or any acute distress noted. VSS, 3L nc oxy continously,[id number]=16%. Checked residual of G-tube, less 10ml residual noted. Increased G-tube feeding at 50ml/hr and will check residual w/in an hour if pt tolerates well. Keep HOB>30 degree entire time. Conner cath drains well w/ gravity in place. Flexiseal w/ gravity drains small yellow loose stool noted. All safety measures in place. Continue to monitor pt. Addendum: 08/06/21 at 0325 by Keely Bower RN ADDITIONAL NOTES; -Decreased TPN @ 7.5ml/hr tapping
--- NOTE | 2021-08-05 20:41 | NUR ---
NOTES; - Checked G-tube feeding, less 5ml residual noted. G-tube feeding at 50ml/hr, hold TPN & lipid per md d/t pt tolerated G-tube feeding well. Keep HOB>30 degree entire time. Conner cath drains well w/ gravity in place. Flexiseal w/ gravity drains small yellow loose stool noted. All safety measures in place. Continue to monitor pt.
[2021-08-05] MEDS ORDERED: SODIUM CHLORIDE IV SCH ×11 (21:00)
[2021-08-05] MEDS ORDERED: TPN PERIPHERAL IV SCH ×11 (21:00)
[2021-08-05] MEDS ORDERED: SODIUM ACETATE IV SCH ×11 (21:00)
[2021-08-05] MEDS: FAT EMULSIONS 250 ML IV SCH (21:00)
[2021-08-05] MEDS ORDERED: [UNRECOGNIZED DRUG - OTHER] IV SCH ×11 (21:00)
[2021-08-05] MEDS: ATORVASTATIN 20 MG TABLET PO SCH (21:48)
[2021-08-05] MEDS: MIRTAZAPINE 15 MG TABLET PO SCH (21:48)
--- NOTE | 2021-08-05 21:48 | NUR ---
ROUNDS; -Pt is resting comfortably. Checked residual of G-tube, less 10ml residual noted. Gave meds via G-tube and flushed w/ 100ml water and q 6 hrs. Keep HOB>30 degree entire time. Conner cath drains well w/ gravity in place. Flexiseal w/ gravity drains small yellow loose stool noted. All safety measures in place. Continue to monitor pt.
[2021-08-06] MEDS: DEXAMETHASONE SOD PHOSPHATE 10 MG/ML VIAL IVP SCH ×4 (00:49→17:35)
--- NOTE | 2021-08-06 00:49 | NUR ---
ROUNDS; -Provided sponge bath, provided perineal care. Changed all gown and linen,now pt is cleaned and dry. G-tube feeding at goal rate (50ml/hr). Keep HOB>30 degree entire time. Conner cath drains well w/ gravity in place. Flexiseal w/ gravity drains small yellow loose stool noted. All safety measures in place. Continue to monitor pt.
[2021-08-06 01:16] VITALS: BP_SYST 108
--- NOTE | 2021-08-06 02:20 | NUR ---
ROUNDS; -Pt is asleep. NO s/s any acute distress noted. G-tube feeding at 50ml/hr. Keep HOB>30 degree entire time. Conner cath drains well w/ gravity in place. Flexiseal w/ gravity drains small yellow loose stool noted. All safety measures in place. Continue to monitor pt.
--- NOTE | 2021-08-06 03:55 | NUR ---
ROUNDS; Flushed 100ml water of G-tube -Pt is asleep. NO s/s any acute distress noted. Checked G-tube feeding residual less than 10 ml noted. Flushed w/ 100ml water. Continuing G-tube feeding at 50ml/hr. Keep HOB>30 degree entire time. Conner cath drains well w/ gravity in place. Flexiseal w/ gravity drains small yellow loose stool noted. All safety measures in place. Continue to monitor pt.
[2021-08-06] MEDS: INSULIN REGULAR, HUMAN 100 UNITS/ML, 10 ML VIAL (humuLIN R) SUBCUT PRN ×4 (06:40→22:23)
[2021-08-06 06:45] LABS: BASOPHILS % (AUTO) 0.3 % (0.0-2.0); HEMATOCRIT 23.7 % (36-54); HEMOGLOBIN 7.8 g/dL (14.0-18.0); LYMPHOCYTES # (AUTO) 1.2 K/uL (1.0-5.5); LYMPHOCYTES % (AUTO) 7.4 % (20.5-51.5); MEAN CORPUSCULAR HEMOGLOBIN 29 pg (27-31); MEAN CORPUSCULAR HGB CONC 33 % (32-36); MEAN CORPUSCULAR VOLUME 89 fL (79.0-98.0); MONOCYTES # (AUTO) 0.3 K/uL (0.0-1.0); NEUTROPHILS % (AUTO) 90.3 % (40.0-70.0); RED BLOOD CELL COUNT(AUTO) 2.65 MIL/uL (4.2-6.2); RED CELL DISTRIBUTION WIDTH 16.9 % (9.0-15.0); WHITE BLOOD COUNT (AUTO) 16.7 K/uL (4.8-10.8)
--- NOTE | 2021-08-06 06:50 | NUR ---
CLOSING NOTES; -Pt is asleep. NO s/s any acute distress noted. G-tube feeding at 50ml/hr, pt tolerated well. Midline ADARSH patent both ports drsg cdi. HD access of rt IJ site. Pt is on 3L n/c oxy,no resp distress noted entire shift. Keep HOB>30 degree entire time. Conner cath drains well w/ gravity in place, no urine output during manager shift. Flexiseal w/ gravity drains small yellow loose stool noted. All safety measures in place. Call light w/n reach, side rails x3. Will endorse to next nurse to cont care.
[2021-08-06 07:10] LABS: ALANINE AMINOTRANSFERASE 26 U/L (12-78); ALBUMIN 1.3 g/dL (3.4-4.8); ANION GAP 12 (5-15); ASPARTATE AMINOTRANSFERASE 48 U/L (10-37); CALCIUM 7.5 mg/dL (8.4-11.0); CHLORIDE 99 mmol/L (98-107); CREATININE 3.13 mg/dL (0.55-1.30); GLUCOSE 264 mg/dL (70-99); PHOSPHORUS 3.6 mg/dL (2.7-4.5); POTASSIUM 4.6 mmol/L (3.5-5.1); SODIUM SERUM 133 mmol/L (136-145); TOTAL BILIRUBIN 0.3 mg/dL (0.0-1.0); UREA NITROGEN, BLOOD 98 mg/dL (8-21)
[2021-08-06 07:58] LABS: PLATELET COUNT (AUTO) 18 K/uL (130-430)
--- NOTE | 2021-08-06 08:04 | NUR ---
Critical Lab Francine GARCIA paged Dr. Best regarding critical lab.
--- NOTE | 2021-08-06 08:09 | NUR ---
HEMATOLOGY PAGED: CALLED DR [facility] AND SPOKE WITH RAFA DICKSON:CRITICAL LAB.
--- NOTE | 2021-08-06 08:30 | NUR ---
Opening Notes Patient is laying in bed with eyes closed. No apparent distress noted. Patient is on 3L NC SPO2/BP as charted. Call light within reach. Safety and fall precautions in place.
[2021-08-06] MEDS: amLODIPine BESYLATE 5 MG TABLET PO SCH (09:00)
--- NOTE | 2021-08-06 09:00 | NUR ---
CM: PLT COUNT=18, NOT STABLE FOR DISCHARGE AT THIS POINT, WILL FOLLOW PCP AND CONSULTS RECOMMENDATIONS.
[2021-08-06] MEDS: FINASTERIDE 5 MG TABLET (PROSCAR) PO SCH (09:46)
[2021-08-06] MEDS: TAMSULOSIN HCL 0.4 MG CAP PO SCH (09:46)
[2021-08-06] MEDS: FOLIC ACID 1 MG TABLET PO SCH (09:46)
[2021-08-06] MEDS: DOCUSATE SODIUM 100 MG CAPSULE PO SCH ×2 (09:46→22:14)
[2021-08-06] MEDS: MULTIVITAMINS TAB 1 TABLET PO SCH (09:46)
[2021-08-06] MEDS: FAMOTIDINE 20 MG TABLET PO SCH (09:46)
[2021-08-06] MEDS: CITALOPRAM HYDROBROMIDE 20 MG TABLET PO SCH (09:46)
[2021-08-06] MEDS: BALSAM PERU/CASTOR OIL 56.7 GM OINT...G. TP SCH (09:55)
[2021-08-06 09:56] VITALS: BP_SYST 103
--- NOTE | 2021-08-06 10:25 | NUR ---
Note Assisted patient with hygiene needs along with Francine RN and ANGLE DOZER OPERATOR. Cleansed and dressed wounds. Call light within reach. Safety and fall precautions in place.
[2021-08-06 12:30] VITALS: BP_SYST 101
[2021-08-06 17:11] LABS: FOLATE (FOLIC ACID) 2.2 ng/mL (>3.0)
--- NOTE | 2021-08-06 18:00 | NUR ---
Note Assisted patient with hygiene. No apparent distress noted. Safety and fall precautions in place. Call light within reach. All needs met.
[2021-08-06 19:12] VITALS: BP_SYST 113
--- NOTE | 2021-08-06 19:19 | NUR ---
Closing Notes Patient is laying in bed with eyes closed. No apparent distress noted. Call light within reach. Safety and fall precautions in place. Will endorse care to fast food shift lead RN.
[2021-08-06 20:30] VITALS: BP_SYST 116
--- NOTE | 2021-08-06 20:30 | NUR ---
PM ASSESSMENT; -Pt is resting comfortably. NO s/s any pain,sob,or any acute distress noted. VSS, 3L nc oxy continously,[id number]=83%. Checked residual of G-tube, less 10ml residual noted. Increased G-tube feeding at 50ml/hr and will check residual w/in an hour if pt tolerates well. Keep HOB>30 degree entire time. Conner cath drains well w/ gravity in place. Flexiseal w/ gravity drains small yellow loose stool noted. All safety measures in place. Continue to monitor pt.
[2021-08-06] MEDS ORDERED: TPN PERIPHERAL IV SCH ×10 (21:00)
[2021-08-06] MEDS ORDERED: [UNRECOGNIZED DRUG - OTHER] IV SCH ×10 (21:00)
[2021-08-06] MEDS ORDERED: SODIUM ACETATE IV SCH ×10 (21:00)
[2021-08-06] MEDS ORDERED: SODIUM CHLORIDE IV SCH ×10 (21:00)
[2021-08-06] MEDS: MIRTAZAPINE 15 MG TABLET PO SCH (22:14)
[2021-08-06] MEDS: ATORVASTATIN 20 MG TABLET PO SCH (22:14)
--- NOTE | 2021-08-06 22:14 | NUR ---
ROUNDS; -Pt is resting comfortably. Checked residual of G-tube, less 5ml residual noted. Pt has 3L nc oxy continously. Gave meds via G-tube and flushed w/ 100ml water and q 6 hrs. Keep HOB>30 degree entire time. Conner cath drains well w/ gravity in place. Flexiseal w/ gravity drains small yellow loose stool noted. All safety measures in place. Continue to monitor pt.
[2021-08-07 00:30] VITALS: BP_SYST 123
--- NOTE | 2021-08-07 00:30 | NUR ---
ROUNDS; -Pt is resting comfortably. Pt has 3L nc oxy continously. Keep HOB>30 degree entire time. Sponge bath provided including perineal care, bonilla cath care and changed all gown,linen,pillow cases,now pt is cleaned and dry. Wound care provided cleaned with ns, patted dry, z-guard & optifoam applied. Bonilla cath drains well w/ gravity in place. Flexiseal w/ gravity drains small yellow loose stool noted. All safety measures in place. Continue to monitor pt.
[2021-08-07] MEDS: DEXAMETHASONE SOD PHOSPHATE 10 MG/ML VIAL IVP SCH ×4 (00:54→17:01)
--- NOTE | 2021-08-07 02:10 | NUR ---
ROUNDS; -Pt is resting comfortably. No s/s any acute distress noted. Pt has 3L nc oxy continously. Keep HOB>30 degree entire time. Conner cath drains well w/ gravity in place. Flexiseal w/ gravity drains small yellow loose stool noted. All safety measures in place. Continue to monitor pt.
--- NOTE | 2021-08-07 03:53 | NUR ---
ROUNDS; Flushed G-tube w/ 100ml/ water -Pt is asleep.No s/s any acute distress noted. Checked residual of G-tube, less 10ml residual noted. Pt has 3L nc oxy continously. Flushed G-tube w/ 100ml water and q 6 hrs. Keep HOB>30 degree entire time. Conner cath drains well w/ gravity in place. Flexiseal w/ gravity in place. All safety measures in place. Continue to monitor pt.
--- NOTE | 2021-08-07 05:54 | NUR ---
ROUNDS; -Pt is resting comfortably. No s/s any acute distress noted. Pt has 3L nc oxy continously. Keep HOB>30 degree entire time. Pt's condition stable. Conner cath drains well w/ gravity in place. Flexiseal w/ gravity drains small yellow loose stool noted. All safety measures in place. Continue to monitor pt.
[2021-08-07] MEDS: INSULIN REGULAR, HUMAN 100 UNITS/ML, 10 ML VIAL (humuLIN R) SUBCUT PRN ×3 (06:15→17:05)
[2021-08-07 06:40] LABS: BASOPHILS # (AUTO) 0.2 K/uL (0.0-0.2); BASOPHILS % (AUTO) 0.8 % (0.0-2.0); EOSINOPHILS # (AUTO) 0.1 K/uL (0.0-0.4); EOSINOPHILS % (AUTO) 0.4 % (0.0-4.0); HEMATOCRIT 24.2 % (36-54); HEMOGLOBIN 8.1 g/dL (14.0-18.0); LYMPHOCYTES # (AUTO) 1.5 K/uL (1.0-5.5); LYMPHOCYTES % (AUTO) 5.3 % (20.5-51.5); MEAN CORPUSCULAR HEMOGLOBIN 30 pg (27-31); MEAN CORPUSCULAR HGB CONC 33 % (32-36); MEAN CORPUSCULAR VOLUME 90 fL (79.0-98.0); MONOCYTES # (AUTO) 0.5 K/uL (0.0-1.0); MONOCYTES % (AUTO) 1.7 % (1.7-9.3); NEUTROPHILS # (AUTO) 25.5 K/uL (1.8-7.7); NEUTROPHILS % (AUTO) 91.8 % (40.0-70.0); RED BLOOD CELL COUNT(AUTO) 2.69 MIL/uL (4.2-6.2); RED CELL DISTRIBUTION WIDTH 17.1 % (9.0-15.0); WHITE BLOOD COUNT (AUTO) 27.7 K/uL (4.8-10.8)
--- NOTE | 2021-08-07 06:45 | NUR ---
CLOSING NOTES; -Pt is resting comfortably. NO s/s any pain,sob,or any acute distress noted. VSS, 3L nc oxy continously. ADARSH Midline with 2 ports patent drsg cdi. RT IJ site for HD access. G-tube feeding at 50ml/hr, pt tolerates well entire shift. Keep HOB>30 degree entire time. Conner cath drains well w/ gravity in place. Flexiseal w/ gravity drains loose yellow stool. All safety measures in place. Will endorse to next nurse to cont care.
[2021-08-07 06:52] LABS: ALANINE AMINOTRANSFERASE 52 U/L (12-78); ALBUMIN 1.2 g/dL (3.4-4.8); ANION GAP 15 (5-15); ASPARTATE AMINOTRANSFERASE 61 U/L (10-37); CHLORIDE 97 mmol/L (98-107); GLUCOSE 324 mg/dL (70-99); POTASSIUM 4.5 mmol/L (3.5-5.1); SODIUM SERUM 133 mmol/L (136-145); TOTAL BILIRUBIN 0.5 mg/dL (0.0-1.0)
[2021-08-07 07:31] LABS: PLATELET COUNT (AUTO) 50 K/uL (130-430)
--- NOTE | 2021-08-07 08:29 | NUR ---
Lab called with critical BUN of 126, doctor aware
[2021-08-07 08:30] LABS: UREA NITROGEN, BLOOD 126 mg/dL (8-21)
[2021-08-07] MEDS: DOCUSATE SODIUM 100 MG CAPSULE PO SCH ×2 (09:55→21:00)
[2021-08-07] MEDS: TAMSULOSIN HCL 0.4 MG CAP PO SCH (09:55)
[2021-08-07] MEDS: FOLIC ACID 1 MG TABLET PO SCH (09:55)
[2021-08-07] MEDS: CITALOPRAM HYDROBROMIDE 20 MG TABLET PO SCH (09:55)
[2021-08-07] MEDS: FAMOTIDINE 20 MG TABLET PO SCH (09:56)
[2021-08-07] MEDS: amLODIPine BESYLATE 5 MG TABLET PO SCH (09:56)
[2021-08-07] MEDS: MULTIVITAMINS TAB 1 TABLET PO SCH (09:56)
[2021-08-07] MEDS: FINASTERIDE 5 MG TABLET (PROSCAR) PO SCH (09:57)
[2021-08-07] MEDS: BALSAM PERU/CASTOR OIL 56.7 GM OINT...G. TP SCH (10:00)
[2021-08-07 11:27] VITALS: BP_SYST 114
[2021-08-07 12:00] VITALS: BP_SYST 101
[2021-08-07] MEDS ORDERED: ALBUMIN HUMAN 25% 100 ML IV ONE (12:15)
--- NOTE | 2021-08-07 12:30 | NUR ---
Discharge Planning: DCP followed up with [facility] P#[phone] confirming Rm 19 DCP made [facility] aware pt may DC tomorrow. DCP canceled transport with [facility] [phone] with deena for dialysis today pt still admitted. DCP to follow up with [facility].
[2021-08-07] MEDS: CEFEPIME 1 GM in D5W 50 ML IV SCH (13:24)
[2021-08-07 15:26] VITALS: BP_SYST 124
--- NOTE | 2021-08-07 15:39 | NUR ---
Nutrition F/U Admitting Diagnosis Decubitus R foot infection Medical History Comment: HTN, DM, CVA, and BPH per physician notes Pt also found w/ severe malnutrition, complicated UTI-GNR, and R heel PU-infected d/t GNR/polymicrobial, ARF, septic shock, BECK, C diff, acute encephalopathy, and acute respiratory failure per physician notes. 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 Feed only when fully awake. Subjective Information: RD bedside visit deferred d/t high workload. Per EMR review, HD today; now off PPN; Jose score 11, wounds noted to Lateral R. knee, L. buttocks, L. plantar foot, posterior sacrum, and R. BKA incision, and scab to L. lower leg; abd. is soft w/ hypoactive bowel sounds; last BM recorded x1 08/03; TF running at 50 ml/hr, GRV 30 ml 08/07; pt refusing PO diet; TF now continuous x 24 hours. EN remains warranted for wound healing d/t negligible oral intake. Current Diet Order/Nutrition Support: Renal pureed, HTL x3 days; Nepro 50 ml/hr, Free Water Flush: 100 ml Q6H (per MD), Roger BID, Prosource daily x3 days Patient/Significant Other Unable To Verbalize Education Provided Not Indicated Pertinent Medications: morphine, zofran, remeron, lipitor, SSI, folic acid, MVI, Pepcid Pertinent Labs: WBC 27.7 H, H/H 8.1 L/24.2 L, Na 133 L, BUN 126 H, Cr 3.4 H, BG 324, POC BG 290 H, AST 61 H, ALP 267 H, Alb 1.2 L Height (Feet) 6 feet Height (Inches) 0.00 inches Weight (Pounds) 06/17: 167 pounds 07/06: 212#/96.4 kg questionable 45# wt gain 07/14: 251#/114.1 kg questionable wt gain 07/16: 227#/103.1 kg 24# wt loss possibly d/t fluid shifts a/w HD 07/21: 236#/107.2 kg 9# wt gain possibly d/t fluid shifts a/w HD 07/27: 198#/89.9 kg 38# wt loss possibly d/t fluid shifts a/w HD and/or poor PO intakes >2 weeks 07/31: 200#/90.8 kg 2# wt gain possibly d/t fluid shifts a/w HD 08/03: 224#/101.6 kg 24# wt gain possibly d/t fluid shifts a/w HD 08/06: 209#/94.8 kg - 15# wt loss possibly d/t fluid shifts a/w HD Patient Weight 75.75 kg Body Mass Index 22.65 kg/m2 %IBW 94 Kimberly/Adjusted Body Weight 178#/81 kg; AdjBW: 168#/76.1 kg (-5.9% for BKA) (*ongoing) Estimated Energy Expenditure (kcals/day) 6414-9143 (30-35 kcals/kg AdjBW d/t BKA, HD, wound healing) (*ongoing) Estimated Protein Required (g/day) 95-114 g/day (1.25-1.5 gm/kg AdjBW d/t BKA, HD, wound healing) (*ongoing) Estimated Fluid Required (l/day) Per MD d/t ARF Problem/Etiology/Signs/Symptoms Increased nutritional needs R/T metabolic demands AEB estimated nutritional requirements for wound healing. (*ongoing) Expected Outcomes/Goals - Monitor EN tolerance w/ goal of pt meeting >75% of estimated nutritional needs, labs trending WNL, normal GI function, and skin integrity/wt maintenance Dietitian Recommendations * Nepro at 50 ml/hr (goal rate) x24 hours, Roger BID, Prosource daily, Free Water Flush: 100 ml Q6h (per physician d/t ARF) via GT -- start at 1999 Provides: 2380 kcal/day, 117 gm protein/day, and 1272 ml free water/day Meets: 89% of upper end of estimated caloric needs and 103% of upper end of estimated protein needs * PO diet for oral grat per GI: Pureed, renal, HTL * Feed only when fully awake per ST Follow Up High Risk: F/U in 2-3 days
--- NOTE | 2021-08-07 15:40 | NUR ---
Dietitian Recommendations * Nepro at 50 ml/hr (goal rate) x24 hours, Roger BID, Prosource daily, Free Water Flush: 100 ml Q6h (per physician d/t ARF) via GT -- start at 1999 Provides: 2380 kcal/day, 117 gm protein/day, and 1272 ml free water/day Meets: 89% of upper end of estimated caloric needs and 103% of upper end of estimated protein needs * PO diet for oral grat per GI: Pureed, renal, HTL * Feed only when fully awake per ST Please refer to Nutrition F/U for details.
[2021-08-07 16:00] VITALS: BP_SYST 126
[2021-08-07] MEDS: EPOETIN ALFA-EPBX 4,000 UNITS/ML VIAL SUBCUT SCH (17:02)
[2021-08-07] MEDS: ATORVASTATIN 20 MG TABLET PO SCH (21:00)
[2021-08-08] MEDS: MIRTAZAPINE 15 MG TABLET PO SCH ×2 (00:06→21:16)
[2021-08-08] MEDS: DEXAMETHASONE SOD PHOSPHATE 10 MG/ML VIAL IVP SCH ×4 (00:06→18:34)
[2021-08-08 00:31] VITALS: BP_SYST 124
[2021-08-08] MEDS: DOCUSATE SODIUM 100 MG CAPSULE PO SCH ×2 (09:00→21:16)
[2021-08-08] MEDS: MULTIVITAMINS TAB 1 TABLET PO SCH (09:30)
[2021-08-08] MEDS: amLODIPine BESYLATE 5 MG TABLET PO SCH (09:30)
[2021-08-08] MEDS: TAMSULOSIN HCL 0.4 MG CAP PO SCH (09:30)
[2021-08-08] MEDS: FINASTERIDE 5 MG TABLET (PROSCAR) PO SCH (09:31)
[2021-08-08] MEDS: FOLIC ACID 1 MG TABLET PO SCH (09:31)
[2021-08-08] MEDS: FAMOTIDINE 20 MG TABLET PO SCH (09:31)
[2021-08-08] MEDS: CITALOPRAM HYDROBROMIDE 20 MG TABLET PO SCH (09:31)
[2021-08-08] MEDS: BALSAM PERU/CASTOR OIL 56.7 GM OINT...G. TP SCH (09:32)
[2021-08-08 09:52] LABS: HEMATOCRIT 26.7 % (36-54); HEMOGLOBIN 8.6 g/dL (14.0-18.0); MEAN CORPUSCULAR HEMOGLOBIN 29 pg (27-31); MEAN CORPUSCULAR HGB CONC 32 % (32-36); MEAN CORPUSCULAR VOLUME 90 fL (79.0-98.0); RED BLOOD CELL COUNT(AUTO) 2.96 MIL/uL (4.2-6.2); RED CELL DISTRIBUTION WIDTH 16.9 % (9.0-15.0)
[2021-08-08 11:09] LABS: PLATELET COUNT (AUTO) 35 K/uL (130-430)
[2021-08-08 11:22] LABS: BAND % (MANUAL) 1 % (0-6); LYMPHOCYTES % (MANUAL) 4 % (20-46); METAMYELOCYTES % 3 % (0-0); MONOCYTES % (MANUAL) 1 % (0-11)
[2021-08-08 11:23] LABS: MYELOCYTES % 2 % (0-0)
[2021-08-08 11:25] LABS: BASOPHILS % (MANUAL) 0 % (0-2); EOSINOPHILS % (MANUAL) 0 % (0-7)
[2021-08-08 11:30] VITALS: BP_SYST 108
--- NOTE | 2021-08-08 11:30 | NUR ---
CRITICAL LAB: from Laboratory called with critical lab value WBC 38,PLATELET 35. Medical record number and patient name verified. Read back of values done. notified of value. NO orders given at this time.
[2021-08-08] MEDS: INSULIN REGULAR, HUMAN 100 UNITS/ML, 10 ML VIAL (humuLIN R) SUBCUT PRN ×3 (12:10→21:24)
[2021-08-08] MEDS: CEFEPIME 1 GM in D5W 50 ML IV SCH (12:14)
[2021-08-08 15:03] LABS: BILIRUBIN,URINE NEGATIVE (NEGATIVE); BLOOD, URINE 2+ (NEGATIVE); CLARITY/URINE CLOUDY (CLEAR); COLOR,URINE YELLOW (YELLOW); GLUCOSE,URINE NEGATIVE (NEGATIVE); KETONES,URINE NEGATIVE (NEGATIVE); LEUKOCYTE ESTERASE ,URINE 2+ (NEGATIVE); NITRITE, URINE NEGATIVE (NEGATIVE); PROTEIN URINE 3+ (NEGATIVE); UROBILINOGEN,URINE 0.2 (0.2-1.0)
[2021-08-08 15:21] VITALS: BP_SYST 115
[2021-08-08 15:22] LABS: BACTERIA,URINE MANY /HPF (None Seen); CALCIUM OXALATE CRYSTALS,UR 0-10 /HPF (None Seen); RBC,URINE 20-50 /HPF (0-3); WBC,URINE >100 /HPF (0-3); YEAST,URINE Many /HPF (None Seen)
--- NOTE | 2021-08-08 18:00 | NUR ---
BLOOD SUGAR ELEVATED TO 422 MG/DL. CALLED AND NOTIFIED, GIVE ADDITIONAL 3 UNITS WITH REGULAR INSULIN 12 UNITS PER SLIDING SCALE TOTAL 15 UNITS PER ORDER.
[2021-08-08] MEDS ORDERED: INSULIN REGULAR, HUMAN 100 UNITS/ML, 10 ML VIAL SUBCUT ONE (18:15)
[2021-08-08 20:00] VITALS: BP_SYST 112
[2021-08-08] MEDS: ATORVASTATIN 20 MG TABLET PO SCH (21:16)
--- NOTE | 2021-08-08 21:22 | NUR ---
Meds, Accucheck Scheduled meds given via G-tube. 5ml residual was noted and returned. Also administered 100 ml FWF.
[2021-08-09 00:38] VITALS: BP_SYST 108
[2021-08-09] MEDS: DEXAMETHASONE SOD PHOSPHATE 10 MG/ML VIAL IVP SCH ×2 (00:46→06:14)
--- NOTE | 2021-08-09 00:46 | NUR ---
Decadron Administered via Midline, infused well, no s'sx of infiltration.
--- NOTE | 2021-08-09 04:00 | NUR ---
Patient care, wound care, pictures Patient was provided with bed bath, CHG bath, and linen change. Wound care and wound pictures were taken per hospital policy.
--- NOTE | 2021-08-09 04:35 | NUR ---
Central line dressing change Midline dressing change was done with use of sterile technique, per hospital policy.
[2021-08-09] MEDS: INSULIN REGULAR, HUMAN 100 UNITS/ML, 10 ML VIAL (humuLIN R) SUBCUT PRN ×4 (06:17→22:18)
[2021-08-09 07:23] LABS: BASOPHILS # (AUTO) 0.2 K/uL (0.0-0.2); BASOPHILS % (AUTO) 0.4 % (0.0-2.0); HEMATOCRIT 26.4 % (36-54); HEMOGLOBIN 8.5 g/dL (14.0-18.0); LYMPHOCYTES # (AUTO) 1.4 K/uL (1.0-5.5); LYMPHOCYTES % (AUTO) 3.1 % (20.5-51.5); MEAN CORPUSCULAR HEMOGLOBIN 29 pg (27-31); MEAN CORPUSCULAR HGB CONC 32 % (32-36); MEAN CORPUSCULAR VOLUME 89 fL (79.0-98.0); MONOCYTES # (AUTO) 0.5 K/uL (0.0-1.0); NEUTROPHILS # (AUTO) 43.9 K/uL (1.8-7.7); NEUTROPHILS % (AUTO) 95.5 % (40.0-70.0); RED BLOOD CELL COUNT(AUTO) 2.96 MIL/uL (4.2-6.2); RED CELL DISTRIBUTION WIDTH 16.2 % (9.0-15.0)
[2021-08-09 07:53] LABS: PLATELET COUNT (AUTO) 39 K/uL (130-430)
[2021-08-09 08:00] VITALS: BP_SYST 142
[2021-08-09 08:30] VITALS: BP_SYST 108
[2021-08-09] MEDS: FINASTERIDE 5 MG TABLET (PROSCAR) PO SCH (09:00)
[2021-08-09] MEDS: DOCUSATE SODIUM 100 MG CAPSULE PO SCH ×2 (09:00→22:07)
[2021-08-09] MEDS: amLODIPine BESYLATE 5 MG TABLET PO SCH (09:00)
[2021-08-09] MEDS: CITALOPRAM HYDROBROMIDE 20 MG TABLET PO SCH (09:00)
[2021-08-09] MEDS: TAMSULOSIN HCL 0.4 MG CAP PO SCH (09:00)
[2021-08-09 11:41] LABS: ANION GAP 12 (5-15); CALCIUM 7.6 mg/dL (8.4-11.0); CHLORIDE 100 mmol/L (98-107); CREATININE 3.22 mg/dL (0.55-1.30); GLUCOSE 316 mg/dL (70-99); POTASSIUM 4.4 mmol/L (3.5-5.1); SODIUM SERUM 136 mmol/L (136-145)
[2021-08-09 11:42] VITALS: BP_SYST 103
[2021-08-09 11:46] LABS: UREA NITROGEN, BLOOD 115 mg/dL (8-21)
[2021-08-09] MEDS: CEFEPIME 1 GM in D5W 50 ML IV SCH (11:55)
[2021-08-09] MEDS: BALSAM PERU/CASTOR OIL 56.7 GM OINT...G. TP SCH (12:07)
[2021-08-09] MEDS ORDERED: ALBUMIN HUMAN 25% 100 ML IV ONE ×2 (12:45→14:00)
[2021-08-09 16:11] VITALS: BP_SYST 106
[2021-08-09] MEDS: FAMOTIDINE 20 MG TABLET PO SCH (17:30)
[2021-08-09] MEDS: FOLIC ACID 1 MG TABLET PO SCH (17:30)
[2021-08-09] MEDS: MULTIVITAMINS TAB 1 TABLET PO SCH (17:30)
[2021-08-09] MEDS ORDERED: ARGATROBAN 250 MG in NS 247.5 ML IV SCH (18:45)
[2021-08-09 20:00] VITALS: BP_SYST 114
--- NOTE | 2021-08-09 20:55 | NUR ---
Dr. Best Paged and s/w DR. Best and he said to start Argatroban tonight and no need to re-check PTT in two hours, once it infuses only will need to check PTT once daily in am. I informed him Midline is leaking and will attempt to start an IV and if unable will get another midline; he said try to start tonight if, not possible then start as soon as get line.
[2021-08-09] MEDS: ATORVASTATIN 20 MG TABLET PO SCH (22:08)
[2021-08-09] MEDS: MIRTAZAPINE 15 MG TABLET PO SCH (22:08)
[2021-08-09] MEDS: FIDAXOMICIN 200 MG TABLET PO SCH (22:08)
--- NOTE | 2021-08-10 00:30 | NUR ---
IV start new IV started on LFA#22, by RADHA Sainz.
--- NOTE | 2021-08-10 00:45 | NUR ---
Pharmacy Charge nurse s/w night pharmacist at [phone]. Confirmed calculation and running rate for dose of Argatroban is to be 2.97 ml/hr.
--- NOTE | 2021-08-10 02:15 | NUR ---
wound care, patient care Flexi-seal leaking, provided pericare, new linen, new pad. Wound care and dressing changes done, will pdated [facility] chart
--- NOTE | 2021-08-10 02:20 | NUR ---
central line/midline dressing change Midline was moist/damp, and dressing loose. Midline dressing changed per hospital policy. Flushed each line w/ 10ml and no leaking noted, wctm
[2021-08-10] MEDS: INSULIN REGULAR, HUMAN 100 UNITS/ML, 10 ML VIAL (humuLIN R) SUBCUT PRN ×4 (06:45→21:16)
[2021-08-10 08:00] VITALS: BP_SYST 97
--- NOTE | 2021-08-10 08:22 | NUR ---
BLOOD CULTURE RESULTS RECEIVED. BLOOD CULTURE POSITIVE FOR YEAST, CDIFF POSITIVE AND NEEDS CBC LABS FOR AM. PAGED DR. HOOVER ID TO REPORT. AWAITING FOR CALL BACK.
--- NOTE | 2021-08-10 08:45 | NUR ---
ID MD DR FRITZ WAS CALLED, RE: C DIFF RESULT. SPOKE TO BENJAMÍN.
--- NOTE | 2021-08-10 09:02 | NUR ---
PTT 61.5 RESULT RECEIVED FROM LAB. PHARMACY WILL BE INFORMED.
[2021-08-10] MEDS ORDERED: DOCUSATE SODIUM 100 MG/10 ML UDC PO ONE (09:30)
[2021-08-10] MEDS: MULTIVITAMINS TAB 1 TABLET PO SCH (09:32)
[2021-08-10] MEDS: FOLIC ACID 1 MG TABLET PO SCH (09:32)
[2021-08-10] MEDS: TAMSULOSIN HCL 0.4 MG CAP PO SCH (09:32)
[2021-08-10] MEDS: CITALOPRAM HYDROBROMIDE 20 MG TABLET PO SCH (09:32)
[2021-08-10] MEDS: FINASTERIDE 5 MG TABLET (PROSCAR) PO SCH (09:32)
[2021-08-10] MEDS: FAMOTIDINE 20 MG TABLET PO SCH (09:33)
[2021-08-10] MEDS: amLODIPine BESYLATE 5 MG TABLET PO SCH (09:33)
[2021-08-10] MEDS: BALSAM PERU/CASTOR OIL 56.7 GM OINT...G. TP SCH (09:36)
[2021-08-10] MEDS: FIDAXOMICIN 200 MG TABLET PO SCH ×2 (09:36→20:55)
--- NOTE | 2021-08-10 10:10 | NUR ---
PAGED AND SPOKE TO DR. FRITZ AND INFORMED WITH BLOOD CULTURE POSITIVE FOR YEAST, POSITIVE FOR CDIFF, LEAKING MIDLINE AND CBC AND BMP WERE ORDERED BY GLOVE SEWER. ORDER RECEIVED FOR NEW MIDLINE PLACEMENT.
[2021-08-10 10:21] LABS: ANION GAP 8 (5-15); CHLORIDE 101 mmol/L (98-107); GLUCOSE 336 mg/dL (70-99); POTASSIUM 3.9 mmol/L (3.5-5.1); SODIUM SERUM 132 mmol/L (136-145); UREA NITROGEN, BLOOD 79 mg/dL (8-21)
[2021-08-10 10:24] LABS: BASOPHILS # (AUTO) 0.1 K/uL (0.0-0.2); BASOPHILS % (AUTO) 0.1 % (0.0-2.0); EOSINOPHILS % (AUTO) 0.1 % (0.0-4.0); HEMATOCRIT 23.5 % (36-54); HEMOGLOBIN 7.5 g/dL (14.0-18.0); LYMPHOCYTES # (AUTO) 1.3 K/uL (1.0-5.5); LYMPHOCYTES % (AUTO) 3.2 % (20.5-51.5); MEAN CORPUSCULAR HEMOGLOBIN 29 pg (27-31); MEAN CORPUSCULAR HGB CONC 32 % (32-36); MEAN CORPUSCULAR VOLUME 91 fL (79.0-98.0); MONOCYTES # (AUTO) 0.4 K/uL (0.0-1.0); MONOCYTES % (AUTO) 0.9 % (1.7-9.3); NEUTROPHILS # (AUTO) 39.8 K/uL (1.8-7.7); RED BLOOD CELL COUNT(AUTO) 2.59 MIL/uL (4.2-6.2); RED CELL DISTRIBUTION WIDTH 17.2 % (9.0-15.0)
--- NOTE | 2021-08-10 10:29 | NUR ---
latest results of cbc trending down white count. WBC 41.6, PLT 44, sputum culture rejected from regional lab. New specimen needed.
[2021-08-10 10:30] LABS: PLATELET COUNT (AUTO) 44 K/uL (130-430); WHITE BLOOD COUNT (AUTO) 41.6 K/uL (4.8-10.8)
--- NOTE | 2021-08-10 10:59 | NUR ---
Called Asia Villarreal the sister of patient to obtain consent for a new midline placement. Sister agrees.
[2021-08-10 11:09] LABS: CALCIUM 7.4 mg/dL (8.4-11.0)
[2021-08-10 12:50] VITALS: BP_SYST 101
[2021-08-10 13:33] LABS: NEUTROPHILS % (AUTO) 95.7 % (40.0-70.0)
--- NOTE | 2021-08-10 15:05 | NUR ---
DISCHARGE PLANNING Discussed dc planning with Dr Winn, states to try insurance if will auth LTAC, pt not stable for dc to SNF at this time. Called & spoke with Kalee at [facility] ph [phone], Casandra vazquez in, to fax updated progress note & will send to for LTAC review. Addendum: 08/10/21 at 1509 by Merissa Beaver RN Faxed updated pt info to [facility] fax [phone]
--- NOTE | 2021-08-10 15:35 | NUR ---
Nutrition F/U Admitting Diagnosis Decubitus R foot infection Reviewed Pertinent Medical/Surgical Hx Medical Record RN Pt Medical History Comment: HTN, DM, CVA, and BPH per physician notes Pt also found w/ severe malnutrition, complicated UTI-GNR, and R heel PU-infected d/t GNR/polymicrobial, ARF, septic shock, BECK, C diff, acute encephalopathy, and acute respiratory failure per physician notes. 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 Feed only when fully awake. Subjective Information: Per EMR review, pt is s/p PEG placement x6 days d/t anorexia and poor oral intake. Pt continues to received HD daily or every other day. Pt on 4 L NC. Jose score 12, multiple wounds and edema noted. Last BM x1 08/07. 0 mL GRV noted. DI visited pt at bedside and noted TF running, Nepro @50 mL/hr. DI called pts RN at ext [phone], RN reports pt is tolerating feeding well and is giving Roger and Prosource via GT. Current Diet Order/Nutrition Support: Renal pureed, HTL x6 days; Nepro 50 ml/hr, Free Water Flush: 100 ml Q6H (per ), Roger BID, Prosource daily via GT x6 days Patient/Significant Other Unable To Verbalize Education Provided Not Indicated Pertinent Medications: morphine, zofran, remeron, lipitor, SSI, folic acid, MVI, Pepcid Pertinent Labs: Na 132 L, BUN 79 H, Cr 2.40 H, BG 226 H, POC BG 292 H, WBC 41.6 H Height (Feet) 6 feet Height (Inches) 0.00 inches Weight (Pounds) 06/17: 167 pounds 07/06: 212#/96.4 kg questionable 45# wt gain 07/14: 251#/114.1 kg questionable wt gain 07/16: 227#/103.1 kg 24# wt loss possibly d/t fluid shifts a/w HD 07/21: 236#/107.2 kg 9# wt gain possibly d/t fluid shifts a/w HD 07/27: 198#/89.9 kg 38# wt loss possibly d/t fluid shifts a/w HD and/or poor PO intakes >2 weeks 07/31: 200#/90.8 kg 2# wt gain possibly d/t fluid shifts a/w HD 08/03: 224#/101.6 kg 24# wt gain possibly d/t fluid shifts a/w HD 08/06: 209#/94.8 kg - 15# wt loss possibly d/t fluid shifts a/w HD 08/09: 205#/97.7 kg 4# wt gain possibly d/t fluid shifts a/w HD Patient Weight 75.75 kg Body Mass Index 22.65 kg/m2 %IBW 94 [place]/Adjusted Body Weight 178#/81 kg; AdjBW: 168#/76.1 kg (-5.9% for BKA) (*ongoing) Estimated Energy Expenditure (kcals/day) 0017-8138 (30-35 kcals/kg AdjBW d/t BKA, HD, wound healing) (*ongoing) Estimated Protein Required (g/day) 95-114 g/day (1.25-1.5 gm/kg AdjBW d/t BKA, HD, wound healing) (*ongoing) Estimated Fluid Required (l/day) Per MD d/t ARF Problem/Etiology/Signs/Symptoms Increased nutritional needs R/T metabolic demands AEB estimated nutritional requirements for wound healing. (*ongoing) Altered nutrition-related labs R/T renal dysfunction AEB BUN 79 H, Cr 2.40 H and pt receiving HD. (*NEW) Altered nutrition-related labs R/T endocrine dysfunction AEB BG 336 H and POC BG 292 H. (*NEW) Expected Outcomes/Goals - Monitor EN tolerance w/ goal of pt meeting >80% of estimated nutritional needs, labs trending WNL, normal GI function, and skin integrity/wt maintenance Dietitian Recommendations * Nepro at 50 ml/hr (goal rate) x24 hours, Roger BID, Prosource daily, Free Water Flush: 100 ml Q6h (per physician d/t ARF) Provides: 2380 kcal/day, 117 gm protein/day, and 1272 ml free water/day Meets: 89% of upper end of estimated caloric needs and 103% of upper end of estimated protein needs * PO diet for oral grat per GI: Pureed, renal, HTL Follow Up Moderate Risk: F/U in 3-5 days Signed: 08/10/21 at 1535 by Analia NOLAND <Co-Signature Required> Co-Signed: 08/10/21 at [address]
--- NOTE | 2021-08-10 15:37 | NUR ---
Dietitian Recommendations * Nepro at 50 ml/hr (goal rate) x24 hours, Roger BID, Prosource daily, Free Water Flush: 100 ml Q6h (per physician d/t ARF) Provides: 2380 kcal/day, 117 gm protein/day, and 1272 ml free water/day Meets: 89% of upper end of estimated caloric needs and 103% of upper end of estimated protein needs * PO diet for oral grat per GI: Pureed, renal, HTL LP, RD Please refer to Nutrition F/U for details. Signed: 08/10/21 at 1539 by Analia NOLAND <Co-Signature Required> Co-Signed: 08/10/21 at [address]
[2021-08-10 16:40] VITALS: BP_SYST 102
[2021-08-10] MEDS: MICAFUNGIN SODIUM 100 MG in NS 100 ML IV SCH (16:45)
[2021-08-10] MEDS: EPOETIN ALFA-EPBX 4,000 UNITS/ML VIAL SUBCUT SCH (16:47)
[2021-08-10 20:50] VITALS: BP_SYST 105
[2021-08-10] MEDS: ATORVASTATIN 20 MG TABLET PO SCH (20:55)
[2021-08-10] MEDS: MIRTAZAPINE 15 MG TABLET PO SCH (20:55)
[2021-08-10] MEDS: DOCUSATE SODIUM 100 MG/10 ML UDC PO SCH (20:56)
[2021-08-11 00:40] VITALS: BP_SYST 97
--- NOTE | 2021-08-11 05:02 | NUR ---
ALL SUTURES REMOVED FORM R BKA STUMP PER ORDERS. STERI STRIPS PLACED ON INCISION. INCISION LINE INTACT. PT TOLERATED WELL.
[2021-08-11] MEDS: INSULIN REGULAR, HUMAN 100 UNITS/ML, 10 ML VIAL (humuLIN R) SUBCUT PRN ×4 (07:00→22:17)
--- NOTE | 2021-08-11 07:40 | NUR ---
Received patient in bed resting comfortably, AAOX1, non-verbal. No s/sx of pain or discomfort. Respirations are non-labored on 4LPM via nasal canula. Skin is clean, warm and dry to touch. IV access is patent, dry and intact, No s/sx of redness or swelling observed. Conner patent , draining by way of gravity. Rectal tube intact, secure. Bed is locked in lowest position, call light in reach. Nurse will continue care and monitor of changes in status
[2021-08-11] MEDS: CITALOPRAM HYDROBROMIDE 20 MG TABLET PO SCH (08:41)
[2021-08-11] MEDS: FAMOTIDINE 20 MG TABLET PO SCH (08:41)
[2021-08-11] MEDS: FOLIC ACID 1 MG TABLET PO SCH (08:41)
[2021-08-11] MEDS: MULTIVITAMINS TAB 1 TABLET PO SCH (08:41)
[2021-08-11] MEDS: FINASTERIDE 5 MG TABLET (PROSCAR) PO SCH (08:42)
[2021-08-11] MEDS: amLODIPine BESYLATE 5 MG TABLET PO SCH (08:42)
[2021-08-11] MEDS: BALSAM PERU/CASTOR OIL 56.7 GM OINT...G. TP SCH (08:43)
[2021-08-11] MEDS: DOCUSATE SODIUM 100 MG/10 ML UDC PO SCH ×2 (08:44→22:01)
[2021-08-11] MEDS: TAMSULOSIN HCL 0.4 MG CAP PO SCH (08:44)
[2021-08-11] MEDS: FIDAXOMICIN 200 MG TABLET PO SCH ×2 (08:50→22:02)
[2021-08-11 10:21] LABS: BASOPHILS % (AUTO) 0.1 % (0.0-2.0); EOSINOPHILS # (AUTO) 0.1 K/uL (0.0-0.4); EOSINOPHILS % (AUTO) 0.2 % (0.0-4.0); LYMPHOCYTES # (AUTO) 1.2 K/uL (1.0-5.5); LYMPHOCYTES % (AUTO) 3.7 % (20.5-51.5); MEAN CORPUSCULAR HEMOGLOBIN 29 pg (27-31); MEAN CORPUSCULAR HGB CONC 32 % (32-36); MEAN CORPUSCULAR VOLUME 91 fL (79.0-98.0); MONOCYTES # (AUTO) 0.2 K/uL (0.0-1.0); MONOCYTES % (AUTO) 0.6 % (1.7-9.3); NEUTROPHILS # (AUTO) 31.9 K/uL (1.8-7.7); RED BLOOD CELL COUNT(AUTO) 2.16 MIL/uL (4.2-6.2); RED CELL DISTRIBUTION WIDTH 17.9 % (9.0-15.0)
[2021-08-11 10:26] LABS: HEMATOCRIT 19.7 % (36-54); HEMOGLOBIN 6.3 g/dL (14.0-18.0); PLATELET COUNT (AUTO) 43 K/uL (130-430); WHITE BLOOD COUNT (AUTO) 33.5 K/uL (4.8-10.8)
[2021-08-11 10:34] VITALS: BP_SYST 102
--- NOTE | 2021-08-11 10:41 | NUR ---
Nurse paged Dr. Winn rerarding hgb=6.3, wbc=33.8. Awaiting call back for follow up and orders.
[2021-08-11] MEDS: MICAFUNGIN SODIUM 100 MG in NS 100 ML IV SCH (11:18)
[2021-08-11 11:38] VITALS: BP_SYST 133
[2021-08-11 11:45] LABS: NEUTROPHILS % (AUTO) 95.4 % (40.0-70.0)
--- NOTE | 2021-08-11 11:47 | NUR ---
Discharge Planning: DCP followed up with [facility] at [facility] P#[phone] confirming Rm 19 DCP made [facility] aware pt will not dc today. DCP canceled transport with [facility] [phone] with deena for dialysis today pt still admitted.
--- NOTE | 2021-08-11 12:36 | NUR ---
Patient in bed resting comfortably. No s/sx of pain or discomfort. Respirations are non-labored on 4LPM via nasal canula. Skin is clean, warm and dry to touch. IV access is patent, dry and intact, No s/sx of redness or swelling observed. Conner patent, draining by way of gravity. Rectal tube intact, secure. Bed is locked in lowest position, call light in reach. Nurse will continue care and monitor of changes in status.
[2021-08-11 16:30] VITALS: BP_SYST 128
--- NOTE | 2021-08-11 18:40 | NUR ---
Patient in bed resting comfortably. No s/sx of pain or discomfort. Respirations are non-labored on 4LPM via nasal canula. Skin is clean, warm and dry to touch. IV access is patent, dry and intact, No s/sx of redness or swelling observed. Conner patent, draining by way of gravity. Rectal tube intact, secure. Bed is locked in lowest position, call light in reach. Nurse will endorse patient to hourly shift nurse for continue care.
[2021-08-11 20:07] VITALS: BP_SYST 144
[2021-08-11] MEDS: ATORVASTATIN 20 MG TABLET PO SCH (22:01)
[2021-08-11] MEDS: MIRTAZAPINE 15 MG TABLET PO SCH (22:02)
[2021-08-12 00:39] VITALS: BP_SYST 125
[2021-08-12] MEDS: INSULIN REGULAR, HUMAN 100 UNITS/ML, 10 ML VIAL (humuLIN R) SUBCUT PRN ×4 (06:13→22:31)
[2021-08-12 08:00] VITALS: BP_SYST 144
[2021-08-12] MEDS: FIDAXOMICIN 200 MG TABLET PO SCH ×2 (08:59→22:28)
[2021-08-12] MEDS: DOCUSATE SODIUM 100 MG/10 ML UDC PO SCH ×2 (09:00→22:27)
[2021-08-12] MEDS: FINASTERIDE 5 MG TABLET (PROSCAR) PO SCH (09:00)
[2021-08-12] MEDS: FAMOTIDINE 20 MG TABLET PO SCH (09:01)
[2021-08-12] MEDS: amLODIPine BESYLATE 5 MG TABLET PO SCH (09:01)
[2021-08-12] MEDS: FOLIC ACID 1 MG TABLET PO SCH (09:02)
[2021-08-12] MEDS: CITALOPRAM HYDROBROMIDE 20 MG TABLET PO SCH (09:02)
[2021-08-12] MEDS: MULTIVITAMINS TAB 1 TABLET PO SCH (09:03)
[2021-08-12] MEDS: TAMSULOSIN HCL 0.4 MG CAP PO SCH (09:04)
[2021-08-12] MEDS: BALSAM PERU/CASTOR OIL 56.7 GM OINT...G. TP SCH (09:05)
[2021-08-12 09:52] VITALS: BP_SYST 125
[2021-08-12] MEDS: MICAFUNGIN SODIUM 100 MG in NS 100 ML IV SCH (11:20)
[2021-08-12 12:54] VITALS: BP_SYST 140
[2021-08-12 16:12] VITALS: BP_SYST 125
[2021-08-12] MEDS: EPOETIN ALFA-EPBX 4,000 UNITS/ML VIAL SUBCUT SCH (16:59)
--- NOTE | 2021-08-12 18:21 | NUR ---
0800: PATIENT IS ASLEEP AROUSABLE WITH VERBAL STIMULI, ORIENTED X 1 TO NAME, OPEN EYES AND TURN TOWARD VOICE WHEN CALLED. NO S/S OF ANY ACUTE DISTRESS NOTED. UNABLE TO VERBALIZE NEEDS, CONTINUE TO REASSESS PAIN LEVEL Q HOURLY AND PRN. ABDOMEN SOFT, OBESE NO TENDERNESS NOTED ON PALPATION, G-TUBE IN PLACE, PATENT WITH ONGOING FEEDING TOLERATED WELL NO RESIDUAL NOTED. SKIN WARM AND DRY WITH MULTIPLE SKIN PROBLEM, TREATMENT INITIATED PER PROTOCOL. WILL CONTINUE TO REASSESS PATIENT AND INTERVENE PRN. 1800: VS REMAIN STABLE, W/O ANY CHANGES IN OVERALL CONDITION. WILL CONTINUE TO MONITOR PATIENT.
[2021-08-12 21:00] VITALS: BP_SYST 135
[2021-08-12] MEDS: ATORVASTATIN 20 MG TABLET PO SCH (22:28)
[2021-08-12] MEDS: MIRTAZAPINE 15 MG TABLET PO SCH (22:29)
--- NOTE | 2021-08-12 22:45 | NUR ---
BLOOD SUGAR GLUCOSE 283 mg dl no DIABETIC Reaction noted sliding scale insulin Regular as ordered .
--- NOTE | 2021-08-12 23:15 | NUR ---
MEDICATION VERIFICATION; PRIMARY RN CAME AND TOLD ME THAT PTS ARGATROBAN MEDICATION IS ALMOST FINISHED AND ITS RUNNING AT 3 ML/HR . CHECKED THE ORDER AND NOTICED THAT IT SAYS STARTING RATE 0.4 MCG/KG/MIN , NOTICED THAT ITS SUPPOSE TO RUN AT 2.32 ML FOR A WEIGHT OF 96.7 KG ,CALLED AND TALKED WITH OUTSIDE PHARMACIST PAMELA AND HE AGREED WITH THAT BUT HE ASKED ME TO CHECK WHEN DID THE RN CHANGED THE RATE , INFORMED HIM THAT NOT SHOWING THE INFORMATION ABOUT IT . WHO CHANGED IT OR WHEN IT WAS CHANGED ? . PHARMACIST ASKED ME TO "KEEP IT AT 3 ML /HR AND CHECK APTT IN AM AND ASK OUR [facility] TO VERIFY THE RATE ,SINCE WE DONT KNOW IT WAS ADJUSTED BY MD TODAY PER APTT ". PRIMARY RN WAS AT MY SIDE WHILE I WAS TALKING WITH PHARMACIST AND NOTIFIED HIM WHAT PHARMACIST TOLD ME .
--- NOTE | 2021-08-13 00:27 | NUR ---
ARGATROBAN 250 MG ANTICOAGULATION infusing NO ACTIVE BLEEDING NOTED .
--- NOTE | 2021-08-13 00:37 | NUR ---
TURNING & Reposition patient on two hour schedule off loading with pillows for comfort measures no SOB kept clean also dry as needed continue to monitor .
[2021-08-13 01:10] VITALS: BP_SYST 134
--- NOTE | 2021-08-13 04:30 | NUR ---
BED BATH GIVEN , wound care performed as ordered , position change implemented & tolerated / .
[2021-08-13] MEDS: INSULIN REGULAR, HUMAN 100 UNITS/ML, 10 ML VIAL (humuLIN R) SUBCUT PRN ×4 (06:30→22:12)
[2021-08-13 07:00] LABS: MEAN CORPUSCULAR HEMOGLOBIN 28 pg (27-31); MEAN CORPUSCULAR HGB CONC 32 % (32-36); MEAN CORPUSCULAR VOLUME 88 fL (79.0-98.0); PLATELET COUNT (AUTO) 66 K/uL (130-430); RED BLOOD CELL COUNT(AUTO) 2.45 MIL/uL (4.2-6.2); RED CELL DISTRIBUTION WIDTH 19.3 % (9.0-15.0)
[2021-08-13 07:40] LABS: ANION GAP 12 (5-15); CHLORIDE 98 mmol/L (98-107); CREATININE 2.47 mg/dL (0.55-1.30); GLUCOSE 304 mg/dL (70-99); POTASSIUM 3.7 mmol/L (3.5-5.1); SODIUM SERUM 132 mmol/L (136-145); UREA NITROGEN, BLOOD 87 mg/dL (8-21)
[2021-08-13 07:47] LABS: CALCIUM 6.8 mg/dL (8.4-11.0)
[2021-08-13 08:00] VITALS: BP_SYST 127
[2021-08-13 08:56] LABS: WHITE BLOOD COUNT (AUTO) 30.6 K/uL (4.8-10.8)
[2021-08-13 08:57] LABS: HEMATOCRIT 21.5 % (36-54)
[2021-08-13] MEDS: DOCUSATE SODIUM 100 MG/10 ML UDC PO SCH ×2 (09:31→22:08)
[2021-08-13] MEDS: MICAFUNGIN SODIUM 100 MG in NS 100 ML IV SCH (09:32)
[2021-08-13] MEDS: FIDAXOMICIN 200 MG TABLET PO SCH ×2 (09:32→22:09)
[2021-08-13] MEDS: FAMOTIDINE 20 MG TABLET PO SCH (09:32)
[2021-08-13] MEDS: FINASTERIDE 5 MG TABLET (PROSCAR) PO SCH (09:32)
[2021-08-13] MEDS: TAMSULOSIN HCL 0.4 MG CAP PO SCH (09:33)
[2021-08-13] MEDS: FOLIC ACID 1 MG TABLET PO SCH (09:33)
[2021-08-13] MEDS: CITALOPRAM HYDROBROMIDE 20 MG TABLET PO SCH (09:34)
[2021-08-13] MEDS: MULTIVITAMINS TAB 1 TABLET PO SCH (09:34)
[2021-08-13] MEDS: amLODIPine BESYLATE 5 MG TABLET PO SCH (09:34)
[2021-08-13] MEDS: BALSAM PERU/CASTOR OIL 56.7 GM OINT...G. TP SCH (09:36)
[2021-08-13 11:36] VITALS: BP_SYST 144
[2021-08-13 12:09] LABS: BAND % (MANUAL) 12 % (0-6); LYMPHOCYTES % (MANUAL) 4 % (20-46)
[2021-08-13 12:10] LABS: BASOPHILS % (MANUAL) 0 % (0-2); EOSINOPHILS % (MANUAL) 0 % (0-7); METAMYELOCYTES % 2 % (0-0); MONOCYTES % (MANUAL) 3 % (0-11)
[2021-08-13 15:14] VITALS: BP_SYST 134
--- NOTE | 2021-08-13 20:30 | NUR ---
HEMODIALYSIS FOR AM , DOCUMENT Given to Diana Sup.
[2021-08-13 21:00] VITALS: BP_SYST 135
[2021-08-13] MEDS: ATORVASTATIN 20 MG TABLET PO SCH (22:08)
[2021-08-13] MEDS: MIRTAZAPINE 15 MG TABLET PO SCH (22:10)
--- NOTE | 2021-08-13 22:56 | NUR ---
ARGATROBAN 250 MG drip 0.5 mcg / kg / minute @ 3 ML / HR
--- NOTE | 2021-08-13 22:57 | NUR ---
No EVIDENCE of bleeding noted , chest movement symmetrical .
[2021-08-14 00:25] VITALS: BP_SYST 121
--- NOTE | 2021-08-14 06:12 | NUR ---
wound care done provided as ordered patient tolerate position change also on schedule tolerated .
[2021-08-14] MEDS: INSULIN REGULAR, HUMAN 100 UNITS/ML, 10 ML VIAL (humuLIN R) SUBCUT PRN ×4 (06:32→22:58)
[2021-08-14 07:26] LABS: BASOPHILS # (AUTO) 0.1 K/uL (0.0-0.2); BASOPHILS % (AUTO) 0.2 % (0.0-2.0); EOSINOPHILS # (AUTO) 0.1 K/uL (0.0-0.4); EOSINOPHILS % (AUTO) 0.3 % (0.0-4.0); LYMPHOCYTES # (AUTO) 1.2 K/uL (1.0-5.5); LYMPHOCYTES % (AUTO) 3.8 % (20.5-51.5); MEAN CORPUSCULAR HEMOGLOBIN 28 pg (27-31); MEAN CORPUSCULAR HGB CONC 32 % (32-36); MEAN CORPUSCULAR VOLUME 87 fL (79.0-98.0); MONOCYTES # (AUTO) 0.5 K/uL (0.0-1.0); MONOCYTES % (AUTO) 1.4 % (1.7-9.3); NEUTROPHILS # (AUTO) 29.6 K/uL (1.8-7.7); PLATELET COUNT (AUTO) 63 K/uL (130-430); RED BLOOD CELL COUNT(AUTO) 2.51 MIL/uL (4.2-6.2); RED CELL DISTRIBUTION WIDTH 18.9 % (9.0-15.0)
[2021-08-14 07:51] LABS: ALANINE AMINOTRANSFERASE 34 U/L (12-78); ANION GAP 12 (5-15); ASPARTATE AMINOTRANSFERASE 42 U/L (10-37); CALCIUM 7.5 mg/dL (8.4-11.0); CHLORIDE 99 mmol/L (98-107); CREATININE 2.84 mg/dL (0.55-1.30); GLUCOSE 253 mg/dL (70-99); POTASSIUM 4.3 mmol/L (3.5-5.1); SODIUM SERUM 135 mmol/L (136-145); TOTAL BILIRUBIN 0.1 mg/dL (0.0-1.0)
[2021-08-14 08:00] VITALS: BP_SYST 113
--- NOTE | 2021-08-14 08:33 | NUR ---
critical value from lab, Diamante reporting BUN 101
[2021-08-14 08:34] LABS: UREA NITROGEN, BLOOD 101 mg/dL (8-21)
--- NOTE | 2021-08-14 08:50 | NUR ---
critical lab report from Asia castellano reporting WBC's 31.4 and HCT 21.7
[2021-08-14 08:56] LABS: WHITE BLOOD COUNT (AUTO) 31.4 K/uL (4.8-10.8)
[2021-08-14 08:57] LABS: HEMATOCRIT 21.7 % (36-54); NEUTROPHILS % (AUTO) 94.3 % (40.0-70.0)
[2021-08-14] MEDS: amLODIPine BESYLATE 5 MG TABLET PO SCH (09:00)
[2021-08-14] MEDS: TAMSULOSIN HCL 0.4 MG CAP PO SCH (09:31)
[2021-08-14] MEDS: FOLIC ACID 1 MG TABLET PO SCH (09:31)
[2021-08-14] MEDS: FAMOTIDINE 20 MG TABLET PO SCH (09:32)
[2021-08-14] MEDS: MULTIVITAMINS TAB 1 TABLET PO SCH (09:32)
[2021-08-14] MEDS: FINASTERIDE 5 MG TABLET (PROSCAR) PO SCH (09:32)
[2021-08-14] MEDS: CITALOPRAM HYDROBROMIDE 20 MG TABLET PO SCH (09:32)
[2021-08-14] MEDS: BALSAM PERU/CASTOR OIL 56.7 GM OINT...G. TP SCH (09:33)
[2021-08-14] MEDS: DOCUSATE SODIUM 100 MG/10 ML UDC PO SCH ×2 (09:42→22:50)
[2021-08-14] MEDS: FIDAXOMICIN 200 MG TABLET PO SCH ×2 (09:42→22:49)
[2021-08-14] MEDS: MICAFUNGIN SODIUM 100 MG in NS 100 ML IV SCH (11:00)
[2021-08-14] MEDS ORDERED: ALBUMIN HUMAN 25% 100 ML IV ONE ×2 (11:15→11:45)
[2021-08-14 12:32] VITALS: BP_SYST 100
--- NOTE | 2021-08-14 15:19 | NUR ---
Spoke w/FAN Regalado at [facility], , regarding [facility] authorization. She will sent the request for [facility] to her medical officer psychiatry, and get back to me regarding approval for LT[facility].
[2021-08-14 16:30] VITALS: BP_SYST 103
[2021-08-14] MEDS: EPOETIN ALFA-EPBX 4,000 UNITS/ML VIAL SUBCUT SCH (17:08)
[2021-08-14 20:00] VITALS: BP_SYST 115
--- NOTE | 2021-08-14 20:47 | NUR ---
G-tube feeding Feeding was empty. Hung new bottle of Nepro. 5 ml residual noted and returned. Resumed at ordered rate of 50 ml/hr.
[2021-08-14] MEDS: MIRTAZAPINE 15 MG TABLET PO SCH (22:48)
[2021-08-14] MEDS: ATORVASTATIN 20 MG TABLET PO SCH (22:49)
[2021-08-15] VITALS: BP_SYST 111
[2021-08-15] MEDS: CITALOPRAM HYDROBROMIDE 20 MG TABLET PO SCH (10:01)
[2021-08-15] MEDS: FOLIC ACID 1 MG TABLET PO SCH (10:01)
[2021-08-15] MEDS: DOCUSATE SODIUM 100 MG/10 ML UDC PO SCH ×2 (10:01→21:57)
[2021-08-15] MEDS: amLODIPine BESYLATE 5 MG TABLET PO SCH (10:02)
[2021-08-15] MEDS: BALSAM PERU/CASTOR OIL 56.7 GM OINT...G. TP SCH (10:03)
[2021-08-15] MEDS: FIDAXOMICIN 200 MG TABLET PO SCH ×2 (10:03→21:57)
[2021-08-15 11:22] LABS: BASOPHILS % (AUTO) 0.1 % (0.0-2.0); EOSINOPHILS # (AUTO) 0.1 K/uL (0.0-0.4); EOSINOPHILS % (AUTO) 0.2 % (0.0-4.0); LYMPHOCYTES # (AUTO) 1.2 K/uL (1.0-5.5); LYMPHOCYTES % (AUTO) 3.3 % (20.5-51.5); MEAN CORPUSCULAR HEMOGLOBIN 28 pg (27-31); MEAN CORPUSCULAR HGB CONC 32 % (32-36); MEAN CORPUSCULAR VOLUME 88 fL (79.0-98.0); MONOCYTES # (AUTO) 0.5 K/uL (0.0-1.0); MONOCYTES % (AUTO) 1.3 % (1.7-9.3); NEUTROPHILS # (AUTO) 34.8 K/uL (1.8-7.7); PLATELET COUNT (AUTO) 72 K/uL (130-430); RED BLOOD CELL COUNT(AUTO) 2.24 MIL/uL (4.2-6.2); RED CELL DISTRIBUTION WIDTH 18.4 % (9.0-15.0)
[2021-08-15] MEDS: MICAFUNGIN SODIUM 100 MG in NS 100 ML IV SCH (11:27)
[2021-08-15 11:29] LABS: WHITE BLOOD COUNT (AUTO) 36.6 K/uL (4.8-10.8)
[2021-08-15 11:30] LABS: HEMATOCRIT 19.6 % (36-54); HEMOGLOBIN 6.3 g/dL (14.0-18.0); NEUTROPHILS % (AUTO) 95.1 % (40.0-70.0)
[2021-08-15] MEDS: INSULIN REGULAR, HUMAN 100 UNITS/ML, 10 ML VIAL (humuLIN R) SUBCUT PRN ×3 (11:45→22:06)
--- NOTE | 2021-08-15 12:15 | NUR ---
katie called from lab with critical value of WBC 36.6, Hemoglobin 6.3, HCT 19.6
[2021-08-15 12:30] VITALS: BP_SYST 95
--- NOTE | 2021-08-15 12:36 | NUR ---
spoke with Pa regarding critical values and expiring medications for pt, Dr aware of results, ordering 2 units of blood to be infused with tomorrow's dialysis, reviewing expiring medications later today for patient
--- NOTE | 2021-08-15 14:40 | NUR ---
Nutrition F/U Admitting Diagnosis Decubitus R foot infection Reviewed Pertinent Medical/Surgical Hx Medical Record RN Pt Medical History Comment: HTN, DM, CVA, and BPH per physician notes. Pt also found w/ severe malnutrition, complicated UTI-GNR, and R heel PU-infected d/t GNR/polymicrobial, ARF, septic shock, BECK, C diff, acute encephalopathy, and acute respiratory failure per physician notes. 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 Feed only when fully awake. Subjective Information: Pt due for moderate risk F/U. Per EMR review, pt is s/p PEG placement d/t anorexia and poor oral intake. Pt continues to receive HD daily or every other day. Pt on 2 L NC. Jose score 12, multiple wounds and edema noted. Last BM x2 08/12. Per MD note, pt w/ recurrent C. diff, pt is positive again and having diarrhea. DI visited pt at bedside and noted TF off, Nepro hanging. DI spoke to pts RN, RN reports they turned TF off d/t high residuals of 180 mL. DI informed RN that TF should only be turned off when residuals are 400 mL. RN reports they will turn TF back on. Current Diet Order/Nutrition Support: Renal pureed, HTL x11 days; Nepro 50 ml/hr, Free Water Flush: 100 ml Q6H (per ), Roger BID, Prosource daily via GT x11 days Patient/Significant Other Unable To Verbalize Education Provided Not Indicated Pertinent Medications: zofran, remeron, SSI, folic acid, colace Pertinent Labs: 08/14: BUN 101 H, Cr 2.84 H, BG 253 H, POC BG 160 H, AST 42 H, WBC 36.6 H Height (Feet) 6 feet Height (Inches) 0.00 inches Weight (Pounds) 06/17: 167 pounds 07/06: 212#/96.4 kg questionable 45# wt gain 07/14: 251#/114.1 kg questionable wt gain 07/16: 227#/103.1 kg 24# wt loss possibly d/t fluid shifts a/w HD 07/21: 236#/107.2 kg 9# wt gain possibly d/t fluid shifts a/w HD 07/27: 198#/89.9 kg 38# wt loss possibly d/t fluid shifts a/w HD and/or poor PO intakes >2 weeks 07/31: 200#/90.8 kg 2# wt gain possibly d/t fluid shifts a/w HD 08/03: 224#/101.6 kg 24# wt gain possibly d/t fluid shifts a/w HD 08/06: 209#/94.8 kg - 15# wt loss possibly d/t fluid shifts a/w HD 08/09: 205#/97.7 kg 4# wt gain possibly d/t fluid shifts a/w HD 08/14: 221#/100.5 kg 16# wt gain possibly d/t fluid shifts a/w HD Patient Weight 75.75 kg Body Mass Index 22.65 kg/m2 %IBW 94 [place]/Adjusted Body Weight 178#/81 kg; AdjBW: 168#/76.1 kg (-5.9% for BKA) (*ongoing) Estimated Energy Expenditure (kcals/day) 1229-8393 (30-35 kcals/kg AdjBW d/t BKA, HD, wound healing) (*ongoing) Estimated Protein Required (g/day) 95-114 g/day (1.25-1.5 gm/kg AdjBW d/t BKA, HD, wound healing) (*ongoing) Estimated Fluid Required (l/day) Per MD d/t ARF Problem/Etiology/Signs/Symptoms Increased nutritional needs R/T metabolic demands AEB estimated nutritional requirements for wound healing. (*ongoing) Altered nutrition-related labs R/T renal dysfunction AEB BUN 79 H, Cr 2.40 H and pt receiving HD. (*ongoing) Altered nutrition-related labs R/T endocrine dysfunction AEB BG 336 H and POC BG 292 H. (*ongoing) Expected Outcomes/Goals - Monitor EN tolerance w/ goal of pt meeting >80% of estimated nutritional needs, labs trending WNL, normal GI function, and skin integrity/wt maintenance Dietitian Recommendations * Nepro at 50 ml/hr (goal rate) x24 hours, Roger BID, Prosource daily, Free Water Flush: 100 ml Q6h (per physician d/t ARF) Provides: 2380 kcal/day, 117 gm protein/day, and 1272 ml free water/day Meets: 89% of upper end of estimated caloric needs and 103% of upper end of estimated protein needs * PO diet for oral grat per GI: Pureed, renal, HTL Follow Up Moderate Risk: F/U in 3-5 days Signed: 08/15/21 at 1441 by Analia NOLAND <Co-Signature Required> Co-Signed: 08/15/21 at [address]
--- NOTE | 2021-08-15 14:41 | NUR ---
Dietitian Recommendations * Nepro at 50 ml/hr (goal rate) x24 hours, Roger BID, Prosource daily, Free Water Flush: 100 ml Q6h (per physician d/t ARF) Provides: 2380 kcal/day, 117 gm protein/day, and 1272 ml free water/day Meets: 89% of upper end of estimated caloric needs and 103% of upper end of estimated protein needs * PO diet for oral grat per GI: Pureed, renal, HTL Please refer to nutrition f/u for details. Signed: 08/15/21 at 1442 by Analia NOLAND <Co-Signature Required> Co-Signed: 08/15/21 at [address]
[2021-08-15 17:03] VITALS: BP_SYST 118
--- NOTE | 2021-08-15 17:19 | NUR ---
BS 196, 2 units Regular insulin given
[2021-08-15 20:00] VITALS: BP_SYST 117
[2021-08-15] MEDS: MIRTAZAPINE 15 MG TABLET PO SCH (21:57)
[2021-08-16 02:01] VITALS: BP_SYST 143
[2021-08-16] MEDS: INSULIN REGULAR, HUMAN 100 UNITS/ML, 10 ML VIAL (humuLIN R) SUBCUT PRN ×4 (06:13→20:56)
--- NOTE | 2021-08-16 07:45 | NUR ---
Received patient from pm nurse lying in bed resting comfortably. No s/sx of pain or discomfort. Respirations are non-labored on 4LPM via nasal canula. Skin is clean, warm and dry to touch. IV. Conner patent, draining by way of gravity. Rectal tube intact, secure. Bed is locked in lowest position, call light in reach.
[2021-08-16 08:09] LABS: BASOPHILS % (AUTO) 0.1 % (0.0-2.0); EOSINOPHILS # (AUTO) 0.1 K/uL (0.0-0.4); EOSINOPHILS % (AUTO) 0.1 % (0.0-4.0); LYMPHOCYTES # (AUTO) 1.6 K/uL (1.0-5.5); LYMPHOCYTES % (AUTO) 4.2 % (20.5-51.5); MEAN CORPUSCULAR HEMOGLOBIN 28 pg (27-31); MEAN CORPUSCULAR HGB CONC 32 % (32-36); MEAN CORPUSCULAR VOLUME 88 fL (79.0-98.0); MONOCYTES # (AUTO) 0.6 K/uL (0.0-1.0); MONOCYTES % (AUTO) 1.6 % (1.7-9.3); NEUTROPHILS # (AUTO) 34.6 K/uL (1.8-7.7); PLATELET COUNT (AUTO) 87 K/uL (130-430); RED CELL DISTRIBUTION WIDTH 17.5 % (9.0-15.0)
[2021-08-16 08:30] LABS: HEMATOCRIT 18.5 % (36-54); HEMOGLOBIN 5.9 g/dL (14.0-18.0); WHITE BLOOD COUNT (AUTO) 36.9 K/uL (4.8-10.8)
--- NOTE | 2021-08-16 09:15 | NUR ---
Telephone call from lab reporting pt has hgb of 5.9 hct of 18.5, aware, patient will have 2 units prbc administered during dialysis today
[2021-08-16] MEDS: CITALOPRAM HYDROBROMIDE 20 MG TABLET PO SCH (09:39)
[2021-08-16] MEDS: DOCUSATE SODIUM 100 MG/10 ML UDC PO SCH ×2 (09:39→20:49)
[2021-08-16] MEDS: amLODIPine BESYLATE 5 MG TABLET PO SCH (09:40)
[2021-08-16] MEDS: BALSAM PERU/CASTOR OIL 56.7 GM OINT...G. TP SCH (09:40)
[2021-08-16] MEDS: FOLIC ACID 1 MG TABLET PO SCH (09:40)
--- NOTE | 2021-08-16 11:45 | NUR ---
blood sugar 180, 2 units of R insulin administered
[2021-08-16 11:54] VITALS: BP_SYST 132
[2021-08-16] MEDS: MICAFUNGIN SODIUM 100 MG in NS 100 ML IV SCH (11:57)
[2021-08-16 16:30] VITALS: BP_SYST 105
--- NOTE | 2021-08-16 16:30 | NUR ---
dialysis and blood transfusion complete, no s/sx of adverse reaction or distress, 2units PRBC infused, 1 l of fluid out
[2021-08-16 19:00] VITALS: BP_SYST 112
--- NOTE | 2021-08-16 19:15 | NUR ---
change of shift.pt.presents isolation status contact;stool;c-diff.pt.presents hemo-dislysis session:1;litre removed.h/h low status prbc's:2-u administered via hemo-dialysis.h/d access:perma cath location rt.svc.intact.pt.presents mid-line location lt.bicept.intact iv fluids infusing. pt.presents g-tube intact g-tube feed:nepro:04/29 infusing.rate:50ml/hr.pt.presents bonilla cath/rectal-tube intact.call ligth/telephone w/in access of the pt.
[2021-08-16 20:00] VITALS: BP_SYST 112
--- NOTE | 2021-08-16 20:00 | NUR ---
pt.asSESSED.v/s assessed values wnl.oral care/suction attended to.02-sat%=92%.perma cath intact,mid-line intact iv fluids infusing.g-tube intact g-tube feed infusing.bonilla cath/rectal tube intact urine/fecal matter present.per flacc pain mgx pt.absent facial grimaces/body posturing.pt.assessed for cleanliness.pt.repositioned.call light/telephone placed w/in access of the pt.
--- NOTE | 2021-08-16 20:30 | NUR ---
blood glucose assessed value;202mg/dl.
[2021-08-16] MEDS: FIDAXOMICIN 200 MG TABLET PO SCH (20:50)
[2021-08-16] MEDS: MIRTAZAPINE 15 MG TABLET PO SCH (20:50)
--- NOTE | 2021-08-16 21:00 | NUR ---
2100p medications administered via g-tube.g-tube flushed w/out difficulty.note g-tube feed residuals:10ml. per flacc pain mgx pt.absent facial grimaces/body posturing.
--- NOTE | 2021-08-16 22:00 | NUR ---
pt.assessed.i have attended to the oral care/suction.02-sat%=92%.perma-cath intact.mid-line intact iv fluids infusing.g-tube intact g-tube feed infusing.bonilla cath/rectal tube intact urine/fecal matter present.per flacc pain mgx pt.absent facial grimaces/body posturing.pt.assessed for cleanliness.pt.repositioned.call light/telephone placed w/in access of the pt.
--- NOTE | 2021-08-17 | NUR ---
pt.assessed.v/s assessed values wnl.note b/p status.i have attended to the oral care/suction.02-sat%=92%.perma cath intact mid-line intact iv fluids infusing.g-tube intact g-tube feed infusing.g-tube feed residuals note 10ml.g-tube flushed administered. bonilla cath/rectal tube intact urine/fecal matter present.per flacc pain mgx pt.absent facial grimaces/body posturing.pt.assessed for cleanliness.pt.repositioned.call light/telephone placed w/in access of the pt.
[2021-08-17 01:33] VITALS: BP_SYST 115
--- NOTE | 2021-08-17 02:00 | NUR ---
pt.assessed.i have attended to the oral care/suction.02-sat%=94%.mid-line intact iv fluids infusing.g-tube intact g-tube feed infusing.bonilla cath/rectal tube intact urine/fecal matter present.per flacc pain mgx pt.absent facial grimaces/body posturing. pt.assessed for cleanliness.pt.repositioned.call light/telephone placed w/in access of the pt.
[2021-08-17] MEDS: INSULIN REGULAR, HUMAN 100 UNITS/ML, 10 ML VIAL (humuLIN R) SUBCUT PRN ×2 (05:29→12:32)
--- NOTE | 2021-08-17 06:18 | NUR ---
pt.assessed.i have attended to the oral care/suction.o2-sat%=94%.mid-line intact iv fluids infusing.g-tube intact g-tube feed infusing.i have administered g-tube flush.bonilla cath/rectal tube intact urine/fecal matter present.per flacc pain mgx pt.absent facial grimaces/body posturing.pt.assessed for cleanliness.pt.repositioned.pt.weighed 2/t hemo-dialysis protocol.i have attended to the wound care/dsg changes.mid-line/g-tube dsg changed.call light/telephone placed w/in access of the pt.
--- NOTE | 2021-08-17 07:30 | NUR ---
PATIENT IN BED, NO S/S OF DISTRESS, ON 5L NASAL CANULA, LIZ DRAINING URINE TO GRAVITY, RECTAL TUBE IN PLACE, LEFT UPPER ARM MIDLINE INTACT CLEAN DRY RUNNING NS TKO WITH BOTH PORTS HAVING BLOOD RETURN AND FLUSHING WELL, RIGHT BELOW THE KNEE AMPUTATION CLEAN DRY INTACT, REPORT FROM [facility] THAT PATIENT HAS WOUNDS ON SACRUM, BUTTOCKS, AND LEFT LOWER EXTREMITY AND THAT WOUND CARE WAS DONE DURING THE NIGHT, PATIENT IS CONFUSED AND PER REPORT ONLY STATES "NO" DURING CLEANINGS, DRESSINGS ARE CLEAN DRY AND INTACT, AIR MATTRESS IN PLACE, BED IN LOWEST LOCKED POSITION, ISOLATION FOR C. DIF, SAFETY MEASURES IN PLACE WILL CONTINUE TO MONITOR.
[2021-08-17 08:00] VITALS: BP_SYST 92
[2021-08-17 08:08] LABS: BASOPHILS % (AUTO) 0.2 % (0.0-2.0); HEMATOCRIT 27.1 % (36-54); HEMOGLOBIN 8.8 g/dL (14.0-18.0); LYMPHOCYTES % (AUTO) 3.6 % (20.5-51.5); MEAN CORPUSCULAR HEMOGLOBIN 27 pg (27-31); MEAN CORPUSCULAR HGB CONC 33 % (32-36); MEAN CORPUSCULAR VOLUME 84 fL (79.0-98.0); MONOCYTES # (AUTO) 0.2 K/uL (0.0-1.0); MONOCYTES % (AUTO) 0.7 % (1.7-9.3); NEUTROPHILS # (AUTO) 26.3 K/uL (1.8-7.7); PLATELET COUNT (AUTO) 79 K/uL (130-430); RED BLOOD CELL COUNT(AUTO) 3.21 MIL/uL (4.2-6.2); RED CELL DISTRIBUTION WIDTH 17.7 % (9.0-15.0); WHITE BLOOD COUNT (AUTO) 27.5 K/uL (4.8-10.8)
[2021-08-17] MEDS: amLODIPine BESYLATE 5 MG TABLET PO SCH (09:00)
[2021-08-17 09:10] LABS: NEUTROPHILS % (AUTO) 95.5 % (40.0-70.0)
[2021-08-17] MEDS: DOCUSATE SODIUM 100 MG/10 ML UDC PO SCH ×2 (09:52→22:17)
[2021-08-17] MEDS: CITALOPRAM HYDROBROMIDE 20 MG TABLET PO SCH (09:52)
[2021-08-17] MEDS: BALSAM PERU/CASTOR OIL 56.7 GM OINT...G. TP SCH (09:53)
[2021-08-17] MEDS: FOLIC ACID 1 MG TABLET PO SCH (09:53)
[2021-08-17] MEDS: FIDAXOMICIN 200 MG TABLET PO SCH ×2 (09:53→22:15)
[2021-08-17 12:30] VITALS: BP_SYST 125
[2021-08-17] MEDS: MICAFUNGIN SODIUM 100 MG in NS 100 ML IV SCH (12:31)
--- NOTE | 2021-08-17 14:00 | NUR ---
DESPITE ATTMEPTS PATIENT REFUSES ORAL GRATIFICATION, WHEN PATIENT IS AWAKE AND FOOD IS BROUGHT TOWARD MOUTH HE STATES "NO" AND CLOSES HIS MOUTH. TUBE FEEDING RUNNING AT 50ML/HR, TOLERATING WELL, WILL CONTINUE TO MONITOR.
[2021-08-17] MEDS: EPOETIN ALFA-EPBX 4,000 UNITS/ML VIAL SUBCUT SCH (17:34)
[2021-08-17 17:35] VITALS: BP_SYST 121
[2021-08-17] MEDS: MIRTAZAPINE 15 MG TABLET PO SCH (22:16)
[2021-08-18 01:20] VITALS: BP_SYST 93
[2021-08-18 08:15] VITALS: BP_SYST 142
--- NOTE | 2021-08-18 08:15 | NUR ---
Received patient at bedside awake but lethargic. Patient presented stable vital signs.
[2021-08-18 08:34] LABS: BASOPHILS % (AUTO) 0.2 % (0.0-2.0); HEMATOCRIT 26.4 % (36-54); HEMOGLOBIN 8.6 g/dL (14.0-18.0); LYMPHOCYTES # (AUTO) 0.6 K/uL (1.0-5.5); LYMPHOCYTES % (AUTO) 2.2 % (20.5-51.5); MEAN CORPUSCULAR HEMOGLOBIN 28 pg (27-31); MEAN CORPUSCULAR HGB CONC 33 % (32-36); MEAN CORPUSCULAR VOLUME 86 fL (79.0-98.0); MONOCYTES # (AUTO) 0.2 K/uL (0.0-1.0); MONOCYTES % (AUTO) 0.6 % (1.7-9.3); NEUTROPHILS # (AUTO) 26.5 K/uL (1.8-7.7); PLATELET COUNT (AUTO) 68 K/uL (130-430); RED BLOOD CELL COUNT(AUTO) 3.08 MIL/uL (4.2-6.2); RED CELL DISTRIBUTION WIDTH 17.9 % (9.0-15.0); WHITE BLOOD COUNT (AUTO) 27.3 K/uL (4.8-10.8)
[2021-08-18] MEDS: DOCUSATE SODIUM 100 MG/10 ML UDC PO SCH ×2 (09:00→21:00)
[2021-08-18] MEDS: FOLIC ACID 1 MG TABLET PO SCH (09:20)
[2021-08-18] MEDS: amLODIPine BESYLATE 5 MG TABLET PO SCH (09:21)
[2021-08-18] MEDS: CITALOPRAM HYDROBROMIDE 20 MG TABLET PO SCH (09:22)
[2021-08-18] MEDS: FIDAXOMICIN 200 MG TABLET PO SCH ×2 (10:00→21:48)
--- NOTE | 2021-08-18 10:00 | NUR ---
Patient is started on hemodialysis treatment. Will continue to monitor progress.
[2021-08-18] MEDS ORDERED: ALBUMIN HUMAN 25% 100 ML IV ONE ×2 (10:45→11:00)
[2021-08-18 10:58] VITALS: BP_SYST 142
[2021-08-18 12:00] VITALS: BP_SYST 131
[2021-08-18] MEDS: MICAFUNGIN SODIUM 100 MG in NS 100 ML IV SCH (13:09)
--- NOTE | 2021-08-18 13:13 | NUR ---
Discharge Planning: DCP faxed pt updated clinicals to [facility] P#[phone], [facility] P#[phone] att: Eitan Bond P#[phone]. DCP to follow up. Addendum: 08/18/21 at 1618 by Mindy Patel DP DCP followed up with nathaniel Macdonald at [facility] P#[phone] bed is available, DON wanted to know if there is alternative medication to Micafungin 100mg DCP discussed with CM verified medication ends 08/19/2021 [facility] P#[phone] att: Varun patient has same chair time MWF 2:00pm-6:00pm. DCP spoke to Grazyna at [facility] P#[phone] made her aware of accepting SNF and [facility] schedule, DCP made her aware pt would have to be transported via gurney. Per Grazyna there is a out of pocket for pt with gurney transport $300.00 each day. DCP made CM aware as to speak to family. DCP was also provided by [facility] facilities which have in house dialysis to off set cost of transport. DCP faxed referral to [facility] P#[phone] [facility] P#[phone] P#[phone] [facility] P#[phone] Marek PLATAP to follow up.
[2021-08-18] MEDS: BALSAM PERU/CASTOR OIL 56.7 GM OINT...G. TP SCH (14:00)
--- NOTE | 2021-08-18 14:42 | NUR ---
Patient will have share of cost for Dialysis transportation of $900.00/week. I spoke to the patient's sister,Asia, and friend ,Singh Landers. The friend ,Roland, stated the patient does have a monthly income that is administered by [facility]. I left a message for Steve, at [facility], regarding the funding for dialysis transportation co-pay for the patient.
[2021-08-18 16:00] VITALS: BP_SYST 124
--- NOTE | 2021-08-18 16:51 | NUR ---
KRYSTYNA THOMAS HERE AND SEEN PT, SPOKE WITH PT'S RN TODAY, I ASKED DR THOMAS WHEN CAN WE DC THE DRIP FOR DC PLANNING PURPOSES, SAID HE CAN SWITCH PT ON LOW DOSE ELIQUIS UPON DC. THIS RN REQUESTED PT TO PLS PUT IT IN HIS NOTES.
[2021-08-18] MEDS: ARGATROBAN 250 MG in NS 247.5 ML IV SCH (17:55)
[2021-08-18] MEDS: INSULIN REGULAR, HUMAN 100 UNITS/ML, 10 ML VIAL (humuLIN R) SUBCUT PRN (18:59)
[2021-08-18] MEDS: MIRTAZAPINE 15 MG TABLET PO SCH (21:48)
[2021-08-19 00:15] VITALS: BP_SYST 141
[2021-08-19 07:33] LABS: ANION GAP 10 (5-15); CALCIUM 7.9 mg/dL (8.4-11.0); CHLORIDE 104 mmol/L (98-107); CREATININE 2.17 mg/dL (0.55-1.30); GLUCOSE 216 mg/dL (70-99); POTASSIUM 3.3 mmol/L (3.5-5.1); SODIUM SERUM 140 mmol/L (136-145); UREA NITROGEN, BLOOD 73 mg/dL (8-21)
[2021-08-19 08:07] LABS: BASOPHILS % (AUTO) 0.2 % (0.0-2.0); EOSINOPHILS % (AUTO) 0.1 % (0.0-4.0); HEMATOCRIT 24.4 % (36-54); LYMPHOCYTES # (AUTO) 0.8 K/uL (1.0-5.5); LYMPHOCYTES % (AUTO) 3.2 % (20.5-51.5); MEAN CORPUSCULAR HEMOGLOBIN 28 pg (27-31); MEAN CORPUSCULAR HGB CONC 33 % (32-36); MEAN CORPUSCULAR VOLUME 85 fL (79.0-98.0); MONOCYTES # (AUTO) 0.2 K/uL (0.0-1.0); MONOCYTES % (AUTO) 0.8 % (1.7-9.3); NEUTROPHILS # (AUTO) 22.3 K/uL (1.8-7.7); NEUTROPHILS % (AUTO) 95.7 % (40.0-70.0); RED BLOOD CELL COUNT(AUTO) 2.86 MIL/uL (4.2-6.2); RED CELL DISTRIBUTION WIDTH 17.8 % (9.0-15.0); WHITE BLOOD COUNT (AUTO) 23.3 K/uL (4.8-10.8)
--- NOTE | 2021-08-19 08:45 | NUR ---
INITIAL ROUNDS Received pt resting quietly in bed with no s/s resp distress, no s/s pain or discomfort. Pt on C-Diff contact isolation precautions. Noted Argatroban drip infusing well to ANDREW Midline at ordered rate with s/s infiltration for site. HOB elevated for aspiration precautions. Nepro infusing well at ordered rate via g-tube. Conner draining to gravity with yellow urine. Flexiseal in place. Pt repositioned with pillow support and left heel off-loaded and right BKA stump off-loaded for skin care. Noted multiple dressings in place. Both arms and hands elevated on pillows for edema. Side rails up x3, bed alarm on for safety.
[2021-08-19 09:01] VITALS: BP_SYST 130
[2021-08-19 09:07] LABS: BASOPHILS % (AUTO) 0.2 % (0.0-2.0); EOSINOPHILS % (AUTO) 0.1 % (0.0-4.0); LYMPHOCYTES # (AUTO) 0.8 K/uL (1.0-5.5); LYMPHOCYTES % (AUTO) 3.4 % (20.5-51.5); MEAN CORPUSCULAR HEMOGLOBIN 28 pg (27-31); MEAN CORPUSCULAR HGB CONC 32 % (32-36); MEAN CORPUSCULAR VOLUME 85 fL (79.0-98.0); MONOCYTES # (AUTO) 0.2 K/uL (0.0-1.0); MONOCYTES % (AUTO) 0.9 % (1.7-9.3); NEUTROPHILS # (AUTO) 21.3 K/uL (1.8-7.7); NEUTROPHILS % (AUTO) 95.4 % (40.0-70.0); RED BLOOD CELL COUNT(AUTO) 2.93 MIL/uL (4.2-6.2); RED CELL DISTRIBUTION WIDTH 17.6 % (9.0-15.0); WHITE BLOOD COUNT (AUTO) 22.4 K/uL (4.8-10.8)
[2021-08-19 09:45] LABS: PLATELET COUNT (AUTO) 61 K/uL (130-430)
[2021-08-19] MEDS: FIDAXOMICIN 200 MG TABLET PO SCH ×2 (10:39→21:40)
[2021-08-19] MEDS: CITALOPRAM HYDROBROMIDE 20 MG TABLET PO SCH (10:40)
[2021-08-19] MEDS: amLODIPine BESYLATE 5 MG TABLET PO SCH (10:41)
[2021-08-19] MEDS: FOLIC ACID 1 MG TABLET PO SCH (10:41)
[2021-08-19] MEDS: DOCUSATE SODIUM 100 MG/10 ML UDC PO SCH ×2 (10:41→21:40)
[2021-08-19 11:30] VITALS: BP_SYST 110
[2021-08-19] MEDS: INSULIN REGULAR, HUMAN 100 UNITS/ML, 10 ML VIAL (humuLIN R) SUBCUT PRN ×3 (12:53→21:50)
[2021-08-19] MEDS ORDERED: [UNRECOGNIZED DRUG - REMARK] XX SCH (13:15)
[2021-08-19] MEDS: ARGATROBAN 250 MG in NS 247.5 ML IV SCH (13:20)
[2021-08-19 14:08] LABS: PLATELET COUNT (AUTO) 63 K/uL (130-430)
[2021-08-19] MEDS: EPOETIN ALFA-EPBX 4,000 UNITS/ML VIAL SUBCUT SCH (16:27)
[2021-08-19 16:28] VITALS: BP_SYST 114
[2021-08-19] MEDS: BALSAM PERU/CASTOR OIL 56.7 GM OINT...G. TP SCH (16:28)
--- NOTE | 2021-08-19 16:50 | NUR ---
WOUND CARE * Dressing to right lateral knee removed, area cleansed with normal saline, sure prep applied around the wound, Venelex ointment applied to wound bed and covered with a foam dressing. Wound bed 70% greenish tissue, 20% black tissue and 10% white tissue. Minimal drainage, no order. Wound measures 4.2 cm x1.8 cm. Posterior lateral calf dressing removed, area cleansed with normal saline, sure prep applied around the wound, Venelex ointment applied to wound bed and covered with a foam dressing. Wound bed 85% dark tissue, 15% pink tissue, no drainage, no odor. Wound measures 1.4 cm x2 cm. Left lateral foot dressing removed, area cleansed with normal saline, sure prep applied around the wound, wound bed painted with Betadine and covered with a foam dressing. Wound bed 85% light brown tissue, 15% pink tissue, no drainage, no odor. Wound measures 2.3 cm x 0.8 cm. Pt tolerated well.
--- NOTE | 2021-08-19 17:02 | NUR ---
Nutrition F/U Admitting Diagnosis Decubitus R foot infection Reviewed Pertinent Medical/Surgical Hx Medical Record RN Pt Medical History Comment: HTN, DM, CVA, and BPH per physician notes. Pt also found w/ severe malnutrition, complicated UTI-GNR, and R heel PU-infected d/t GNR/polymicrobial, ARF, septic shock, BECK, C diff, acute encephalopathy, and acute respiratory failure per physician notes. 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 Feed only when fully awake. Subjective Information: RD spoke w/ pt's primary RN in [facility] this afternoon. She reported that pt has not been eating pureed diet sent for BLD, mostly prefers sweets/snacks such as applesauce and puddings. RD discussed possibility of D/C pureed diet and providing pt w/ snacks from nursing station per pt request at this time -- RN agreed that this would be better as most meal trays are untouched lately -- RD confirmed this w/ PROFESSOR OF MECHANICAL ENGINEERING. RN also stated that pt's TF was held around 0230 d/t GRV of 120 ml, however, order is to hold only if GRV >400 ml. Since start of morning shift, RN stated she resumed TF and pt appears to be tolerating TF well. RD witnessed TF infusing as per physician order during rounds. Per EMR review, PO intakes have been negligible; pt is on 5 L O2 via NC; LBM x2 08/18; TF Rate: 50 ml/hr 08/17; GRV: 400 ml 08/17; TF Intakes: 60 ml 08/18; Jose scale: 9, multiple wounds and edema noted. Current TF prescription is adequate/appropriate. Current Diet Order/Nutrition Support: Renal pureed, HTL x15 days; Nepro 50 ml/hr, Free Water Flush: 100 ml Q6H (per MD), Roger BID, Prosource daily via GT x15 days Patient/Significant Other Unable To Verbalize Education Provided Not Indicated Pertinent Medications: zofran, remeron, SSI, folic acid, colace Pertinent Labs: BUN 73 H, CRE 2.17 H, BG 216 H, POC BG 176 H, AST 42 H, WBC 22.4 H Height (Feet) 6 feet Height (Inches) 0.00 inches Weight (Pounds) 06/17: 167 pounds 07/06: 212#/96.4 kg questionable 45# wt gain 07/14: 251#/114.1 kg questionable wt gain 07/16: 227#/103.1 kg 24# wt loss possibly d/t fluid shifts a/w HD 07/21: 236#/107.2 kg 9# wt gain possibly d/t fluid shifts a/w HD 07/27: 198#/89.9 kg 38# wt loss possibly d/t fluid shifts a/w HD and/or poor PO intakes >2 weeks 07/31: 200#/90.8 kg 2# wt gain possibly d/t fluid shifts a/w HD 08/03: 224#/101.6 kg 24# wt gain possibly d/t fluid shifts a/w HD 08/06: 209#/94.8 kg - 15# wt loss possibly d/t fluid shifts a/w HD 08/09: 205#/97.7 kg 4# wt gain possibly d/t fluid shifts a/w HD 08/14: 221#/100.5 kg 16# wt gain possibly d/t fluid shifts a/w HD Patient Weight 75.75 kg Body Mass Index 22.65 kg/m2 %IBW 94 [place]/Adjusted Body Weight 178#/81 kg; AdjBW: 168#/76.1 kg (-5.9% for BKA) (*ongoing) Estimated Energy Expenditure (kcals/day) 8640-4094 (30-35 kcals/kg AdjBW d/t BKA, HD, wound healing) (*ongoing) Estimated Protein Required (g/day) 95-114 g/day (1.25-1.5 gm/kg AdjBW d/t BKA, HD, wound healing) (*ongoing) Estimated Fluid Required (l/day) Per MD d/t ARF Problem/Etiology/Signs/Symptoms Increased nutritional needs R/T metabolic demands AEB estimated nutritional requirements for wound healing. (*ongoing) Altered nutrition-related labs R/T renal dysfunction AEB BUN 79 H, Cr 2.40 H and pt receiving HD. (*ongoing) Altered nutrition-related labs R/T endocrine dysfunction AEB BG 336 H and POC BG 292 H. (*ongoing) Expected Outcomes/Goals - Monitor EN tolerance w/ goal of pt meeting >80% of estimated nutritional needs, labs trending WNL, normal GI function, and skin integrity/wt maintenance Dietitian Recommendations * Continue Nepro at 50 ml/hr, Roger BID, Prosource daily, Free Water Flush: 100 ml Q6h (per physician d/t ARF) Provides: 2380 kcal/day, 117 gm protein/day, and 1272 ml free water/day Meets: 89% of upper end of estimated caloric needs and 103% of upper end of estimated protein needs * D/C Pureed, renal, HTL diet BLD * Nursing will offer snacks (puddings/applesauce/honey-thickened liquids per pt request) Follow Up Moderate Risk: F/U in 3-5 days
--- NOTE | 2021-08-19 17:10 | NUR ---
Dietitian Recommendations * Continue Nepro at 50 ml/hr, Roger BID, Prosource daily, Free Water Flush: 100 ml Q6h (per physician d/t ARF) Provides: 2380 kcal/day, 117 gm protein/day, and 1272 ml free water/day Meets: 89% of upper end of estimated caloric needs and 103% of upper end of estimated protein needs * D/C Pureed, renal, HTL diet BLD * Nursing will offer snacks (puddings/applesauce/honey-thickened liquids per pt request) LP, RD Please refer to Nutrition F/U for details.
--- NOTE | 2021-08-19 18:47 | NUR ---
CLOSING NOTE Pt resting quietly in bed with no s/s resp distress, no s/s pain or discomfort. HOB elevated for aspiration precautions. Nepro infusing well at ordered rate via g-tube. Skin, isolation and safety precautions remain in place.
[2021-08-19] MEDS: MIRTAZAPINE 15 MG TABLET PO SCH (21:40)
[2021-08-19] MEDS ORDERED: NACL 0.9% 1,000 ML IV ONE (22:00)
[2021-08-19] MEDS ORDERED: ALBUMIN HUMAN 25% 100 ML IV ONE (22:00)
--- NOTE | 2021-08-19 23:18 | NUR ---
Assumed care. Non verbal. On O2 5 liters via nasal cannula. Has a rectal tube, and it leaks. He will need changing. Presently we shall do a partial cleanse, because he is being dialyzed current. Later on we shall give him a thorough bed bath. On tube feeding tolerating well. We have suctioned him. We have been able to remove the thick secretions. Will continue to monitor.
[2021-08-20 00:28] VITALS: BP_SYST 119
--- NOTE | 2021-08-20 08:32 | NUR ---
INITIAL ROUNDS Received pt resting quietly in bed with no s/s resp distress, no s/s pain or discomfort. Pt on C-Diff contact isolation precautions. Noted Argatroban drip infusing well to ANDREW Midline at ordered rate with s/s infiltration for site. HOB elevated for aspiration precautions. Nepro infusing well at ordered rate via g-tube. Conner draining to gravity with yellow urine. Flexiseal in place. Pt repositioned with pillow support and left heel off-loaded and right BKA stump off-loaded for skin care. Both arms and hands elevated on pillows for edema. Side rails up x3, bed alarm on for safety.
[2021-08-20 08:46] VITALS: BP_SYST 103
[2021-08-20] MEDS: FOLIC ACID 1 MG TABLET PO SCH (09:51)
[2021-08-20] MEDS: CITALOPRAM HYDROBROMIDE 20 MG TABLET PO SCH (09:51)
[2021-08-20] MEDS: DOCUSATE SODIUM 100 MG/10 ML UDC PO SCH ×2 (09:52→22:24)
[2021-08-20] MEDS: amLODIPine BESYLATE 5 MG TABLET PO SCH (09:52)
[2021-08-20] MEDS: BALSAM PERU/CASTOR OIL 56.7 GM OINT...G. TP SCH (09:54)
[2021-08-20 11:35] VITALS: BP_SYST 125
[2021-08-20] MEDS: ACETAMINOPHEN 650 MG/20.3 ML UDC GT PRN (12:18)
[2021-08-20] MEDS: INSULIN REGULAR, HUMAN 100 UNITS/ML, 10 ML VIAL (humuLIN R) SUBCUT PRN ×3 (12:21→22:38)
--- NOTE | 2021-08-20 15:16 | NUR ---
WOUND CARE * Dressing to right lateral knee removed, area cleansed with normal saline, sure prep applied around the wound, Venelex ointment applied to wound bed and covered with a foam dressing. Wound bed 85% yellowish-jackson tissue, 10% black tissue and 5% pink tissue. Minimal drainage, no order. Wound measures 4.3 cm x 2 cm. Posterior lateral calf dressing removed, area cleansed with normal saline, sure prep applied around the wound, Venelex ointment applied to wound bed and covered with a foam dressing. Wound bed 85% dark tissue, 15% yellow tissue, no drainage, no odor. Wound measures 1.5 cm x 2 cm. Left lateral foot dressing removed, area cleansed with normal saline, sure prep applied around the wound, wound bed painted with Betadine and covered with a foam dressing. Wound bed 85% light brown tissue, 15% pink tissue, no drainage, no odor. Wound measures 2.3 cm x 0.8 cm.
[2021-08-20 16:15] VITALS: BP_SYST 104
--- NOTE | 2021-08-20 19:22 | NUR ---
CLOSING NOTE Pt resting quietly in bed with no s/s resp distress, no s/s pain or discomfort. HOB elevated for aspiration precautions. Nepro infusing well at ordered rate via g-tube. IV drip infusing well at ordered rate with no s/s infiltration to site. Conner draining gravity. Skin, isolation and safety precautions remain in place.
[2021-08-20 20:25] VITALS: BP_SYST 107
[2021-08-20] MEDS: MIRTAZAPINE 15 MG TABLET PO SCH (22:24)
[2021-08-21] VITALS (15 sets, daily range): BP systolic 86–161
[2021-08-21 07:22] LABS: BASOPHILS % (AUTO) 0.3 % (0.0-2.0); EOSINOPHILS % (AUTO) 0.1 % (0.0-4.0); HEMATOCRIT 22.4 % (36-54); HEMOGLOBIN 7.3 g/dL (14.0-18.0); LYMPHOCYTES # (AUTO) 0.6 K/uL (1.0-5.5); LYMPHOCYTES % (AUTO) 4.8 % (20.5-51.5); MEAN CORPUSCULAR HEMOGLOBIN 28 pg (27-31); MEAN CORPUSCULAR HGB CONC 33 % (32-36); MEAN CORPUSCULAR VOLUME 86 fL (79.0-98.0); MONOCYTES # (AUTO) 0.1 K/uL (0.0-1.0); MONOCYTES % (AUTO) 0.9 % (1.7-9.3); NEUTROPHILS # (AUTO) 11.1 K/uL (1.8-7.7); NEUTROPHILS % (AUTO) 93.9 % (40.0-70.0); PLATELET COUNT (AUTO) 60 K/uL (130-430); RED BLOOD CELL COUNT(AUTO) 2.61 MIL/uL (4.2-6.2); RED CELL DISTRIBUTION WIDTH 18.3 % (9.0-15.0); WHITE BLOOD COUNT (AUTO) 11.8 K/uL (4.8-10.8)
--- NOTE | 2021-08-21 07:34 | NUR ---
Closing Patient resting in bed, unlabored breathing with rhonchi on 5L NC. Conner and Flexiseal patent. Argatroban drip infusing as ordered. Nepro running to G tube, FWF given, 10mL residual. Dressings to sacrum, buttocks, and right knee changed. Dressings to left lower extremity clean, dry, and intact. Turned and repositioned. Fall, safety, and aspiration precautions maintained.
--- NOTE | 2021-08-21 07:45 | NUR ---
PT IN BED, BP LOW AT 94/39 TO 99/36. RESP 24, O2 SAT WAS 90% ON 5LI PER NC, PT SOUNDS VERY GURGLY AND WET, WILL REQUEST5 R.T FOR SUCTIONING.
[2021-08-21 08:12] LABS: ALANINE AMINOTRANSFERASE 42 U/L (12-78); ALBUMIN 1.5 g/dL (3.4-4.8); ANION GAP 11 (5-15); ASPARTATE AMINOTRANSFERASE 53 U/L (10-37); CALCIUM 7.3 mg/dL (8.4-11.0); CHLORIDE 103 mmol/L (98-107); GLUCOSE 149 mg/dL (70-99); POTASSIUM 3.3 mmol/L (3.5-5.1); SODIUM SERUM 139 mmol/L (136-145); TOTAL BILIRUBIN 0.4 mg/dL (0.0-1.0); UREA NITROGEN, BLOOD 76 mg/dL (8-21)
[2021-08-21] MEDS: amLODIPine BESYLATE 5 MG TABLET PO SCH (08:21)
[2021-08-21] MEDS: FOLIC ACID 1 MG TABLET PO SCH (08:54)
[2021-08-21] MEDS: CITALOPRAM HYDROBROMIDE 20 MG TABLET PO SCH (08:54)
[2021-08-21] MEDS: DOCUSATE SODIUM 100 MG/10 ML UDC PO SCH ×3 (08:55→21:00)
[2021-08-21] MEDS: BALSAM PERU/CASTOR OIL 56.7 GM OINT...G. TP SCH (09:02)
--- NOTE | 2021-08-21 09:41 | NUR ---
PT SUCTIONED BY R.T. , NO MORE GRUGLING SOUNDS. BLEEDING NOTED FROM PT'S LEFT NARES, PER R,T, , IT WAS FRM A CUT IN THE NARES, WILL CONT TO MONITOR BLEEDING.
[2021-08-21] MEDS ORDERED: ALBUMIN HUMAN 25% 200 ML IV ONE ×2 (11:00)
[2021-08-21] MEDS: INSULIN REGULAR, HUMAN 100 UNITS/ML, 10 ML VIAL (humuLIN R) SUBCUT PRN ×2 (11:57→21:37)
--- NOTE | 2021-08-21 12:30 | NUR ---
RESPIRATORY NOTES PLACED PT ON NRBM @1230 DUE TO DESATURATION. NT SUCTION WAS PREFORMED AND BROUGHT SATURATION UP TO 91%. WILL CONTINUE TO MONITOR CLOSELY.
--- NOTE | 2021-08-21 15:01 | NUR ---
RESPIRATORY THERAPY NOTES RT WAS CALLED TO PT ROOM DUE TO DESATURATION. PT IS STILL ON NRBM WHILE RECEIVING DIALYSIS, SATURATION WAS 88% THEN NT SUCTION WAS PREFORMED AGAIN AT THIS TIME AND THAT BROUGHT HIS 02 SATURATION BACK UP TO 93%. TALKED RADHA MAN ABOUT GETTING A BIPAP ORDER FOR PT IF HE CONTINUES TO DESATURATE. WILL CONTINUE TO MONITOR PT.
--- NOTE | 2021-08-21 15:34 | NUR ---
Discharge Planning: DCP followed up with [facility] P#[phone] [place]-no beds, [facility] P#[phone] [place]-per declined, [facility] P#[phone] [place]-no beds. DCP followed up with [facility] P#[phone] patient will go to Rm [facility], DCP confirmed with [facility].
[2021-08-21] MEDS: ARGATROBAN 250 MG in NS 247.5 ML IV SCH (15:36)
--- NOTE | 2021-08-21 15:36 | NUR ---
PAGED FOR ORDERS SPOKE TO: HOSPICE NURSE
[2021-08-21] MEDS ORDERED: NOREPINEPHRINE 4 MG/4 ML VIAL IV ONE (15:37)
--- NOTE | 2021-08-21 15:37 | NUR ---
pt transferred to icu with orders, report given to dev brenner. pt was desating at 15 li per non rebreather mask. and needs suctioning. pt's bp also went down post dialysis. family was called rn by pedicuristregulatory affairs intern nurse
[2021-08-21] MEDS ORDERED: DOPamine PREMIX 250 ML IV ONE (15:46)
--- NOTE | 2021-08-21 16:00 | NUR ---
PATIENT TRANSFERRED UP TO UNIT AT 1530, WHILE RECEIVING REPORT AT BEDSIDE THE PATIENT WAS HYPOTENSIVE AND BRADYCARDIC AND HEART RATE DROPPED INTO THE 30S AND HYPOXIC INTO THE 80S, RT CALLED, ASSESSED PATIENT FOR PULSE AND PULSE WAS PRESENT, PER DR JONES ORDER TO PUSH TO ATROPINE SYRINGES AND STARTED ON LEVOPHED DRIP AT 1MCG/KG/MIN. PATIENT LOST PULSE AT 1543 AND CODE BLUE CALL, CPR BEGAN. TOTAL OF 3 BICARB, 2 EPINEPHRINES, AND 1 CALCIUM PUSHED DURING CODE. PT INTUBATED AT 1549. ROSC ACHIEVED AT 1549. PATIENT IS ON LEVOPHED AT 1MCG/KG/MIN AND ARGATROBAN.
--- NOTE | 2021-08-21 16:00 | NUR ---
PAGED DR RIBERA TO REPORT INCIDENT OF CODE BLUE
--- NOTE | 2021-08-21 16:19 | NUR ---
Recovery Rn LAURENT Rick contacted patient's sister Ankita [phone] to inform her of Code Blue call. She stated she was currently in [place] for the next 2 1/2 weeks. She shared the patient's brother was currently an inpatient as well and his Cari was at bedside. Ankita provided consent to inform brother Corwin and sister in law Cari and they were updated. LICENSED FUNERAL DIRECTOR informed ICU staff of patient's brother and sister in law currently present in the facility and awaiting update. LICENSED FUNERAL DIRECTOR will continue to be available as needed
--- NOTE | 2021-08-21 17:00 | NUR ---
PAGED FOR ORDERS DIALED: [phone] SPOKE TO: EXCHANGE
--- NOTE | 2021-08-21 17:00 | NUR ---
SPOKE WITH DR SMILEY AND NOTIFIED OF PATIENT CODE BLUE, PROVIDED ABG RESULTS AND FULL REPORT, DR SMILEY ORDERED BLOOD CULTURE, 12LEAD EKG, SPUTUM CULTURE, SERUM TROPONIN, BNP, MAGNESIUM, AND PHOSPHORUS. WILL UPDATE WITH ANY CHANGES.
--- NOTE | 2021-08-21 17:30 | NUR ---
SPOKE WITH DR RIBERA AND UPDATED ON PATIENT CODE BLUE, GAVE FULL REPORT ON EVENTS AND NOTIFIED THAT DR SMILEY IS AWARE, ORDERED TO START NS AT 100ML/HR AND TO NOTIFY DR JONES.
--- NOTE | 2021-08-21 17:37 | NUR ---
NOTIFIED DR JONES, ORDERED TO BOLUS 500ML OF NORMAL SALINE THEN CONTINUOUS 100ML HR OF NS.
[2021-08-21 17:38] LABS: ANION GAP 13 (5-15); CALCIUM 7.4 mg/dL (8.4-11.0); CHLORIDE 96 mmol/L (98-107); CREATININE 1.74 mg/dL (0.55-1.30); GLUCOSE 307 mg/dL (70-99); POTASSIUM 3.5 mmol/L (3.5-5.1); SODIUM SERUM 136 mmol/L (136-145); UREA NITROGEN, BLOOD 50 mg/dL (8-21)
[2021-08-21] MEDS ORDERED: NS 500 ML IV ONE (17:45)
[2021-08-21 17:46] LABS: ALANINE AMINOTRANSFERASE 73 U/L (12-78); ALBUMIN 2.3 g/dL (3.4-4.8)
[2021-08-21] MEDS: EPOETIN ALFA-EPBX 4,000 UNITS/ML VIAL SUBCUT SCH (17:48)
[2021-08-21 17:53] LABS: PHOSPHORUS 2.5 mg/dL (2.7-4.5)
--- NOTE | 2021-08-21 17:54 | NUR ---
RESPIRATORY THERAPY NOTES. @1543 RT WAS CALLED TO CODE BLUE FOR ICU 1. CPR WAS INITIATED @1543 BY RN WHILE RT WAS AT HEAD OF BED DELIVERING 100% O2 VIA ABMU BAG. DR. CORONADO INTUBATED PT @1549 WITH ETT 7.5 SECURED @23 LIP LINE. BILATERAL CHEST RISE AND POSITIVE CO2 COLOR CHANGE. PT WAS PLACED ON THE VENT @1600 WITH THE VENT SETTINGS OF VT 500 RR 14 +5 100%. XRAY AND ABG DONE. WILL CONTINUE TO MONITOR PT.
[2021-08-21 18:08] LABS: ASPARTATE AMINOTRANSFERASE 129 U/L (10-37); TOTAL BILIRUBIN 1.4 mg/dL (0.0-1.0)
[2021-08-21 18:11] LABS: BASOPHILS % (AUTO) 0.1 % (0.0-2.0); EOSINOPHILS % (AUTO) 0.1 % (0.0-4.0); LYMPHOCYTES # (AUTO) 0.3 K/uL (1.0-5.5); LYMPHOCYTES % (AUTO) 2.8 % (20.5-51.5); MEAN CORPUSCULAR HEMOGLOBIN 28 pg (27-31); MEAN CORPUSCULAR HGB CONC 33 % (32-36); MEAN CORPUSCULAR VOLUME 87 fL (79.0-98.0); MONOCYTES # (AUTO) 0.2 K/uL (0.0-1.0); MONOCYTES % (AUTO) 1.3 % (1.7-9.3); NEUTROPHILS # (AUTO) 11.6 K/uL (1.8-7.7); NEUTROPHILS % (AUTO) 95.7 % (40.0-70.0); PLATELET COUNT (AUTO) 56 K/uL (130-430); RED BLOOD CELL COUNT(AUTO) 2.35 MIL/uL (4.2-6.2); RED CELL DISTRIBUTION WIDTH 18.9 % (9.0-15.0); WHITE BLOOD COUNT (AUTO) 12.1 K/uL (4.8-10.8)
[2021-08-21 18:15] LABS: HEMATOCRIT 20.4 % (36-54); HEMOGLOBIN 6.6 g/dL (14.0-18.0)
--- NOTE | 2021-08-21 18:30 | NUR ---
PAGED DR RIBERA TO NOTIFY OF CRITICAL HEMOGLOBIN 6.6 AND HEMATOCRIT 20.4
--- NOTE | 2021-08-21 19:05 | NUR ---
Opening notes Received report from endorsing morning shift RADHA Gomes for continuity of care. Patient lying in bed in no signs of distress with IVF NS @ 100mL/hr, levophed @0.1 mcg/kg/min, argatroban @ 0.4 mcg/kg/min. Patient's vital signs blood pressure 134/54, heart rate 146, respirations 6, and SPO2 100%. Patient is intubated; vent settings AC 14, tidal volume 500, FIO2 100%, and peep of 5. Conner catheter and rectal tube is draining to gravity. Bed is locked and in lowest position, fall and safety precautions is in place.
--- NOTE | 2021-08-21 19:43 | NUR ---
MD Dr. Winn is in the unit rounding on patient, gave verbal report. No new order given.
--- NOTE | 2021-08-21 20:01 | NUR ---
CONSULTATION PAGED/CALLED Reason for Consultation: CARDIOPULMONARY ARREST Person Who was Notified: NANDO Consulting Physician: SATYA Operating Room Tech Specialty: CARDIOLOGY Ordering Physician: MOUNIKA
--- NOTE | 2021-08-21 20:15 | NUR ---
Called Dr. Saini regarding patient's heart rate. Gave verbal report. New order given.
[2021-08-21] MEDS ORDERED: ALBUMIN HUMAN 25% 50 ML IV ONE (20:30)
[2021-08-21] MEDS: MIRTAZAPINE 15 MG TABLET PO SCH (21:00)
[2021-08-22] VITALS (30 sets, daily range): BP systolic 84–132
[2021-08-22] MEDS: NACL 0.9% 1,000 ML IV SCH ×4 (01:08→21:43)
[2021-08-22] MEDS: INSULIN REGULAR, HUMAN 100 UNITS/ML, 10 ML VIAL (humuLIN R) SUBCUT PRN ×4 (06:36→21:01)
[2021-08-22 06:37] LABS: ANION GAP 8 (5-15); CALCIUM 7.3 mg/dL (8.4-11.0); CHLORIDE 104 mmol/L (98-107); CREATININE 1.83 mg/dL (0.55-1.30); GLUCOSE 197 mg/dL (70-99); POTASSIUM 3.1 mmol/L (3.5-5.1); SODIUM SERUM 139 mmol/L (136-145); UREA NITROGEN, BLOOD 61 mg/dL (8-21)
--- NOTE | 2021-08-22 07:30 | NUR ---
PATIENT IN BED, INTUBATED VENT SETTINGS RR 14, 100%, PEEP5, TV 500. LIZ DRAINING [place] URINE TO GRAVITY, FLEXISEAL DRAINING LOOSE STOOL, GTUBE RUNNING NEPRO 50ML/HR, NO SEDATION PER DR SMILEY OR MOUNIKA, LEVOPHED DRIP PLACED ON HOLD SINCE PATIENT'S BLOOD PRESSURE IS MAP >65, CARDIZEM DRIP ON HOLD DURING NIGHT, NS RUNNING 150ML/HR, ALBUMIN WAS GIVEN DURING ELECTRICAL SYSTEM SPECIALIST, DR HERNADEZ ROUNDED ON PATIENT NO NEW ORDERS JUST CONTINUE WITH CURRENT PLAN OF CARE.
[2021-08-22 07:59] LABS: HEMATOCRIT 27.7 % (36-54); HEMOGLOBIN 9.2 g/dL (14.0-18.0); MEAN CORPUSCULAR HEMOGLOBIN 28 pg (27-31); MEAN CORPUSCULAR HGB CONC 33 % (32-36); MEAN CORPUSCULAR VOLUME 85 fL (79.0-98.0); RED BLOOD CELL COUNT(AUTO) 3.27 MIL/uL (4.2-6.2); RED CELL DISTRIBUTION WIDTH 16.9 % (9.0-15.0); WHITE BLOOD COUNT (AUTO) 6.2 K/uL (4.8-10.8)
[2021-08-22] MEDS: amLODIPine BESYLATE 5 MG TABLET PO SCH (08:26)
[2021-08-22] MEDS: FOLIC ACID 1 MG TABLET PO SCH (08:26)
[2021-08-22] MEDS: DOCUSATE SODIUM 100 MG/10 ML UDC PO SCH ×2 (08:26→20:49)
[2021-08-22] MEDS: CITALOPRAM HYDROBROMIDE 20 MG TABLET PO SCH (08:26)
--- NOTE | 2021-08-22 08:30 | NUR ---
DR CORTEZ ROUNDED ON PATIENT, CHANGED VENT SETTINGS TO PRESSURE SETTING RR 14, PEEP 5, 65%. ORDERED FOR 1 TIME LASIX 40 AND ABG.
[2021-08-22 08:43] LABS: PLATELET COUNT (AUTO) 47 K/uL (130-430)
[2021-08-22] MEDS: BALSAM PERU/CASTOR OIL 56.7 GM OINT...G. TP SCH (08:56)
[2021-08-22] MEDS ORDERED: FUROSEMIDE 40 MG/4 ML VIAL IVP ONE (09:00)
[2021-08-22] MEDS: ACETAMINOPHEN 650 MG/20.3 ML UDC GT PRN (09:26)
--- NOTE | 2021-08-22 11:00 | NUR ---
ANASTACIA CONFIRMED THE NGT PLACEMENT IN THE GASTRIC REGION, WILL CONTACT DIETARY FOR TUBE FEEDING SUGGESTIONS. Addendum: 08/22/21 at 1934 by Wesly Zavaleta RN DISREGARD WRONG PATIENT.
[2021-08-22] MEDS ORDERED: CEFEPIME 0.5 GM in D5W 50 ML IV SCH (11:30)
--- NOTE | 2021-08-22 13:00 | NUR ---
DR THOMAS ORDERED TO DECREASED ARGATROBAN TO 0.3MCG/KG/MIN SINCE PLATELETS ARE DECREASED.
[2021-08-22 13:16] LABS: BAND % (MANUAL) 37 % (0-6); BASOPHILS % (MANUAL) 0 % (0-2); EOSINOPHILS % (MANUAL) 1 % (0-7); LYMPHOCYTES % (MANUAL) 8 % (20-46); METAMYELOCYTES % 4 % (0-0); MONOCYTES % (MANUAL) 4 % (0-11)
[2021-08-22] MEDS ORDERED: ARGATROBAN 250 MG in NS 247.5 ML IV SCH (13:30)
[2021-08-22] MEDS ORDERED: POTASSIUM CHLORIDE 40 MEQ in NS 250 ML IV ONE (13:45)
[2021-08-22] MEDS: MICAFUNGIN SODIUM 100 MG in NS 100 ML IV SCH (13:56)
[2021-08-22] MEDS ORDERED: CEFEPIME 0.5 GM in D5W 50 ML IV ONE (14:00)
--- NOTE | 2021-08-22 19:05 | NUR ---
Opening notes Received report from endorsing morning RADHA Gomes for continuity of care. Patient is lying in bed in no signs of distress with IVF NS @150mL/hr, levophed @ 0.02 mcg/kg/min, and argatroban 0.3 mcg/kg/min. Tubefeeding @ 50 Nepro. Patient's vital signs blood pressure 94/35, heart rate 124, respirations 30, and SPO2 90% on ventilator. Vent setting PC 14 FIO2 60% and peep of 5. Conner catheter and rectal tube is in place draining to gravity. Bed is locked and in lowest position, call light button within reach, fall and safety precautions is in place.
--- NOTE | 2021-08-22 19:18 | NUR ---
FLEXISEAL REPLACED BECAUSE WAS NOT DRAINING AND WAS LEAKING. PATIENT TOLERATED WELL.
--- NOTE | 2021-08-22 19:32 | NUR ---
DISREGARD, WRONG PATIENT.
[2021-08-22] MEDS ORDERED: NOREPINEPHRINE 4 MG/4 ML VIAL IV ONE (19:34)
[2021-08-22] MEDS: NOREPINEPHRINE BITARTRATE 4 MG in D5W 246 ML IV PRN (19:37)
[2021-08-22] MEDS: MIRTAZAPINE 15 MG TABLET PO SCH (20:49)
[2021-08-23] VITALS (24 sets, daily range): BP systolic 70–124
[2021-08-23] MEDS ORDERED: NOREPINEPHRINE 4 MG/4 ML VIAL IV ONE ×3 (03:37→11:53)
[2021-08-23] MEDS: NOREPINEPHRINE BITARTRATE 4 MG in D5W 246 ML IV PRN (03:39)
[2021-08-23] MEDS: NACL 0.9% 1,000 ML IV SCH ×2 (05:20→09:54)
[2021-08-23 06:43] LABS: BASOPHILS % (AUTO) 0.4 % (0.0-2.0); EOSINOPHILS % (AUTO) 0.5 % (0.0-4.0); HEMATOCRIT 26.3 % (36-54); HEMOGLOBIN 8.8 g/dL (14.0-18.0); LYMPHOCYTES # (AUTO) 0.6 K/uL (1.0-5.5); MEAN CORPUSCULAR HEMOGLOBIN 28 pg (27-31); MEAN CORPUSCULAR HGB CONC 34 % (32-36); MEAN CORPUSCULAR VOLUME 84 fL (79.0-98.0); MONOCYTES % (AUTO) 1.3 % (1.7-9.3); NEUTROPHILS # (AUTO) 3.1 K/uL (1.8-7.7); NEUTROPHILS % (AUTO) 82.8 % (40.0-70.0); RED BLOOD CELL COUNT(AUTO) 3.11 MIL/uL (4.2-6.2); RED CELL DISTRIBUTION WIDTH 17.7 % (9.0-15.0); WHITE BLOOD COUNT (AUTO) 3.7 K/uL (4.8-10.8)
[2021-08-23 08:00] LABS: ANION GAP 13 (5-15); CHLORIDE 107 mmol/L (98-107); CREATININE 2.28 mg/dL (0.55-1.30); GLUCOSE 146 mg/dL (70-99); POTASSIUM 3.7 mmol/L (3.5-5.1); SODIUM SERUM 139 mmol/L (136-145); UREA NITROGEN, BLOOD 68 mg/dL (8-21)
[2021-08-23] MEDS: CITALOPRAM HYDROBROMIDE 20 MG TABLET PO SCH (08:21)
[2021-08-23] MEDS: amLODIPine BESYLATE 5 MG TABLET PO SCH (08:21)
[2021-08-23] MEDS: FOLIC ACID 1 MG TABLET PO SCH (08:21)
[2021-08-23] MEDS: BALSAM PERU/CASTOR OIL 56.7 GM OINT...G. TP SCH (08:22)
[2021-08-23] MEDS: DOCUSATE SODIUM 100 MG/10 ML UDC PO SCH (08:22)
[2021-08-23 08:26] LABS: PLATELET COUNT (AUTO) 30 K/uL (130-430)
[2021-08-23] MEDS: ACETAMINOPHEN 650 MG/20.3 ML UDC GT PRN ×2 (08:30→14:15)
[2021-08-23 08:45] LABS: CALCIUM 6.9 mg/dL (8.4-11.0)
[2021-08-23] MEDS ORDERED: MORPHINE SULFATE IN 0.9 % NACL 100 ML IV PRN (08:45)
[2021-08-23] MEDS ORDERED: NALOXONE HCL 0.4 MG/ML AMP (NARCAN) IVP PRN (08:45)
[2021-08-23] MEDS ORDERED: MIDAZOLAM IN NACL,ISO-OSMOT/PF 100 ML IV PRN (09:00)
[2021-08-23] MEDS ORDERED: NS 500 ML IV ONE (09:00)
--- NOTE | 2021-08-23 09:13 | NUR ---
REPORTED PTT OF 143.6 AND PLATELETS OF [address] THOMAS, ORDERED TO STOP ARGATROBAN AND RECHECK PTT IN 4 HOURS AND TO NOT CALL RESULTS BECAUSE HE WILL BE HERE IN THE EVENING TO REASSESS THE PATIENT.
--- NOTE | 2021-08-23 09:30 | NUR ---
TALKED WITH MD SMILEY ABOUT PATIENT'S SPO2 IN LOW 80s AND HIGH 70s. MD SMILEY AWARE AND NO NEW ORDERS. PATIENT ON 100% FIO2 AND PEEP OF 5. RN AWARE OF CALL WELL.
[2021-08-23] MEDS ORDERED: CALCIUM CHLORIDE 1 GM in NS 100 ML IV ONE (09:45)
--- NOTE | 2021-08-23 11:40 | NUR ---
MD BALJIT HU. PT'S HR 140s SPO2 IN 60s. WAITING FOR CALL BACK.
[2021-08-23] MEDS ORDERED: VASOPRESSIN 20 UNITS/ML VIAL IV ONE (12:04)
[2021-08-23] MEDS ORDERED: PHENYLEPHRINE HCL 50 MG in NS 250 ML IV PRN (12:15)
[2021-08-23] MEDS ORDERED: SODIUM BICARBONATE 8.4% JECT 50 MEQ/50 ML SYRINGE IVP ONE (12:15)
[2021-08-23] MEDS ORDERED: VASOPRESSIN 20 UNITS in NS 99 ML IV PRN (12:15)
[2021-08-23] MEDS: SODIUM BICARBONATE 8.4% JECT 50 MEQ/50 ML SYRINGE ONE ×2 (12:16→12:52)
[2021-08-23] MEDS: MIDODRINE HCL 5 MG TABLET (PROAMATINE) PO SCH ×2 (12:22→15:39)
--- NOTE | 2021-08-23 13:45 | NUR ---
TIME APPROX. PT LOST PULSES MOMENTARILY. BEGAN FULL ACLS PROTOCOLS. PULSES RETURNED. ER DOC CAME TO BEDSIDE. FI02 AT 100% BUT 02 SATURATION IN THE 50'S. RT FOLLOWED UP WITH UPHOLSTERY COVERS INSPECTOR.
[2021-08-23] MEDS ORDERED: CEFEPIME 0.5 GM in D5W 50 ML IV SCH (14:00)
[2021-08-23] MEDS ORDERED: NOREPINEPHRINE BITARTRATE 16 MG in D5W 234 ML IV PRN ×2 (14:15→16:00)
--- NOTE | 2021-08-23 14:20 | NUR ---
Nutrition F/U Admitting Diagnosis Decubitus R foot infection Reviewed Pertinent Medical/Surgical Hx Medical Record RN Pt Medical History Comment: HTN, DM, CVA, and BPH per physician notes. Pt also found w/ severe malnutrition, complicated UTI-GNR, and R heel PU-infected d/t GNR/polymicrobial, ARF, septic shock, BECK, C diff, acute encephalopathy, and acute respiratory failure per physician notes. 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 Feed only when fully awake. 08/10/21 positive for fungemia Subjective Information: Pt due for moderate risk f/u. PO diet of renal, pureed, HTL recently d/c d/t poor PO intake, RNs to provide pt w/ snacks from nursing station per pt request. Per EMR review, PO intakes have been negligible. Pt is on 4 L O2 via NC. Jose score 12, multiple wounds/edema continue to be noted. Abdomen is firm, non-distended w/ active BS. 70 mL GRV noted today. Per ICU rounds, pt continues to be on isolation for C. diff. Plan to try HD again today. Current TF prescription is exceeding needs. DI witnessed TF running at goal rate. Current Diet Order/Nutrition Support: Nepro 50 ml/hr, Free Water Flush: 100 ml Q6H (per MD), Roger BID, Prosource daily via GT x19 days Patient/Significant Other Unable To Verbalize Education Provided Not Indicated Pertinent Medications: zofran, remeron, SSI, folic acid, colace Pertinent Labs: BUN 66 H, Cr 2.28 H, BG 146 H, POC BG 134 H, Ca 6.9 L, Trop 3828 H, WBC 3.7 L Height (Feet) 6 feet Height (Inches) 0.00 inches Weight (Pounds) 06/17: 167 pounds 07/06: 212#/96.4 kg questionable 45# wt gain 07/14: 251#/114.1 kg questionable wt gain 07/16: 227#/103.1 kg 24# wt loss possibly d/t fluid shifts a/w HD 07/21: 236#/107.2 kg 9# wt gain possibly d/t fluid shifts a/w HD 07/27: 198#/89.9 kg 38# wt loss possibly d/t fluid shifts a/w HD and/or poor PO intakes >2 weeks 07/31: 200#/90.8 kg 2# wt gain possibly d/t fluid shifts a/w HD 08/03: 224#/101.6 kg 24# wt gain possibly d/t fluid shifts a/w HD 08/06: 209#/94.8 kg - 15# wt loss possibly d/t fluid shifts a/w HD 08/09: 205#/97.7 kg 4# wt gain possibly d/t fluid shifts a/w HD 08/14: 221#/100.5 kg 16# wt gain possibly d/t fluid shifts a/w HD 08/23: 212#/96.2 kg 9# wt loss possibly d/t fluid shifts a/w HD Patient Weight 75.75 kg Body Mass Index 22.65 kg/m2 %IBW 94 [place]/Adjusted Body Weight 178#/81 kg; AdjBW: 168#/76.1 kg (-5.9% for BKA) (*NEW) Estimated Energy Expenditure (kcals/day) 1730 (PSU , Ve: 9.2, Tmax: 37.1 C) (*ongoing) Estimated Protein Required (g/day) 95-114 g/day (1.25-1.5 gm/kg AdjBW d/t BKA, HD, wound healing) (*ongoing) Estimated Fluid Required (l/day) Per MD d/t ARF Problem/Etiology/Signs/Symptoms Increased nutritional needs R/T metabolic demands AEB estimated nutritional requirements for wound healing. (*ongoing) Altered nutrition-related labs R/T renal dysfunction AEB BUN 79 H, Cr 2.40 H and pt receiving HD. (*ongoing) Altered nutrition-related labs R/T endocrine dysfunction AEB BG 336 H and POC BG 292 H. (*ongoing) Expected Outcomes/Goals - Monitor EN tolerance w/ goal of pt meeting >80% of estimated nutritional needs, labs trending WNL, normal GI function, and skin integrity/wt maintenance Dietitian Recommendations * Nepro at 35 ml/hr, Roger BID, Prosource daily, Free Water Flush: 100 ml Q6h (per physician d/t ARF) Provides: 1732 kcal/day, 88 gm protein/day, and 1010 ml free water/day Meets: 100% of of estimated caloric needs and 93% of upper end of estimated protein needs * Nursing will offer snacks (puddings/applesauce/honey-thickened liquids per pt request) Follow Up Moderate Risk: F/U in 3-5 days Signed: 08/23/21 at 1421 by Analia NOLAND <Co-Signature Required> Co-Signed: 08/23/21 at [address]
--- NOTE | 2021-08-23 14:21 | NUR ---
Dietitian Recommendations: * Nepro at 35 ml/hr, Roger BID, Prosource daily, Free Water Flush: 100 ml Q6h (per physician d/t ARF) Provides: 1732 kcal/day, 88 gm protein/day, and 1010 ml free water/day Meets: 100% of of estimated caloric needs and 93% of upper end of estimated protein needs * Nursing will offer snacks (puddings/applesauce/honey-thickened liquids per pt request) Please refer to nutrition f/u for details. Signed: 08/23/21 at 1422 by Analia NOLAND <Co-Signature Required> Co-Signed: 08/23/21 at [address]
[2021-08-23] MEDS: MICAFUNGIN SODIUM 100 MG in NS 100 ML IV SCH (14:24)
--- NOTE | 2021-08-23 14:36 | NUR ---
SPOKE WITH HIS SISTER FARHEEN UPDATED FAMILY ON THE CONDITION OF THE PT. FARHEEN IS CHOOSING FOR PT TO REMAIN A FULL CODE PER HIS WISHES.
--- NOTE | 2021-08-23 14:56 | NUR ---
Clinical Business Analyst LAURENT Rick provided update to patient's brother (brother Corwin is currently inpatient room 118) Cari on patient status. LAURENT Rick contacted patient's sister Ankita to provide update, she shared ICU nurse had just provided an update. LAURENT will continue to be available as needed
--- NOTE | 2021-08-23 15:00 | NUR ---
AT APPROX 1200 SPOKE WITH BALJIT TO ADVISE OF PT STATUS. DUE TO PT HYPOTENSION DR SMILEY ORDERED NEOSYNEPHRINE, VASOPRESSIN, BICARB. AT APPROX 1600 SPOKE WITH KAREN. NOTIFIED PT WAS UNABLE TO GET DIALYSIS DUE TO HYPOTENSION. ORDERED TO GIVE ALBUMIN.
[2021-08-23] MEDS ORDERED: PHENYLEPHRINE HCL 100 MG in NS 240 ML IV PRN (15:30)
[2021-08-23] MEDS ORDERED: ALBUMIN HUMAN 25% 200 ML IV ONE (16:30)
[2021-08-23] MEDS ORDERED: EPINEPHrine 1 MG/ML VIAL ONE (16:41)
--- NOTE | 2021-08-23 16:57 | NUR ---
FULL ARREST CODE STARTED AT 1626. PT HYPOTENSIVE IN THE 40'S, MAP IN THE 40'S. OXYGEN SATURATION IN THE 50'S WITH FI02 AT 100%. FULL ACLS PROTOCOLS PERFORMED. PT PULSELESS ON MONITOR WELL AUSCULTATION WITH DOPPLER. CONTINUOUS CPR PERFORMED WITH MEDICATIONS GIVEN. 1630 DR SUAREZ AT BEDSIDE. CONTINUED HIGH QUALITY ACLS PROTOCOLS PERFORMED. PT PRONOUNCED AT 1641 AFTER EXHAUSTING ALL NECESSARY INTERVENTIONS. PT REMAINS ASYSTOLE ON MONITOR WELL ON AUSCULTATION. TERMINATED EFFORTS.
--- NOTE | 2021-08-23 17:00 | NUR ---
SENIOR OPERATIONS MANAGER AND [facility] SENIOR OPERATIONS MANAGER- SPOKE WITH Courtney WEINBERG FROM THE SENIOR OPERATIONS MANAGER'S OFFICE AT 1704. SENIOR OPERATIONS MANAGER DECLINES TO ACCEPT AND FULLY RELEASED THE PT TO THE FAMILY. [facility]- SPOKE WITH FEROZ AT 1708 REF #[id number]. [facility] ALSO DECLINES TO ACCEPT AND FULLY RELEASED THE PT TO THE FAMILY.
[2021-08-23] MEDS ORDERED: D5W 250 ML IV.SOLN IV ONE (17:02)
[2021-08-23] MEDS ORDERED: ATROPINE SULFATE 1 MG/10 ML SYRINGE IVP ONE (17:55)
[2021-08-23] MEDS ORDERED: SODIUM BICARBONATE 8.4% JECT 50 MEQ/50 ML SYRINGE ONE (17:55)
[2021-08-23] MEDS ORDERED: EPINEPHrine JECT 0.1 MG/ML SYR ONE (17:55)
[2021-08-23] MEDS ORDERED: CALCIUM CHLORIDE 1 GM/10 ML DISP.SYRIN (14 mEq Ca++/SYR) ONE (17:55)
[2021-08-23] MEDS ORDERED: NOREPINEPHRINE BITARTRATE 32 MG in D5W 218 ML IV PRN (18:00)
--- NOTE | 2021-08-23 19:24 | NUR ---
RECIEVED REPORT FROM DAY SHIFT RN. ALL QUESTIONS ADDRESSED AND ANSWERED. ACCEPTED PLAN OF CARE.
--- NOTE | 2021-08-23 20:26 | NUR ---
SUCCESSFULLY BAG AND TAG THE PATIENT. THERE IS CURRENTLY NO ROOM FOR THE PT. AT THE MORTUARY. ADDED A SECOND BAG TO THE PT AND APPLIED ICE AROUND THE PT.
== END 2021-08-23 16:41 | DRG 853 ==
LOC: SED 12:17 → SMU 19:24 → SIC 07-01 15:27 → SMU 07-01 15:34 → STU 07-02 08:54 → SIC 07-02 10:20 → STU 07-09 11:55 → SMU 08-03 14:21 → STU 08-10 19:05 → SIC 08-21 15:30
PROVIDERS: ADMIT Family Medicine; ATTEND Family Medicine
PROC: 30233N1 Transfusion of Nonautologous Red Blood Cells into Peripheral Vein, Percutaneous Approach (ICD-10-PCS; 2021-06-19)
PROC: 0JBN0ZZ Excision of Right Lower Leg Subcutaneous Tissue and Fascia, Open Approach (ICD-10-PCS; 2021-06-26)
PROC: 0JBQ0ZZ Excision of Right Foot Subcutaneous Tissue and Fascia, Open Approach (ICD-10-PCS; principal; 2021-06-26 11:30)
PROC: 5A09357 Assistance with Respiratory Ventilation, Less than 24 Consecutive Hours, Continuous Positive Airway Pressure (ICD-10-PCS; 2021-07-01)
PROC: 0BH17EZ Insertion of Endotracheal Airway into Trachea, Via Natural or Artificial Opening (ICD-10-PCS; 2021-07-02)
PROC: 5A1955Z Respiratory Ventilation, Greater than 96 Consecutive Hours (ICD-10-PCS; 2021-07-02)
PROC: 02HV33Z Insertion of Infusion Device into Superior Vena Cava, Percutaneous Approach (ICD-10-PCS; 2021-07-03)
PROC: B548ZZA Ultrasonography of Superior Vena Cava, Guidance (ICD-10-PCS; 2021-07-03)
PROC: 5A1D70Z Performance of Urinary Filtration, Intermittent, Less than 6 Hours Per Day (ICD-10-PCS; 2021-07-03)
PROC: 5A1D70Z Performance of Urinary Filtration, Intermittent, Less than 6 Hours Per Day (ICD-10-PCS; 2021-07-04)
PROC: 5A1D70Z Performance of Urinary Filtration, Intermittent, Less than 6 Hours Per Day (ICD-10-PCS; 2021-07-06)
PROC: 0Y6H0Z2 Detachment at Right Lower Leg, Mid, Open Approach (ICD-10-PCS; 2021-07-07)
PROC: 5A1D70Z Performance of Urinary Filtration, Intermittent, Less than 6 Hours Per Day (ICD-10-PCS; 2021-07-08)
PROC: 5A1D70Z Performance of Urinary Filtration, Intermittent, Less than 6 Hours Per Day (ICD-10-PCS; 2021-07-11)
PROC: 5A1D70Z Performance of Urinary Filtration, Intermittent, Less than 6 Hours Per Day (ICD-10-PCS; 2021-07-13)
PROC: 5A1D70Z Performance of Urinary Filtration, Intermittent, Less than 6 Hours Per Day (ICD-10-PCS; 2021-07-14)
PROC: 5A1D70Z Performance of Urinary Filtration, Intermittent, Less than 6 Hours Per Day (ICD-10-PCS; 2021-07-17)
PROC: 5A1D70Z Performance of Urinary Filtration, Intermittent, Less than 6 Hours Per Day (ICD-10-PCS; 2021-07-19)
PROC: 5A1D70Z Performance of Urinary Filtration, Intermittent, Less than 6 Hours Per Day (ICD-10-PCS; 2021-07-21)
PROC: 5A1D70Z Performance of Urinary Filtration, Intermittent, Less than 6 Hours Per Day (ICD-10-PCS; 2021-07-24)
PROC: 5A1D70Z Performance of Urinary Filtration, Intermittent, Less than 6 Hours Per Day (ICD-10-PCS; 2021-07-26)
PROC: 5A1D70Z Performance of Urinary Filtration, Intermittent, Less than 6 Hours Per Day (ICD-10-PCS; 2021-07-28)
PROC: 02PYX3Z Removal of Infusion Device from Great Vessel, External Approach (ICD-10-PCS; 2021-07-31)
PROC: 0JH63XZ Insertion of Tunneled Vascular Access Device into Chest Subcutaneous Tissue and Fascia, Percutaneous Approach (ICD-10-PCS; 2021-07-31)
PROC: 02HV33Z Insertion of Infusion Device into Superior Vena Cava, Percutaneous Approach (ICD-10-PCS; 2021-07-31)
PROC: B548ZZA Ultrasonography of Superior Vena Cava, Guidance (ICD-10-PCS; 2021-07-31)
PROC: 5A1D70Z Performance of Urinary Filtration, Intermittent, Less than 6 Hours Per Day (ICD-10-PCS; 2021-08-01)
PROC: 5A1D70Z Performance of Urinary Filtration, Intermittent, Less than 6 Hours Per Day (ICD-10-PCS; 2021-08-03)
PROC: 0DH63UZ Insertion of Feeding Device into Stomach, Percutaneous Approach (ICD-10-PCS; 2021-08-04)
PROC: 5A1D70Z Performance of Urinary Filtration, Intermittent, Less than 6 Hours Per Day (ICD-10-PCS; 2021-08-04)
PROC: 5A1D70Z Performance of Urinary Filtration, Intermittent, Less than 6 Hours Per Day (ICD-10-PCS; 2021-08-07)
PROC: 5A1D70Z Performance of Urinary Filtration, Intermittent, Less than 6 Hours Per Day (ICD-10-PCS; 2021-08-09)
PROC: 5A1D70Z Performance of Urinary Filtration, Intermittent, Less than 6 Hours Per Day (ICD-10-PCS; 2021-08-11)
PROC: 5A1D70Z Performance of Urinary Filtration, Intermittent, Less than 6 Hours Per Day (ICD-10-PCS; 2021-08-14)
PROC: 5A1D70Z Performance of Urinary Filtration, Intermittent, Less than 6 Hours Per Day (ICD-10-PCS; 2021-08-16)
PROC: 5A1D70Z Performance of Urinary Filtration, Intermittent, Less than 6 Hours Per Day (ICD-10-PCS; 2021-08-18)
PROC: 5A1D70Z Performance of Urinary Filtration, Intermittent, Less than 6 Hours Per Day (ICD-10-PCS; 2021-08-19)
PROC: 5A1945Z Respiratory Ventilation, 24-96 Consecutive Hours (ICD-10-PCS; 2021-08-21)
PROC: 5A12012 Performance of Cardiac Output, Single, Manual (ICD-10-PCS; 2021-08-21)
PROC: 5A1D70Z Performance of Urinary Filtration, Intermittent, Less than 6 Hours Per Day (ICD-10-PCS; 2021-08-21)
PROC: 5A12012 Performance of Cardiac Output, Single, Manual (ICD-10-PCS; 2021-08-23)
PROC: 5A1D70Z Performance of Urinary Filtration, Intermittent, Less than 6 Hours Per Day (ICD-10-PCS; 2021-08-23)
DX: A41.50 Gram-negative sepsis, unspecified (principal); M72.6 Necrotizing fasciitis; E43 Unspecified severe protein-calorie malnutrition; R65.21 Severe sepsis with septic shock; J18.9 Pneumonia, unspecified organism; J96.01 Acute respiratory failure with hypoxia; N39.0 Urinary tract infection, site not specified; A04.72 Enterocolitis due to Clostridium difficile, not specified as recurrent; F33.1 Major depressive disorder, recurrent, moderate; I69.351 Hemiplegia and hemiparesis following cerebral infarction affecting right dominant side; N17.9 Acute kidney failure, unspecified; R47.01 Aphasia; M86.8X7 Other osteomyelitis, ankle and foot; G93.40 Encephalopathy, unspecified; B49 Unspecified mycosis; E11.52 Type 2 diabetes mellitus with diabetic peripheral angiopathy with gangrene; I96 Gangrene, not elsewhere classified; K92.2 Gastrointestinal hemorrhage, unspecified; N40.0 Benign prostatic hyperplasia without lower urinary tract symptoms; B95.62 Methicillin resistant Staphylococcus aureus infection as the cause of diseases classified elsewhere; B96.4 Proteus (mirabilis) (morganii) as the cause of diseases classified elsewhere; D50.0 Iron deficiency anemia secondary to blood loss (chronic); D63.8 Anemia in other chronic diseases classified elsewhere; D75.82 Heparin induced thrombocytopenia (HIT); E11.22 Type 2 diabetes mellitus with diabetic chronic kidney disease; E11.69 Type 2 diabetes mellitus with other specified complication; F41.9 Anxiety disorder, unspecified; N18.9 Chronic kidney disease, unspecified; Z20.822 Contact with and (suspected) exposure to COVID-19; L89.612 Pressure ulcer of right heel, stage 2; I12.9 Hypertensive chronic kidney disease with stage 1 through stage 4 chronic kidney disease, or unspecified chronic kidney disease; L89.629 Pressure ulcer of left heel, unspecified stage; I46.9 Cardiac arrest, cause unspecified; I48.0 Paroxysmal atrial fibrillation; R13.10 Dysphagia, unspecified; R62.7 Adult failure to thrive; Z79.2 Long term (current) use of antibiotics; Z86.19 Personal history of other infectious and parasitic diseases; Z89.511 Acquired absence of right leg below knee; Z79.82 Long term (current) use of aspirin; Z79.4 Long term (current) use of insulin; Z79.899 Other long term (current) drug therapy; Z68.28 Body mass index [BMI] 28.0-28.9, adult; Z74.01 Bed confinement status
CPT/HCPCS: 36415; 36600; 43760; 70450-TC; 71045; 73719; 76000; 76376; 76770; 80048; 80053; 80202; 81000; 81003; 82272; 82607; 82728; 82746; 82803-TC; 82962; 83540; 83550; 83605; 83735; 83880; 84100; 84260; 84478; 84484; 85007; 85025; 85027; 85044; 85610-TC; 85651-TC; 85730-TC; 86022; 86140; 86480; 86704; 86706; 86803; 86886; 86900; 86901; 86920; 87040; 87070-TC; 87075-TC; 87081; 87086; 87186-TC; 87205-TC; 87230-TC; 87340; 88304; 88305; 88311; 90935; 90937; 92610-GN; 92950; 93005; 93306; 93970; 93971; 94002; 94003; 94640; 94660; 94760; 96365; 96368; 99285; A9575; C1713; C1750; G0378; J0171; J0360; J0461; J0610; J0690; J0692; J0883; J1100; J1170; J1265; J1450; J1644; J1650; J1815; J1940; J2001; J2185; J2248; J2250; J2270; J2370; J2405; J2543; J2704; J3010; J3370; J3475; J3480; J3490; J7030; J7050; J7060; J7131; P9021; P9046; Q5106